=== PATIENT | female | born 1975 | race Caucasian/White ===

== ENCOUNTER → 2019-07-18 10:34 | Outpatient (CLI) | payer OTHER, SELFPAY ==
--- NOTE | ~2019-07-18 | MR_ITS ---
EXAMINATION: MR shoulder LT wo con DATE: 07/18/2019 11:20 INDICATION: Left shoulder pain. TECHNIQUE: Magnetic resonance imaging (MRI) of the left shoulder was performed without intravenous co ntrast. Sequences included axial PD-weighted FS FSE, coronal oblique PD-weighted FS FSE and T2-weight ed FS FSE, and sagittal oblique T2-weighted FS FSE and T1-weighted FSE. COMPARISON: None. FINDINGS: Coracoacromial arch: The acromion undersurface is curved in morphology (type II). Subacromial spurring is noted. There is mild acromioclavicular joint osteoarthritis. There is a physiologic volume of fluid in subacromial/mercado bdeltoid bursa. Rotator cuff: There is mild supraspinatus tendinopathy. Infraspinatus, teres minor, and subscapularis tendons are n ormal. There is no asymmetric fatty atrophy of the rotator cuff muscle bellies. Biceps tendon and glenoid labrum: Biceps tendon is in bicipital groove. Intra-articular biceps tendon is normal. The glenoid labrum is normal. Fluid: There is no glenohumeral joint effusion. Bones/cartilage: Glenoid cartilage is normal. Humeral head cartilage is normal. IMPRESSION: 1. Mild rotator cuff tendinopathy. No tear. 2. Mild acromioclavicular joint osteoarthritis. Reviewed, dictated and finalized at location A. RAFT PNEUDRAULICS REPAIRER
== END ==
PROVIDERS: PCP Family Medicine; Visit Provider Nurse Practitioner Family
DX: M25.512 Pain in left shoulder (principal); M75.82 Other shoulder lesions, left shoulder; M19.012 Primary osteoarthritis, left shoulder
CPT/HCPCS: 73221

== ENCOUNTER 2020-02-14 10:29 | Outpatient (CLI) | payer OTHER, SELFPAY ==
--- NOTE | ~2020-02-14 | US_ITS ---
EXAMINATION: US pelvic complete EXAM DATE: 02/14/2020 11:00 INDICATION: Irregular, frequent menses. TECHNIQUE: Pelvic transabdominal and transvaginal sonogram was performed. There are multiple graysca le and Doppler images available for interpretation. There is no prior study for comparison. FINDINGS: Uterus measures 7.6 x 3.4 x 3.8 cm, and is morphologically normal. Endometrial stripe dustin sures 4 mm, within normal limits. There is no free pelvic fluid. Right adnexa: The ovary measures 2.5 x 1.5 x 2.6 cm and is morphologically normal. Ovarian vascular f low confirmed. Left adnexa: The ovary measures 3.0 x 1.4 x 2.3 cm and is morphologically normal. Ovarian vascular fl ow confirmed. IMPRESSION: Unremarkable pelvic ultrasound exam. Reviewed, dictated and finalized at location A.
== END 2020-02-14 10:30 | disposition home or self-care (01) ==
PROVIDERS: PCP Family Medicine; Visit Provider Nurse Practitioner Family
DX: N92.0 Excessive and frequent menstruation with regular cycle (principal); N92.6 Irregular menstruation, unspecified
CPT/HCPCS: 76856

== ENCOUNTER 2020-06-05 09:16 | Outpatient (CLI) | payer OTHER, SELFPAY ==
--- NOTE | ~2020-06-05 | MM_ITS ---
EXAMINATION: MM screening [facility] BI w prince HISTORY: Screening mammogram TECHNIQUE: Craniocaudal and mediolateral oblique 3-D tomosynthesis images were obtained and synthetic 2-D images were generated. CAD analysis was submitted and interpreted. COMPARISON: 11/28/2017, 07/17/2015, 07/16/2013 BREAST PARENCHYMAL COMPOSITION: The breasts are almost entirely fatty. FINDINGS: A stable left breast masses considered benign given the lack of interval change. There is f ocal asymmetry in the central right breast. There is no evidence of suspicious mass, calcification, o r architectural distortion to suggest malignancy in either breast. There has been no suspicious inter mirella change. IMPRESSION: 1. No mammographic evidence of malignancy. 2. Recommend routine screening mammography in one year. BI-RADS Category 2: Benign finding(s). Reviewed, dictated and finalized at location A. NISTRATIVE SERVICES COORDINATOR
== END 2020-06-05 09:17 | disposition home or self-care (01) ==
LOC: ANHIMG 09:19
PROVIDERS: PCP Family Medicine; Visit Provider Obstetrics & Gynecology
DX: Z12.31 Encounter for screening mammogram for malignant neoplasm of breast (principal)
CPT/HCPCS: 77063; 77067

== ENCOUNTER 2020-11-12 10:10 | Outpatient (CLI) | payer OTHER, SELFPAY ==
--- NOTE | ~2020-11-12 | XR_ITS ---
XR lumbar spine 2-3V DATE: 11/12/2020 10:47 INDICATION: Low back pain. No known injury. TECHNIQUE: AP, lateral, coned lateral lumbosacral views COMPARISON: 08/01/2018 lumbar spine FINDINGS: No fracture or bone destruction or spondylolisthesis. The included lower thoracic and lumba r pedicles are intact. There is mild loss of interspace height at L1-L2 3. The remaining lumbar levels interspaces are well preserved. The sacroiliac joints are normal. IMPRESSION: Mild loss of interspace height at L1-2 and L2-3 Reviewed, dictated and finalized at location A.
== END 2020-11-12 10:11 | disposition home or self-care (01) ==
LOC: ANHIMG 10:12
PROVIDERS: PCP Family Medicine; Visit Provider Nurse Practitioner
DX: M47.816 Spondylosis without myelopathy or radiculopathy, lumbar region (principal)
CPT/HCPCS: 72100

== ENCOUNTER 2021-02-19 14:54 | Outpatient (CLI) | payer OTHER, SELFPAY ==
--- NOTE | ~2021-02-19 | MR_ITS ---
EXAMINATION: MR lumbar spine wo [facility] EXAM DATE: 02/19/2021 15:38 INDICATION: M54.5 - Low back pain . TECHNIQUE: Multi-sequential, multiplanar MR images of the lumbar spine were obtained without contrast . Sagittal T1, T2, T2 fat saturation images. Axial T2 weighted images. Comparison is made to prior examination from 02/16/2015. FINDINGS: Mild thoracolumbar disc disease. Hemangiomata within T12 and L2. There is 2 mm retrolisthes is L5 on S1. The conus medullaris terminates at the T12-L1 level and has normal signal intensity and morphology. Paraspinal soft tissue is unremarkable. Level by level evaluation: T12-L1: Disc does not extend beyond the endplate margin. Facet arthropathy: Mild. Neural foraminal stenosis: No stenosis. Central canal stenosis: No stenosis. L1-L2: Disc does not extend beyond the endplate margin. Facet arthropathy: Mild. Neural foraminal stenosis: No stenosis. Central canal stenosis: No stenosis. L2-L3: Disc does not extend beyond the endplate margin. Facet arthropathy: Mild. Neural foraminal stenosis: No stenosis. Central canal stenosis: No stenosis. L3-L4: There is a mild diffuse disc bulge. Facet arthropathy: Mild. Neural foraminal stenosis: No stenosis. Central canal stenosis: No stenosis. L4-L5: There is a mild diffuse disc bulge. Facet arthropathy: Mild to moderate. Neural foraminal stenosis: Mild right. Central canal stenosis: No stenosis. L5-S1: There is a mild diffuse disc bulge. Facet arthropathy: Mild to moderate. Neural foraminal stenosis: Minimal bilateral. Central canal stenosis: No stenosis. Slight progression in the mild disease and arthropathy compared to 2014. IMPRESSION: Mild to moderate lower lumbar facet arthropathy. Mild disc disease. Reviewed, dictated and finalized at location B.
== END 2021-02-19 14:55 | disposition home or self-care (01) ==
LOC: ANHIMG 15:00
PROVIDERS: PCP Family Medicine; Visit Provider Nurse Practitioner Family
DX: M54.5 Low back pain (principal); M47.896 Other spondylosis, lumbar region; M51.86 Other intervertebral disc disorders, lumbar region
CPT/HCPCS: 72148

== ENCOUNTER 2021-06-11 10:13 | Outpatient (CLI) | payer OTHER, SELFPAY ==
--- NOTE | ~2021-06-11 | MM_ITS ---
EXAMINATION: MM screening [facility] BI w prince HISTORY: Screening TECHNIQUE: Craniocaudal and mediolateral oblique 3-D tomosynthesis images were obtained and synthetic 2-D images were generated. CAD analysis was submitted and interpreted. COMPARISON: Comparison to multiple prior studies sequentially, with oldest reviewed study dated 12/12. BREAST PARENCHYMAL COMPOSITION: There are scattered areas of fibroglandular density. FINDINGS: There is no evidence of suspicious mass, calcification, or architectural distortion to sugg est malignancy in either breast. There has been no suspicious interval change. IMPRESSION: 1. No mammographic evidence of malignancy. 2. Recommend routine screening mammography in one year. BI-RADS Category 1: Negative Reviewed, dictated and finalized at location A. PROJECT MANAGER
== END 2021-06-11 10:14 | disposition home or self-care (01) ==
LOC: ANHIMG 10:15
PROVIDERS: PCP Family Medicine; Visit Provider Obstetrics & Gynecology
DX: Z12.31 Encounter for screening mammogram for malignant neoplasm of breast (principal)
CPT/HCPCS: 77063; 77067

== ENCOUNTER → 2021-08-27 15:05 | Outpatient (CLI) | payer OTHER, SELFPAY ==
--- NOTE | ~2021-08-27 | XR_ITS ---
XR tibia fibula LT 2V DATE: 08/27/2021 16:04 INDICATION: Left lower leg pain TECHNIQUE: AP and lateral views COMPARISON: 10/13/2014 left knee FINDINGS: No fracture or dislocation, periosteal reaction or bone destruction. Normal alignment at th e knee and ankle joints. IMPRESSION: Negative Reviewed, dictated and finalized at location A. IMPRESSION: Negative
== END ==
PROVIDERS: Visit Provider Nurse Practitioner
DX: M79.662 Pain in left lower leg (principal)
CPT/HCPCS: 73590

== ENCOUNTER → 2021-09-20 06:59 | Outpatient (CLI) | payer OTHER, SELFPAY ==
--- NOTE | ~2021-09-20 | MR_ITS ---
EXAMINATION: MR foot LT wo con DATE: 09/20/2021 07:43 INDICATION: Left foot pain TECHNIQUE: Magnetic resonance imaging (MRI) of the left fore/mid foot was performed without intraveno us contrast. Sequences included sagittal T1-weighted FSE, sagittal fluid sensitive FSE STIR, coronal PD-weighted FS FSE, coronal T1-weighted FSE, axial PD-weighted FS FSE, and axial PD-weighted FSE. COMPARISON: None FINDINGS: Bone alignment is normal with normal bone marrow signal throughout. No fracture or pathologic marrow replacing process. Joint spaces appear relatively preserved with physiologic amount of fluid and no e rosions. Visualized portions of the flexor and extensor tendons are normal. The Lisfranc ligament com plex as well as the collateral ligament complex at the metatarsophalangeal and interphalangeal joints are normal. Intrinsic musculature of the foot appears normal. No tenosynovitis, bursitis or other ab normal fluid collections. IMPRESSION: 1. Unremarkable MRI of the left fore and midfoot. Reviewed, dictated and finalized at location B.
== END ==
PROVIDERS: PCP Family Medicine; Visit Provider Podiatrist Foot & Ankle Surgery
DX: M79.672 Pain in left foot (principal)
CPT/HCPCS: 73718

== ENCOUNTER 2021-11-18 10:30 | Outpatient (CLI) | payer SELFPAY | END 2021-11-18 10:31 | disposition home or self-care (01) | LOC: CHSOUTPT 10:33 | PROVIDERS: PCP Family Medicine; Visit Provider Internal Medicine Cardiovascular Disease | DX: E66.9 Obesity, unspecified (principal) | CPT/HCPCS: 99199 ==

== ENCOUNTER → 2022-03-25 15:02 | Outpatient (CLI) | payer OTHER, SELFPAY ==
--- NOTE | ~2022-03-25 | US_ITS ---
EXAMINATION: US pelvic complete w TV DATE: 03/25/2022 15:37 INDICATION: Irregular menses Comparison:Ultrasound dated 02/14/2020 TECHNIQUE: Multiple transabdominal and endovaginal sonographic images of the pelvis performed. FINDINGS: The uterus measures 6.6 x 3 x 3.2 cm. The endometrial complex measures 7 mm. The right ovary measures 1.6 x 1.2 x 1.7 cm and the left ovary measures 2.3 x 1.2 x 2.6 cm. There is a left ovarian cyst measuring 1.7 cm. There are small follicles in each ovary. Normal doppler signal in both ovaries. There is no free fluid in the pelvis. There are no abnormal masses seen on either side. IMPRESSION: 1. Left ovarian cyst measuring 1.7 cm. Reviewed, dictated and finalized at location B.
== END ==
PROVIDERS: PCP Family Medicine; Visit Provider Obstetrics & Gynecology
DX: N92.6 Irregular menstruation, unspecified (principal); N83.202 Unspecified ovarian cyst, left side
CPT/HCPCS: 76830; 76856

== ENCOUNTER 2022-05-12 15:55 | Outpatient (CLI) | payer OTHER, SELFPAY ==
--- NOTE | ~2022-05-12 | US_ITS ---
Duplex Sonography of the bilateral lower extremities: Indication: Swelling, edema Sagittal and transverse B-mode images as well as color-flow imaging were performed on the right and l eft femoral and popliteal veins. B-mode examination was done without and with compression in the tra nsverse plane. There is good visualization of the bilateral common femoral, proximal profunda femora l, superficial femoral, greater saphenous, and popliteal veins. Normal flow was seen on color-flow im aging. Normal compressibility was demonstrated. There is somewhat limited visualization of calf vein s. Bilateral posterior tibial veins are also patent. Right peroneal vein is patent. Impression: No DVT identified. Reviewed, dictated and finalized at location [] CTION COORDINATION ENGINEER Impression: No DVT identified.
== END 2022-05-12 15:56 | disposition home or self-care (01) ==
PROVIDERS: PCP Family Medicine; Visit Provider Nurse Practitioner Family
DX: R60.0 Localized edema (principal)
CPT/HCPCS: 93970

== ENCOUNTER → 2022-05-13 09:08 | Outpatient (CLI) | payer OTHER, SELFPAY ==
--- NOTE | ~2022-05-13 | XR_ITS ---
Right Shoulder Technique: AP and scapular Y views were obtained. Clinical History: Pain Findings: No fracture or dislocation is seen. Osseous alignment is anatomic. The glenohumeral and acr omioclavicular joint spaces are preserved. Soft tissues are unremarkable. Impression: Unremarkable right shoulder radiographs. Reviewed, dictated and finalized at location [] TAL MARKETING ASSISTANT Impression: Unremarkable right shoulder radiographs.
== END ==
PROVIDERS: PCP Family Medicine; Visit Provider Nurse Practitioner Family
DX: M25.511 Pain in right shoulder (principal)
CPT/HCPCS: 73030

== ENCOUNTER 2022-05-27 12:28 | Outpatient (CLI) | payer OTHER, SELFPAY ==
--- NOTE | 2022-05-27 12:33 | ECHO_ITS ---
Patient Info Name: Kaitlin Huang Age: 46 years : 1975 Gender: Female Ht: 62 in Wt: 300 lbs BSA: 2.53 m2 HR: 84 bpm BP: 131 / 84 mmHg Technical Quality: Fair Exam Date: 05/27/2022 12:35 PM Exam Location: [facility] [facility] Patient Status: Outpatient Admit Date: 05/27/2022 Staff Ordering Physician: Campbell Abrams DO Production Broaching Machine Operator: Brionna Sims RDCS Attending Provider: Campbell Abrams DO Referring Physician: Jose Alberto MANSFIELD; Exam Type: CA echo doppler color flow Study Info Indications R60.0 - Localized edema Complete two-dimensional, color flow and Doppler transthoracic echocardiogram is performed. Summary 1. Complete two-dimensional, color flow and Doppler transthoracic echocardiogram is performed. 2. Left ventricular chamber dimension is normal. 3. Left ventricular systolic function is normal, estimated at 65-70%. 4. The left ventricular diastolic function is grade II diastolic dysfunction. 5. E/e' 9 is minimally elevated. 6. Global longitudinal strain is abnormal at -15.9%. 7. No pulmonary hypertension, estimated pulmonary arterial systolic pressure is 31 mmHg. Left Ventricle E/e' 9 is minimally elevated. Global longitudinal strain is abnormal at -15.9%. Left ventricular chamber dimension is normal. Left ventricular systolic function is normal, estimated at 65-70%. The left ventricular diastolic function is grade II diastolic dysfunction. Right Ventricle Right ventricular chamber dimension is normal. Right ventricular systolic function is normal. Left Atria Left atrial chamber dimension is normal. Right Atria Right atrial chamber dimension is normal. Aortic Valve The aortic valve is trileaflet. There is no aortic valve stenosis. There is no aortic valve regurgitation. Pulmonic Valve There is no pulmonic regurgitation. Mitral Valve There is no mitral valve stenosis. There is no mitral valve regurgitation. Tricuspid Valve There is no tricuspid valve regurgitation. No pulmonary hypertension, estimated pulmonary arterial systolic pressure is 31 mmHg. Pericardium/Pleural There is no pericardial effusion. Inferior Vena Cava Normal inferior vena cava with >50% collapse upon inspiration consistent with normal right atrial pressure, 5 mmHg. Aorta The aortic root size at the sinus of Valsalva is normal. Left Ventricular Outflow Tract Name Value Normal LVOT 2D LVOT Diameter 1.9 cm LVOT Doppler LVOT Peak Gradient 7 mmHg LVOT Mean Gradient 4 mmHg LVOT VTI 26 cm LVOT VTI/AV VTI Ratio 0.9 LVOT Stroke Volume 72 ml LVOT CO 5.6 l/min LVOT CI 2.2 l/min/m2 Pulmonic Valve Name Value Normal RVOT Doppler RVOT P
== END 2022-05-27 12:29 | disposition home or self-care (01) ==
LOC: ANHCARD 12:29
PROVIDERS: PCP Family Medicine; Visit Provider Internal Medicine Cardiovascular Disease
DX: R60.0 Localized edema (principal)
CPT/HCPCS: 93306

== ENCOUNTER → 2022-06-24 09:09 | Outpatient (CLI) | payer OTHER, SELFPAY ==
--- NOTE | ~2022-06-24 | MR_ITS ---
EXAMINATION: MR brain/brain stem wo/w con DATE: 06/24/2022 10:08 INDICATION: Hyperprolactinemia. TECHNIQUE: Magnetic resonance imaging (MRI) of the brain and brainstem was performed without and with 20 mL MultiHance intravenous contrast. COMPARISON: Brain MRI 12/30/2009 FINDINGS: The pituitary is normal in size with height of 4 mm and concave superior margin. The infund ibulum is at midline. There are approximately 10 foci of increased T2-weighted signal intensity in th e cerebral white matter. There is no intracranial hemorrhage, acute infarction, or abnormal intracran ial mass lesion. The ventricles are normal in size. There is mild mucosal thickening in the paranasal sinuses. The orbits are normal. The mastoid air cells are normal. IMPRESSION: 1. Normal pituitary. 2. Mild cerebral white matter disease with slight worsening from 12/30/2009. The differential diagnosis includes premature chronic small vessel ischemic disease (especially if the patient has cardiovascul ar risk factors), demyelinating disease such as multiple sclerosis, drug abuse, vasculitis, or reacti ve astrocytosis (gliosis) secondary to nonspecific etiology. Reviewed, dictated and finalized at location A. IMPRESSION: 1. Normal pituitary. 2. Mild cerebral white matter disease with slight worsening from 12/30/2009. The differential diagnosis includes premature chronic small vessel ischemic disease (especially if the patient has cardiovascular risk factors), demyelinating dis ease such as multiple sclerosis, drug abuse, vasculitis, or reactive astrocytos is (gliosis) secondary to nonspecific etiology.
== END ==
PROVIDERS: PCP Family Medicine; Visit Provider Obstetrics & Gynecology
DX: E22.1 Hyperprolactinemia (principal); R93.0 Abnormal findings on diagnostic imaging of skull and head, not elsewhere classified
CPT/HCPCS: 70553; A9577

== ENCOUNTER 2022-07-17 08:15 | Emergency (ER) | payer OTHER, SELFPAY ==
[2022-07-17 08:23] VITALS: BP 141/69; PULSE 96; RESP 16; TEMP 37.1; O2SAT 98
[2022-07-17 08:26] VITALS: BP 141/69; PULSE 96; RESP 16; TEMP 37.1; O2SAT 98
--- NOTE | 2022-07-17 08:36 | ED.DENTAL ---
HPI - Dental/Oral General Chief complaint: Dental/Oral Stated complaint: FACIAL PAIN/SWELLING/NUMBNESS Time Seen by Provider: 07/17/22 08:28 Source: patient Mode of arrival: ambulatory Limitations: no limitations History of Present Illness HPI Narrative: Patient presents today complaining of cough up swelling, pain, and redness to her right lower jaw and right neck with numbness to her right lower lip and chin. Symptoms began yesterday and have been worsening since onset. She has been taking Aleve without relief. Denies a painful to, but states her teeth are numb. She recently received a temporary crown last week and is waiting on a permanent 1. Denies shortness of breath or difficulty swallowing, but states it is painful to swallow. Related Data Home Medications Medication Instructions Recorded Confirmed aspirin 81 mg tablet,delayed 81 mg PO DAILY 05/02/19 07/17/22 release (Adult Low Dose Aspirin) cariprazine 3 mg capsule (Vraylar) 3 mg PO DAILY 05/03/19 07/17/22 clonazepam 0.5 mg tablet 0.5 mg PO DAILY 05/17/19 07/17/22 divalproex 125 mg tablet,delayed 125 mg PO DAILY 12/05/19 07/17/22 release (Depakote) topiramate 50 mg tablet 50 mg PO DAILY 05/18/20 07/17/22 desvenlafaxine succinate 50 mg 50 mg PO DAILY 04/01/21 07/17/22 tablet,extended release 24 hr (Pristiq) fluticasone fur. 200 mcg-umeclid 1 ea inhalation DAILY 08/27/21 07/17/22 62.5 mcg-vilant 25 mcg inhalat.powder divalproex 250 mg tablet,delayed 250 mg PO DAILY 03/31/22 07/17/22 release (Depakote) melatonin 10 mg capsule 10 mg PO QHS PRN Sleep 03/31/22 07/17/22 prazosin 2 mg capsule 2 mg PO DAILY 03/31/22 07/17/22 trazodone 100 mg tablet 100 mg PO DAILY 05/16/22 07/17/22 Allergies Allergy/AdvReac Type Severity Reaction Status Date / Time cat dander Allergy Mild itchy Verified 07/17/22 08:23 grass pollen Allergy Mild itchy Verified 07/17/22 08:23 Review of Systems Review of Systems: CONSTITUTIONAL: Denies body aches, fever, chills, or sweats. EYES: Denies visual changes, redness, or discharge. ENT: Denies rhinorrhea, congestion, sore throat, or otalgia.+ tooth numbness, jaw swelling, lip numbness, painful swallowing. CARDIOVASCULAR: Denies chest pain, palpitations, or edema. RESPIRATORY: Denies cough or dyspnea. GASTROINTESTINAL: Denies abdominal pain, nausea, vomiting, or diarrhea. GENITOURINARY: Denies dysuria or hematuria. SKIN: Denies rash, itching, or wounds. MUSCULOSKELETAL: Denies back pain, joint pain, or myalgia. NEUROLOGIC: Denies headache, numbness, tingling, or weakness. PSYCH: Denies depression or anxiety. [facility] Past Medical History Medical History Anemia Anxiety Asthma Bipolar 1 disorder Depression Dyslipidemia Essential hypertension GERD without esophagitis Heavy menstrual bleeding Hypothyroid Insomnia Intermittent low back pain Irregular periods/menstrual cycles Migraine, unspecified, not intractable, without status migrainosus Nightmares VICKI on CPAP Other anxiety states Pain of left shoulder joint on movement Peripheral edema Stenosis of carotid artery Vitamin D deficiency Surgical History Surgical History History of cholecystectomy (~2013) History of elbow surgery (~2010) Right 2010, Left 2016 [place] teeth extracted (~1993) Family History Family History Mother Family history of osteoporosis Hypertension Leukemia Grandparent Cerebrovascular accident Family history of coronary artery disease Father Family history of thyroid disease Family history of seizure disorder Other Multiple myeloma Other Diabetes mellitus Family history of allergic disorder Social History Social History Smoking status: Former smoker Tobacco type: cigarettes Alcohol
== END 2022-07-17 08:50 | disposition short-term general hospital (02) ==
PROVIDERS: Emergency Provider Nurse Practitioner; PCP Family Medicine
DX: R22.0 Localized swelling, mass and lump, head (principal); R20.0 Anesthesia of skin; J45.909 Unspecified asthma, uncomplicated; E78.5 Hyperlipidemia, unspecified; I10 Essential (primary) hypertension; K21.9 Gastro-esophageal reflux disease without esophagitis; E03.9 Hypothyroidism, unspecified; G47.33 Obstructive sleep apnea (adult) (pediatric); I65.29 Occlusion and stenosis of unspecified carotid artery; F41.9 Anxiety disorder, unspecified; F32.A Depression, unspecified; Z79.82 Long term (current) use of aspirin
CPT/HCPCS: 99212; G0463

== ENCOUNTER 2022-07-17 09:06 | Emergency (ER) | payer OTHER, SELFPAY ==
--- NOTE | ~2022-07-17 | CT_ITS ---
EXAMINATION: CT soft tissue neck w con DATE: 07/17/2022 10:53 INDICATION: Right-sided neck and submandibular swelling. Dental infection. TECHNIQUE: Computed tomography (CT) of the neck was performed with 75 mL Omnipaque-350 intravenous co ntrast. The dose-length product was 600.74 mGy-cm. Automated exposure control and iterative reconstru ction technique were employed. COMPARISON: None FINDINGS: There is mild stranding and subcutaneous inflammatory change of the right maxilla and anter ior neck soft tissues, consistent with cellulitis. No evidence for discrete abscess. No erosive deal es. Paranasal sinuses are unremarkable. Mastoids are pneumatized. Small subcentimeter submandibular a nd cervical lymph nodes, likely reactive. Lung apices are unremarkable. No abnormal contrast enhancem ent in the head or neck. IMPRESSION: 1. Mild soft tissue stranding of the right maxilla and anterior neck, consistent with cellulitis. No evidence for discrete abscess. Reviewed, dictated and finalized at location A. TER POCKET SEWER IMPRESSION: 1. Mild soft tissue stranding of the right maxilla and anterior neck, consisten t with cellulitis. No evidence for discrete abscess.
[2022-07-17 09:16] VITALS: PULSE 108; RESP 15; TEMP 37.1; O2SAT 96
[2022-07-17 09:54] LABS: Basophils Percent Auto 0.1 % (0.2-1.2); Hemoglobin 12.9 g/dL (12.0-15.0); Immature Granulocyte Absolute 0.06 K/mm3 (0.00-0.031); Immature Granulocyte Percent A 0.7 % (0-0.5); Lymphocytes Absolute Auto 0.61 K/mm3 (0.9-3.2); Lymphocytes Percent Auto 7.2 % (18.3-44.2); Mean Corpuscular HGB Conc 32.3 g/dl (32-36); Mean Corpuscular Hemoglobin 29.6 pg (26-34); Mean Corpuscular Volume 91.7 fl (80-100); Mean Platelet Volume 9.4 fl (7.4-10.4); Monocytes Absolute Auto 0.9 K/mm3 (0.1-0.6); Monocytes Percent Auto 10.6 % (2.6-8.5); Neutrophils Absolute Auto 6.9 K/mm3 (1.3-6.7); Neutrophils Percent Auto 81.4 % (45.5-73.1); Platelet Count Result 207 k/mm3 (150-375); Red Blood Count 4.36 M/mm3 (4.2-5.4); White Blood Count 8.5 K/mm3 (4.5-10.0)
[2022-07-17 10:06] LABS: Potassium 3.8 mmol/L (3.4-5.0)
[2022-07-17 10:07] LABS: Alanine Aminotransferase 26 U/L (6-35); Albumin Level 3.9 g/dL (3.5-5.1); Alkaline Phosphatase 101 U/L (38-126); Anion Gap 4 mmol/L (8-16); Aspartate Amino Transferase 22 U/L (14-36); Bilirubin,Total 0.5 mg/dL (0.2-1.3); Blood Urea Nitrogen 5 mg/dL (7-17); Calcium 8.8 mg/dL (8.4-10.2); Carbon Dioxide 26 mmol/L (22-30); Chloride 108 mmol/L (98-107); Estimated CRCL calculation 115 ml/min; Estimated Glomerular Filt Rate > 60; Glucose 132 mg/dL (65-110); Sodium 138 mmol/L (137-145)
--- NOTE | 2022-07-17 10:10 | ED.DENTAL ---
HPI - Dental/Oral General Chief complaint: Dental/Oral Stated complaint: jaw swelling - sent from urgent care Time Seen by Provider: 07/17/22 09:23 Source: patient Mode of arrival: ambulatory Limitations: no limitations History of Present Illness HPI Narrative: Patient is a 46-year-old female who presents to the ED with report of right-sided dental pain, swelling. Patient reports she had a temporary crown placed on her right lower tooth, tooth #30 last Monday by her dentist. She had some discomfort after the procedure but developed worsening pain yesterday. She developed swelling on the right side of her face and jaw. Patient reports having pain with swallowing and chewing, but denies drooling or difficulty keeping down food or drink. Swelling became worse today, patient went to urgent care was referred here for further evaluation. Patient denies any fevers, difficulty breathing, nausea, vomiting. She is not currently on any antibiotics. Related Data Home Medications Medication Instructions Recorded Confirmed aspirin 81 mg tablet,delayed 81 mg PO DAILY 05/02/19 07/17/22 release (Adult Low Dose Aspirin) cariprazine 3 mg capsule (Vraylar) 3 mg PO DAILY 05/03/19 07/17/22 clonazepam 0.5 mg tablet 0.5 mg PO DAILY 05/17/19 07/17/22 divalproex 125 mg tablet,delayed 125 mg PO DAILY 12/05/19 07/17/22 release (Depakote) topiramate 50 mg tablet 50 mg PO DAILY 05/18/20 07/17/22 desvenlafaxine succinate 50 mg 50 mg PO DAILY 04/01/21 07/17/22 tablet,extended release 24 hr (Pristiq) fluticasone fur. 200 mcg-umeclid 1 ea inhalation DAILY 08/27/21 07/17/22 62.5 mcg-vilant 25 mcg inhalat.powder divalproex 250 mg tablet,delayed 250 mg PO DAILY 03/31/22 07/17/22 release (Depakote) melatonin 10 mg capsule 10 mg PO QHS PRN Sleep 03/31/22 07/17/22 prazosin 2 mg capsule 2 mg PO DAILY 03/31/22 07/17/22 trazodone 100 mg tablet 100 mg PO DAILY 05/16/22 07/17/22 Allergies Allergy/AdvReac Type Severity Reaction Status Date / Time cat dander Allergy Mild itchy Verified 07/17/22 09:27 grass pollen Allergy Mild itchy Verified 07/17/22 09:27 Review of Systems Review of Systems: CONSTITUTIONAL: Denies fever, chills, or sweats. ENT: See HPI. CARDIOVASCULAR: Denies chest pain, palpitations, or edema. RESPIRATORY: Denies cough or dyspnea. GASTROINTESTINAL: Denies abdominal pain, nausea, vomiting. All systems reviewed & are unremarkable except as noted in HPI and below PMFSH Past Medical History Medical History Anemia Anxiety Asthma Bipolar 1 disorder Depression Dyslipidemia Essential hypertension GERD without esophagitis Heavy menstrual bleeding Hypothyroid Insomnia Intermittent low back pain Irregular periods/menstrual cycles Migraine, unspecified, not intractable, without status migrainosus Nightmares VICKI on CPAP Other anxiety states Pain of left shoulder joint on movement Peripheral edema Stenosis of carotid artery Vitamin D deficiency Surgical History Surgical History History of cholecystectomy (~2013) History of elbow surgery (~2010) Right 2010, Left 2016 [place] teeth extracted (~1993) Family History Family History Mother Family history of osteoporosis Hypertension Leukemia Grandparent Cerebrovascular accident Family history of coronary artery disease Father Family history of thyroid disease Family history of seizure disorder Other Multiple myeloma Other Diabetes mellitus Family history of allergic disorder Social History Social History Smoking status: Former smoker Tobacco type: cigarettes Alcohol intake: current Alcohol use details: occasional Substance use: never Substance use type: does not use Lack of Transportation: No Lack of
[2022-07-17] MEDS: AMPICILLIN SULB 3 GM/NS 100 ML 3 GM/100 ML VIAL IVPB (11:03)
[2022-07-17] MEDS: SODIUM CHLORIDE 0.9% IV 1,000 ML 999 ML IV CONT (11:03)
[2022-07-17] MEDS: MORPHINE SULFATE (*CRX) 4 MG/ML INJ IV PUSH (11:04)
[2022-07-17] MEDS: ONDANSETRON INJ 4 MG/2 ML VIAL IV PUSH (11:04)
[2022-07-17 11:07] VITALS: BP 127/53; PULSE 71; RESP 16; TEMP 37; O2SAT 96
== END 2022-07-17 12:52 | disposition home or self-care (01) ==
PROVIDERS: Emergency Provider Physician Assistant; PCP Family Medicine
DX: L03.211 Cellulitis of face (principal); K04.7 Periapical abscess without sinus; J45.909 Unspecified asthma, uncomplicated; E78.5 Hyperlipidemia, unspecified; I10 Essential (primary) hypertension; I65.29 Occlusion and stenosis of unspecified carotid artery; E55.9 Vitamin D deficiency, unspecified; G47.33 Obstructive sleep apnea (adult) (pediatric); F31.9 Bipolar disorder, unspecified; F41.9 Anxiety disorder, unspecified; Z87.891 Personal history of nicotine dependence; Z86.2 Personal history of diseases of the blood and blood-forming organs and certain disorders involving the immune mechanism; Z79.82 Long term (current) use of aspirin
CPT/HCPCS: 36415; 70491; 80053; 85025; 96365; 96366; 96375; 99284; J0295; J2270; J2405; J7030; Q9967

== ENCOUNTER 2022-07-29 09:11 | Outpatient (CLI) | payer OTHER, SELFPAY ==
--- NOTE | ~2022-07-29 | MM_ITS ---
EXAMINATION: MM screening [facility] BI w prince HISTORY: Screening TECHNIQUE: Craniocaudal and mediolateral oblique 3-D tomosynthesis images were obtained and synthetic 2-D images were generated. CAD analysis was submitted and interpreted. COMPARISON: Comparison to multiple prior studies sequentially, with oldest reviewed study dated 12/12. BREAST PARENCHYMAL COMPOSITION: There are scattered areas of fibroglandular density. FINDINGS: There is no evidence of suspicious mass, calcification, or architectural distortion to sugg est malignancy in either breast. There has been no suspicious interval change. IMPRESSION: 1. No mammographic evidence of malignancy. 2. Recommend routine screening mammography in one year. BI-RADS Category 1: Negative Reviewed, dictated and finalized at location B. ICAL ASSISTANT CERTIFIED
== END 2022-07-29 09:12 | disposition home or self-care (01) ==
LOC: ANHIMG 09:13
PROVIDERS: PCP Family Medicine; Visit Provider Obstetrics & Gynecology
DX: Z12.31 Encounter for screening mammogram for malignant neoplasm of breast (principal)
CPT/HCPCS: 77063; 77067

== ENCOUNTER → 2022-11-14 15:12 | Outpatient (CLI) | payer OTHER, SELFPAY ==
--- NOTE | ~2022-11-14 | US_ITS ---
EXAMINATION: US carotid duplex BI DATE: 11/14/2022 15:35 INDICATION: Carotid stenosis TECHNIQUE: Grayscale, color Doppler, and pulsed Doppler images of the cervical carotid arteries were obtained. The degree of vessel stenosis is placed in one of the following categories: normal, <50%, 5 0-69%, >=70% but less than near-occlusion, near-occlusion, or total occlusion. Note that percent sten osis relative to normal distal artery lumen diameter is indirectly measured from velocity measurement s as described by Jimenez, et al. Radiology 2003; [id number]:[id number]. Notes: Normal: Peak systolic velocity <125 centimeters/sec and no plaque <50%. Peak systolic velocity <125 ( EDV <40; ICA/CCA PSV ratio <2.0; used these factors only a tandem lesions or low cardiac output or co ntralateral disease) 50-69 %: PSV 125-230 (EDV 40-100; ratio 2-4) >= 70% but less than near occlusion: PSV greater than 230 (EDV > 100; ratio> 4.0) Near Occlusion: PSV that is variable; markedly narrowed lumen Occlusion: Absent flow on color/spectral Doppler and no lumen on patton scale. COMPARISON: None. FINDINGS: RIGHT: The right common carotid artery (CCA) peak systolic velocity (PSV) is 124 cm/s. The right internal ca rotid artery (ICA) PSV is 108 cm/s. The right ICA end-diastolic velocity (EDV) is 27 cm/s. The right ICA/CCA PSV ratio is 0.9. The external carotid artery (ECA) PSV is 96 cm/s. There is antegrade flow i n the right vertebral artery. LEFT: The left CCA PSV is 113 cm/s. The left ICA PSV is 145 cm/s. The left ICA EDV is 28 cm/s. The left ICA /CCA PSV ratio is 1.3. The ECA PSV is 88 cm/s. There is antegrade flow in the left vertebral artery. IMPRESSION: 1. Less than 50% stenosis in the right internal carotid artery by sonographic criteria. 2. 50-69% stenosis in the left internal carotid artery by sonographic criteria. Reviewed, dictated and finalized at location [] IMPRESSION: 1. Less than 50% stenosis in the right internal carotid artery by sonographic c riteria. 2. 50-69% stenosis in the left internal carotid artery by sonographic criteria.
== END ==
PROVIDERS: PCP Family Medicine; Visit Provider Family Medicine
DX: I65.23 Occlusion and stenosis of bilateral carotid arteries (principal)
CPT/HCPCS: 93880

== ENCOUNTER → 2023-05-15 10:40 | Outpatient (CLI) | payer OTHER, SELFPAY ==
--- NOTE | ~2023-05-15 | XR_ITS ---
EXAMINATION: XR_[id number]_CR DATE: 05/15/2023 11:01 INDICATION: Right knee pain TECHNIQUE: Two views of the right knee were obtained. COMPARISON: None. FINDINGS: Alignment is normal. No fracture or osteochondral lesion. There is mild tricompartmental os teoarthritis characterized by tiny marginal osteophytes. No joint effusion/synovitis. Soft tissues a re unremarkable. IMPRESSION: 1. No acute osseous abnormality. Reviewed, dictated and finalized at location B. IT REVIEW OFFICER
== END ==
PROVIDERS: PCP Family Medicine; Visit Provider Nurse Practitioner Family
DX: M25.561 Pain in right knee (principal)
CPT/HCPCS: 73560

== ENCOUNTER 2023-05-31 10:31 | Outpatient (CLI) | payer OTHER, SELFPAY ==
--- NOTE | ~2023-05-31 | CT_ITS ---
EXAMINATION: CTA neck DATE: 05/31/2023 11:01 INDICATION: Occlusion and stenosis of left carotid artery. TECHNIQUE: Computed tomographic angiography (CTA) of the neck was performed with 100 mL Omnipaque-350 intravenous contrast. Automated exposure control and iterative reconstruction technique were employe d. The dose-length product was 817.49 mGy-cm. Maximum intensity projection 3D-reconstructions were cr eated by the technologist on a separate workstation. COMPARISON: Ultrasound 11/14/2022, neck CT 07/17/2022 FINDINGS: There are no pathologically enlarged lymph nodes. The vertebral arteries are codominant. Th ere is no central stenosis of the vertebral arteries. There is minimal plaque in the proximal interna l carotid arteries. There is 0% stenosis of the proximal right internal carotid artery relative to no rmal distal artery lumen diameter (NASCET criteria). There is 0% stenosis of the proximal left internet sales associate al carotid artery relative to normal distal artery lumen diameter. There is mild cervical spondylosis . IMPRESSION: 1. 0% stenosis of the proximal internal carotid arteries relative to normal distal artery lumen diame ters (NASCET criteria). Reviewed, dictated and finalized at location E. O PERFORMER IMPRESSION: 1. 0% stenosis of the proximal internal carotid arteries relative to normal dis eloisa artery lumen diameters (NASCET criteria).
[2023-05-31 10:55] LABS: Estimated Glomerular Filt Rate > 60
== END 2023-05-31 10:32 | disposition home or self-care (01) ==
PROVIDERS: PCP Family Medicine; Visit Provider Internal Medicine Cardiovascular Disease
DX: I65.22 Occlusion and stenosis of left carotid artery (principal)
CPT/HCPCS: 70498; Q9967

== ENCOUNTER 2023-07-06 08:56 | Outpatient (CLI) | payer OTHER, SELFPAY ==
[2023-07-25 16:57] VITALS: BMI 54.8
--- NOTE | 2023-07-25 16:57 | WPDSLEEPSTUD ---
Sleep Study Date of Study: 07/06/23 Ordering Provider: NANCY Santos Interpreting Physician: Gwen Betts DO Sleep Study Type: CPAP Titration Height: 1.55 m Weight: 131.542 kg Body Mass Index: 54.8 Neck Circumference (inches): 16 [place]: 5 Reason for Sleep Study Unrefreshing sleep despite CPAP use. Sleep History The patient is a 47-year-old female with bipolar disorder, anxiety, asthma, depression, dyslipidemia, hypertension, GERD, hypothyroidism, insomnia, migraines, peripheral edema, carotid artery stenosis, tobacco use and previously diagnosed sleep apnea on CPAP that had a sleep study ordered by the pulmonary group due to on refreshing sleep despite CPAP use. The patient denies awakening from sleep short of breath. She denies awakening at night with heartburn, belching or cough. She rarely snores and is never loud enough that others complain. She occasionally has trouble sleeping when she has a cold. She denies waking up gasping for air throughout the night. She denies having breathing problems at night observed by herself or others. She occasionally sweats excessively at night. She rarely has heart palpitations or irregular heartbeats during the night. She denies falling asleep during the day and while driving. She denies sleep paralysis, cataplexy and hypnagogic / hypnopompic hallucinations. She denies having trouble at school or work due to sleepiness. She rarely feels afraid of going to sleep. She occasionally has nightmares. She occasionally remembers her dreams. She frequently has thoughts racing through her mind. She occasionally feels sad, depressed and anxious. She rarely has muscular tension. She denies noticing parts of her body jerk. She denies kicking during the night. She denies having crawling and aching feelings in her legs and denies having leg pain during the night. She frequently grinds her teeth during sleep but never awakens with morning jaw pain. She is occasionally bothered by pain during the day but never awakened by pain during the night. He rarely wakes up feeling stiff in the morning. She rarely wakes up with sore or achy muscles. She rarely wakes up with pain in the neck, spine and other joints. She goes to bed at 8:00 p.m. on weekdays and at 9:00 p.m. on the weekends. It takes her 1-2 hours to fall asleep. She wakes up 2-3 times throughout the night to urinate and is able to fall back asleep within 30 minutes. She wakes up at 4:30 a.m. on weekdays and 8:00 a.m. on the weekends. She typically gets 9 hours of sleep per night. She will stay in bed for 5 minutes after waking up in the morning. She currently lives alone. She denies consuming any caffeinated beverages within 2 hours of bedtime. She denies engaging in physical exercise before bedtime. She will read before falling asleep. She denies watching television before falling asleep. She will take naps in the afternoon or the evening but they are not refreshing. She consumes 1 caffeinated beverage per day. She currently smokes half a pack of cigarettes per day. She rarely consumes alcohol. She denies recreational drug use. [facility] Past Medical History Medical History Anemia Anxiety Asthma Bipolar 1 disorder Depression Dyslipidemia Essential hypertension GERD without esophagitis Heavy menstrual bleeding Hyperprolactinemia Hypothyroid Insomnia Intermittent low back pain Irregular periods/menstrual cycles Migraine, unspecified, not intractable, without status migrainosus Nightmares VICKI on CPAP Other anxiety states Pain of left shoulder joint on movement Peripheral edema Stenosis of carotid artery Vitamin D deficiency Surgical History Surgical History History of cholecystectomy (~2013) History of elbow surgery (~2010) Right 2010, Left 2016 [place] teeth extracted (~1993) Family History
== END 2023-07-07 06:00 | disposition home or self-care (01) ==
LOC: ANHCSM 09:17
PROVIDERS: PCP Family Medicine; Visit Provider Physician Assistant
DX: G47.33 Obstructive sleep apnea (adult) (pediatric) (principal); Z99.89 Dependence on other enabling machines and devices
CPT/HCPCS: 95811

== ENCOUNTER 2023-10-12 15:16 | Outpatient (CLI) | payer OTHER, SELFPAY ==
--- NOTE | ~2023-10-12 | XR_ITS ---
XR shoulder RT min 2V DATE: 10/12/2023 15:38 INDICATION: Right shoulder injury TECHNIQUE: 5 views COMPARISON: 05/13/2022 right shoulder FINDINGS: No fracture or dislocation, periosteal reaction or bone destruction or abnormal soft tissue calcification. IMPRESSION: Negative Reviewed, dictated and finalized at location B. IMPRESSION: Negative
== END 2023-10-12 15:17 ==
LOC: GOSHIMG 15:19
PROVIDERS: PCP Family Medicine; Visit Provider Nurse Practitioner Family
DX: S49.91XA Unspecified injury of right shoulder and upper arm, initial encounter (principal); X58.XXXA Exposure to other specified factors, initial encounter
CPT/HCPCS: 73030

== ENCOUNTER 2023-10-26 06:34 | Outpatient (CLI) | payer OTHER, SELFPAY ==
--- NOTE | ~2023-10-26 | CT_ITS ---
EXAMINATION: CT shoulder RT wo con DATE: 10/26/2023 07:03 INDICATION: Right shoulder pain. Unspecified right shoulder injury. TECHNIQUE: Computed tomography (CT) of the right shoulder was performed without intravenous contrast. Automated exposure control and iterative reconstruction technique were employed. The dose-length pro duct was 477.88 mGy-cm. COMPARISON: Right shoulder radiographs 10/12/2023 FINDINGS: Bone alignment is normal. No fracture. There is mild osteoarthritis of glenohumeral joint c haracterized by tiny osteophytes. There is severe osteoarthritis of acromioclavicular joint. The rota tor cuff muscle bellies are normal. IMPRESSION: 1. Polyarticular osteoarthritis. Reviewed, dictated and finalized at location A.
== END 2023-10-26 06:35 | disposition home or self-care (01) ==
PROVIDERS: PCP Family Medicine; Visit Provider Nurse Practitioner Family
DX: M25.511 Pain in right shoulder (principal); S49.91XA Unspecified injury of right shoulder and upper arm, initial encounter; M19.011 Primary osteoarthritis, right shoulder
CPT/HCPCS: 73200

== ENCOUNTER 2023-12-06 07:42 | Outpatient (CLI) | payer OTHER, SELFPAY ==
--- NOTE | ~2023-12-06 | MM_ITS ---
EXAMINATION: MM screening tasha BI w prince HISTORY: Screening TECHNIQUE: Craniocaudal and mediolateral oblique 3-D tomosynthesis images were obtained and synthetic 2-D images were generated. CAD analysis was submitted and interpreted. COMPARISON: Comparison to multiple prior studies sequentially, with oldest reviewed study dated 04/28. BREAST PARENCHYMAL COMPOSITION: Not Dense: Breast are almost entirely fatty. FINDINGS: There is no evidence of suspicious mass, calcification, or architectural distortion to sugg est malignancy in either breast. There has been no suspicious interval change. IMPRESSION: 1. No mammographic evidence of malignancy. 2. Recommend routine screening mammography in one year. BI-RADS Category 1: Negative Reviewed, dictated and finalized at location B.
== END 2023-12-06 07:43 | disposition home or self-care (01) ==
LOC: ANHIMG 07:44
PROVIDERS: PCP Family Medicine; Visit Provider Obstetrics & Gynecology
DX: Z12.31 Encounter for screening mammogram for malignant neoplasm of breast (principal)
CPT/HCPCS: 77063; 77067

== ENCOUNTER 2024-01-18 12:50 | Outpatient (CLI) | payer OTHER, SELFPAY ==
--- NOTE | ~2024-01-18 | MR_ITS ---
EXAMINATION: MR brain/brain stem wo/w con DATE: 01/18/2024 14:29 INDICATION: White matter disease TECHNIQUE: Magnetic resonance imaging (MRI) of the brain and brainstem was performed without and with 20 mL Multihance intravenous contrast. Sequences included sagittal and axial T1-weighted FLAIR, axia l T1-weighted FSE, axial diffusion-weighted FS EPI, sagittal T2-weighted FLAIR, axial T2*-weighted GR E, axial T2-weighted FLAIR Propeller, and axial T2-weighted Propeller. Postcontrast sequences include d axial, coronal, and sagittal T1-weighted FSE. Apparent diffusion coefficient (ADC) maps were create d. COMPARISON: 06/24/2022 FINDINGS: There are no areas of restricted diffusion to suggest acute infarction. No intracranial hemorrhage or abnormal intracranial mass lesion. No interval change in a few scattered foci of increased T2 weight ed signal intensity in the cerebral white matter including a couple bilateral peripherally radiating pericallosal lesions. No new white matter lesions identified. There are no areas of abnormal enhancem ent postcontrast imaging. There are no intraparenchymal signal abnormalities seen on the other pulse sequences. The ventricles are symmetric and normal in size. There are no abnormal extra-axial fluid c ollections. Flow voids are seen in the cerebral arteries on the T2-weighted sequences consistent with their expected patency. Small mucous retention cyst at the inferior right maxillary sinus. Visualize d orbits and soft tissues are unremarkable. IMPRESSION: 1. No interval change in disproportionate for age mild scattered cerebral white matter disease for wh ich the differential remains premature chronic small vessel ischemic disease (especially if the patie nt has cardiovascular risk factors), demyelinating disease such as multiple sclerosis, drug abuse, va sculitis, or reactive astrocytosis (gliosis) secondary to nonspecific etiology. Reviewed, dictated and finalized at location A. IMPRESSION: 1. No interval change in disproportionate for age mild scattered cerebral white matter disease for which the differential remains premature chronic small vess el ischemic disease (especially if the patient has cardiovascular risk factors) , demyelinating disease such as multiple sclerosis, drug abuse, vasculitis, or reactive astrocytosis (gliosis) secondary to nonspecific etiology.
--- NOTE | ~2024-01-18 | MR_ITS ---
EXAMINATION: MR cervical spine wo/w con DATE: 01/18/2024 14:30 INDICATION: Unspecified white matter disease. TECHNIQUE: Magnetic resonance imaging (MRI) of the cervical spine was performed without and with 20 m L Multihance intravenous contrast. Sequences included sagittal T2-weighted FSE, sagittal T2-weighted FS FSE, sagittal T1-weighted FSE, axial T2-weighted FSE, and axial T1-weighted SE. Postcontrast seque nces included sagittal T1-weighted FS FSE, and axial T1-weighted FS SE. COMPARISON: None FINDINGS: Bone alignment is normal. Vertebral body heights are normal. Bone marrow signal intensity is normal . Mild disc height loss and annular fissure at C5-C6. Cord signal intensity is normal. No abnormally enhancing lesions identified. The following disc levels are specifically discussed: C2-C3: The disc does not extend beyond the endplate margin. There is no uncovertebral joint osteoarth ritis. There is mild right and moderate left facet joint osteoarthritis. There is no neural foraminal stenosis. There is no central canal stenosis. C3-C4: The disc does not extend beyond the endplate margin. There is no uncovertebral joint osteoarth ritis. There is moderate bilateral facet joint osteoarthritis. There is no neural foraminal stenosis. There is no central canal stenosis. C4-C5: The disc does not extend beyond the endplate margin. There is mild right uncovertebral joint o steoarthritis. There is mild bilateral facet joint osteoarthritis. There is no neural foraminal steno sis. There is no central canal stenosis. C5-C6: Disc is bulging with annular fissure. There is mild bilateral uncovertebral joint osteoarthrit is. There is mild bilateral facet joint osteoarthritis. There is mild left neural foraminal stenosis. There is mild central canal stenosis. C6-C7: Disc is minimally bulging. There is no uncovertebral joint osteoarthritis. There is mild left facet joint osteoarthritis. There is no neural foraminal stenosis. There is no central canal stenosis . C7-T1: The disc does not extend beyond the endplate margin. There is no uncovertebral joint osteoarth ritis. There is mild left and moderate right facet joint osteoarthritis. There is no neural foraminal stenosis. There is no central canal stenosis. IMPRESSION: 1. Mild cervical spondylosis. 2. Normal cervical spinal cord signal with no abnormal enhancing lesions. Reviewed, dictated and finalized at location A.
--- NOTE | ~2024-01-18 | MR_ITS ---
EXAMINATION: MR thoracic spine wo/w con DATE: 01/18/2024 14:31 INDICATION: White matter disease TECHNIQUE: Magnetic resonance imaging (MRI) of the thoracic spine was performed without and with 20 m L Multihance intravenous contrast. Sagittal localizer T1-weighted FSE of the cervicothoracic spine wa s obtained. Sequences included sagittal T2-weighted FSE, sagittal T2-weighted FS FSE, sagittal T1-anup ghted FSE and axial T1-weighted SE. Postcontrast sequences included axial T2-weighted FSE, sagittal T 1-weighted FS FSE, and axial T1-weighted FS SE. COMPARISON: None FINDINGS: Mild cervicothoracic dextrocurvature with more caudal mild thoracic levocurvature. Sagittal alignment is normal. Vertebral body heights are normal.T1 hyperintense hemangiomas atT11 and L1.Marrow signal is otherwise normal. Disc heights are normal.The distally not extending beyond the endplate margins w ith no central canal stenosis. There is multilevel mild to moderate bilateral thoracic facet osteoart hritis. Mild neural foraminal stenosis on the right at T7-T8 through T9-T10. There is focal increased T2 signal without enhancement, cord expansion or myelomalacia at the anterior more right and left an terior aspect of the cord at the level of T10-T11. The conus terminates at T12. With no abnormal enha ncing lesions identified. IMPRESSION: 1. Minimal thoracic spondylosis with multilevel mild to moderate facet osteoarthritis but no central canal stenosis. 2. Single nonspecific T2 hyperintense cord lesion at the anterior left anterior cord at level of T10- T11 without associated cord expansion, enhancement or myelomalacia. This is suspicious for demyelinat ing disease such as multiple sclerosis. Less likely differential include sequela prior traumatic or v ascular insult, infection or other inflammatory etiologies. Reviewed, dictated and finalized at location A. IMPRESSION: 1. Minimal thoracic spondylosis with multilevel mild to moderate facet osteoart hritis but no central canal stenosis. 2. Single nonspecific T2 hyperintense cord lesion at the anterior left anterior cord at level of T10-T11 without associated cord expansion, enhancement or mye lomalacia. This is suspicious for demyelinating disease such as multiple sclero sis. Less likely differential include sequela prior traumatic or vascular insul t, infection or other inflammatory etiologies.
== END 2024-01-18 12:51 ==
LOC: MICIMG 12:52
PROVIDERS: PCP Family Medicine; Visit Provider Psychiatry & Neurology Neurology
DX: R90.82 White matter disease, unspecified (principal); M47.892 Other spondylosis, cervical region
CPT/HCPCS: 70553; 72156; 72157; A9577

== ENCOUNTER 2024-05-06 01:19 | Day surgery (SDC) | payer OTHER, SELFPAY ==
[2024-04-15 13:27] VITALS: BMI 56.8
[2024-05-06 07:46] VITALS: BP 145/79; PULSE 86; RESP 20; TEMP 36; O2SAT 97; BMI 57.2
[2024-05-06 07:55] LABS: BEDSIDEPREGUCG Negative (Negative)
[2024-05-06] MEDS: LACTATED RINGERS 1,000 ML 150 ML IV CONT (07:56)
--- NOTE | 2024-05-06 08:17 | P.PNAN_ITS ---
Anes - Initial Pre Proc Eval Procedure: Operation Date: 05/06/24 09:00 Proposed Procedures p Screening Colonoscopy - Emanuel Brooks MD Date/Time: 05/06/24 08:17 Surgeon: Emanuel Brooks MD Pre Op Diagnosis: Neoplasm screening Patient Data Age: 48 Gender: F Height: 1.57 m Weight: 142.1 kg Last Vital Signs Temp 96.8 F L 05/06/24 07:46 Pulse 86 05/06/24 07:46 Resp 20 05/06/24 07:46 BP 145/79 H 05/06/24 07:46 Pulse Ox 97 05/06/24 07:46 O2 Del Method Room Air 05/06/24 07:46 Allergies Allergy/AdvReac Type Severity Reaction Status Date / Time cat dander Allergy Mild itchy Verified 05/06/24 07:38 grass pollen Allergy Mild itchy Verified 05/06/24 07:38 Home Medications Medication Instructions Recorded Confirmed Type aspirin 81 mg tablet,delayed 81 mg PO DAILY 05/02/19 05/06/24 History release (Adult Low Dose Aspirin) cariprazine 3 mg capsule (Vraylar) 3 mg PO DAILY 05/03/19 05/06/24 History clonazepam 0.5 mg tablet 0.5 mg PO DAILY 05/17/19 05/06/24 History lansoprazole 15 mg capsule,delayed 15 mg PO DAILY #90 caps 11/11/19 05/06/24 Rx release (Prevacid) albuterol sulfate 90 mcg/actuation 2 puff inhalation .4xd PRN 09/16/21 05/06/24 Rx aerosol inhaler (Ventolin HFA) shortness of breath or wheezing #8.5 grams melatonin 10 mg capsule 10 mg PO QHS PRN Sleep 03/31/22 05/06/24 History prazosin 2 mg capsule 2 mg PO DAILY 03/31/22 05/06/24 History fluticasone fur. 200 mcg-umeclid 1 inh inhalation DAILY 11/10/22 05/06/24 History 62.5 mcg-vilant 25 mcg inhalat.powder (Trelegy Ellipta) desvenlafaxine succinate 50 mg 100 mg PO DAILY 03/01/23 05/06/24 History tablet,extended release 24 hr (Pristiq) trazodone 100 mg tablet 150 mg PO DAILY 03/01/23 05/06/24 History divalproex 125 mg tablet,delayed 250 mg PO BID 05/16/23 05/06/24 History release (Depakote) bupropion HCl 150 mg 24 hr tablet, 150 mg PO DAILY 08/07/23 05/06/24 History extended release cholecalciferol (vitamin D3) 100 100 mcg PO DAILY 08/07/23 05/06/24 History mcg (4,000 unit) tablet atomoxetine 40 mg capsule 60 mg PO DAILY 11/13/23 05/06/24 History (Strattera) levothyroxine 50 mcg tablet 50 mcg PO DAILY #90 tabs 01/12/24 05/06/24 Rx oxybutynin chloride 10 mg 10 mg PO DAILY #30 tabs 04/01/24 05/06/24 Rx tablet,extended release 24 hr losartan 50 mg-hydrochlorothiazide 1 tablet PO DAILY 04/15/24 05/06/24 History 12.5 mg tablet [id number]-[id number] 3.5 1 drp EACH EYE Q6H #5 mL 04/29/24 05/06/24 Rx mg/mL-10,000 unit/mL-0.1% eye drops Laboratory Tests 05/06/24 07:46 POC Urine HCG, Qual Negative (Negative) Patient hx anesthesia problems: none Family hx anesthesia problems: none Results Review: All pre-operative results and documents have been reviewed as part of the pre- operative evaluation. [facility] Past Medical History Medical History Anemia Anxiety Asthma Bipolar 1 disorder Depression Dyslipidemia Essential hypertension GERD without esophagitis Heavy menstrual bleeding Hyperprolactinemia Hypothyroid Injury of right shoulder and upper arm Insomnia Intermittent low back pain Irregular periods/menstrual cycles Migraine, unspecified, not intractable, without status migrainosus Nightmares VICKI on CPAP Other anxiety states Pain of left shoulder joint on movement Peripheral edema Pulled muscle Stenosis of carotid artery Vitamin D deficiency Surgical History Surgical History History of cholecystectomy (~2013) History of elbow surgery (~2010) Right 2010, Left 2017 [place] teeth extracted (~1993) Family History Family History Mother Family history of osteoporosis Hypertension Leukemia Grandparent Cerebrovascular accident Family history of coronary artery disease Father Family history of thyroid disease Family history of seizure disorder Other Multiple myeloma Other Diabetes mellitus Family history of allergic disorder Social History Social History Social History: Caffeine- coffee daily Smoking packs per day: 0.5 Smoking cigarettes per day: 10.0 Years smoked: 3.5 Smoking pack-years: 1.75 Smoking status: Current every day smoker Tobacco type: cigarettes Alcohol intake: never Alcohol use details: occasional Substance use: never Substance use type: does not use Do You Feel Safe in your Home?: Yes Lack of Transportation: No Lack of Food: Never True Current Housing: I Have Housing Concerned About Future Housing: No Difficulty Paying Gas/Electric Bills: No Difficulty Paying for Meds: No Currently Unemployed: No Education: High School Diploma/GED Difficulty w/ Childcare or Family Care: No Living arrangements: alone Occupation/Education: occupation Additional occupation/education comments: [employer] job Gender identity (if verbalized by the patient): Female Spiritual care concerns: No Agree to blood products: Yes Anes - Eval Final PreProcedure Day of Procedure 05/06/24 08:17 Patient weight: super morbidly obese Heart: regular rate and rhythm Lungs: clear to auscultation Airway: Mallampati scale class III Neurological: alert and oriented Last oral intake: >/= 8 hours ASA classification: IV Emergent: no Anesthetic plan: proceed Anesthesia type and monitoring: general GIVS and standard monitoring Results Review: All pre-operative results and documents have been reviewed as part of the pre- operative evaluation. Informed Consent: The patient's anesthetic plan and its attendant risks and benefits were discussed with the patient/family/POA. Questions were solicited and answers pr ovided to the satisfaction of the patient/family/POA.
--- NOTE | 2024-05-06 08:34 | P.HP_ITS ---
History of Present Illness History of Present Illness Consent: Risks, benefits, and alternatives have been discussed and questions answered. Patient agrees to proceed with procedure. Chief complaint: Neoplasm screening Narrative: Kaitlin Huang is a 48 year old female here for first screening colonoscopy Review of Systems Review of Systems: All systems reviewed & are unremarkable except as noted in HPI and below PMFSH Past Medical History Medical History Anemia Anxiety Asthma Bipolar 1 disorder Depression Dyslipidemia Essential hypertension GERD without esophagitis Heavy menstrual bleeding Hyperprolactinemia Hypothyroid Injury of right shoulder and upper arm Insomnia Intermittent low back pain Irregular periods/menstrual cycles Migraine, unspecified, not intractable, without status migrainosus Nightmares VICKI on CPAP Other anxiety states Pain of left shoulder joint on movement Peripheral edema Pulled muscle Stenosis of carotid artery Vitamin D deficiency Surgical History Surgical History History of cholecystectomy (~2013) History of elbow surgery (~2010) Right 2010, Left 2016 Bryan teeth extracted (~1993) Family History Family History Mother Family history of osteoporosis Hypertension Leukemia Grandparent Cerebrovascular accident Family history of coronary artery disease Father Family history of thyroid disease Family history of seizure disorder Other Multiple myeloma Other Diabetes mellitus Family history of allergic disorder Social History Social History Social History: Caffeine- coffee daily Smoking packs per day: 0.5 Smoking cigarettes per day: 10.0 Years smoked: 3.5 Smoking pack-years: 1.75 Smoking status: Current every day smoker Tobacco type: cigarettes Alcohol intake: never Alcohol use details: occasional Substance use: never Substance use type: does not use Do You Feel Safe in your Home?: Yes Lack of Transportation: No Lack of Food: Never True Current Housing: I Have Housing Concerned About Future Housing: No Difficulty Paying Gas/Electric Bills: No Difficulty Paying for Meds: No Currently Unemployed: No Education: High School Diploma/GED Difficulty w/ Childcare or Family Care: No Living arrangements: alone Occupation/Education: occupation 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 Gender identity (if verbalized by the patient): Female Spiritual care concerns: No Agree to blood products: Yes Meds Home Medications and Allergies Home Medications Medication Instructions Recorded Confirmed Type aspirin 81 mg tablet,delayed 81 mg PO DAILY 05/02/19 05/06/24 History release (Adult Low Dose Aspirin) cariprazine 3 mg capsule (Vraylar) 3 mg PO DAILY 05/03/19 05/06/24 History clonazepam 0.5 mg tablet 0.5 mg PO DAILY 05/17/19 05/06/24 History lansoprazole 15 mg capsule,delayed 15 mg PO DAILY #90 caps 11/11/19 05/06/24 Rx release (Prevacid) albuterol sulfate 90 mcg/actuation 2 puff inhalation .4xd PRN 09/16/21 05/06/24 Rx aerosol inhaler (Ventolin HFA) shortness of breath or wheezing #8.5 grams melatonin 10 mg capsule 10 mg PO QHS PRN Sleep 03/31/22 05/06/24 History prazosin 2 mg capsule 2 mg PO DAILY 03/31/22 05/06/24 History fluticasone fur. 200 mcg-umeclid 1 inh inhalation DAILY 11/10/22 05/06/24 History 62.5 mcg-vilant 25 mcg inhalat.powder (Trelegy Ellipta) desvenlafaxine succinate 50 mg 100 mg PO DAILY 03/01/23 05/06/24 History tablet,extended release 24 hr (Pristiq) trazodone 100 mg tablet 150 mg PO DAILY 03/01/23 05/06/24 History divalproex 125 mg tablet,delayed 250 mg PO BID 05/16/23 05/06/24 History release (Depakote) bupropion HCl 150 mg 24 hr tablet, 150 mg PO DAILY 08/07/23 05/06/24 History extended release cholecalciferol (vitamin D3) 100 100 mcg PO DAILY 08/07/23 05/06/24 History mcg (4,000 unit) tablet atomoxetine 40 mg capsule 60 mg PO DAILY 11/13/23 05/06/24 History (Strattera) levothyroxine 50 mcg tablet 50 mcg PO DAILY #90 tabs 01/12/24 05/06/24 Rx oxybutynin chloride 10 mg 10 mg PO DAILY #30 tabs 11/04/24 12/09/24 Rx tablet,extended release 24 hr losartan 50 mg-hydrochlorothiazide 1 tablet PO DAILY 04/15/24 05/06/24 History 12.5 mg tablet ixsrlpma-ezzfpuhyg-ucqehkoo 3.5 1 drp EACH EYE Q6H #5 mL 04/29/24 05/06/24 Rx mg/mL-10,000 unit/mL-0.1% eye drops Allergies Allergy/AdvReac Type Severity Reaction Status Date / Time cat dander Allergy Mild itchy Verified 05/06/24 07:38 grass pollen Allergy Mild itchy Verified 05/06/24 07:38 Vital Signs Vital Signs - 24 hr 05/06/24 07:46 Temperature 96.8 F L Pulse Rate 86 Respiratory Rate 20 Blood Pressure 145/79 H Pulse Oximetry 97 Oxygen Delivery Room Air Exam Const: General: comfortable and no acute distress HENMT: Face/Nose/Sinus: Normal nares present Eyes: General: appearance normal, both eyes and all related structures Neck: Neck: no JVD Resp: Auscultation: clear to auscultation bilaterally Cardio: Rate: regular rate Rhythm: regular rhythm GI: Inspection: non-distended GI Palp: Yes Soft to palpation Skin: General skin exam: normal color Neuro: General: gait normal Speech: normal speech Extrem: General: normal to inspection Psych: Mental Status: mental status grossly normal Assessment and Plan Assessment and plan (1) Screening for colon cancer: Code(s): Z12.11 - Encounter for screening for malignant neoplasm of colon Status: Acute Assessment and Plan: colonoscopy
[2024-05-06 08:49] VITALS: BP 128/80; PULSE 87; RESP 17; O2SAT 97
[2024-05-06 08:59] VITALS: BP 125/68; PULSE 83; RESP 20; O2SAT 96
[2024-05-06 09:09] VITALS: BP 122/68; PULSE 74; RESP 20; O2SAT 97
== END 2024-05-06 09:17 | disposition home or self-care (01) ==
PROVIDERS: Anesthesiology; PCP Family Medicine; Referring Provider Nurse Practitioner; Visit Provider Internal Medicine Gastroenterology
PROC: 0DJD8ZZ Inspection of Lower Intestinal Tract, Via Natural or Artificial Opening Endoscopic (ICD-10-PCS; CPT 45378; principal; 2024-05-06 09:00)
DX: Z12.11 Encounter for screening for malignant neoplasm of colon (principal); D12.4 Benign neoplasm of descending colon; K57.30 Diverticulosis of large intestine without perforation or abscess without bleeding; E78.5 Hyperlipidemia, unspecified; I10 Essential (primary) hypertension; E03.9 Hypothyroidism, unspecified; D64.9 Anemia, unspecified; G47.00 Insomnia, unspecified; K21.9 Gastro-esophageal reflux disease without esophagitis; E22.1 Hyperprolactinemia; F41.9 Anxiety disorder, unspecified; J45.909 Unspecified asthma, uncomplicated; F31.9 Bipolar disorder, unspecified; G43.909 Migraine, unspecified, not intractable, without status migrainosus; G47.33 Obstructive sleep apnea (adult) (pediatric); Z99.89 Dependence on other enabling machines and devices; E55.9 Vitamin D deficiency, unspecified; F17.210 Nicotine dependence, cigarettes, uncomplicated; E66.01 Morbid (severe) obesity due to excess calories; Z68.43 Body mass index [BMI] 50.0-59.9, adult; Z79.82 Long term (current) use of aspirin; Z79.51 Long term (current) use of inhaled steroids; Z98.890 Other specified postprocedural states; Z90.49 Acquired absence of other specified parts of digestive tract; Z86.79 Personal history of other diseases of the circulatory system; Z80.6 Family history of leukemia; Z82.49 Family history of ischemic heart disease and other diseases of the circulatory system
CPT/HCPCS: 45385; 88305; J2003; J2704; J7120

== ENCOUNTER 2024-09-26 13:45 | Outpatient (CLI) | payer OTHER, SELFPAY ==
--- NOTE | ~2024-09-26 | CT_ITS ---
CT Scan of the Chest without Contrast: Clinical Indication: Lung cancer screening, nicotine dependence Technique: Contiguous sections were acquired throughout the chest without intravenous contrast. Dose reduction technique was used on this scan by utilizing automated exposure control and iterative recon struction technique. The dose-length product (DLP) was 511.49 mGy-cm. Findings: There is no evidence of any significant mediastinal, hilar or axillary lymphadenopathy. The mediastin al soft tissues appear normal. There is no evidence of pleural or pericardial effusion. 2 mm peripheral right upper lobe nodule present, most likely benign. Images through the upper abdomen reveal no abnormalities. Impression: Lung RADS 2: Benign appearance. 12 month follow-up screening CT advised. Reviewed, dictated and finalized at location . Impression: Lung RADS 2: Benign appearance. 12 month follow-up screening CT advised.
--- OUTSIDE RECORDS SUMMARY | 2024-09-26 14:34 | XMS_ITS | Referral Summary ---
Author Organization [facility] Address [address] [place] [address] Care Team Providers Care Senior Web Services Developer Name Role Phone Miryam Lozoya MD Primary Care Provider Campbell Abrams DO Unavailable [phone] Encounters Date Type Department Care Team Description 09/17/2024 10:12 AM CDT - 09/17/2024 11:59 PM CDT Hospital Encounter [facility] Orthopedic Imaging [address] [place] [address] Right knee pain, unspecified chronicity Discharge Disposition: Discharge to home or self care 09/17/2024 10:00 AM CDT Office Visit [facility] Orthopaedic Surgery [address] [place] [address] Susanna Hammer PA Chronic pain of right knee (Primary Dx); Primary osteoarthritis of right knee 09/02/2024 9:45 AM CDT Office Visit [facility] at [address] [address] Mariah Grant NP Non-recurrent acute serous otitis media of right ear (Primary Dx) 08/26/2024 11:15 AM CDT Office Visit [facility] Orthopaedic Surgery [address] [place] [address] [place] [id number] Griselda Bernal MD Arthritis of right acromioclavicular joint (Primary Dx) 07/29/2024 12:00 PM GARMENT MANUFACTURING SUPERVISOR Office Visit [facility] Orthopaedic Surgery [facility] [place] [address] [place] [address] Griselda Bernal MD Arthritis of right acromioclavicular joint (Primary Dx) 07/12/2024 12:30 PM GARMENT MANUFACTURING SUPERVISOR - 07/12/2024 2:55 PM GARMENT MANUFACTURING SUPERVISOR Surgery [facility] Operating Room [id number] [place] [address] Griselda Bernal MD Right Shoulder Arthroscopic Subacromial Decompression 07/12/2024 1:17 PM GARMENT MANUFACTURING SUPERVISOR Anesthesia Event [facility] Operating Room [address] [place] [address] Aldo Bhatti MD Gardner, Kari Elizabeth, NP 07/12/2024 10:13 AM GARMENT MANUFACTURING SUPERVISOR - 07/12/2024 4:28 PM GARMENT MANUFACTURING SUPERVISOR Hospital Encounter [facility] Operating Room [address] [place] [address] Griselda Bernal MD Arthritis of right acromioclavicular joint (Primary Dx); Subacromial bursitis of right shoulder joint Discharge Disposition: Discharge to home or self care from Last 3 Months Allergies Active Allergy Reactions Criticality Noted Date Comments Cat's Claw Itching Low 07/20/2022 Grass Pollen Itching Low 07/20/2022 Medications lansoprazole (PREVACID) 15 mg capsule take 1 capsule by oral route every day before a meal 0 0 02/05/20 13 Active levothyroxine (SYNTHROID, LEVOTHROID) 50 mcg tablet take 1 tablet by oral route every day 0 0 06/30/19 16 Active albuterol HFA (PROVENTIL HFA,VENTOLIN HFA,PROAIR HFA) 90 mcg/actuation inhalerIndicat ions:Acute Asthma Attack Inhale 2 puffs as needed Active divalproex DR (DEPAKOTE) 250 mg EC tabletIndicati ons:Bipolar Disorder Take 1 tablet (250 mg total) by mouth 2 (two) times a day 03/18/20 18 Active traZODone (DESYREL) 100 mg tablet 03/18/20 18 Active cetirizine 10 mg capsuleIndicat ions:Allergic Rhinitis Take 10 mg by mouth nightly Active clonazePAM (KlonoPIN) 0.5 mg tabletIndicati ons:sleep Take 1 tablet (0.5 mg total) by mouth nightly Active Trelegy Ellipta 200-62.5-25 mcg inhalerIndicat ions:Maintenan ce Therapy for Asthma Inhale 1 puff every morning Active desvenlafaxine ER 50 mg 24 hr tabletIndicati ons:major depressive disorder Take 2 tablets (100 mg total) by mouth every morning Active cariprazine (Vraylar) 3 mg capsule capsuleIndicat ions:Depressio n Treatment Adjunct Take 1 capsule (3 mg total) by mouth every morning Active cholecalcifero l (VITAMIN D-3) 50,000 unit capsuleIndicat ions:Vitamin D Deficiency Take 1 capsule (50,000 Units total) by mouth once a week Takes on Active escitalopram (LEXAPRO) 5 mg tabletIndicati ons:Anxiety with Depression Take 1 tablet (5 mg total) by mouth every morning 05/26/20 24 Active ketorolac (TORADOL) 10 mg tablet Take 1 tablet (10 mg total) by mouth every 6 (six) hours as needed for pain 12 tablet 07/12/19 25 Active Additional Information Patient not taking.Reported on 09/17/2024 oxyCODONE (ROXICODONE) 5 mg immediate release tabletIndicati ons:Pain Take 1 tablet (5 mg total) by mouth every 6 (six) hours as needed for pain 20 tablet 07/12/19 25 Active Additional Information Patient not taking.Reported on 09/17/2024 senna-docusate (PERICOLACE) 8.6-50 mg Take 1 tablet by mouth 2 (two) times a day as needed for constipation 30 tablet 07/12/19 25 Active atomoxetine (STRATTERA) 60 mg capsule Take 1 capsule (60 mg total) by mouth daily 08/20/19 25 Active losartan-hydro CHLOROthiazide (HYZAAR) 50-12.5 mg per tablet 08/13/19 25 Active oxyBUTYnin XL (DITROPAN-XL) 10 mg 24 hr tablet Take 1 tablet (10 mg total) by mouth daily 08/20/19 25 Active nystatin powder APPLY POWDER TOPICALLY THREE TIMES DAILY 08/09/19 25 Active losartan (COZAAR) 50 mg tabletIndicati ons:hypertensi on Take 1 tablet (50 mg total) by mouth every morning 025 Discontinued Hospital, Clinic, or Other Facility Administered Medication Ordered Dose Route Frequency Start Date End Date Status lidocaine (XYLOCAINE) 10 mg/mL (1 %) injection 3 mLIndications:Admini stration of Local Anesthesia 3 mL One-Time Injection 09/17/2024 5 Ended methylPREDNISolone acetate (DEPO-medrol) injection 80 mgIndications:Chroni c pain of right knee,Primary osteoarthritis of right knee 80 mg intra-artic One-Time Injection 09/17/2024 5 Ended Active Problems Problem Noted Date Diagnosed Date Subacromial bursitis of right shoulder joint Arthritis of right acromioclavicular joint 05/27 Right shoulder pain 05/27/2024 Enthesopathy of hip region 12/14/2022 Hip pain 12/14/2022 Lateral epicondylitis 12/14/2022 Lesion of ulnar nerve 12/14/2022 Osteoarthritis 12/14/2022 Pain in limb 12/14/2022 Osteoarthrosis 07/23/2022 Asthma 07/20/2022 Bipolar affective 07/20/2022 Mandibular abscess 07/20/2022 HTN (hypertension), benign 07/20/2022 Assessment & Plan (12/15/2022 12:30 PM CDT): Stable continue amlodipine 5 mg. Episode of loss of consciousness 07/11/2017 Sleep apnea 07/11/2017 Bipolar I disorder 07/11/2017 Migraine headache 07/11/2017 Elbow pain 11/10/2016 Carotid artery disease 02/04/2013 Overview (12/15/2022): Assessment & Plan (12/15/2022 12:30 PM CDT): Left internal carotid artery with 50-69% stenosis. Continue risk factor modification with ASA statin therapy in good blood pressure control. Follow-up in 1 year with repeat carotid duplex. Hypertension 02/04/2013 Overview (09/02/2016): HYPERTENSION NOS Neck pain 02/04/2013 Overview (09/02/2016): Neck pain Social History Tobacco Use Types Packs/Day Years Used Date Smoking Tobacco: Former Cigarettes 0.5 2 0 05/29/2008 - 05/29/2010 Passive Smoke Exposure: Past Smokeless Tobacco: Never Tobacco Cessation:Counseling Given: No Alcohol Use Standard Drinks/Week Comments Yes 0 (1 standard drink = 0.6 oz pur e alcohol) AUDIT-C Answer Date Recorded Q1: How often do you have a drink containing alc ohol? Monthly or less 07/12/2024 Q2: How many drinks containi ng alcohol do you have on a typical day when you are drinking? 1 or 2 07/12/2024 Q3: How often do you have si x or more drinks on one occasion? Never 07/12/2024 Personal Safety Answer Date Recorded Have you ever been in or are you currently in a harmful physical or emotional relationship or is someone making you feel afraid or unsafe? Denies 07/12/2024 Comments No Sex and Gender Information Value Date Recorded Sex Assigned at Not on file Legal Sex Female 2:57 AM GARMENT MANUFACTURING SUPERVISOR Gender Identity Not on file Sexual Orientation Not on file Last Filed Vital Signs Vital Sign Reading Time Taken Comments Blood Pressure 130/78 09/02/2024 9:39 AM CDT Pulse 79 09/02/2024 9:39 AM CDT Temperature 36.6 C (97.9 F) 09/02/2024 9:39 AM CDT Respiratory Rate 24 09/02/2024 9:39 AM CDT Oxygen Saturation 97% 09/02/2024 9:39 AM CDT Inhaled Oxygen Concentration - - Weight 147.9 kg (326 lb) 09/17/2024 9:52 AM CDT Height 157.5 cm (5' 2 ) 09/17/2024 9:52 AM CDT Body Mass Index 59.63 09/17/2024 9:52 AM CDT Plan of Treatment Not on file Procedures Procedure Name Priority Date/Time Associated Diagnosis Comments XR KNEE RIGHT 3 VIEWS Schedule Routine, Read Routine (OP Routine) 09/17/2024 10:23 AM CDT Right knee pain, unspecified chronicity CT ARTHROCENTESIS ASPIR&/INJ MAJOR JT/BURSA W/O US Routine 09/17/2024 10:00 AM CDT Chronic pain of right knee Primary osteoarthritis of right knee POCT GLUCOSE DEVICE Routine 07/12/2024 3:28 PM GARMENT MANUFACTURING SUPERVISOR POCT GLUCOSE DEVICE Routine 07/12/2024 2:03 PM GARMENT MANUFACTURING SUPERVISOR CT AN PROCEDURE PLACEHOLDER Routine 07/12/2024 1:57 PM GARMENT MANUFACTURING SUPERVISOR CT AN ELECTIVE ENDOTRACHEAL AIRWAY Routine 07/12/2024 1:57 PM GARMENT MANUFACTURING SUPERVISOR EXCISION DISTAL CLAVICLE 07/12/2024 1:15 PM GARMENT MANUFACTURING SUPERVISOR Arthritis of right acromioclavicular joint Right shoulder pain, unspecified chronicity Case Notes Beach Chair with Trimano, Sling Shot Special Needs Beach Chair with Trimano, Sling Shot ARTHROSCOPY SHOULDER SUBACROMIAL DECOMPRESSION 07/12/2024 1:15 PM GARMENT MANUFACTURING SUPERVISOR Arthritis of right acromioclavicular joint Right shoulder pain, unspecified chronicity Case Notes Beach Chair with Trimano, Sling Shot Special Needs Beach Chair with Trimano, Sling Shot CT AN PROCEDURE PLACEHOLDER Routine 07/12/2024 12:22 PM GARMENT MANUFACTURING SUPERVISOR POCT GLUCOSE DEVICE Routine 07/12/2024 11:01 AM GARMENT MANUFACTURING SUPERVISOR POCT HCG, URINE Routine 07/12/2024 from Last 3 Months Results * XR Knee Right 3 Views (09/17/2024 10:23 AM CDT) Anatomical Region Laterality Modality Lower Extremities, Knee Right Digital Radiography 09/18/2024 9:24 AM CDT Impressions 09/18/2024 9:24 AM CDT No acute fracture or subluxation is seen. No significant degenerative changes. Mild lateral placement of the patella bilaterally seen in the sunrise view. No joint effusion. Electronically signed by: Vangie Betancourt M.D. Narrative 09/18/2024 9:24 AM CDT EXAMINATION: XR KNEE RIGHT 3 VIEWS DATE: 09/17/2024 10:15 AM HISTORY: R knee pain COMPARISON: None. Procedure Note Vangie Betancourt MD - 09/18/2024 EXAMINATION: XR KNEE RIGHT 3 VIEWS DATE: 09/17/2024 10:15 AM HISTORY: R knee pain COMPARISON: None. IMPRESSION: No acute fracture or subluxation is seen. No significant degenerative changes. Mild lateral placement of the patella bilaterally seen in the sunrise view. No joint effusion. Electronically signed by: Vangie Betancourt M.D. us Susanna SANTAMARIA IMG XR PROCEDURES Final R esult * CT ARTHROCENTESIS ASPIR&/INJ MAJOR JT/BURSA W/O US (09/17/2024 10:00 AM CDT) Narrative Susanna Hammer PA - 09/17/2024 10:00 AM CDT Susanna Hammer PA 09/17/2024 10:52 AM Large Joint Injection: R knee Performed by: Susanna Hammer PA Authorized by: Susanna Hammer PA Large Joint Injection/Aspiration: Consent Given by: Patient Site marked: the procedure site was marked Verbal consent obtained: Yes Written consent obtained: No Supporting Documentation: Indications: Pain Procedure Details: Location: Knee Site: R knee Prep: patient was prepped using a clean technique Needle Size: 22 G Approach: Superior lateral Ultrasound guided: No Fluroscopic guidance: No Medications: 3 mL lidocaine 10 mg/mL (1 %); 80 mg methylPREDNISolone acetate 80 mg/mL Patient tolerance: Patient tolerated the procedure well with no immediate complications us Susanna SANTAMARIA IN CLINIC/BEDSIDE ORDERAB LES Final Result * POCT glucose (07/12/2024 3:28 PM GARMENT MANUFACTURING SUPERVISOR) Glucose, POC 138 70 - 199 mg/dL Comment: Interpretive Data Glucose is assumed to be non-fasting. Fasting Glucose reference ranges are: 0 - 150 years: 70 mg/dL - 99 mg/dL Current interpretive data was last revised on 2014. POC Performer [id number] [employer] POC Device Number [id number] MARITO DUMAS Blood 07/12/2024 3:28 PM GARMENT MANUFACTURING SUPERVISOR 07/12/2024 3:28 PM GARMENT MANUFACTURING SUPERVISOR Griselda Bernal MD LAB POCT ORDERABLES - DEVICE Final Result Performing Organization Address [facility] de Phone Number [facility] JOSE ARMANDOCH [address] [facility] [place] [address] * POCT glucose (07/12/2024 2:03 PM GARMENT MANUFACTURING SUPERVISOR) [facility] Glucose, POC 111 70 - 199 mg/dL Comment: Interpretive Data Glucose is assumed to be non-fasting. Fasting Glucose reference ranges are: 0 - 150 years: 70 mg/dL - 99 mg/dL Current interpretive data was last revised on 2014. POC Performer [id number] [employer] POC Device Number [id number] [id number] Blood 07/12/2024 2:03 PM GARMENT MANUFACTURING SUPERVISOR 07/12/2024 2:03 PM GARMENT MANUFACTURING SUPERVISOR Griselda Bernal MD LAB POCT ORDERABLES - DEVICE Final Result Performing Organization Address [facility] Phone Number [facility] [address] [facility] [place] [address] * CT AN ELECTIVE ENDOTRACHEAL AIRWAY, CT AN PROCEDURE PLACEHOLDER (07/12/2024 1:57 PM GARMENT MANUFACTURING SUPERVISOR) Narrative Loida Davila CRNA - 07/12/2024 1:57 PM GARMENT MANUFACTURING SUPERVISOR Loida Davila CRNA 07/12/2024 1:57 PM Airway Patient location: OR Urgency: elective Indications for airway management: anesthesia Difficult airway: no Staff: Placed by: GRACE: Loida Davila CRNA Airway prep: Preoxygenated: yes Patient position: sniffing Mask difficulty assessment: 1 - vent by mask Spontaneous ventilation during airway: absent Sedation level during airway: GA Final airway details: Final airway type: endotracheal airway Tube type: ETT ETT size: 7.5 mm Cuffed: yes Technique used for successful ETT placement: video laryngoscopy Insertion site: oral Blade type: Miguel Video blade type: Castillo Blade size: 4 Cormack-Lehane (video): grade I - full view of glottis Cuff volume: 7 mL Cuff inflated with: air ETT to teeth: 22 cm Placement verified by: auscultation and CO2 detection Airway secured with: silk tape Number of attempts: 1 Additional comments: Atraumatic. Cuff to MOP. Taped and secured Aldo Bhatti MD ANESTHESIA ORDERABLES Final Result * CT AN PROCEDURE PLACEHOLDER (07/12/2024 12:22 PM GARMENT MANUFACTURING SUPERVISOR) Narrative Aldo Bhatti MD - 07/12/2024 12:22 PM GARMENT MANUFACTURING SUPERVISOR Yoel Khan MD 07/12/2024 12:23 PM Peripheral Block Patient location during procedure: pre-op holding Reason for block: post-op pain management per surgeon request Ultrasound image in chart or stored: yes Block type: single shot Laterality: right Block type: brachial plexus - interscalene Staff: Supervising provider: Aldo Bhatti MD Placed by: Fellow: Yoel Khan MD Procedure prep: Preprocedure checklist: patient identified, procedure contraindications assessed, site marked, procedure consent, surgical consent, IV checked, risks, benefits and alternatives discussed, monitors and equipment checked and timeout performed Patient position: head of bed elevated Procedure performed while patient: sedate with meaningful contact Monitoring: ECG, oximetry and blood pressure Supplemental O2: nasal cannula Prep solution: chlorhexidine/alcohol PPE: provider hat/mask, sterile gloves and sterile probe cover and gel Skin infiltrated with lidocaine 1%: yes Peripheral nerve block: Technique: ultrasound guided Needle type: insulated, short-bevel and echogenic Needle gauge: 20 G Needle length: 80 mm Injection assessment: injection made incrementally with constant monitoring, local visualized surrounding nerve on ultrasound, negative aspiration for heme, no paresthesias noted, normal resistance to injection and see flowsheet for medication details Assessment: Block success: full evaluation pending Events: patient tolerated procedure well with no complications us Yoel Khan MD ANESTHESIA ORDERABLES Final R esult * POCT glucose (07/12/2024 11:01 AM GARMENT MANUFACTURING SUPERVISOR) Glucose, POC 112 70 - 199 mg/dL Comment: Interpretive Data Glucose is assumed to be non-fasting. Fasting Glucose reference ranges are: 0 - 150 years: 70 mg/dL - 99 mg/dL Current interpretive data was last revised on 2014. POC Performer [id number] [employer] POC Device Number [id number] [employer] [facility] Blood 07/12/2024 11:0 1 AM GARMENT MANUFACTURING SUPERVISOR 07/12/2024 11:01 AM GARMENT MANUFACTURING SUPERVISOR Griselda Bernal MD LAB POCT ORDERABLES - DEVICE Final Result [facility] [id number] [facility] [address] * POCT hCG, urine (07/12/2024) Pathologist [facility] HCG, ur, POC Negative Negative Lot Number [id number] QC Backgroud Clear Acceptable QC Control Line Acceptable Urine 07/12/2024 Historical Provider POINT OF CARE TEST ORDERA BLES Final Result from Last 3 Months Insurance [facility] [employer] [facility] [employer] Care Teams Senior Web Services Developer Relationship Specialty Start Date End Date Miryam Lozoya MD [address] [facility] [address] [facility] [address] [place] [address] PCP - General Family Practice 04/30/24 Campbell Abrams DO [address] [facility] [address] [facility] [address] [place] [address] Petrophysical Engineer Cardiology 06/27/24
--- OUTSIDE RECORDS SUMMARY | 2024-09-26 14:34 | XMS_ITS | Clinical Summary ---
Author Organization [facility] Address [address] [place] [address] Care Team Providers Care Glassware Selector Name Role Phone Miryam Lozoya MD Primary Care Provider Campbell Abrams DO Unavailable [phone] Allergies Active Allergy Reactions Criticality Noted Date [...] Neck pain 02/04/2013 Overview (09/02/2016): Neck pain Encounters Date Type Department Care Team Description 09/17/2024 10:12 AM CDT - 09/17/2024 11:59 PM CDT Hospital Encounter [facility] Orthopedic Imaging [address] [place] [address] Right knee pain, unspecified chronicity Discharge Disposition: Discharge to home or self care 09/17/2024 10:00 AM CDT Office Visit [facility] Orthopaedic Surgery [address] [place] [address] Susanna Hammer PA Chronic pain of right knee (Primary Dx); Primary osteoarthritis of right knee 09/02/2024 9:45 AM CDT Office Visit [facility] Care at [address] [address] Mariah Grant NP Non-recurrent acute serous otitis media of right ear (Primary Dx) 08/26/2024 11:15 AM CDT Office Visit [facility] Orthopaedic Surgery [address] [place] [address] [address]th [place] [address] [place] [address] Griselda Bernal MD Arthritis of right acromioclavicular joint (Primary Dx) 07/29/2024 12:00 PM FLASK FITTER Office Visit [facility] Orthopaedic Surgery [address] [place] [address] 12th [place] [address] [place] [address] Griselda Bernal MD Arthritis of right acromioclavicular joint (Primary Dx) 07/12/2024 1:17 PM FLASK FITTER Anesthesia Event [facility] Operating Room [address] [place] [address] Aldo Bhatti MD Gardner, Kari Elizabeth, NP 07/12/2024 12:30 PM FLASK FITTER - 07/12/2024 2:55 PM FLASK FITTER Surgery [facility] Operating Room [address] [place] [address] Griselda Bernal MD Right Shoulder Arthroscopic Subacromial Decompression 07/12/2024 10:13 AM FLASK FITTER - 07/12/2024 4:28 PM FLASK FITTER Hospital Encounter [facility] Operating Room [address] [place] [address] Griselda Bernal MD Arthritis of right acromioclavicular joint (Primary Dx); Subacromial bursitis of right shoulder joint Discharge Disposition: Discharge to home or self care from Last 3 Months Surgical History Surgery Date Site/Laterality Comments OTHER SURGICAL HISTORY Tennis elbow surgery [place] CHOLECYSTECTOMY Cholecystectomy - (Added by TW Conv) ELBOW ARTHROPLASTY 05/29/2016 - 05/28/2017 Left Elbow Arthroplasty - (Added by TW Conv) COLONOSCOPY UPPER GASTROINTESTINAL ENDOSCOPY WISDOM TOOTH EXTRACTION Medical History Medical History Date Comments Gastroesophageal reflux disease GERD Asthma Asthma Hypertension Hypertension Hx Other Medical hypothyroidism; Comments: [facility] 06/30/2015 - Hx Other Medical obesity; Commen ts: [facility] 06/30/2015 - Hx Other Medical dyslipidemia; C omments: [facility] 06/30/2015 - Hx Other Medical peripheral carl a; Comments: [facility] 06/30/2015 - Hx Other Medical migraines; Comm ents: [facility] 06/30/2015 - Personal history of other di seases of the circulatory system History of hypertension - (A dded by TW Conv) Personal history of other en docrine, nutritional and metabolic disease History of hyperlipi demia - (Added by TW Conv) Personal history of other en docrine, nutritional and metabolic disease History of hypothyro idism - (Added by TW Conv) Depression 2015 Sleep apnea 2015 Thyroid disease 2009 Diabetes mellitus (HCC) 05/20 Anxiety 2016 Family History Medical History Relation Name Comments COPD Father Shahab COPD; Lung disease Father Shahab Family history of lung disease - (Added by TW Conv) Seizures Father Shahab Family history of seizures - (Added by TW Conv) Depression Mother Yennifer Hypertension Mother Yennifer Family history of hypertension - (Added by TW Conv) Mental illness Mother Yennifer Family histor y of mental disorder - (Added by TW Conv) Other Mother Yennifer Pre-DM, HTN; Other Other 2 No heart dz in family; Anesthesia problems Neg Hx Relation Name Status Comments Father Shahab Alive Mother Yennifer Alive Other 1 Alive Other 2 Social History Tobacco Use Types Packs/Day Years [...] on file Legal Sex Female 2:57 AM FLASK FITTER Gender Identity Not on file Sexual Orientation Not on file Obstetrics History Last Filed Vital Signs Vital Sign Reading [...] 09/17/2024 9:52 AM CDT Plan of Treatment Health Maintenance Due Date Last Done Comments Breast Cancer Screening-Mammogram 1974 Cervical Cancer Screening 1974 Colon Cancer Screening-Colonoscopy 1974 Depression Screening 1974 Hepatitis C Screening 1974 Hepatitis B Screening 1992 Regular Well Visit/Exam 18-64 1992 Pneumococcal vaccine <65 (2 of 2 - PPSV23) 04/20/2016 02/24/2016 DTaP/Tdap/Td Vaccine (2 - Td or Tdap) 05/29/2024 05/29/2014 Zoster Vaccine (1 of 2) 2024 Influenza Vaccine (Season Ended) 2025 03/05/2023, 03/29/2022, 03/04/2021, Additional history exists Procedures Procedure Name Priority Date/Time Associated Diagnosis Comments XR KNEE RIGHT 3 VIEWS Schedule Routine, Read Routine (OP Routine) 09/17/2024 10:23 AM CDT Right knee pain, unspecified chronicity [place] ARTHROCENTESIS ASPIR&/INJ MAJOR JT/BURSA W/O US Routine 09/17/2024 10:00 AM CDT Chronic pain of right knee Primary osteoarthritis of right knee POCT GLUCOSE DEVICE Routine 07/12/2024 3:28 PM FLASK FITTER POCT GLUCOSE DEVICE Routine 07/12/2024 2:03 PM FLASK FITTER [place] AN PROCEDURE PLACEHOLDER Routine 07/12/2024 1:57 PM FLASK FITTER [place] AN ELECTIVE ENDOTRACHEAL AIRWAY Routine 07/12/2024 1:57 PM FLASK FITTER EXCISION DISTAL CLAVICLE 07/12/2024 1:15 PM FLASK FITTER Arthritis of right acromioclavicular joint Right shoulder pain, unspecified chronicity Case Notes Beach Chair with Trimano, Sling Shot Special Needs Beach Chair with Trimano, Sling Shot ARTHROSCOPY SHOULDER SUBACROMIAL DECOMPRESSION 07/12/2024 1:15 PM FLASK FITTER Arthritis of right acromioclavicular joint Right shoulder pain, unspecified chronicity Case Notes Beach Chair with Trimano, Sling Shot Special Needs Beach Chair with Trimano, Sling Shot [place] AN PROCEDURE PLACEHOLDER Routine 07/12/2024 12:22 PM FLASK FITTER POCT GLUCOSE DEVICE Routine 07/12/2024 11:01 AM FLASK FITTER POCT HCG, URINE Routine 07/12/2024 from Last [...] IMG XR PROCEDURES Final R esult * [place] ARTHROCENTESIS ASPIR&/INJ MAJOR JT/BURSA W/O US (09/17/2024 [...] Result * POCT glucose (07/12/2024 3:28 PM FLASK FITTER) Glucose, POC 138 70 - 199 mg/dL Comment: Interpretive Data Glucose is assumed to be non-fasting. Fasting Glucose reference ranges are: 0 - 150 years: 70 mg/dL - 99 mg/dL Current interpretive data was last revised on 2014. POC Performer [id number] [employer] POC Device Number [id number] MARITO DUMAS Blood 07/12/2024 3:28 PM FLASK FITTER 07/12/2024 3:28 PM FLASK FITTER Griselda Bernal MD LAB POCT ORDERABLES - DEVICE Final Result Performing Organization Address [facility] de Phone Number [employer]ARUNA [facility] [address] [facility] Technologies[facility] [employer] [place], [place] [phone] * POCT glucose (07/12/2024 2:03 PM FLASK FITTER) Glucose, POC 111 70 - 199 mg/dL Comment: Interpretive Data Glucose is assumed to be non-fasting. Fasting Glucose reference ranges are: 0 - 150 years: 70 mg/dL - 99 mg/dL Current interpretive data was last revised on 2014. POC Performer [id number] [employer] POC Device Number [id number] MARITO SUÁREZeTobb Blood 07/12/2024 2:03 PM FLASK FITTER 07/12/2024 2:03 PM FLASK FITTER Griselda Bernal MD LAB POCT ORDERABLES - DEVICE Final Result Performing Organization Address [facility] de Phone Number MARITO SUÁREZCH [address] [facility] TechnologiesSal[facility] [employer] [place], [place] [phone] * [place] AN ELECTIVE ENDOTRACHEAL AIRWAY, [place] AN PROCEDURE PLACEHOLDER (07/12/2024 1:57 PM FLASK FITTER) Narrative Loida Davila CRNA - 07/12/2024 1:57 PM FLASK FITTER Loida Davila CRNA 07/12/2024 1:57 PM Airway Patient location: OR Urgency: elective Indications for airway management: anesthesia Difficult airway: no Staff: Placed by: FLOOR TECH: Loida Davila CRNA Airway prep: Preoxygenated: yes [...] Atraumatic. Cuff to MOP. Taped and secured us Aldo Bhatti MD ANESTHESIA ORDERABLES Final Result * [place] AN PROCEDURE PLACEHOLDER (07/12/2024 12:22 PM FLASK FITTER) Narrative Aldo Bhatti MD - 07/12/2024 12:22 PM FLASK FITTER Yoel Khan MD 07/12/2024 12:23 PM Peripheral [...] esult * POCT glucose (07/12/2024 11:01 AM FLASK FITTER) Glucose, POC 112 70 - 199 mg/dL Comment: Interpretive Data Glucose is assumed to be non-fasting. Fasting Glucose reference ranges are: 0 - 150 years: 70 mg/dL - 99 mg/dL Current interpretive data was last revised on 2014. POC Performer [id number] MARITO BJCH POC Device Number [id number] [facility] BJWCH Blood 07/12/2024 11:0 1 AM FLASK FITTER 07/12/2024 11:01 AM FLASK FITTER Griselda Bernal MD LAB POCT ORDERABLES - DEVICE Final Result Performing Organization Address City/State/[facility] Co de Phone Number MARITO [facility] [address] [facility]. [place] [address] * POCT hCG, urine (07/12/2024) HCG, ur, POC Negative Negative Lot Number [id number] QC Backgroud Clear Acceptable QC Control Line Acceptable Urine 07/12/2024 Historical Provider POINT OF CARE TEST ORDERA BLES Final Result from Last 3 Months Insurance [facility] Care Teams Glassware Selector Relationship Specialty Start Date End Date Miryam Lozoya MD [address] [place] [address] PCP - General Family Practice 04/30/24 Campbell Abrams DO [address] [place] [address] Optical Systems Engineer Cardiology 06/27/24
--- OUTSIDE RECORDS SUMMARY | 2024-09-26 14:34 | XMS_ITS | Clinical Summary ---
Author Organization [facility] Address [address] [place] [address] Phone Care Team Providers Care Vibrator Operator Name Role Phone Miryam Lozoya MD Primary Care Provider Allergies Active Allergy Reactions Criticality Noted Date Comments Cat's Claw Itching Low 07/20/2022 Grass Pollen Itching Low 07/20/2022 Medications albuterol sulfate HFA 90 mcg/actuation aerosol inhaler Take 2 Puffs by inhalation every 6 hours as needed. Active Levothyroxine 50 mcg Capsule Take 50 mcg by mouth daily. Active fluticasone-ume clidinium-vilan terol (TRELEGY ELLIPTA) 200-62.5-25 mcg Disk with Device Take 1 Puff by inhalation daily. Active lansoprazole (PREVACID) 15 mg Capsule, Delayed Release(E.C.) Take 15 mg by mouth daily. Active cariprazine 3 mg capsule Take 3 mg by mouth daily. Active desvenlafaxine (PRISTIQ) 50 mg Extended Release 24 hour tablet Take 50 mg by mouth daily. Active divalproex (DEPAKOTE) 250 mg Delayed Release tablet Take 250 mg by mouth daily after supper. Active divalproex (DEPAKOTE) 125 mg Tablet, Delayed Release (E.C.) Take 125 mg by mouth daily with lunch. Active prazosin (MINIPRESS) 2 mg capsule Take 2 mg by mouth late in the day. Active topiramate (TOPAMAX) 50 mg tablet Take 50 mg by mouth daily. Active traZODone (DESYREL) 100 mg tablet Take 100 mg by mouth daily at bedtime. Active losartan (COZAAR) 50 mg tablet Take 50 mg by mouth daily. Active aspirin (SETH CHEWABLE) 81 mg Tablet, Chewable Take 81 mg by mouth daily. Active clonazePAM (KlonoPIN) 0.5 mg Tablet Take 0.5 mg by mouth 2 times daily. Active Cholecalciferol , Vitamin D3, 50 mcg (2,000 unit) Capsule Take by mouth. A ctive MELATONIN ORAL Take 10 mg by mouth daily at bedtime. Active oxyCODONE (ROXICODONE) 5 mg tabletIndicatio ns:Mandibular abscess Take 1 Tablet (5 mg) by mouth every 6 hours as needed for Break-Through Pain. 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 Morbid obesity with BMI of 50.0-59.9, adult 06/30 Asthma 07/20/2022 Bipolar affective 07/20/2022 Carotid artery disease 02/04/2013 Overview (07/23/2022): Carotid disease, bilateral Social History Tobacco Use Types Packs/Day Years Used Date Smoking Tobacco: Every Day Cigarettes Tobacco Cessation:Ready to Q uit: Not Asked; Counseling Given: Not Answered Comments Unknown Sex and Gender Information Value Date Recorded Sex Assigned at Not on file Legal Sex Female 9:10 AM MANAGER MONEY Gender Identity Not on file Sexual Orientation Not on file Last Filed Vital Signs Vital Sign Reading Time Taken Comments Blood Pressure 131/72 07/23/2022 8:32 AM MANAGER MONEY Pulse 64 07/23/2022 8:32 AM MANAGER MONEY Temperature 36.7 C (98 F) 07/23/2022 8:32 AM MANAGER MONEY Respiratory Rate 16 07/23/2022 9:23 AM MANAGER MONEY Oxygen Saturation 96% 07/23/2022 8:32 AM MANAGER MONEY Inhaled Oxygen Concentration - - Weight 135.2 kg (298 lb) 07/21/2022 12:42 PM MANAGER MONEY Height 157.5 cm (5' 2 ) 07/21/2022 12:42 PM MANAGER MONEY Body Mass Index 54.5 07/21/2022 12:42 PM MANAGER MONEY Plan of Treatment Health Maintenance Due Date Last Done Comments Pre-Diabetes and Diabetes Screening 1974 DTAP/TDAP/TD VACCINES (1 - Tdap) 1993 HEPATITIS B VACCINES (1 of 3 - 19+ 3-dose series) 1993 HPV/Cotest (21-29) 08/10/1995 CERVICAL CANCER SCREENING 2004 HPV/Cotest (30-65) 2004 PAP SMEAR 2004 BREAST CANCER SCREENING 2014 COLORECTAL SCREENING 08/10/2019 Colorectal Cancer Screening 08/10/2019 FIT-DNA Q 3 years 08/10/2019 FIT/FOBT Q 1 year 08/10/2019 Flex Sig/CT Colonography Q 5 years 08/10/2019 INFLUENZA VACCINE (#1) 2023 , 04/01/2020, 03/08/2019, Additional history exists ZOSTER VACCINE (1 of 2) 2024 Insurance [employer] [facility] [place] [id number] RX [facility] [employer] RX [employer] PLANS (INTERNAL) [facility] Internal Plans Advance Directives For more information, please contact: [phone] * Full Code (Latest Code Status on File) Date Activated Date Inactivated Comments 07/20/2022 3:36 PM 07/23/2022 7:37 PM Care Teams Vibrator Operator Relationship Specialty Start Date End Date Miryam Lozoya MD [address] [place] [address] PCP - General Family Practice 07/20/22
--- OUTSIDE RECORDS SUMMARY | 2024-09-26 14:34 | XMS_ITS | Clinical Summary ---
Author Organization [facility] Address [address] [facility] [place] [address] Care Team Providers Care Quarter Seamer Name Role Phone Mari Mcdermott MD Primary Care Provider [phone] Source Comments [facility],non-owned Affiliates and Associated Physician Practices is amultiple site organization consisting of ambulatory clinics and hospital sitesin [place], [place], [place] and [place]. This disclosure is being madepursuant to the Care Everywhere program and may not contain all information available regarding this patient. Last updated 18.[facility] Allergies No known active allergies Medications * Be aware that medications may not be up to date on this document. Alwaysverify current medications with the patient. amLODIPine (NORVASC) 5 MG tablet Take 5 mg by mouth once daily Active levothyroxine (TIROSINT) 50 MCG capsule Take 50 mcg by mouth daily before breakfast Active vilazodone (VIIBRYD) 40 MG tablet Take 40 mg by mouth daily with breakfast Active divalproex DR (DEPAKOTE) 500 MG tablet Take 500 mg by mouth 3 times daily Active pravastatin (PRAVACHOL) 10 MG half tablet Take 10 mg by mouth at bedtime Active traZODone (DESYREL) 100 MG tablet Take 100 mg by mouth at bedtime Active fluticasone-cecilio anterol (BREO ELLIPTA) 200-25 MCG/INH inhaler Inhale 1 puff by mouth once daily Active Albuterol Sulfate (VENTOLIN HFA IN) Active Lansoprazole (PREVACID PO) Active lurasidone (LATUDA) 60 MG tablet Take 60 mg by mouth daily with breakfast Active Immunizations Immunization Administration Dates Next Due INFLUENZA VACCINE, QUADR. (F LUZONE; FLULAVAL; FLUARIX; AFLURIA QUADRIVALENT; 6MO+), 0.5 ML (IIV4) 03/04/2021,04/01/2020,03/08/2019,2017 Pneumococcal Pcv13 Conj 02/24/2016 Social History Tobacco Use Types Packs/Day Years Used Date Smoking Tobacco: Former Smokeless Tobacco: Never Comments Unknown Sex and Gender Information Value Date Recorded Sex Assigned at Female 03/02/2021 9:43 AM CDT Legal Sex Female 3:53 PM CDT Gender Identity Female 03/02/2021 9:43 AM CDT Sexual Orientation Straight 03/02/2021 9: 43 AM CDT Last Filed Vital Signs Vital Sign Reading Time Taken Comments Blood Pressure 128/86 10/12/2017 9:10 AM CDT Pulse 85 10/12/2017 9:10 AM CDT Temperature 36.7 C (98.1 F) 10/12/2017 9:10 AM CDT Respiratory Rate 16 10/12/2017 9:10 AM CDT Oxygen Saturation 97% 10/12/2017 9:10 AM CDT Inhaled Oxygen Concentration - - Weight 136.1 kg (300 lb) 10/12/2017 9:10 AM CDT Height 157.5 cm (5' 2 ) 10/12/2017 9:10 AM CDT Body Mass Index 54.87 10/12/2017 9:10 AM CDT Plan of Treatment Health Maintenance Due Date Last Done Comments COLOGUARD (AGES 45-75) - COLON CA SCREENING 1974 COLON MONITORING 1974 COLONOSCOPY - COLON CA SCREENING 1974 CT COLONOGRAPHY - COLON CA SCREENING 1974 Colorectal Cancer Screening 1974 FIT - COLON CA SCREENING 1974 FLEX SIG - COLON CA SCREENING 1974 MAMMOGRAM 1974 PAP SMEAR 1974 HIV SCREENING 1989 HEPATITIS C SCREENING 08/04/1992 DTAP/TDAP/TD VACCINES (1 - Tdap) 1993 HEPATITIS B VACCINE (1 of 3 - 19+ 3-dose series) 1993 COVID-19 VACCINE (3 - season) 2024 07/06/2020, 06/15/2020 DEPRESSION SCREENING 05/29/2024 PNEUMOCOCCAL VACCINE 50+ (2 of 2 - PPSV23) 2024 02/24/2016 ZOSTER VACCINE (1 of 2) 2024 INFLUENZA VACCINE (Season Ended) 2025 03/04/2021, 04/01/2020, 03/08/2019, Additional history exists HIB VACCINE Aged Out No longer eligi ble based on patient's age to complete this topic HPV VACCINE Aged Out No longer eligi ble based on patient's age to complete this topic MENINGOCOCCAL (Group B) VACCINE SHARED DECISION-MAKING Aged Out No longer eligible based on patient's age to complete this topic MENINGOCOCCAL GROUPS A/C/Y/W VACCINE Aged Out No longer eligible based on patient's age to complete this topic Insurance SELF PAY NO INSURANCE Member Subscriber Plan / Payer (Ef fective for All Dates) Name:Maria G Fitzgerald Member ID:Not on file Relation to Subscriber:Not on file Name:MARIA G FITZGERALD Subscriber ID:Not on file (Home) Address: [address] [address] Payer ID:Not on file Group ID:Not on file Type:Self Pay Address: [place], [place] Care Teams Quarter Seamer Relationship Specialty Start Date End Date Mari Mcdermott MD PCP - General Family Medicine 02/24/16
== END 2024-09-26 13:46 | disposition home or self-care (01) ==
LOC: ANHIMG 13:45
PROVIDERS: PCP Nurse Practitioner Family; Visit Provider Physician Assistant
DX: Z12.2 Encounter for screening for malignant neoplasm of respiratory organs (principal); Z87.891 Personal history of nicotine dependence
CPT/HCPCS: 71271

== ENCOUNTER 2024-11-22 13:28 | Outpatient (CLI) | payer OTHER, SELFPAY ==
--- NOTE | ~2024-11-22 | XR_ITS ---
EXAM/ PROCEDURE: XR tibia fibula RT 2V - 11/22/2024 13:38 CDT HISTORY: 49 years old Female with L97.911 - Non-pressure chronic ulcer of unspecified part ... COMPARISON: None available TECHNIQUE: Four view(s) FINDINGS/ IMPRESSION: There are no fractures or dislocations.Joint space narrowing, subchondral sclerosis, subchondral cyst formation and osteophyte formation, compatible with mild osteoarthritis. Reviewed, dictated and finalized at location A.
== END 2024-11-22 13:29 | disposition home or self-care (01) ==
PROVIDERS: PCP Family Medicine; Visit Provider Nurse Practitioner Family
DX: L97.911 Non-pressure chronic ulcer of unspecified part of right lower leg limited to breakdown of skin (principal)
CPT/HCPCS: 73590

== ENCOUNTER 2025-02-05 13:43 | Outpatient (CLI) | payer OTHER, SELFPAY ==
--- NOTE | ~2025-02-05 | US_ITS ---
US arterial ankle brachial ind INDICATION: Chronic ulcer TECHNIQUE: Segmental pressures and plethysmographic and Doppler waveforms of the brachial and lower extremity arteries were obtained. COMPARISON: None. FINDINGS: Right and left brachial artery pressures of 127 mm Hg and 126 mm Hg, respectively, are concordant (normal difference <= 30 mmHg). The right ankle-brachial index (JB) is 1.17 (normal >= 0.9-1.0). The right great toe-brachial index (TBI) is 0.85 (normal >= 0.60). The left JB is 1.09. The left TBI is 1.48. IMPRESSION: 1. Normal ankle-brachial indices. Reviewed, dictated and finalized at location O.
--- OUTSIDE RECORDS SUMMARY | 2025-02-05 14:26 | XMS_ITS | Clinical Summary ---
Author Organization [facility] Address [address] [place] [address] Care Team Providers Care Commercial Production Editor Name Role Phone Mari Mcdermott MD Primary Care Provider [phone] Source Comments [facility],non-owned Affiliates and Associated Physician Practices is amultiple site organization consisting of ambulatory clinics and hospital sitesin [place], [place], [place] and [place]. This disclosure is being madepursuant to the Care Everywhere program and may not contain all information available regarding this patient. Last updated 18.[facility] Allergies No known active allergies Medications * [...] 9:10 AM CDT Height 157.5 cm (5' 2) 10/12/2017 9:10 AM CDT Body Mass Index [...] - COLON CA SCREENING 1974 MAMMOGRAM 1974 HIV SCREENING 1989 HEPATITIS C SCREENING 08/04/1992 DTAP/TDAP/TD VACCINES (1 - Tdap) 1993 HEPATITIS B VACCINE (1 of 3 - 19+ 3-dose series) 1993 PAP SMEAR 08/10/1995 DEPRESSION SCREENING 05/29/2024 PNEUMOCOCCAL VACCINE 50+ (2 of 2 - PCV20 or PCV21) 2024 02/24/2016 ZOSTER VACCINE (1 of 2) 2024 COVID-19 VACCINE (3 - season) 2025 07/06/2020, 06/15/2020 INFLUENZA VACCINE (#1) 2025 , 04/01/2020, 03/08/2019, Additional history exists HIB VACCINE [...] FITZGERALD Subscriber ID:Not on file (Home) Address: [address] [address] Payer ID:Not on file Group ID:Not on file Type:Self Pay Address: [place], [place] Care Teams Commercial Production Editor Relationship Specialty Start Date End Date Mari Mcdermott MD PCP - General Family Medicine 02/24/16
--- OUTSIDE RECORDS SUMMARY | 2025-02-05 14:26 | XMS_ITS | Clinical Summary ---
Author Organization [facility] Address [address] [place] [address] Care Team Providers Care Surface Boss Name Role Phone Miryam Lozoya MD Primary Care Provider Campbell Abrams DO Unavailable [phone] Allergies Active Allergy Reactions Criticality Noted Date Comments Adhesive Rash Medium 11/04/2024 Cat's Claw Itching Low 07/20/2022 Grass Pollen Itching Low 07/20/2022 Medications lansoprazole (PREVACID) 15 mg capsule take 1 capsule by oral route every day before a meal 0 0 3 Active levothyroxine (SYNTHROID, LEVOTHROID) 50 mcg tablet take 1 tablet by oral route every day 0 0 6 Active albuterol HFA (PROVENTIL HFA,VENTOLIN HFA,PROAIR HFA) 90 mcg/actuation inhalerIndicati ons:Acute Asthma Attack Inhale 2 puffs as needed Active divalproex DR (DEPAKOTE) 250 mg EC tabletIndicatio ns:Bipolar Disorder Take 1 tablet (250 mg total) by mouth 2 (two) times a day 8 Active cetirizine 10 mg capsuleIndicati ons:Allergic Rhinitis Take 10 mg by mouth nightly Active clonazePAM (KlonoPIN) 0.5 mg tabletIndicatio ns:sleep Take 1 tablet (0.5 mg total) by mouth nightly Active Trelegy Ellipta 200-62.5-25 mcg inhalerIndicati ons:Maintenance Therapy for Asthma Inhale 1 puff every morning Active cariprazine (Vraylar) 3 mg capsule capsuleIndicati ons:Depression Treatment Adjunct Take 1 capsule (3 mg total) by mouth every morning Active cholecalciferol (VITAMIN D-3) 50,000 unit capsuleIndicati ons:Vitamin D Deficiency Take 1 capsule (50,000 Units total) by mouth once a week Takes on Active atomoxetine (STRATTERA) 60 mg capsule Take 1 capsule (60 mg total) by mouth daily 5 Active losartan-hydroC HLOROthiazide (HYZAAR) 50-12.5 mg per tablet 5 Active oxyBUTYnin XL (DITROPAN-XL) 10 mg 24 hr tablet Take 1 tablet (10 mg total) by mouth daily 5 Active nystatin powder APPLY POWDER TOPICALLY THREE TIMES DAILY 5 Active ammonium lactate (LAC-HYDRIN) 12 % lotion APPLY LOTION TOPICALLY TWICE DAILY 5 Active clotrimazole-be tamethasone (LOTRISONE) cream APPLY TOPICALLY TWICE DAILY FOR 2 WEEKS 5 Active desvenlafaxine ER (PRISTIQ) 100 mg 24 hr tablet Take 1 tablet (100 mg total) by mouth daily 5 Active traZODone (DESYREL) 50 mg tablet 5 Active atorvastatin (LIPITOR) 10 mg tablet Take 1 tablet (10 mg total) by mouth daily Active meloxicam (MOBIC) 15 mg tabletIndicatio ns:Chronic pain of right knee Take 1 tablet (15 mg total) by mouth daily Take 1 daily with food 30 tablet 5 11/13/19 26 Active Active Problems Problem Noted Date Diagnosed Date Referred otalgia of right ear 11/04/2024 Assessment & Plan (11/04/2024 4:15 PM CDT): Have bite guard refit TMJ dysfunction discussed and Handout provided Subacromial bursitis of right shoulder joint Arthritis of right acromioclavicular joint 05/27 Right shoulder pain 05/27/2024 Bipolar affective disorder, currently depressed, moderate 10/12/2023 Generalized anxiety disorder 10/12/2023 Hyperlipidemia 10/12/2023 Hypothyroidism 10/12/2023 Obesity 10/12/2023 Attention deficit hyperactivity disorder 024 Chronic post-traumatic stress disorder Primary insomnia 09/14/2023 Enthesopathy of hip region 12/14/2022 Hip pain 12/14/2022 Lateral epicondylitis 12/14/2022 Lesion of ulnar nerve 12/14/2022 Osteoarthritis 12/14/2022 Pain in limb 12/14/2022 Osteoarthrosis 07/23/2022 Asthma 07/20/2022 Bipolar affective 07/20/2022 Mandibular abscess 07/20/2022 Essential hypertension 07/20/2022 Assessment & Plan (12/15/2022 12:30 PM [...] Encounters Date Type Department Care Team Description 12/04/2024 1:40 PM CDT Office Visit [facility] Medicine Orthopaedic Surgery [address] [place] [address] Bogdan Mclaughlin MD Acute pain of right knee (Primary Dx) 11/21/2024 6:24 AM CDT - 11/21/2024 11:59 PM CDT Hospital Encounter [facility] [address] [place] [address] Chronic pain of right knee; Primary osteoarthritis of right knee Discharge Disposition: Discharge to home or self care 11/21/2024 Telephone [facility] Orthopaedic Surgery [address] [place] [address] Susanna Hammer PA Scheduling Appointments 11/21/2024 Results Follow-Up [facility] Orthopaedic Surgery [address] [place] [address] uSsanna Hammer PA MRI Knee Right WO Contrast 11/12/2024 9:15 AM CDT Office Visit [facility] Orthopaedic Surgery [address] [place] [address] Susanna Hammer PA Chronic pain of right knee (Primary Dx); Primary osteoarthritis of right knee from Last 3 Months Surgical History Surgery Date Site/Laterality Comments OTHER SURGICAL HISTORY Tennis elbow surgery [place] CHOLECYSTECTOMY Cholecystectomy - (Added by Conv) ELBOW ARTHROPLASTY 05/29/2016 - 05/28/2017 Left Elbow Arthroplasty - (Added by TW Conv) COLONOSCOPY UPPER GASTROINTESTINAL ENDOSCOPY WISDOM TOOTH EXTRACTION Medical History Medical History Date Comments Gastroesophageal reflux disease GERD Asthma Asthma Hypertension Hypertension Hx Other Medical hypothyroidism; Comments: [facility] 06/30/2015 - Hx Other Medical obesity; Commen ts: [facility] 06/30/2015 - Hx Other Medical dyslipidemia; C omments: [facility] 06/30/2015 - Hx Other Medical peripheral carl a; Comments: [facility] 06/30/2015 - Hx Other Medical migraines; Comm ents: [facility] 06/30/2015 - Personal history of other di seases of the circulatory system History of hypertension - (A dded by TW Conv) Personal history of other en docrine, nutritional and metabolic disease History of hyperlipi demia - (Added by TW Conv) Personal history of other en docrine, nutritional and metabolic disease History of hypothyro idism - (Added by TW Conv) Depression 2016 Sleep apnea 2016 Thyroid disease 2009 Diabetes mellitus (HCC) 05/20 [...] Past Smokeless Tobacco: Never Tobacco Cessation:Counseling Given: Not Answered Alcohol Use Standard Drinks/Week Comments Yes 0 [...] on file Legal 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 Gender Identity Not on file Sexual Orientation Not on file Obstetrics History Last Filed Vital Signs Vital Sign Reading Time Taken Comments Blood Pressure 134/83 11/04/2024 10:04 AM CDT Pulse 104 11/04/2024 10:04 AM CDT Temperature 36.1 C (97 F) 10/09/2024 9:51 AM CDT Respiratory Rate 18 11/04/2024 10:04 AM CDT Oxygen Saturation 96% 11/04/2024 10:04 AM CDT Inhaled Oxygen Concentration - - Weight 143.8 kg (317 lb) 11/12/2024 9:12 AM CDT Height 157.5 cm (5' 2) 11/12/2024 9:12 AM CDT Body Mass Index 57.98 11/12/2024 9:12 AM CDT Plan of Treatment Health Maintenance Due Date Last Done Comments Breast Cancer Screening-Mammogram 1974 Cervical Cancer Screening 1974 Colon Cancer Screening-Colonoscopy 1974 Depression Screening 1974 Hepatitis C Screening 1974 Hepatitis B Screening 1992 Regular Well Visit/Exam 18-64 1992 Pneumococcal vaccine <65 (2 of 2 - PPSV23, PCV20, or PCV21) 04/20/2016 02/24/2016 DTaP/Tdap/Td Vaccine (2 - Td or Tdap) 05/29/2024 05/29/2014 Zoster Vaccine (1 of 2) 2024 Influenza Vaccine (#1) 2025 3, 03/29/2022, 03/04/2021, Additional history exists Procedures Procedure Name Priority Date/Time Associated Diagnosis Comments AK ARTHROCENTESIS ASPIR&/INJ MAJOR JT/BURSA W/O US Routine 12/04/2024 1:40 PM CDT Acute pain of right knee MRI KNEE RIGHT WO CONTRAST Schedule Routine, Read Routine (OP Routine) 11/21/2024 7:19 AM CDT Chronic pain of right knee Primary osteoarthritis of right knee from Last 3 Months Results * AK ARTHROCENTESIS ASPIR&/INJ MAJOR JT/BURSA W/O US (12/04/2024 1:40 PM CDT) Narrative Bogdan Mclaughlin MD - 12/04/2024 1:40 PM CDT Bogdan Mclaughlin MD 12/04/2024 2:28 PM Large Joint Injection: R knee Performed by: Bogdan Mclaughlin MD Authorized by: Bogdan Mclaughlin MD Large Joint Injection/Aspiration: Consent Given by: Patient Site marked: the procedure site was marked Timeout: prior to procedure the correct patient, procedure, and site was verified Verbal consent obtained: Yes Written consent obtained: No Supporting Documentation: Indications: Pain Procedure Details: Location: Knee Site: R knee Prep: patient was prepped and draped in usual sterile fashion Prep: patient was prepped using a clean technique Needle Size: 21 G Approach: Anterolateral Ultrasound guided: No Medications: 80 mg methylPREDNISolone acetate 40 mg/mL; 4 mL lidocaine 10 mg/mL (1 %); 4 mL BUPivacaine HCl 0.5 % (5 mg/mL) Patient tolerance: Patient tolerated the procedure well with no immediate complications The risks and benefits of the injection were discussed with the patient, including but not limited to the risks of injection site reaction, pain, swelling, incomplete relief of symptoms and the potential risk for infection. The patient elected to proceed with the injection after all questions were answered. us Bogdan Mclaughlin MD IN CLINIC/BEDSIDE DANIAIndira ROSHAN Final Result * MRI Knee Right WO Contrast (11/21/2024 7:19 AM CDT) Anatomical Region Laterality Modality Lower Extremities Right Magnetic Reson ance 11/21/2024 8:39 AM CDT Narrative 11/21/2024 8:46 AM CDT EXAM DESCRIPTION: MRI KNEE RIGHT WO CONTRAST REASON FOR STUDY: Knee pain, chronic, degenerative disease on xray (Age >= 5y), Meniscal injury, knee Anteromedial knee pain x 2 months. Patient was mowing grass and stepped in a hole. Used flex coils due to body habitus TECHNIQUE: Multiplanar, multisequence MRI of the right knee was performed without contrast. COMPARISON: None FINDINGS: Joint and Bursae: There is a small joint effusion. Small Latif's cyst. Bones: No fracture. Cartilage: Patellofemoral: Mild chondromalacia Medial compartment: Mild chondromalacia Lateral Compartment: Mild chondromalacia Ligaments: The ACL, PCL, MCL and lateral collateral ligament complex are intact. Extensor Mechanism: The quadriceps and patellar tendons are intact. Tendons/Soft tissues: The popliteus tendon is intact. The musculature is intact without evidence of tear. The popliteal neurovascular bundle is normal. Medial Meniscus: The anterior horn is intact. There is mild extrusion of the body. There is a radial tear of the posterior horn root junction with horizontal signal extending in the posterior horn. Lateral Meniscus: The lateral meniscus is intact. IMPRESSION: 1. Medial meniscus posterior horn root junction radial tear with horizontal signal extending in the posterior horn. Mild extrusion of the body. 2. Intact appearing cruciate and collateral ligaments as well as lateral meniscus. 3. Mild tricompartmental chondromalacia. 4. Small joint effusion. Small Latif's cyst. THIS IS AN ELECTRONICALLY VERIFIED FINAL REPORT 11/21/2024 8:46 AM - Electronically signed by Scott TAPIA: REGINA Report ID: [id number] Reading Location: [id number] Procedure Note Scott Sandoval MD - 11/21/2024 EXAM DESCRIPTION: MRI KNEE RIGHT WO CONTRAST REASON FOR STUDY: Knee pain, chronic, degenerative disease on xray (Age >= 5y), Meniscal injury, knee Anteromedial knee pain x 2 months. Patient was mowing grass and stepped ariadne hole. Used flex coils due to body habitus TECHNIQUE: Multiplanar, multisequence MRI of the right knee wasperformed without contrast. COMPARISON: None FINDINGS: Joint and Bursae: There is a small joint effusion. Small Latif's cyst. Bones: No fracture. Cartilage: Patellofemoral: Mild chondromalacia Medial compartment: Mild chondromalacia Lateral Compartment: Mild chondromalacia Ligaments: The ACL, PCL, MCL and lateral collateral ligament complex are intact. Extensor Mechanism: The quadriceps and patellar tendons are intact. Tendons/Soft tissues: The popliteus tendon is intact. The musculature is intact without evidence of tear. The popliteal neurovascular bundle isnormal. Medial Meniscus: The anterior horn is intact. There is mild extrusion ofthe body. There is a radial tear of the posterior horn root junction with horizontal signal extending in the posterior horn. Lateral Meniscus: The lateral meniscus is intact. IMPRESSION: 1. Medial meniscus posterior horn root junction radial tear withhorizontal signal extending in the posterior horn. Mild extrusion of the body. 2. Intact appearing cruciate and collateral ligaments as well as lateral meniscus. 3. Mild tricompartmental chondromalacia. 4. Small joint effusion. Small Latif's cyst. THIS IS AN ELECTRONICALLY VERIFIED FINAL REPORT 11/21/2024 8:46 AM - Electronically signed by Scott TAPIA: REGINA Report ID: [id number] Reading Location: [place] [address] Susanna SANTAMARIA IMG MRI PROCEDURES Final Result from Last 3 Months Insurance [facility] [employer] [facility] [employer] Care Teams Surface Boss Relationship Specialty Start Date End Date Miryam Lozoya MD [address] [address] PCP - General Family Practice 04/30/24 Campbell Abrams DO [address] [facility] [address] [place] [address] House Parent Cardiology 06/27/24
--- OUTSIDE RECORDS SUMMARY | 2025-02-05 14:27 | XMS_ITS | Clinical Summary ---
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 Gender Identity Not on file Sexual Orientation Not on file Last Filed Vital Signs Vital Sign Reading Time Taken Comments Blood Pressure 131/72 07/23/2022 8:32 AM PIPE AND TANK FABRICATOR Pulse 64 07/23/2022 8:32 AM PIPE AND TANK FABRICATOR Temperature 36.7 C (98 F) 07/23/2022 8:32 AM PIPE AND TANK FABRICATOR Respiratory Rate 16 07/23/2022 9:23 AM PIPE AND TANK FABRICATOR Oxygen Saturation 96% 07/23/2022 8:32 AM PIPE AND TANK FABRICATOR Inhaled Oxygen Concentration - - Weight 135.2 kg (298 lb) 07/21/2022 12:42 PM PIPE AND TANK FABRICATOR Height 157.5 cm (5' 2) 07/21/2022 12:42 PM PIPE AND TANK FABRICATOR Body Mass Index 54.5 07/21/2022 12:42 PM PIPE AND TANK FABRICATOR Plan of Treatment Health Maintenance Due Date [...] Flex Sig/CT Colonography Q 5 years 08/10/2019 ZOSTER VACCINE (1 of 2) 2024 INFLUENZA VACCINE (#1) 2024 , 04/01/2020, 03/08/2019, Additional history exists Insurance [employer] [facility] [employer] [id number] RX [facility] [employer] (INTERNAL) [facility] Internal Plans Advance Directives For more information, please contact: [phone] * Full Code (Latest Code Status on File) Date Activated Date Inactivated Comments 07/20/2022 3:36 PM 07/23/2022 7:37 PM Care Teams Linen Room Houseperson Relationship Specialty Start Date End Date Miryam Lozoya MD [address] [place] [address] PCP - General Family Practice 07/20/22
--- OUTSIDE RECORDS SUMMARY | 2025-02-05 14:27 | XMS_ITS | Patient Health Record ---
Author Organization [facility] Address [address] [facility] [address] [place] [address] Care Team Providers Care Medical Management Specialist Name Role Phone Darell MCCONNELL, Miryam Primary Care Provider Unavailable Maria G Osuna Unavailable [phone] Jessi Chakraborty Unavailable [phone] Allergies Allergen (clinical drug ingredient) Drug/Non Drug Allergy documented on EMR Reaction Allergy Type Onset Date Status grass pollen (uncoded) Unknown Allergy Active Cat dander Cat Dander Unknown Allergy Active Results Component Value Reference Range Flag Notes UDT Reviewed date:05/02/2024 08:38:17 AM Interpretation: Performing Lab: Notes/Report: THC NEG 0 - 50 ng/ml Cocaine NEG 0 - 300 ng/ml Amphetamine NEG 0 - 1000 ng/ml Buprenorphine (BUP) NEG 0 - 10 ng/ml Secobarbital (Bar) NEG 0 - 300 ng/ml Oxazepam (BZO) NEG 0 - 300 ng/ml 5-rwlobjmlhy-9,2-cscvdlcr-4, 3-dipheny lpyrrolidine (EDDP) NEG 0 - 300 ng/ml Methamphetamine (MET) NEG 0 - 1000 ng/ml Methylenedioxymethamphetamine (MDMA) NEG 0 - 500 ng /ml Morphine (MOP 300/[id number]) NEG 0 - 300 ng/ml Methadone (MTD) NEG 0 - 300 ng/ml Phencyclidine (PCP) NEG 0 - 25 ng/ml Nortriptyline (TCA) NEG 0 - 1000 ng/ml Oxycodone NEG 0 - 300 ng/ml x NEG 0 - 300 ng/ml UDT Reviewed date:09/26/2024 08:23:00 AM Interpretation: Performing Lab: Notes/Report: THC NEG 0 - 50 ng/ml Cocaine NEG 0 - 300 ng/ml Amphetamine NEG 0 - 1000 ng/ml Buprenorphine (BUP) NEG 0 - 10 ng/ml Secobarbital (Bar) NEG 0 - 300 ng/ml Oxazepam (BZO) NEG 0 - 300 ng/ml 9-olvucigvxa-9,7-hpcthrar-2, 3-dipheny lpyrrolidine (EDDP) NEG 0 - 300 ng/ml Methamphetamine (MET) NEG 0 - 1000 ng/ml Methylenedioxymethamphetamine (MDMA) NEG 0 - 500 ng /ml Morphine (MOP 300/[id number]) NEG 0 - 300 ng/ml Methadone (MTD) NEG 0 - 300 ng/ml Phencyclidine (PCP) NEG 0 - 25 ng/ml Nortriptyline (TCA) NEG 0 - 1000 ng/ml Oxycodone NEG 0 - 300 ng/ml x NEG 0 - 300 ng/ml Validity Testing Reviewed date:10/04/2024 12:06:09 PM Interpretation: Performing Lab: Notes/Report: Not Medicated Consistent Not Medicated Consistent Not Medicated Consistent Not Medicated Consistent Specific [place] 1.006 1.003 - 1.030 pH 6.9 3.0 - 10.9 Oxidants -3 200 g/mL Creatinine 28.0 20.0 - 300.0 mg/dL Benzodiazepines Reviewed date:10/04/2024 12:05:59 PM Interpretation: Performing Lab:[address] [place] [address], [address] [place] [address], Director - [phone] Notes/Report: An exception occurred while processing this report and so it has incomplete data. Please contact [employer] for assistance. Not Medicated Consistent Not Medicated Consistent Medicated Consistent Not Medicated Consistent Not Medicated Consistent Not Medicated Consistent Not Medicated Consistent Not Medicated Consistent Not Medicated Consistent Medicated Consistent 7-Aminoclonazepam 22.0 20.0 ng/mL POSITIVE Temazepam NEGATIVE 40.0 ng/mL Oxazepam NEGATIVE 40.0 ng/mL Midazolam NEGATIVE 40.0 ng/mL Lorazepam NEGATIVE 40.0 ng/mL Nordiazepam NEGATIVE 40.0 ng/mL Diazepam NEGATIVE 40.0 ng/mL Clonazepam NEGATIVE 20.0 ng/mL Hydroxyalprazolam NEGATIVE 20.0 ng/mL Alprazolam NEGATIVE 20.0 ng/mL PDF Report CE_OUT_[email or web address] N_[email or web address] Reason For Referral No Information Medications Medication SIG (Take, Route, Frequency, Duration) Notes Start Date End Date Status Desvenlafaxine Succinate ER 100 MG Tablet Extended Release 24 Hour 1 tablet Orally Once a day; Duration: 30 days Active Escitalopram Oxalate 5 MG Tablet 1 tablet Oral Once a day; Duration: 30 days Active Vraylar 3 MG Capsule 1 capsule Oral Once a day; Duration: 30 days Active Trelegy Ellipta 200-62.5-25 MCG/ACT Aerosol Powder Breath Activated INHALE 1 PUFF ONCE DAILY Inhalation; Duration: 30 Days Active traZODone HCl 50 MG Tablet 1 tablet at b edtime Orally Once a day; Duration: 90 days Active Divalproex Sodium 250 MG Tablet Delayed Release 1 tablet Oral twice a day; Duration: 30 days Active buPROPion HCl ER (XL) 150 MG Tablet Extended Release 24 Hour 1 TABLET Orally Once a day; Duration: 90 days 11/14/2023 Not-Takin g Levothyroxine Sodium 50 MCG Tablet TAKE 1 TABLET BY MOUTH ONCE DAILY Oral; Duration: 90 Days Active Atomoxetine HCl 60 MG Capsule 1 capsule Orally Once a day; Duration: 30 days Active clonazePAM 0.5 MG Tablet 1 tablet Oral O nce a day; Duration: 30 days 09/26/2024 Active Immunizations Vaccine Route Administration Date Status Comme nts Influenza virus vaccine, quadrivalent (IIV4), split virus, 0.25 mL dosage Unknown 02/19/2016 Administered Influenza virus vaccine, quadrivalent (IIV4), split virus, 0.25 mL dosage Unknown 03/23/2018 Administered Influenza virus vaccine, quadrivalent (IIV4), split virus, 0.25 mL dosage Unknown 03/08/2019 Administered Influenza, seasonal, injecta ble, preservative free, 3 yrs and above Unknown 04/09/2014 Administered Influenza, unspecified formulation Unknown 03/29/2022 A dministered Influenza, unspecified formulation Unknown 03/05/2023 A dministered Novel [id number], preservative free Unknown 03/23/2018 Administered Novel [id number]-[id number], preservative free Unknown 03/08/2019 Administered Novel [id number]-E7O2-71, preservative free Unknown 04/01/2020 Administered [employer] Covid-19 Vac cine 2nd dose Unknown 06/15/2020 Administered Pfizer Biontech Covid-19 Vac cine 2nd dose Unknown 07/06/2020 Administered Pfizer Biontech Covid-19 Vac cine 2nd dose Unknown 04/25/2021 Administered Tdap Unknown 05/29/2014 Administered Social History Tobacco Use: Social History Observation Description Date Details (start date - stop date) Former Smoker 08/14/2023 - 05/29/2024 Sex Assigned At : Social History Observation Description Sex Assigned At Female Social History Miscellaneous: Social Info Question Answer Notes Advance Care Planning Are you your own decision-maker Yes Do you have Power of Attorne y for Health or Medical? No Advance Directive Refused to discuss a dvance care planning Client does not have an advance directive. Drug/Alcohol: Social Info Question Answer Notes AUDIT-C (Standard) Did you have a drink containing alcohol in the past year? Yes How often did you have six or more drinks on one occasion in the past year? Never (0 point) How many drinks did you have on a typical day when you were drinking in the past year? 1 or 2 drinks (0 point) How often did you have a drink containing alcohol in the past year? Monthly or less (1 point) Tobacco Use: Social Info Question Answer Notes Tobacco Control (Standard) Tobacco use: Former smoker When did you start smoking? 08/14/2023 How often do you smoke cigarettes? Every day When did you stop smoking? 05/29/2024 How many cigarettes a day do you smoke? 11-20 How soon after you wake up do you smoke your first cigarette? 6-30 minutes Are you interested in quitting? Ready to quit How long has it been since you last smoked? Less than 1 month When did you start smoking? 08/13/2020 Additional Details Category Social Info Options Details Migrated Social History Migrated Social History Alcohol Intake: Occasional 03/31/2020,Tobacco Years: Current every day smoker 06/15/2023,Smoking Status: 0 06/30/2023 Drug/Alcohol: Do you smoke marijuana? Den ies Do you drink alcohol? Yes, somet imes Section Notes: Substance UseDo you or have you ever smoked tobacco?: Current every day smokerHow many years have you smoked tobacco?: 0How much tobacco do you smoke?: NoneDo you or have you ever used any other forms of tobacco or nicotine?: NoDo you or have you ever used e-cigarettes or vape?: Never used electronic cigarettesDo you or have you ever used smokeless tobacco?: Never used smokeless tobaccoHow much tobacco do you chew?: noneWhat was the date of your most recent tobacco screening?: 10/12/2023Has tobacco cessation counseling been provided?: Yes (Notes: 2 ppd)On what date was tobacco cessation counseling provided?: 06/15/2023What is your level of alcohol consumption?: OccasionalHow many years have you consumed alcohol?: 27Have you ever been counseled for unhealthy alcohol use?: NoDo you use any illicit or recreational drugs?: NoHave you used IV drugs?: NoWhat is your level of caffeine consumption?: OccasionalEducation and OccupationWhat is the highest grade or level of school you have completed or the highest degree you have received?: Some college, no degreeAre you currently in school?: NoAre you currently employed?: YesWho is your employer?: [employer] officeMarriage and SexualityWhat is your relationship status?: SingleAre you sexually active?: NoDo you use protection during sex?: AlwaysHow many children do you have?: 0Home and EnvironmentAre you a caregiver?: NoDo you have any siblings?: 2Do you have smoke and carbon monoxide detectors in your home?: YesAre you passively exposed to smoke?: NoAre there any smokers in your house?: NoAre there any guns present in your home?: NoDiet and ExerciseWhat type of diet are you following?: RegularLifestyleDo you use your seat belt or car seat routinely?: YesAdvance DirectiveDo you have an advance directive?: NoWhat is your code status?: Full CodeDo you have a medical power of attorney general?: NoPublic Health and TravelHave you been to an area known to be high risk for COVID-19?: NoActivities of Daily LivingAre you able to care for yourself?: YesAre you blind or do you have difficulty seeing?: NoAre you deaf or do you have serious difficulty hearing? : NoDo you have difficulty concentrating, remembering or making decisions?: NoDo you have difficulty walking or climbing stairs?: NoDo you have difficulty dressing or bathing?: NoDo you have difficulty doing errands alone?: NoAre you able to walk?: Yes: walks without restrictionsDo you have transportation difficulties?: NoOtherEducation: 12 (Notes: some college)Family history of heart disease?: NoHigh blood pressure: YesHigh Cholesterol: YesHigh number of sexual partners: NoHistory of inconsistent/no condom use: NoMarital status: SingleGender Identity and LGBTQ IdentityGender identity: Identifies as FemaleAssigned sex at : FemaleFirst name used: JENNIFERSexual orientation: Straight or heterosexual Problems Problem Type SNOMED Code ICD Code Onset Dates Problem Status W/U Status Risk Notes Problem Hypothyroidism (34138238) Hypothyroidism, unspecified (E03.9) 10/12/19 Active confirmed Problem Obesity (791984543) Obesity, unspecified (E66.9) 10/12/19 Active confirmed Problem Hyperlipidemia (64917437) Hyperlipidemia, unspecified (E78.5) 10/12/19 Active confirmed Problem Bipolar affective disorder, currently depressed, mild (221958516) Bipolar disorder, current episode depressed, mild (F31.31) 10/12/19 Active confirmed Problem Generalized anxiety disorder (44813869) Generalized anxiety disorder (F41.1) 10/12/19 Active confirmed Problem Posttraumatic stress disorder (43099558) Post-traumatic stress disorder, chronic (F43.12) 09/28/19 Active confirmed Problem Primary insomnia (3553919) Primary insomnia (F51.01) 09/14/19 Active confirmed Problem Attention deficit hyperactivity disorder (620383109) Attention-defici t hyperactivity disorder, unspecified type (F90.9) 10/03/19 Active confirmed Problem Long-term current use of drug therapy (440289059) 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) drug therapy (Z79.899) 10/12/19 24 Active confirmed Problem Depression Screening (983958393) Encounter for screening for depression (Z13.31) Active confirmed Problem Essential hypertension (59754638) Essential hypertension (I10) Active confirmed Vital Signs Heart Rate 62 /min 09/26/2024 Respiratory Rate 16 /min 09/26/2024 Height-cm 160.02 cm 09/26/2024 Blood pressure diastolic 79 mm Hg 09/26/2024 Weight-kg 144.7 kg 09/26/2024 Height 63.00 in 09/26/2024 Blood pressure systolic 126 mm Hg 09/26/2024 Weight 319 lbs 09/26/2024 BMI 56.5 kg/m2 09/26/2024 Encounters Encounter Location Date Provider Diagnosis [facility] [place] [address] [address] 03/06/2024 Jessi Palmer Bipolar disorder, current episode depressed, mild F31.31 ; Generalized anxiety disorder F41.1 ; Post-traumatic stress disorder, chronic F43.12 and Attention-deficit hyperactivity disorder, unspecified type F90.9 [facility] [place] [address] 03/11/2024 Maria Gcarly Osuna Bipolar disorder, current episode depressed, mild F31.31 ; Generalized anxiety disorder F41.1 ; Primary insomnia F51.01 ; Post-traumatic stress disorder, chronic F43.12 ; Attention-deficit hyperactivity disorder, unspecified type F90.9 and Other half-way (current) drug therapy Z79.899 [facility] [address] [address] 03/20/2024 Jessi Palmer Bipolar affective disorder, depressed, moderate F31.32 ; Generalized anxiety disorder F41.1 ; Chronic post-traumatic stress disorder F43.12 and Attention-deficit hyperactivity disorder, unspecified type F90.[address] [address] 04/02/2024 Jessi Palmer Bipolar disorder, current episode depressed, mild F31.31 ; Generalized anxiety disorder F41.1 ; Chronic post-traumatic stress disorder F43.12 and Attention-deficit hyperactivity disorder, unspecified type F90.9 [facility] [place] [address] [facility] [address] [address] 04/16/2024 Jessi Palmer Bipolar affective disorder, depressed, moderate F31.32 ; Generalized anxiety disorder F41.1 ; Post-traumatic stress disorder, chronic F43.12 and Attention-deficit hyperactivity disorder, unspecified type F90.9 [facility] [place] [address] 05/02/2024 Maria G Thernenita Generalized anxiety disorder F41.1 ; Bipolar disorder, current episode depressed, mild F31.31 ; Primary insomnia F51.01 ; Post-traumatic stress disorder, chronic F43.12 ; Attention-deficit hyperactivity disorder, unspecified type F90.9 ; 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) drug therapy Z79.899 and Essential hypertension I10 [facility] [address] [place] [address] 05/07/2024 Jessi Palmer Bipolar affective disorder, depressed, moderate F31.32 ; Generalized anxiety disorder F41.1 ; Chronic post-traumatic stress disorder F43.12 and Attention-deficit hyperactivity disorder, unspecified type F90.9 [facility] [address] [place] [address] 05/30/2024 Jessi Palmer Bipolar affective disorder, depressed, moderate F31.32 ; Chronic post-traumatic stress disorder F43.12 ; Generalized anxiety disorder F41.1 and Attention-deficit hyperactivity disorder, unspecified type F90.9 [facility] [address] [place] [address] 06/10/2024 Maria G Osuna Generalized anxiety disorder F41.1 ; Primary insomnia F51.01 ; Bipolar disorder, current episode depressed, mild F31.31 ; Post-traumatic stress disorder, chronic F43.12 ; Attention-deficit hyperactivity disorder, unspecified type F90.9 ; 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) drug therapy Z79.899 and Essential hypertension I10 [facility] [address] [facility] [address] [place] [address] 06/24/2024 Jessichristiane Chakraborty Bipolar affective disorder, depressed, moderate F31.32 ; Generalized anxiety disorder F41.1 ; Chronic post-traumatic stress disorder F43.12 and Attention-deficit hyperactivity disorder, unspecified type F90.9 [facility] [address] [place] [address] 07/04/2024 Maria G Osuna Generalized anxiety disorder F41.1 ; Primary insomnia F51.01 ; Bipolar disorder, current episode depressed, mild F31.31 ; Post-traumatic stress disorder, chronic F43.12 ; Attention-deficit hyperactivity disorder, unspecified type F90.9 ; 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) drug therapy Z79.899 and Essential hypertension I10 [facility] [address] [place] [address] 07/18/2024 Jessi Palmer Bipolar disorder, current episode depressed, mild F31.31 ; Generalized anxiety disorder F41.1 ; Post-traumatic stress disorder, chronic F43.12 and Attention-deficit hyperactivity disorder, unspecified type F90.9 [facility] [place] [address] [facility] [address] [place] [address] 08/08/2024 Jessi Palmer Encounter for screen ing for depression Z13.31 ; Bipolar disorder, current episode depressed, mild F31.31 ; Generalized anxiety disorder F41.1 ; Post-traumatic stress disorder, chronic F43.12 and Attention-deficit hyperactivity disorder, unspecified type F90.9 [facility] [place] [address] [address] 08/28/2024 Jessi Palmer Encounter for screen ing for depression Z13.31 ; Bipolar disorder, current episode depressed, mild F31.31 ; Generalized anxiety disorder F41.1 ; Post-traumatic stress disorder, chronic F43.12 and Attention-deficit hyperactivity disorder, unspecified type F90.9 [facility] [place] [address] [address] 09/17/2024 Jessi Palmer Encounter for screen ing for depression Z13.31 ; Bipolar disorder, current episode depressed, mild F31.31 ; Generalized anxiety disorder F41.1 ; Post-traumatic stress disorder, chronic F43.12 and Attention-deficit hyperactivity disorder, unspecified type F90.9 [facility] [place] [address] [address] 09/26/2024 Maria G Osuna Encounter for screen ing for depression Z13.31 ; Generalized anxiety disorder F41.1 ; Primary insomnia F51.01 ; Bipolar disorder, current episode depressed, mild F31.31 ; Post-traumatic stress disorder, chronic F43.12 ; Attention-deficit hyperactivity disorder, unspecified type F90.9 ; 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) drug therapy Z79.899 ; Essential hypertension I10 ; Encounter for screening for cardiovascular disorders Z13.6 and Nicotine use Z72.0 [facility] [place] [address] [facility] [address] [place] [address] 10/16/2024 Jessi Palmer Generalized anxiety disorder F41.1 ; Bipolar disorder, current episode depressed, mild F31.31 ; Attention-deficit hyperactivity disorder, unspecified type F90.9 ; Nicotine use Z72.0 ; Encounter for screening for depression Z13.31 and Post-traumatic stress disorder, chronic F43.12 [place] [address] [facility] [address] [address] 11/06/2024 Jessichristiane Chakraborty Bipolar disorder, current episode depressed, mild F31.31 ; Generalized anxiety disorder F41.1 ; Attention-deficit hyperactivity disorder, unspecified type F90.9 ; Post-traumatic stress disorder, chronic F43.12 and Encounter for screening for depression Z13.[address] [address] 12/11/2024 Jessi Palmer Generalized anxiety disorder F41.1 ; Bipolar disorder, current episode depressed, mild F31.31 ; Attention-deficit hyperactivity disorder, unspecified type F90.9 ; Post-traumatic stress disorder, chronic F43.12 and Encounter for screening for depression Z13.[address] [address] 12/27/2024 Maria G Osuna Encounter for screen ing for depression Z13.31 ; Generalized anxiety disorder F41.1 ; Primary insomnia F51.01 ; Bipolar disorder, current episode depressed, mild F31.31 ; Post-traumatic stress disorder, chronic F43.12 ; Attention-deficit hyperactivity disorder, unspecified type F90.9 ; Other half-way (current) drug therapy Z79.899 ; Essential hypertension I10 ; Encounter for screening for cardiovascular disorders Z13.6 and Nicotine use Z72.[address] [address] 02/27/2024 Maria G Osuna Attention-deficit hyperactivity disorder, unspecified type F90.[address] [address] 03/31/2024 Maria G Osuna Bipolar disorder, current episode depressed, mild F31.[address] [address] 06/21/2024 Maria G Osuna Generalized anxiety disorder F41.[address] [address] 07/07/2024 Maria G Osuna Primary insomnia F51 .01 [place] [address] [facility] [address] [facility] [address] [place] [address] 09/12/2024 Maria G Osuna Generalized anxiety disorder F41.[address] [facility] [address] [place] [address] 10/05/2024 Maria G Osuna [address] [address] 10/07/2024 Maria G Osuna Primary insomnia F51 .01 Assessments Encounter Date Diagnosis (ICD Code) Assessment Notes Treatment Notes Treatment Clinical Notes Section Notes 02/27/2024 Attention-defici t hyperactivity disorder, unspecified type (ICD-10 - F90.9) 03/06/2024 Bipolar disorder, current episode depressed, mild (ICD-10 - F31.31) 03/11/2024 Bipolar disorder, current episode depressed, mild (ICD-10 - F31.31) 1. Bipolar affective disorder, currently depressed, mild - Depakote DR 250 mg twice a day for agitation and mood stabilization- educated on rx Vraylar 3 mg daily Pristiq 100 mg daily for depression and anxiety- monitor B/P Wellbutrin XL 150 mg daily SSRI side effects discussed including but not limited to, gastric upset, nausea, vomiting, diarrhea and/or constipation, weight changes, sexual side effects including loss of libido, increased suicidal thoughts/behaviors in children and young adults, and serotonin syndrome.Second generation antipsychotics (SGAs) have metabolic syndrome issues with weight gain, increase in prolactin, increased waist circumference, increased lipids, and increased glucose. Thus routine monitoring of weight, metabolic labs, etc. is indicated. A general rank ordering of antipsychotics that have the greatest to the least risk of metabolic effects is olanzapine, quetiapine, risperidone, ziprasidone, and aripiprazole. However, weight gain can occur with all of these drugs and considerable variability exists among patients receiving the same drug regarding the risk of metabolic effects. Anti-psychotic agents not only increase the risk of metabolic disorder, they also increase the risk of CVA, akathisia, and movement disorders including EPS or tardive dyskinesia (more common with first generation antipsychotics) and more. educated on all medications, benefits, side effects and risk, and educated on depression, anxiety, and ADHD, mood d/o and educated on compliance of medications, metabolic and movement d/o education appointment's, continue therapy discussion with patient about course of treatmentand patient instructions. education on serotonin syndrome obtain lab PCP reviewed pulmonology note 06/27/23 educated on labs for Depakote and vraylar 2. Generalized anxiety disorder -Discussed and educated pt regarding benzodiazepines are generally not intended for prolonged use and that use can cause tolerance, dependence, depression, and associated memory issues including dementias (this list is not exhaustive). Benzodiazepine use is generally not recommended concurrently with pain medications and/or other controlled substances due to increased risks of profound sedation, respiratory depression, coma, and even . They are not to be used with any alcohol, as this combination can also be lethal. Patient was provided caution Clonazepam 0.5 mg daily as needed Medication Management and Follow-Up- Plan:- Schedule follow-up appointments every 2-3 months to monitor the patient's response to the medication regimen.- Reinforce the importance of avoiding recreational drug use due to potential neurotoxicity and interactions with prescribed medications. Pristiq 100 mg daily for depression and anxiety- monitor B/P Wellbutrin XL 150 mg daily 3. Unable to concentrate -reviewed ANNIA-2 test and discuss with patient and copy givenself reporting scale completed [place] prescription reviewed Patient is on Wellbutrin XL 150 mg and does not want to increase dose r/t hx agitation educated on non-stimulate and stimulatesPatient reported not want stimulate rx working in therapy for focus Discuss and educated on increase strattera 60 mg daily in am ANNIA-AE2 DIAGNOSTIC CONSIDERATIONS These test findings suggest that the examiner consider the diagnosis of Attention-Deficit/ Hyperactivity Disorder, combined presentation, and this individual's pattern of responding was indicative of impairments likely to impact her functioning in the home and work settings. The Self Rating Scales did not identify a significant number of hyperactive/impuls stephani or inattentive symptoms. These rating scales do not support the diagnosis suggested by the test results. In making a diagnosis, the examiner will need to determine if there is a reason that this individual did not identify a significant number of hyperactive/impuls stephani or inattentive symptoms, because the ANNIA-AE2 test results did show impairments in response control and attention. Her global Response Control quotient scale score indicated a severe impairment. In addition, her global Attention quotient scale score fell in the mildly to moderately impaired range. These ANNIA-AE2 test findings will need to be included in the examiner's diagnostic decision making process. atomoxetine 60 mg capsule - 4. Long-term drug therapy 03/20/2024 Generalized anxiety disorder (ICD-10 - F41.1) 03/20/2024 Bipolar affective disorder, depressed, moderate (ICD-10 - F31.32) 03/31/2024 Bipolar disorder, current episode depressed, mild (ICD-10 - F31.31) 04/02/2024 Bipolar disorder, current episode depressed, mild (ICD-10 - F31.31) 04/16/2024 Bipolar affective disorder, depressed, moderate (ICD-10 - F31.32) 05/02/2024 Generalized anxiety disorder (ICD-10 - F41.1) 1. Bipolar affective disorder, currently depressed, Depakote DR 250 mg twice a day for agitation and mood stabilization- educated on rx Vraylar 3 mg daily Pristiq 100 mg daily for depression and anxiety- monitor B/P D/C Wellbutrin XL 150 mg daily- r/t agitation Discuss and educated on medication options will add Lexapro 5 mg daily for depression monitor for junito and hypomania obtain labs PCP recently done monitor B/P- reported she takes rx in afternoon SSRI side effects discussed including but not limited to, gastric upset, nausea, vomiting, diarrhea and/or constipation, weight changes, sexual side effects including loss of libido, increased suicidal thoughts/behaviors in children and young adults, and serotonin syndrome.Second generation antipsychotics (SGAs) have metabolic syndrome issues with weight gain, increase in prolactin, increased waist circumference, increased lipids, and increased glucose. Thus routine monitoring of weight, metabolic labs, etc. is indicated. A general rank ordering of antipsychotics that have the greatest to the least risk of metabolic effects is olanzapine, quetiapine, risperidone, ziprasidone, and aripiprazole. However, weight gain can occur with all of these drugs and considerable variability exists among patients receiving the same drug regarding the risk of metabolic effects. Anti-psychotic agents not only increase the risk of metabolic disorder, they also increase the risk of CVA, akathisia, and movement disorders including EPS or tardive dyskinesia (more common with first generation antipsychotics) and more. educated on all medications, benefits, side effects and risk, and educated on depression, anxiety, and ADHD, mood d/o and educated on compliance of medications, metabolic and movement d/o education appointment's, continue therapy discussion with patient about course of treatmentand patient instructions. education on serotonin syndrome obtain lab PCP educated on labs for Depakote and vraylar 2. Generalized anxiety disorder -Discussed and educated pt regarding benzodiazepines are generally not intended for prolonged use and that use can cause tolerance, dependence, depression, and associated memory issues including dementias (this list is not exhaustive). Benzodiazepine use is generally not recommended concurrently with pain medications and/or other controlled substances due to increased risks of profound sedation, respiratory depression, coma, and even . They are not to be used with any alcohol, as this combination can also be lethal. Patient was provided caution Clonazepam 0.5 mg daily as needed Medication Management and Follow-Up- Plan:- Schedule follow-up appointments every 2-3 months to monitor the patient's response to the medication regimen.- Reinforce the importance of avoiding recreational drug use due to potential neurotoxicity and interactions with prescribed medications. Pristiq 100 mg daily for depression and anxiety- monitor B/P Wellbutrin XL 150 mg daily 3. Unable to concentrate -reviewed ANNIA-2 test and discuss with patient and copy givenself reporting scale completed [place] prescription reviewed Patient is on Wellbutrin XL 150 mg and does not want to increase dose r/t hx agitation educated on non-stimulate and stimulatesPatient reported not want stimulate rx working in therapy for focus Discuss and educated on increase strattera 60 mg daily in am ANNIA-AE2 DIAGNOSTIC CONSIDERATIONS These test findings suggest that the examiner consider the diagnosis of Attention-Deficit/ Hyperactivity Disorder, combined presentation, and this individual's pattern of responding was indicative of impairments likely to impact her functioning in the home and work settings. The Self Rating Scales did not identify a significant number of hyperactive/impuls stephani or inattentive symptoms. These rating scales do not support the diagnosis suggested by the test results. In making a diagnosis, the examiner will need to determine if there is a reason that this individual did not identify a significant number of hyperactive/impuls stephani or inattentive symptoms, because the ANNIA-AE2 test results did show impairments in response control and attention. Her global Response Control quotient scale score indicated a severe impairment. In addition, her global Attention quotient scale score fell in the mildly to moderately impaired range. These ANNIA-AE2 test findings will need to be included in the examiner's diagnostic decision making process. atomoxetine 60 mg capsule - 4. Long-term drug therapy 05/07/2024 Bipolar affective disorder, depressed, moderate (ICD-10 - F31.32) 05/30/2024 Chronic post-traumatic stress disorder (ICD-10 - F43.12) 05/30/2024 Bipolar affective disorder, depressed, moderate (ICD-10 - F31.32) 06/10/2024 Generalized anxiety disorder (ICD-10 - F41.1) 1. Bipolar affective disorder, Depakote DR 250 mg twice a day for agitation and mood stabilization- educated on rx Vraylar 3 mg daily Pristiq 100 mg daily for depression and anxiety- monitor B/P Discuss and educated on medication options Lexapro 5 mg daily for depression monitor for junito and hypomania obtain labs PCP recently done monitor B/P- reported she takes rx in afternoon SSRI side effects discussed including but not limited to, gastric upset, nausea, vomiting, diarrhea and/or constipation, weight changes, sexual side effects including loss of libido, increased suicidal thoughts/behaviors in children and young adults, and serotonin syndrome.Second generation antipsychotics (SGAs) have metabolic syndrome issues with weight gain, increase in prolactin, increased waist circumference, increased lipids, and increased glucose. Thus routine monitoring of weight, metabolic labs, etc. is indicated. A general rank ordering of antipsychotics that have the greatest to the least risk of metabolic effects is olanzapine, quetiapine, risperidone, ziprasidone, and aripiprazole. However, weight gain can occur with all of these drugs and considerable variability exists among patients receiving the same drug regarding the risk of metabolic effects. Anti-psychotic agents not only increase the risk of metabolic disorder, they also increase the risk of CVA, akathisia, and movement disorders including EPS or tardive dyskinesia (more common with first generation antipsychotics) and more. educated on all medications, benefits, side effects and risk, and educated on depression, anxiety, and ADHD, mood d/o and educated on compliance of medications, metabolic and movement d/o education appointment's, continue therapy discussion with patient about course of treatmentand patient instructions. education on serotonin syndrome obtain lab PCP educated on labs for Depakote and vraylar 2. Generalized anxiety disorder -Discussed and educated pt regarding benzodiazepines are generally not intended for prolonged use and that use can cause tolerance, dependence, depression, and associated memory issues including dementias (this list is not exhaustive). Benzodiazepine use is generally not recommended concurrently with pain medications and/or other controlled substances due to increased risks of profound sedation, respiratory depression, coma, and even . They are not to be used with any alcohol, as this combination can also be lethal. Patient was provided caution Clonazepam 0.5 mg daily as needed Medication Management and Follow-Up- Plan:- Schedule follow-up appointments every 2-3 months to monitor the patient's response to the medication regimen.- Reinforce the importance of avoiding recreational drug use due to potential neurotoxicity and interactions with prescribed medications. Pristiq 100 mg daily for depression and anxiety- monitor B/P 3. Unable to concentrate -reviewed ANNIA-2 test and discuss with patient and copy givenself reporting scale completed [place] prescription reviewed educated on non-stimulate and stimulatesPatient reported not want stimulate rx working in therapy for focus Discuss and educated on increase strattera 60 mg daily in am ANNIA-AE2 DIAGNOSTIC CONSIDERATIONS These test findings suggest that the examiner consider the diagnosis of Attention-Deficit/ Hyperactivity Disorder, combined presentation, and this individual's pattern of responding was indicative of impairments likely to impact her functioning in the home and work settings. The Self Rating Scales did not identify a significant number of hyperactive/impuls stephani or inattentive symptoms. These rating scales do not support the diagnosis suggested by the test results. In making a diagnosis, the examiner will need to determine if there is a reason that this individual did not identify a significant number of hyperactive/impuls stephani or inattentive symptoms, because the ANNIA-AE2 test results did show impairments in response control and attention. Her global Response Control quotient scale score indicated a severe impairment. In addition, her global Attention quotient scale score fell in the mildly to moderately impaired range. These ANNIA-AE2 test findings will need to be included in the examiner's diagnostic decision making process. atomoxetine 60 mg capsule - 4. Long-term drug therapy 06/21/2024 Generalized anxiety disorder (ICD-10 - F41.1) 06/24/2024 Generalized anxiety disorder (ICD-10 - F41.1) 06/24/2024 Bipolar affective disorder, depressed, moderate (ICD-10 - F31.32) 07/07/2024 Primary insomnia (ICD-10 - F51.01) 07/18/2024 Bipolar disorder, current episode depressed, mild (ICD-10 - F31.31) 07/18/2024 Generalized anxiety disorder (ICD-10 - F41.1) 08/08/2024 Bipolar disorder, current episode depressed, mild (ICD-10 - F31.31) 08/08/2024 Encounter for screening for depression (ICD-10 - Z13.31) 08/28/2024 Bipolar disorder, current episode depressed, mild (ICD-10 - F31.31) 08/28/2024 Encounter for screening for depression (ICD-10 - Z13.31) 09/12/2024 Generalized anxiety disorder (ICD-10 - F41.1) 09/17/2024 Bipolar disorder, current episode depressed, mild (ICD-10 - F31.31) 07/04/2024 Generalized anxiety disorder (ICD-10 - F41.1) 1. Bipolar affective disorder, Depakote DR 250 mg twice a day for agitation and mood stabilization- educated on rx Vraylar 3 mg daily Pristiq 100 mg daily for depression and anxiety- monitor B/P Discuss and educated on medication options Lexapro 5 mg daily for depression monitor for junito and hypomania obtain labs PCP recently done monitor B/P- reported she takes rx in afternoon SSRI side effects discussed including but not limited to, gastric upset, nausea, vomiting, diarrhea and/or constipation, weight changes, sexual side effects including loss of libido, increased suicidal thoughts/behaviors in children and young adults, and serotonin syndrome.Second generation antipsychotics (SGAs) have metabolic syndrome issues with weight gain, increase in prolactin, increased waist circumference, increased lipids, and increased glucose. Thus routine monitoring of weight, metabolic labs, etc. is indicated. A general rank ordering of antipsychotics that have the greatest to the least risk of metabolic effects is olanzapine, quetiapine, risperidone, ziprasidone, and aripiprazole. However, weight gain can occur with all of these drugs and considerable variability exists among patients receiving the same drug regarding the risk of metabolic effects. Anti-psychotic agents not only increase the risk of metabolic disorder, they also increase the risk of CVA, akathisia, and movement disorders including EPS or tardive dyskinesia (more common with first generation antipsychotics) and more. educated on all medications, benefits, side effects and risk, and educated on depression, anxiety, and ADHD, mood d/o and educated on compliance of medications, metabolic and movement d/o education appointment's, continue therapy discussion with patient about course of treatmentand patient instructions. education on serotonin syndrome obtain lab PCP educated on labs for Depakote and vraylar 2. Generalized anxiety disorder -Discussed and educated pt regarding benzodiazepines are generally not intended for prolonged use and that use can cause tolerance, dependence, depression, and associated memory issues including dementias (this list is not exhaustive). Benzodiazepine use is generally not recommended concurrently with pain medications and/or other controlled substances due to increased risks of profound sedation, respiratory depression, coma, and even . They are not to be used with any alcohol, as this combination can also be lethal. Patient was provided caution Clonazepam 0.5 mg daily as needed Medication Management and Follow-Up- Plan:- Schedule follow-up appointments every 2-3 months to monitor the patient's response to the medication regimen.- Reinforce the importance of avoiding recreational drug use due to potential neurotoxicity and interactions with prescribed medications. Pristiq 100 mg daily for depression and anxiety- monitor B/P 3. Unable to concentrate -reviewed ANNIA-2 test and discuss with patient and copy givenself reporting scale completed [place] prescription reviewed educated on non-stimulate and stimulatesPatient reported not want stimulate rx working in therapy for focus Discuss and educated on strattera 60 mg daily in am ANNIA-AE2 DIAGNOSTIC CONSIDERATIONS These test findings suggest that the examiner consider the diagnosis of Attention-Deficit/ Hyperactivity Disorder, combined presentation, and this individual's pattern of responding was indicative of impairments likely to impact her functioning in the home and work settings. The Self Rating Scales did not identify a significant number of hyperactive/impuls stephani or inattentive symptoms. These rating scales do not support the diagnosis suggested by the test results. In making a diagnosis, the examiner will need to determine if there is a reason that this individual did not identify a significant number of hyperactive/impuls stephani or inattentive symptoms, because the ANNIA-AE2 test results did show impairments in response control and attention. Her global Response Control quotient scale score indicated a severe impairment. In addition, her global Attention quotient scale score fell in the mildly to moderately impaired range. These ANNIA-AE2 test findings will need to be included in the examiner's diagnostic decision making process. atomoxetine 60 mg capsule - 4. HTN ON RX educated on healthy b/p 120/80 monitor b/p at home refer to PCP, Urgent care/ER heart healthy diet and excise limit salt intake limit soda intake and caffiene increase water 5. Insomnia Patient having sleep distrubance and sleping 3 hours and not able to go backto sleep off Trazodone Re-start Trazodone 50-100 mg at bedtime tolerated rx in past sleep hygiene CPAP NIGHTLY . Long-term drug therapy 09/17/2024 Encounter for screening for depression (ICD-10 - Z13.31) 09/26/2024 Encounter for screening for depression (ICD-10 - Z13.31) 1. Bipolar affective disorder, Depakote DR 250 mg twice a day for agitation and mood stabilization- educated on rx Vraylar 3 mg daily Pristiq 100 mg daily for depression and anxiety- monitor B/P Discuss and educated on medication options Lexapro 5 mg daily for depression monitor for junito and hypomania obtain labs PCP recently done monitor B/P- reported she takes rx in afternoon SSRI side effects discussed including but not limited to, gastric upset, nausea, vomiting, diarrhea and/or constipation, weight changes, sexual side effects including loss of libido, increased suicidal thoughts/behaviors in children and young adults, and serotonin syndrome.Second generation antipsychotics (SGAs) have metabolic syndrome issues with weight gain, increase in prolactin, increased waist circumference, increased lipids, and increased glucose. Thus routine monitoring of weight, metabolic labs, etc. is indicated. A general rank ordering of antipsychotics that have the greatest to the least risk of metabolic effects is olanzapine, quetiapine, risperidone, ziprasidone, and aripiprazole. However, weight gain can occur with all of these drugs and considerable variability exists among patients receiving the same drug regarding the risk of metabolic effects. Anti-psychotic agents not only increase the risk of metabolic disorder, they also increase the risk of CVA, akathisia, and movement disorders including EPS or tardive dyskinesia (more common with first generation antipsychotics) and more. educated on all medications, benefits, side effects and risk, and educated on depression, anxiety, and ADHD, mood d/o and educated on compliance of medications, metabolic and movement d/o education appointment's, continue therapy discussion with patient about course of treatmentand patient instructions. education on serotonin syndrome obtain lab PCP scheduled 11/20 and having Depakote levels- educated on labs for Depakote and vraylar 2. Generalized anxiety disorder -Discussed and educated pt regarding benzodiazepines are generally not intended for prolonged use and that use can cause tolerance, dependence, depression, and associated memory issues including dementias (this list is not exhaustive). Benzodiazepine use is generally not recommended concurrently with pain medications and/or other controlled substances due to increased risks of profound sedation, respiratory depression, coma, and even . They are not to be used with any alcohol, as this combination can also be lethal. Patient was provided caution Clonazepam 0.5 mg daily as needed Medication Management and Follow-Up- Plan:- Schedule follow-up appointments every 2-3 months to monitor the patient's response to the medication regimen.- Reinforce the importance of avoiding recreational drug use due to potential neurotoxicity and interactions with prescribed medications. Pristiq 100 mg daily for depression and anxiety- monitor B/P 3. Unable to concentrate -reviewed ANNIA-2 test and discuss with patient and copy givenself reporting scale completed [place] prescription reviewed educated on non-stimulate and stimulatesPatient reported not want stimulate rx working in therapy for focus Discuss and educated on strattera 60 mg daily in am ANNIA-AE2 DIAGNOSTIC CONSIDERATIONS These test findings suggest that the examiner consider the diagnosis of Attention-Deficit/ Hyperactivity Disorder, combined presentation, and this individual's pattern of responding was indicative of impairments likely to impact her functioning in the home and work settings. The Self Rating Scales did not identify a significant number of hyperactive/impuls stephani or inattentive symptoms. These rating scales do not support the diagnosis suggested by the test results. In making a diagnosis, the examiner will need to determine if there is a reason that this individual did not identify a significant number of hyperactive/impuls stephani or inattentive symptoms, because the ANNIA-AE2 test results did show impairments in response control and attention. Her global Response Control quotient scale score indicated a severe impairment. In addition, her global Attention quotient scale score fell in the mildly to moderately impaired range. These ANNIA-AE2 test findings will need to be included in the examiner's diagnostic decision making process. atomoxetine 60 mg capsule - 4. HTN ON RX educated on healthy b/p 120/80 monitor b/p at home refer to PCP, Urgent care/ER heart healthy diet and excise limit salt intake limit soda intake and caffiene increase water 5. Insomnia Patient having sleep distrubance and sleping 3 hours and not able to go backto sleep off Trazodone Trazodone 50 mg at bedtime tolerated rx in past sleep hygiene CPAP NIGHTLY 6. tobacco Smoking Education Do not smoke. Nicotine and other chemicals in cigarettes and cigars can cause lung damage. Ask your healthcare provider for information if you currently smoke and need help to quit. E-cigarettes or smokeless tobacco still contain nicotine. Talk to your healthcare provider before you use these products. education on decrease to stopping nicotine products and stop smoking hotline given 9-Quit - Yes [place] Tobacco Quitline Call a Smoking Quitline The [employer] [place] Smoking Quitline, (8-271-25T-QUIT) Smokefree.gov, which connects you with your State's Quitline, (2-526-UVQVHJE) [facility] Smoking Quitline, (0-703-CQGHLID) . Long-term drug therapy 10/07/2024 Primary insomnia (ICD-10 - F51.01) 10/16/2024 Bipolar disorder, current episode depressed, mild (ICD-10 - F31.31) 10/16/2024 Generalized anxiety disorder (ICD-10 - F41.1) 11/06/2024 Bipolar disorder, current episode depressed, mild (ICD-10 - F31.31) 11/06/2024 Generalized anxiety disorder (ICD-10 - F41.1) 12/11/2024 Bipolar disorder, current episode depressed, mild (ICD-10 - F31.31) 12/11/2024 Generalized anxiety disorder (ICD-10 - F41.1) 12/27/2024 Encounter for screening for depression (ICD-10 - Z13.31) reported no refills needed today 1. Bipolar affective disorder, Depakote DR 250 mg twice a day for agitation and mood stabilization- educated on rx Vraylar 3 mg daily Pristiq 100 mg daily for depression and anxiety- monitor B/P Discuss and educated on medication options Lexapro 5 mg daily for depression monitor for junito and hypomania obtain labs PCP recently done monitor B/P- reported she takes rx in afternoon SSRI side effects discussed including but not limited to, gastric upset, nausea, vomiting, diarrhea and/or constipation, weight changes, sexual side effects including loss of libido, increased suicidal thoughts/behaviors in children and young adults, and serotonin syndrome.Second generation antipsychotics (SGAs) have metabolic syndrome issues with weight gain, increase in prolactin, increased waist circumference, increased lipids, and increased glucose. Thus routine monitoring of weight, metabolic labs, etc. is indicated. A general rank ordering of antipsychotics that have the greatest to the least risk of metabolic effects is olanzapine, quetiapine, risperidone, ziprasidone, and aripiprazole. However, weight gain can occur with all of these drugs and considerable variability exists among patients receiving the same drug regarding the risk of metabolic effects. Anti-psychotic agents not only increase the risk of metabolic disorder, they also increase the risk of CVA, akathisia, and movement disorders including EPS or tardive dyskinesia (more common with first generation antipsychotics) and more. educated on all medications, benefits, side effects and risk, and educated on depression, anxiety, and ADHD, mood d/o and educated on compliance of medications, metabolic and movement d/o education appointment's, continue therapy discussion with patient about course of treatmentand patient instructions. education on serotonin syndrome obtain lab PCP scheduled 11/20 and having Depakote levels- educated on labs for Depakote and vraylar 2. Generalized anxiety disorder -Discussed and educated pt regarding benzodiazepines are generally not intended for prolonged use and that use can cause tolerance, dependence, depression, and associated memory issues including dementias (this list is not exhaustive). Benzodiazepine use is generally not recommended concurrently with pain medications and/or other controlled substances due to increased risks of profound sedation, respiratory depression, coma, and even . They are not to be used with any alcohol, as this combination can also be lethal. Patient was provided caution Clonazepam 0.5 mg daily as needed Medication Management and Follow-Up- Plan:- Schedule follow-up appointments every 2-3 months to monitor the patient's response to the medication regimen.- Reinforce the importance of avoiding recreational drug use due to potential neurotoxicity and interactions with prescribed medications. Pristiq 100 mg daily for depression and anxiety- monitor B/P 3. Unable to concentrate -reviewed ANNIA-2 test and discuss with patient and copy givenself reporting scale completed [place] prescription reviewed educated on non-stimulate and stimulatesPatient reported not want stimulate rx working in therapy for focus Discuss and educated on strattera 60 mg daily in am ANNIA-AE2 DIAGNOSTIC CONSIDERATIONS These test findings suggest that the examiner consider the diagnosis of Attention-Deficit/ Hyperactivity Disorder, combined presentation, and this individual's pattern of responding was indicative of impairments likely to impact her functioning in the home and work settings. The Self Rating Scales did not identify a significant number of hyperactive/impuls stephani or inattentive symptoms. These rating scales do not support the diagnosis suggested by the test results. In making a diagnosis, the examiner will need to determine if there is a reason that this individual did not identify a significant number of hyperactive/impuls stephani or inattentive symptoms, because the ANNIA-AE2 test results did show impairments in response control and attention. Her global Response Control quotient scale score indicated a severe impairment. In addition, her global Attention quotient scale score fell in the mildly to moderately impaired range. These ANNIA-AE2 test findings will need to be included in the examiner's diagnostic decision making process. atomoxetine 60 mg capsule - 4. HTN ON RX educated on healthy b/p 120/80 monitor b/p at home refer to PCP, Urgent care/ER heart healthy diet and excise limit salt intake limit soda intake and caffiene increase water 5. Insomnia Trazodone 50 mg at bedtime sleep hygiene CPAP NIGHTLY 6. tobacco Smoking Education Do not smoke. Nicotine and other chemicals in cigarettes and cigars can cause lung damage. Ask your healthcare provider for information if you currently smoke and need help to quit. E-cigarettes or smokeless tobacco still contain nicotine. Talk to your healthcare provider before you use these products. education on decrease to stopping nicotine products and stop smoking hotline given 740-Quit - Yes [place] Tobacco Quitline Call a Smoking Quitline [facility] [place] Smoking Quitline, (7-613-82B-QUIT) Smokefree.gov, which connects you with your State's Quitline, (6-202-QBAXDIB) [facility] Smoking Quitline, (3-032-WHPOGOF) . Long-term drug therapy 11/06/2024 Attention-defici t hyperactivity disorder, unspecified type (ICD-10 - F90.9) 12/11/2024 Attention-defici t hyperactivity disorder, unspecified type (ICD-10 - F90.9) 12/27/2024 Generalized anxiety disorder (ICD-10 - F41.1) reported no refills needed today 1. Bipolar affective disorder, Depakote DR 250 mg twice a day for agitation and mood stabilization- educated on rx Vraylar 3 mg daily Pristiq 100 mg daily for depression and anxiety- monitor B/P Discuss and educated on medication options Lexapro 5 mg daily for depression monitor for junito and hypomania obtain labs PCP recently done monitor B/P- reported she takes rx in afternoon SSRI side effects discussed including but not limited to, gastric upset, nausea, vomiting, diarrhea and/or constipation, weight changes, sexual side effects including loss of libido, increased suicidal thoughts/behaviors in children and young adults, and serotonin syndrome.Second generation antipsychotics (SGAs) have metabolic syndrome issues with weight gain, increase in prolactin, increased waist circumference, increased lipids, and increased glucose. Thus routine monitoring of weight, metabolic labs, etc. is indicated. A general rank ordering of antipsychotics that have the greatest to the least risk of metabolic effects is olanzapine, quetiapine, risperidone, ziprasidone, and aripiprazole. However, weight gain can occur with all of these drugs and considerable variability exists among patients receiving the same drug regarding the risk of metabolic effects. Anti-psychotic agents not only increase the risk of metabolic disorder, they also increase the risk of CVA, akathisia, and movement disorders including EPS or tardive dyskinesia (more common with first generation antipsychotics) and more. educated on all medications, benefits, side effects and risk, and educated on depression, anxiety, and ADHD, mood d/o and educated on compliance of medications, metabolic and movement d/o education appointment's, continue therapy discussion with patient about course of treatmentand patient instructions. education on serotonin syndrome obtain lab PCP scheduled 11/20 and having Depakote levels- educated on labs for Depakote and vraylar 2. Generalized anxiety disorder -Discussed and educated pt regarding benzodiazepines are generally not intended for prolonged use and that use can cause tolerance, dependence, depression, and associated memory issues including dementias (this list is not exhaustive). Benzodiazepine use is generally not recommended concurrently with pain medications and/or other controlled substances due to increased risks of profound sedation, respiratory depression, coma, and even . They are not to be used with any alcohol, as this combination can also be lethal. Patient was provided caution Clonazepam 0.5 mg daily as needed Medication Management and Follow-Up- Plan:- Schedule follow-up appointments every 2-3 months to monitor the patient's response to the medication regimen.- Reinforce the importance of avoiding recreational drug use due to potential neurotoxicity and interactions with prescribed medications. Pristiq 100 mg daily for depression and anxiety- monitor B/P 3. Unable to concentrate -reviewed ANNIA-2 test and discuss with patient and copy givenself reporting scale completed [place] prescription reviewed educated on non-stimulate and stimulatesPatient reported not want stimulate rx working in therapy for focus Discuss and educated on strattera 60 mg daily in am ANNIA-AE2 DIAGNOSTIC CONSIDERATIONS These test findings suggest that the examiner consider the diagnosis of Attention-Deficit/ Hyperactivity Disorder, combined presentation, and this individual's pattern of responding was indicative of impairments likely to impact her functioning in the home and work settings. The Self Rating Scales did not identify a significant number of hyperactive/impuls stephani or inattentive symptoms. These rating scales do not support the diagnosis suggested by the test results. In making a diagnosis, the examiner will need to determine if there is a reason that this individual did not identify a significant number of hyperactive/impuls stephani or inattentive symptoms, because the ANNIA-AE2 test results did show impairments in response control and attention. Her global Response Control quotient scale score indicated a severe impairment. In addition, her global Attention quotient scale score fell in the mildly to moderately impaired range. These ANNIA-AE2 test findings will need to be included in the examiner's diagnostic decision making process. atomoxetine 60 mg capsule - 4. HTN ON RX educated on healthy b/p 120/80 monitor b/p at home refer to PCP, Urgent care/ER heart healthy diet and excise limit salt intake limit soda intake and caffiene increase water 5. Insomnia Trazodone 50 mg at bedtime sleep hygiene CPAP NIGHTLY 6. tobacco Smoking Education Do not smoke. Nicotine and other chemicals in cigarettes and cigars can cause lung damage. Ask your healthcare provider for information if you currently smoke and need help to quit. E-cigarettes or smokeless tobacco still contain nicotine. Talk to your healthcare provider before you use these products. education on decrease to stopping nicotine products and stop smoking hotline given -Quit - Yes [place] Tobacco Quitline Call a Smoking Quitline [facility] [place] Smoking Quitline, (5-564-03B-QUIT) Smokefree.gov, which connects you with your State's Quitline, (8-686-AIAIJHN) [facility] Smoking [facility]uit[facility], (3-513-WCRDDPQ) . Long-term drug therapy 10/16/2024 Attention-defici t hyperactivity disorder, unspecified type (ICD-10 - F90.9) 06/24/2024 Chronic post-traumatic stress disorder (ICD-10 - F43.12) 09/26/2024 Generalized anxiety disorder (ICD-10 - F41.1) 1. Bipolar affective disorder, Depakote DR 250 mg twice a day for agitation and mood stabilization- educated on rx Vraylar 3 mg daily Pristiq 100 mg daily for depression and anxiety- monitor B/P Discuss and educated on medication options Lexapro 5 mg daily for depression monitor for junito and hypomania obtain labs PCP recently done monitor B/P- reported she takes rx in afternoon SSRI side effects discussed including but not limited to, gastric upset, nausea, vomiting, diarrhea and/or constipation, weight changes, sexual side effects including loss of libido, increased suicidal thoughts/behaviors in children and young adults, and serotonin syndrome.Second generation antipsychotics (SGAs) have metabolic syndrome issues with weight gain, increase in prolactin, increased waist circumference, increased lipids, and increased glucose. Thus routine monitoring of weight, metabolic labs, etc. is indicated. A general rank ordering of antipsychotics that have the greatest to the least risk of metabolic effects is olanzapine, quetiapine, risperidone, ziprasidone, and aripiprazole. However, weight gain can occur with all of these drugs and considerable variability exists among patients receiving the same drug regarding the risk of metabolic effects. Anti-psychotic agents not only increase the risk of metabolic disorder, they also increase the risk of CVA, akathisia, and movement disorders including EPS or tardive dyskinesia (more common with first generation antipsychotics) and more. educated on all medications, benefits, side effects and risk, and educated on depression, anxiety, and ADHD, mood d/o and educated on compliance of medications, metabolic and movement d/o education appointment's, continue therapy discussion with patient about course of treatmentand patient instructions. education on serotonin syndrome obtain lab PCP scheduled 11/20 and having Depakote levels- educated on labs for Depakote and vraylar 2. Generalized anxiety disorder -Discussed and educated pt regarding benzodiazepines are generally not intended for prolonged use and that use can cause tolerance, dependence, depression, and associated memory issues including dementias (this list is not exhaustive). Benzodiazepine use is generally not recommended concurrently with pain medications and/or other controlled substances due to increased risks of profound sedation, respiratory depression, coma, and even . They are not to be used with any alcohol, as this combination can also be lethal. Patient was provided caution Clonazepam 0.5 mg daily as needed Medication Management and Follow-Up- Plan:- Schedule follow-up appointments every 2-3 months to monitor the patient's response to the medication regimen.- Reinforce the importance of avoiding recreational drug use due to potential neurotoxicity and interactions with prescribed medications. Pristiq 100 mg daily for depression and anxiety- monitor B/P 3. Unable to concentrate -reviewed ANNIA-2 test and discuss with patient and copy givenself reporting scale completed [place] prescription reviewed educated on non-stimulate and stimulatesPatient reported not want stimulate rx working in therapy for focus Discuss and educated on strattera 60 mg daily in am ANNIA-AE2 DIAGNOSTIC CONSIDERATIONS These test findings suggest that the examiner consider the diagnosis of Attention-Deficit/ Hyperactivity Disorder, combined presentation, and this individual's pattern of responding was indicative of impairments likely to impact her functioning in the home and work settings. The Self Rating Scales did not identify a significant number of hyperactive/impuls stephani or inattentive symptoms. These rating scales do not support the diagnosis suggested by the test results. In making a diagnosis, the examiner will need to determine if there is a reason that this individual did not identify a significant number of hyperactive/impuls stephani or inattentive symptoms, because the ANNIA-AE2 test results did show impairments in response control and attention. Her global Response Control quotient scale score indicated a severe impairment. In addition, her global Attention quotient scale score fell in the mildly to moderately impaired range. These ANNIA-AE2 test findings will need to be included in the examiner's diagnostic decision making process. atomoxetine 60 mg capsule - 4. HTN ON RX educated on healthy b/p 120/80 monitor b/p at home refer to PCP, Urgent care/ER heart healthy diet and excise limit salt intake limit soda intake and caffiene increase water 5. Insomnia Patient having sleep distrubance and sleping 3 hours and not able to go backto sleep off Trazodone Trazodone 50 mg at bedtime tolerated rx in past sleep hygiene CPAP NIGHTLY 6. tobacco Smoking Education Do not smoke. Nicotine and other chemicals in cigarettes and cigars can cause lung damage. Ask your healthcare provider for information if you currently smoke and need help to quit. E-cigarettes or smokeless tobacco still contain nicotine. Talk to your healthcare provider before you use these products. education on decrease to stopping nicotine products and stop smoking hotline given 640-Quit - Yes [place] Tobacco Quitline Call a Smoking Quitline [facility] [place] Smoking Quit[facility], (9-253-76L-QUIT) Smokefree.gov, which connects you with your State's Quitline, (1-467-APRTNLA) [facility] Smoking Quitline, (0-314-CQGPMKL) . Long-term drug therapy 09/17/2024 Generalized anxiety disorder (ICD-10 - F41.1) 08/28/2024 Generalized anxiety disorder (ICD-10 - F41.1) 08/08/2024 Generalized anxiety disorder (ICD-10 - F41.1) 07/18/2024 Post-traumatic stress disorder, chronic (ICD-10 - F43.12) 07/04/2024 Primary insomnia (ICD-10 - F51.01) Insomnia: Care Instructions material was published, [facility] material was published 1. Bipolar affective disorder, Depakote DR 250 mg twice a day for agitation and mood stabilization- educated on rx Vraylar 3 mg daily Pristiq 100 mg daily for depression and anxiety- monitor B/P Discuss and educated on medication options Lexapro 5 mg daily for depression monitor for junito and hypomania obtain labs PCP recently done monitor B/P- reported she takes rx in afternoon SSRI side effects discussed including but not limited to, gastric upset, nausea, vomiting, diarrhea and/or constipation, weight changes, sexual side effects including loss of libido, increased suicidal thoughts/behaviors in children and young adults, and serotonin syndrome.Second generation antipsychotics (SGAs) have metabolic syndrome issues with weight gain, increase in prolactin, increased waist circumference, increased lipids, and increased glucose. Thus routine monitoring of weight, metabolic labs, etc. is indicated. A general rank ordering of antipsychotics that have the greatest to the least risk of metabolic effects is olanzapine, quetiapine, risperidone, ziprasidone, and aripiprazole. However, weight gain can occur with all of these drugs and considerable variability exists among patients receiving the same drug regarding the risk of metabolic effects. Anti-psychotic agents not only increase the risk of metabolic disorder, they also increase the risk of CVA, akathisia, and movement disorders including EPS or tardive dyskinesia (more common with first generation antipsychotics) and more. educated on all medications, benefits, side effects and risk, and educated on depression, anxiety, and ADHD, mood d/o and educated on compliance of medications, metabolic and movement d/o education appointment's, continue therapy discussion with patient about course of treatmentand patient instructions. education on serotonin syndrome obtain lab PCP educated on labs for Depakote and vraylar 2. Generalized anxiety disorder -Discussed and educated pt regarding benzodiazepines are generally not intended for prolonged use and that use can cause tolerance, dependence, depression, and associated memory issues including dementias (this list is not exhaustive). Benzodiazepine use is generally not recommended concurrently with pain medications and/or other controlled substances due to increased risks of profound sedation, respiratory depression, coma, and even . They are not to be used with any alcohol, as this combination can also be lethal. Patient was provided caution Clonazepam 0.5 mg daily as needed Medication Management and Follow-Up- Plan:- Schedule follow-up appointments every 2-3 months to monitor the patient's response to the medication regimen.- Reinforce the importance of avoiding recreational drug use due to potential neurotoxicity and interactions with prescribed medications. Pristiq 100 mg daily for depression and anxiety- monitor B/P 3. Unable to concentrate -reviewed ANNIA-2 test and discuss with patient and copy givenself reporting scale completed [place] prescription reviewed educated on non-stimulate and stimulatesPatient reported not want stimulate rx working in therapy for focus Discuss and educated on strattera 60 mg daily in am ANNIA-AE2 DIAGNOSTIC CONSIDERATIONS These test findings suggest that the examiner consider the diagnosis of Attention-Deficit/ Hyperactivity Disorder, combined presentation, and this individual's pattern of responding was indicative of impairments likely to impact her functioning in the home and work settings. The Self Rating Scales did not identify a significant number of hyperactive/impuls stephani or inattentive symptoms. These rating scales do not support the diagnosis suggested by the test results. In making a diagnosis, the examiner will need to determine if there is a reason that this individual did not identify a significant number of hyperactive/impuls stephani or inattentive symptoms, because the ANNIA-AE2 test results did show impairments in response control and attention. Her global Response Control quotient scale score indicated a severe impairment. In addition, her global Attention quotient scale score fell in the mildly to moderately impaired range. These ANNIA-AE2 test findings will need to be included in the examiner's diagnostic decision making process. atomoxetine 60 mg capsule - 4. HTN ON RX educated on healthy b/p 120/80 monitor b/p at home refer to PCP, Urgent care/ER heart healthy diet and excise limit salt intake limit soda intake and caffiene increase water 5. Insomnia Patient having sleep distrubance and sleping 3 hours and not able to go backto sleep off Trazodone Re-start Trazodone 50-100 mg at bedtime tolerated rx in past sleep hygiene CPAP NIGHTLY . Long-term drug therapy 06/10/2024 Primary insomnia (ICD-10 - F51.01) 1. Bipolar affective disorder, Depakote DR 250 mg twice a day for agitation and mood stabilization- educated on rx Vraylar 3 mg daily Pristiq 100 mg daily for depression and anxiety- monitor B/P Discuss and educated on medication options Lexapro 5 mg daily for depression monitor for junito and hypomania obtain labs PCP recently done monitor B/P- reported she takes rx in afternoon SSRI side effects discussed including but not limited to, gastric upset, nausea, vomiting, diarrhea and/or constipation, weight changes, sexual side effects including loss of libido, increased suicidal thoughts/behaviors in children and young adults, and serotonin syndrome.Second generation antipsychotics (SGAs) have metabolic syndrome issues with weight gain, increase in prolactin, increased waist circumference, increased lipids, and increased glucose. Thus routine monitoring of weight, metabolic labs, etc. is indicated. A general rank ordering of antipsychotics that have the greatest to the least risk of metabolic effects is olanzapine, quetiapine, risperidone, ziprasidone, and aripiprazole. However, weight gain can occur with all of these drugs and considerable variability exists among patients receiving the same drug regarding the risk of metabolic effects. Anti-psychotic agents not only increase the risk of metabolic disorder, they also increase the risk of CVA, akathisia, and movement disorders including EPS or tardive dyskinesia (more common with first generation antipsychotics) and more. educated on all medications, benefits, side effects and risk, and educated on depression, anxiety, and ADHD, mood d/o and educated on compliance of medications, metabolic and movement d/o education appointment's, continue therapy discussion with patient about course of treatmentand patient instructions. education on serotonin syndrome obtain lab PCP educated on labs for Depakote and vraylar 2. Generalized anxiety disorder -Discussed and educated pt regarding benzodiazepines are generally not intended for prolonged use and that use can cause tolerance, dependence, depression, and associated memory issues including dementias (this list is not exhaustive). Benzodiazepine use is generally not recommended concurrently with pain medications and/or other controlled substances due to increased risks of profound sedation, respiratory depression, coma, and even . They are not to be used with any alcohol, as this combination can also be lethal. Patient was provided caution Clonazepam 0.5 mg daily as needed Medication Management and Follow-Up- Plan:- Schedule follow-up appointments every 2-3 months to monitor the patient's response to the medication regimen.- Reinforce the importance of avoiding recreational drug use due to potential neurotoxicity and interactions with prescribed medications. Pristiq 100 mg daily for depression and anxiety- monitor B/P 3. Unable to concentrate -reviewed ANNIA-2 test and discuss with patient and copy givenself reporting scale completed [place] prescription reviewed educated on non-stimulate and stimulatesPatient reported not want stimulate rx working in therapy for focus Discuss and educated on increase strattera 60 mg daily in am ANNIA-AE2 DIAGNOSTIC CONSIDERATIONS These test findings suggest that the examiner consider the diagnosis of Attention-Deficit/ Hyperactivity Disorder, combined presentation, and this individual's pattern of responding was indicative of impairments likely to impact her functioning in the home and work settings. The Self Rating Scales did not identify a significant number of hyperactive/impuls stephani or inattentive symptoms. These rating scales do not support the diagnosis suggested by the test results. In making a diagnosis, the examiner will need to determine if there is a reason that this individual did not identify a significant number of hyperactive/impuls stephani or inattentive symptoms, because the ANNIA-AE2 test results did show impairments in response control and attention. Her global Response Control quotient scale score indicated a severe impairment. In addition, her global Attention quotient scale score fell in the mildly to moderately impaired range. These ANNIA-AE2 test findings will need to be included in the examiner's diagnostic decision making process. atomoxetine 60 mg capsule - 4. Long-term drug therapy 05/30/2024 Generalized anxiety disorder (ICD-10 - F41.1) 05/07/2024 Generalized anxiety disorder (ICD-10 - F41.1) 05/02/2024 Primary insomnia (ICD-10 - F51.01) 1. Bipolar affective disorder, currently depressed, Depakote DR 250 mg twice a day for agitation and mood stabilization- educated on rx Vraylar 3 mg daily Pristiq 100 mg daily for depression and anxiety- monitor B/P D/C Wellbutrin XL 150 mg daily- r/t agitation Discuss and educated on medication options will add Lexapro 5 mg daily for depression monitor for junito and hypomania obtain labs PCP recently done monitor B/P- reported she takes rx in afternoon SSRI side effects discussed including but not limited to, gastric upset, nausea, vomiting, diarrhea and/or constipation, weight changes, sexual side effects including loss of libido, increased suicidal thoughts/behaviors in children and young adults, and serotonin syndrome.Second generation antipsychotics (SGAs) have metabolic syndrome issues with weight gain, increase in prolactin, increased waist circumference, increased lipids, and increased glucose. Thus routine monitoring of weight, metabolic labs, etc. is indicated. A general rank ordering of antipsychotics that have the greatest to the least risk of metabolic effects is olanzapine, quetiapine, risperidone, ziprasidone, and aripiprazole. However, weight gain can occur with all of these drugs and considerable variability exists among patients receiving the same drug regarding the risk of metabolic effects. Anti-psychotic agents not only increase the risk of metabolic disorder, they also increase the risk of CVA, akathisia, and movement disorders including EPS or tardive dyskinesia (more common with first generation antipsychotics) and more. educated on all medications, benefits, side effects and risk, and educated on depression, anxiety, and ADHD, mood d/o and educated on compliance of medications, metabolic and movement d/o education appointment's, continue therapy discussion with patient about course of treatmentand patient instructions. education on serotonin syndrome obtain lab PCP educated on labs for Depakote and vraylar 2. Generalized anxiety disorder -Discussed and educated pt regarding benzodiazepines are generally not intended for prolonged use and that use can cause tolerance, dependence, depression, and associated memory issues including dementias (this list is not exhaustive). Benzodiazepine use is generally not recommended concurrently with pain medications and/or other controlled substances due to increased risks of profound sedation, respiratory depression, coma, and even . They are not to be used with any alcohol, as this combination can also be lethal. Patient was provided caution Clonazepam 0.5 mg daily as needed Medication Management and Follow-Up- Plan:- Schedule follow-up appointments every 2-3 months to monitor the patient's response to the medication regimen.- Reinforce the importance of avoiding recreational drug use due to potential neurotoxicity and interactions with prescribed medications. Pristiq 100 mg daily for depression and anxiety- monitor B/P Wellbutrin XL 150 mg daily 3. Unable to concentrate -reviewed ANNIA-2 test and discuss with patient and copy givenself reporting scale completed [place] prescription reviewed Patient is on Wellbutrin XL 150 mg and does not want to increase dose r/t hx agitation educated on non-stimulate and stimulatesPatient reported not want stimulate rx working in therapy for focus Discuss and educated on increase strattera 60 mg daily in am ANNIA-AE2 DIAGNOSTIC CONSIDERATIONS These test findings suggest that the examiner consider the diagnosis of Attention-Deficit/ Hyperactivity Disorder, combined presentation, and this individual's pattern of responding was indicative of impairments likely to impact her functioning in the home and work settings. The Self Rating Scales did not identify a significant number of hyperactive/impuls stephani or inattentive symptoms. These rating scales do not support the diagnosis suggested by the test results. In making a diagnosis, the examiner will need to determine if there is a reason that this individual did not identify a significant number of hyperactive/impuls stephani or inattentive symptoms, because the ANNIA-AE2 test results did show impairments in response control and attention. Her global Response Control quotient scale score indicated a severe impairment. In addition, her global Attention quotient scale score fell in the mildly to moderately impaired range. These ANNIA-AE2 test findings will need to be included in the examiner's diagnostic decision making process. atomoxetine 60 mg capsule - 4. Long-term drug therapy 05/02/2024 Bipolar disorder, current episode depressed, mild (ICD-10 - F31.31) 1. Bipolar affective disorder, currently depressed, Depakote DR 250 mg twice a day for agitation and mood stabilization- educated on rx Vraylar 3 mg daily Pristiq 100 mg daily for depression and anxiety- monitor B/P D/C Wellbutrin XL 150 mg daily- r/t agitation Discuss and educated on medication options will add Lexapro 5 mg daily for depression monitor for junito and hypomania obtain labs PCP recently done monitor B/P- reported she takes rx in afternoon SSRI side effects discussed including but not limited to, gastric upset, nausea, vomiting, diarrhea and/or constipation, weight changes, sexual side effects including loss of libido, increased suicidal thoughts/behaviors in children and young adults, and serotonin syndrome.Second generation antipsychotics (SGAs) have metabolic syndrome issues with weight gain, increase in prolactin, increased waist circumference, increased lipids, and increased glucose. Thus routine monitoring of weight, metabolic labs, etc. is indicated. A general rank ordering of antipsychotics that have the greatest to the least risk of metabolic effects is olanzapine, quetiapine, risperidone, ziprasidone, and aripiprazole. However, weight gain can occur with all of these drugs and considerable variability exists among patients receiving the same drug regarding the risk of metabolic effects. Anti-psychotic agents not only increase the risk of metabolic disorder, they also increase the risk of CVA, akathisia, and movement disorders including EPS or tardive dyskinesia (more common with first generation antipsychotics) and more. educated on all medications, benefits, side effects and risk, and educated on depression, anxiety, and ADHD, mood d/o and educated on compliance of medications, metabolic and movement d/o education appointment's, continue therapy discussion with patient about course of treatmentand patient instructions. education on serotonin syndrome obtain lab PCP educated on labs for Depakote and vraylar 2. Generalized anxiety disorder -Discussed and educated pt regarding benzodiazepines are generally not intended for prolonged use and that use can cause tolerance, dependence, depression, and associated memory issues including dementias (this list is not exhaustive). Benzodiazepine use is generally not recommended concurrently with pain medications and/or other controlled substances due to increased risks of profound sedation, respiratory depression, coma, and even . They are not to be used with any alcohol, as this combination can also be lethal. Patient was provided caution Clonazepam 0.5 mg daily as needed Medication Management and Follow-Up- Plan:- Schedule follow-up appointments every 2-3 months to monitor the patient's response to the medication regimen.- Reinforce the importance of avoiding recreational drug use due to potential neurotoxicity and interactions with prescribed medications. Pristiq 100 mg daily for depression and anxiety- monitor B/P Wellbutrin XL 150 mg daily 3. Unable to concentrate -reviewed ANNIA-2 test and discuss with patient and copy givenself reporting scale completed [place] prescription reviewed Patient is on Wellbutrin XL 150 mg and does not want to increase dose r/t hx agitation educated on non-stimulate and stimulatesPatient reported not want stimulate rx working in therapy for focus Discuss and educated on increase strattera 60 mg daily in am ANNIA-AE2 DIAGNOSTIC CONSIDERATIONS These test findings suggest that the examiner consider the diagnosis of Attention-Deficit/ Hyperactivity Disorder, combined presentation, and this individual's pattern of responding was indicative of impairments likely to impact her functioning in the home and work settings. The Self Rating Scales did not identify a significant number of hyperactive/impuls stephani or inattentive symptoms. These rating scales do not support the diagnosis suggested by the test results. In making a diagnosis, the examiner will need to determine if there is a reason that this individual did not identify a significant number of hyperactive/impuls stephani or inattentive symptoms, because the ANNIA-AE2 test results did show impairments in response control and attention. Her global Response Control quotient scale score indicated a severe impairment. In addition, her global Attention quotient scale score fell in the mildly to moderately impaired range. These ANNIA-AE2 test findings will need to be included in the examiner's diagnostic decision making process. atomoxetine 60 mg capsule - 4. Long-term drug therapy 04/16/2024 Generalized anxiety disorder (ICD-10 - F41.1) 04/02/2024 Generalized anxiety disorder (ICD-10 - F41.1) 03/20/2024 Chronic post-traumatic stress disorder (ICD-10 - F43.12) 03/11/2024 Generalized anxiety disorder (ICD-10 - F41.1) 1. Bipolar affective disorder, currently depressed, mild - Depakote DR 250 mg twice a day for agitation and mood stabilization- educated on rx Vraylar 3 mg daily Pristiq 100 mg daily for depression and anxiety- monitor B/P Wellbutrin XL 150 mg daily SSRI side effects discussed including but not limited to, gastric upset, nausea, vomiting, diarrhea and/or constipation, weight changes, sexual side effects including loss of libido, increased suicidal thoughts/behaviors in children and young adults, and serotonin syndrome.Second generation antipsychotics (SGAs) have metabolic syndrome issues with weight gain, increase in prolactin, increased waist circumference, increased lipids, and increased glucose. Thus routine monitoring of weight, metabolic labs, etc. is indicated. A general rank ordering of antipsychotics that have the greatest to the least risk of metabolic effects is olanzapine, quetiapine, risperidone, ziprasidone, and aripiprazole. However, weight gain can occur with all of these drugs and considerable variability exists among patients receiving the same drug regarding the risk of metabolic effects. Anti-psychotic agents not only increase the risk of metabolic disorder, they also increase the risk of CVA, akathisia, and movement disorders including EPS or tardive dyskinesia (more common with first generation antipsychotics) and more. educated on all medications, benefits, side effects and risk, and educated on depression, anxiety, and ADHD, mood d/o and educated on compliance of medications, metabolic and movement d/o education appointment's, continue therapy discussion with patient about course of treatmentand patient instructions. education on serotonin syndrome obtain lab PCP reviewed pulmonology note 06/27/23 educated on labs for Depakote and vraylar 2. Generalized anxiety disorder -Discussed and educated pt regarding benzodiazepines are generally not intended for prolonged use and that use can cause tolerance, dependence, depression, and associated memory issues including dementias (this list is not exhaustive). Benzodiazepine use is generally not recommended concurrently with pain medications and/or other controlled substances due to increased risks of profound sedation, respiratory depression, coma, and even . They are not to be used with any alcohol, as this combination can also be lethal. Patient was provided caution Clonazepam 0.5 mg daily as needed Medication Management and Follow-Up- Plan:- Schedule follow-up appointments every 2-3 months to monitor the patient's response to the medication regimen.- Reinforce the importance of avoiding recreational drug use due to potential neurotoxicity and interactions with prescribed medications. Pristiq 100 mg daily for depression and anxiety- monitor B/P Wellbutrin XL 150 mg daily 3. Unable to concentrate -reviewed ANNIA-2 test and discuss with patient and copy givenself reporting scale completed [place] prescription reviewed Patient is on Wellbutrin XL 150 mg and does not want to increase dose r/t hx agitation educated on non-stimulate and stimulatesPatient reported not want stimulate rx working in therapy for focus Discuss and educated on increase strattera 60 mg daily in am ANNIA-AE2 DIAGNOSTIC CONSIDERATIONS These test findings suggest that the examiner consider the diagnosis of Attention-Deficit/ Hyperactivity Disorder, combined presentation, and this individual's pattern of responding was indicative of impairments likely to impact her functioning in the home and work settings. The Self Rating Scales did not identify a significant number of hyperactive/impuls stephani or inattentive symptoms. These rating scales do not support the diagnosis suggested by the test results. In making a diagnosis, the examiner will need to determine if there is a reason that this individual did not identify a significant number of hyperactive/impuls stephani or inattentive symptoms, because the ANNIA-AE2 test results did show impairments in response control and attention. Her global Response Control quotient scale score indicated a severe impairment. In addition, her global Attention quotient scale score fell in the mildly to moderately impaired range. These ANNIA-AE2 test findings will need to be included in the examiner's diagnostic decision making process. atomoxetine 60 mg capsule - 4. Long-term drug therapy 03/06/2024 Generalized anxiety disorder (ICD-10 - F41.1) 03/06/2024 Post-traumatic stress disorder, chronic (ICD-10 - F43.12) 03/11/2024 Primary insomnia (ICD-10 - F51.01) 1. Bipolar affective disorder, currently depressed, mild - Depakote DR 250 mg twice a day for agitation and mood stabilization- educated on rx Vraylar 3 mg daily Pristiq 100 mg daily for depression and anxiety- monitor B/P Wellbutrin XL 150 mg daily SSRI side effects discussed including but not limited to, gastric upset, nausea, vomiting, diarrhea and/or constipation, weight changes, sexual side effects including loss of libido, increased suicidal thoughts/behaviors in children and young adults, and serotonin syndrome.Second generation antipsychotics (SGAs) have metabolic syndrome issues with weight gain, increase in prolactin, increased waist circumference, increased lipids, and increased glucose. Thus routine monitoring of weight, metabolic labs, etc. is indicated. A general rank ordering of antipsychotics that have the greatest to the least risk of metabolic effects is olanzapine, quetiapine, risperidone, ziprasidone, and aripiprazole. However, weight gain can occur with all of these drugs and considerable variability exists among patients receiving the same drug regarding the risk of metabolic effects. Anti-psychotic agents not only increase the risk of metabolic disorder, they also increase the risk of CVA, akathisia, and movement disorders including EPS or tardive dyskinesia (more common with first generation antipsychotics) and more. educated on all medications, benefits, side effects and risk, and educated on depression, anxiety, and ADHD, mood d/o and educated on compliance of medications, metabolic and movement d/o education appointment's, continue therapy discussion with patient about course of treatmentand patient instructions. education on serotonin syndrome obtain lab PCP reviewed pulmonology note 06/27/23 educated on labs for Depakote and vraylar 2. Generalized anxiety disorder -Discussed and educated pt regarding benzodiazepines are generally not intended for prolonged use and that use can cause tolerance, dependence, depression, and associated memory issues including dementias (this list is not exhaustive). Benzodiazepine use is generally not recommended concurrently with pain medications and/or other controlled substances due to increased risks of profound sedation, respiratory depression, coma, and even . They are not to be used with any alcohol, as this combination can also be lethal. Patient was provided caution Clonazepam 0.5 mg daily as needed Medication Management and Follow-Up- Plan:- Schedule follow-up appointments every 2-3 months to monitor the patient's response to the medication regimen.- Reinforce the importance of avoiding recreational drug use due to potential neurotoxicity and interactions with prescribed medications. Pristiq 100 mg daily for depression and anxiety- monitor B/P Wellbutrin XL 150 mg daily 3. Unable to concentrate -reviewed ANNIA-2 test and discuss with patient and copy givenself reporting scale completed [place] prescription reviewed Patient is on Wellbutrin XL 150 mg and does not want to increase dose r/t hx agitation educated on non-stimulate and stimulatesPatient reported not want stimulate rx working in therapy for focus Discuss and educated on increase strattera 60 mg daily in am ANNIA-AE2 DIAGNOSTIC CONSIDERATIONS These test findings suggest that the examiner consider the diagnosis of Attention-Deficit/ Hyperactivity Disorder, combined presentation, and this individual's pattern of responding was indicative of impairments likely to impact her functioning in the home and work settings. The Self Rating Scales did not identify a significant number of hyperactive/impuls stephani or inattentive symptoms. These rating scales do not support the diagnosis suggested by the test results. In making a diagnosis, the examiner will need to determine if there is a reason that this individual did not identify a significant number of hyperactive/impuls stephani or inattentive symptoms, because the ANNIA-AE2 test results did show impairments in response control and attention. Her global Response Control quotient scale score indicated a severe impairment. In addition, her global Attention quotient scale score fell in the mildly to moderately impaired range. These ANNIA-AE2 test findings will need to be included in the examiner's diagnostic decision making process. atomoxetine 60 mg capsule - 4. Long-term drug therapy 03/20/2024 Attention-defici t hyperactivity disorder, unspecified type (ICD-10 - F90.9) 04/16/2024 Post-traumatic stress disorder, chronic (ICD-10 - F43.12) 05/02/2024 Post-traumatic stress disorder, chronic (ICD-10 - F43.12) 1. Bipolar affective disorder, currently depressed, Depakote DR 250 mg twice a day for agitation and mood stabilization- educated on rx Vraylar 3 mg daily Pristiq 100 mg daily for depression and anxiety- monitor B/P D/C Wellbutrin XL 150 mg daily- r/t agitation Discuss and educated on medication options will add Lexapro 5 mg daily for depression monitor for junito and hypomania obtain labs PCP recently done monitor B/P- reported she takes rx in afternoon SSRI side effects discussed including but not limited to, gastric upset, nausea, vomiting, diarrhea and/or constipation, weight changes, sexual side effects including loss of libido, increased suicidal thoughts/behaviors in children and young adults, and serotonin syndrome.Second generation antipsychotics (SGAs) have metabolic syndrome issues with weight gain, increase in prolactin, increased waist circumference, increased lipids, and increased glucose. Thus routine monitoring of weight, metabolic labs, etc. is indicated. A general rank ordering of antipsychotics that have the greatest to the least risk of metabolic effects is olanzapine, quetiapine, risperidone, ziprasidone, and aripiprazole. However, weight gain can occur with all of these drugs and considerable variability exists among patients receiving the same drug regarding the risk of metabolic effects. Anti-psychotic agents not only increase the risk of metabolic disorder, they also increase the risk of CVA, akathisia, and movement disorders including EPS or tardive dyskinesia (more common with first generation antipsychotics) and more. educated on all medications, benefits, side effects and risk, and educated on depression, anxiety, and ADHD, mood d/o and educated on compliance of medications, metabolic and movement d/o education appointment's, continue therapy discussion with patient about course of treatmentand patient instructions. education on serotonin syndrome obtain lab PCP educated on labs for Depakote and vraylar 2. Generalized anxiety disorder -Discussed and educated pt regarding benzodiazepines are generally not intended for prolonged use and that use can cause tolerance, dependence, depression, and associated memory issues including dementias (this list is not exhaustive). Benzodiazepine use is generally not recommended concurrently with pain medications and/or other controlled substances due to increased risks of profound sedation, respiratory depression, coma, and even . They are not to be used with any alcohol, as this combination can also be lethal. Patient was provided caution Clonazepam 0.5 mg daily as needed Medication Management and Follow-Up- Plan:- Schedule follow-up appointments every 2-3 months to monitor the patient's response to the medication regimen.- Reinforce the importance of avoiding recreational drug use due to potential neurotoxicity and interactions with prescribed medications. Pristiq 100 mg daily for depression and anxiety- monitor B/P Wellbutrin XL 150 mg daily 3. Unable to concentrate -reviewed ANNIA-2 test and discuss with patient and copy givenself reporting scale completed [place] prescription reviewed Patient is on Wellbutrin XL 150 mg and does not want to increase dose r/t hx agitation educated on non-stimulate and stimulatesPatient reported not want stimulate rx working in therapy for focus Discuss and educated on increase strattera 60 mg daily in am ANNIA-AE2 DIAGNOSTIC CONSIDERATIONS These test findings suggest that the examiner consider the diagnosis of Attention-Deficit/ Hyperactivity Disorder, combined presentation, and this individual's pattern of responding was indicative of impairments likely to impact her functioning in the home and work settings. The Self Rating Scales did not identify a significant number of hyperactive/impuls stephani or inattentive symptoms. These rating scales do not support the diagnosis suggested by the test results. In making a diagnosis, the examiner will need to determine if there is a reason that this individual did not identify a significant number of hyperactive/impuls stephani or inattentive symptoms, because the ANNIA-AE2 test results did show impairments in response control and attention. Her global Response Control quotient scale score indicated a severe impairment. In addition, her global Attention quotient scale score fell in the mildly to moderately impaired range. These ANNIA-AE2 test findings will need to be included in the examiner's diagnostic decision making process. atomoxetine 60 mg capsule - 4. Long-term drug therapy 05/30/2024 Attention-defici t hyperactivity disorder, unspecified type (ICD-10 - F90.9) 04/02/2024 Chronic post-traumatic stress disorder (ICD-10 - F43.12) 05/07/2024 Chronic post-traumatic stress disorder (ICD-10 - F43.12) 06/10/2024 Post-traumatic stress disorder, chronic (ICD-10 - F43.12) 1. Bipolar affective disorder, Depakote DR 250 mg twice a day for agitation and mood stabilization- educated on rx Vraylar 3 mg daily Pristiq 100 mg daily for depression and anxiety- monitor B/P Discuss and educated on medication options Lexapro 5 mg daily for depression monitor for junito and hypomania obtain labs PCP recently done monitor B/P- reported she takes rx in afternoon SSRI side effects discussed including but not limited to, gastric upset, nausea, vomiting, diarrhea and/or constipation, weight changes, sexual side effects including loss of libido, increased suicidal thoughts/behaviors in children and young adults, and serotonin syndrome.Second generation antipsychotics (SGAs) have metabolic syndrome issues with weight gain, increase in prolactin, increased waist circumference, increased lipids, and increased glucose. Thus routine monitoring of weight, metabolic labs, etc. is indicated. A general rank ordering of antipsychotics that have the greatest to the least risk of metabolic effects is olanzapine, quetiapine, risperidone, ziprasidone, and aripiprazole. However, weight gain can occur with all of these drugs and considerable variability exists among patients receiving the same drug regarding the risk of metabolic effects. Anti-psychotic agents not only increase the risk of metabolic disorder, they also increase the risk of CVA, akathisia, and movement disorders including EPS or tardive dyskinesia (more common with first generation antipsychotics) and more. educated on all medications, benefits, side effects and risk, and educated on depression, anxiety, and ADHD, mood d/o and educated on compliance of medications, metabolic and movement d/o education appointment's, continue therapy discussion with patient about course of treatmentand patient instructions. education on serotonin syndrome obtain lab PCP educated on labs for Depakote and vraylar 2. Generalized anxiety disorder -Discussed and educated pt regarding benzodiazepines are generally not intended for prolonged use and that use can cause tolerance, dependence, depression, and associated memory issues including dementias (this list is not exhaustive). Benzodiazepine use is generally not recommended concurrently with pain medications and/or other controlled substances due to increased risks of profound sedation, respiratory depression, coma, and even . They are not to be used with any alcohol, as this combination can also be lethal. Patient was provided caution Clonazepam 0.5 mg daily as needed Medication Management and Follow-Up- Plan:- Schedule follow-up appointments every 2-3 months to monitor the patient's response to the medication regimen.- Reinforce the importance of avoiding recreational drug use due to potential neurotoxicity and interactions with prescribed medications. Pristiq 100 mg daily for depression and anxiety- monitor B/P 3. Unable to concentrate -reviewed ANNIA-2 test and discuss with patient and copy givenself reporting scale completed [place] prescription reviewed educated on non-stimulate and stimulatesPatient reported not want stimulate rx working in therapy for focus Discuss and educated on increase strattera 60 mg daily in am ANNIA-AE2 DIAGNOSTIC CONSIDERATIONS These test findings suggest that the examiner consider the diagnosis of Attention-Deficit/ Hyperactivity Disorder, combined presentation, and this individual's pattern of responding was indicative of impairments likely to impact her functioning in the home and work settings. The Self Rating Scales did not identify a significant number of hyperactive/impuls stephani or inattentive symptoms. These rating scales do not support the diagnosis suggested by the test results. In making a diagnosis, the examiner will need to determine if there is a reason that this individual did not identify a significant number of hyperactive/impuls stephani or inattentive symptoms, because the ANNIA-AE2 test results did show impairments in response control and attention. Her global Response Control quotient scale score indicated a severe impairment. In addition, her global Attention quotient scale score fell in the mildly to moderately impaired range. These ANNIA-AE2 test findings will need to be included in the examiner's diagnostic decision making process. atomoxetine 60 mg capsule - 4. Long-term drug therapy 06/10/2024 Bipolar disorder, current episode depressed, mild (ICD-10 - F31.31) 1. Bipolar affective disorder, Depakote DR 250 mg twice a day for agitation and mood stabilization- educated on rx Vraylar 3 mg daily Pristiq 100 mg daily for depression and anxiety- monitor B/P Discuss and educated on medication options Lexapro 5 mg daily for depression monitor for junito and hypomania obtain labs PCP recently done monitor B/P- reported she takes rx in afternoon SSRI side effects discussed including but not limited to, gastric upset, nausea, vomiting, diarrhea and/or constipation, weight changes, sexual side effects including loss of libido, increased suicidal thoughts/behaviors in children and young adults, and serotonin syndrome.Second generation antipsychotics (SGAs) have metabolic syndrome issues with weight gain, increase in prolactin, increased waist circumference, increased lipids, and increased glucose. Thus routine monitoring of weight, metabolic labs, etc. is indicated. A general rank ordering of antipsychotics that have the greatest to the least risk of metabolic effects is olanzapine, quetiapine, risperidone, ziprasidone, and aripiprazole. However, weight gain can occur with all of these drugs and considerable variability exists among patients receiving the same drug regarding the risk of metabolic effects. Anti-psychotic agents not only increase the risk of metabolic disorder, they also increase the risk of CVA, akathisia, and movement disorders including EPS or tardive dyskinesia (more common with first generation antipsychotics) and more. educated on all medications, benefits, side effects and risk, and educated on depression, anxiety, and ADHD, mood d/o and educated on compliance of medications, metabolic and movement d/o education appointment's, continue therapy discussion with patient about course of treatmentand patient instructions. education on serotonin syndrome obtain lab PCP educated on labs for Depakote and vraylar 2. Generalized anxiety disorder -Discussed and educated pt regarding benzodiazepines are generally not intended for prolonged use and that use can cause tolerance, dependence, depression, and associated memory issues including dementias (this list is not exhaustive). Benzodiazepine use is generally not recommended concurrently with pain medications and/or other controlled substances due to increased risks of profound sedation, respiratory depression, coma, and even . They are not to be used with any alcohol, as this combination can also be lethal. Patient was provided caution Clonazepam 0.5 mg daily as needed Medication Management and Follow-Up- Plan:- Schedule follow-up appointments every 2-3 months to monitor the patient's response to the medication regimen.- Reinforce the importance of avoiding recreational drug use due to potential neurotoxicity and interactions with prescribed medications. Pristiq 100 mg daily for depression and anxiety- monitor B/P 3. Unable to concentrate -reviewed ANNIA-2 test and discuss with patient and copy givenself reporting scale completed [place] prescription reviewed educated on non-stimulate and stimulatesPatient reported not want stimulate rx working in therapy for focus Discuss and educated on increase strattera 60 mg daily in am ANNIA-AE2 DIAGNOSTIC CONSIDERATIONS These test findings suggest that the examiner consider the diagnosis of Attention-Deficit/ Hyperactivity Disorder, combined presentation, and this individual's pattern of responding was indicative of impairments likely to impact her functioning in the home and work settings. The Self Rating Scales did not identify a significant number of hyperactive/impuls stephani or inattentive symptoms. These rating scales do not support the diagnosis suggested by the test results. In making a diagnosis, the examiner will need to determine if there is a reason that this individual did not identify a significant number of hyperactive/impuls stephani or inattentive symptoms, because the ANNIA-AE2 test results did show impairments in response control and attention. Her global Response Control quotient scale score indicated a severe impairment. In addition, her global Attention quotient scale score fell in the mildly to moderately impaired range. These ANNIA-AE2 test findings will need to be included in the examiner's diagnostic decision making process. atomoxetine 60 mg capsule - 4. Long-term drug therapy 07/04/2024 Bipolar disorder, current episode depressed, mild (ICD-10 - F31.31) 1. Bipolar affective disorder, Depakote DR 250 mg twice a day for agitation and mood stabilization- educated on rx Vraylar 3 mg daily Pristiq 100 mg daily for depression and anxiety- monitor B/P Discuss and educated on medication options Lexapro 5 mg daily for depression monitor for junito and hypomania obtain labs PCP recently done monitor B/P- reported she takes rx in afternoon SSRI side effects discussed including but not limited to, gastric upset, nausea, vomiting, diarrhea and/or constipation, weight changes, sexual side effects including loss of libido, increased suicidal thoughts/behaviors in children and young adults, and serotonin syndrome.Second generation antipsychotics (SGAs) have metabolic syndrome issues with weight gain, increase in prolactin, increased waist circumference, increased lipids, and increased glucose. Thus routine monitoring of weight, metabolic labs, etc. is indicated. A general rank ordering of antipsychotics that have the greatest to the least risk of metabolic effects is olanzapine, quetiapine, risperidone, ziprasidone, and aripiprazole. However, weight gain can occur with all of these drugs and considerable variability exists among patients receiving the same drug regarding the risk of metabolic effects. Anti-psychotic agents not only increase the risk of metabolic disorder, they also increase the risk of CVA, akathisia, and movement disorders including EPS or tardive dyskinesia (more common with first generation antipsychotics) and more. educated on all medications, benefits, side effects and risk, and educated on depression, anxiety, and ADHD, mood d/o and educated on compliance of medications, metabolic and movement d/o education appointment's, continue therapy discussion with patient about course of treatmentand patient instructions. education on serotonin syndrome obtain lab PCP educated on labs for Depakote and vraylar 2. Generalized anxiety disorder -Discussed and educated pt regarding benzodiazepines are generally not intended for prolonged use and that use can cause tolerance, dependence, depression, and associated memory issues including dementias (this list is not exhaustive). Benzodiazepine use is generally not recommended concurrently with pain medications and/or other controlled substances due to increased risks of profound sedation, respiratory depression, coma, and even . They are not to be used with any alcohol, as this combination can also be lethal. Patient was provided caution Clonazepam 0.5 mg daily as needed Medication Management and Follow-Up- Plan:- Schedule follow-up appointments every 2-3 months to monitor the patient's response to the medication regimen.- Reinforce the importance of avoiding recreational drug use due to potential neurotoxicity and interactions with prescribed medications. Pristiq 100 mg daily for depression and anxiety- monitor B/P 3. Unable to concentrate -reviewed ANNIA-2 test and discuss with patient and copy givenself reporting scale completed [place] prescription reviewed educated on non-stimulate and stimulatesPatient reported not want stimulate rx working in therapy for focus Discuss and educated on strattera 60 mg daily in am ANNIA-AE2 DIAGNOSTIC CONSIDERATIONS These test findings suggest that the examiner consider the diagnosis of Attention-Deficit/ Hyperactivity Disorder, combined presentation, and this individual's pattern of responding was indicative of impairments likely to impact her functioning in the home and work settings. The Self Rating Scales did not identify a significant number of hyperactive/impuls stephani or inattentive symptoms. These rating scales do not support the diagnosis suggested by the test results. In making a diagnosis, the examiner will need to determine if there is a reason that this individual did not identify a significant number of hyperactive/impuls stephani or inattentive symptoms, because the ANNIA-AE2 test results did show impairments in response control and attention. Her global Response Control quotient scale score indicated a severe impairment. In addition, her global Attention quotient scale score fell in the mildly to moderately impaired range. These ANNIA-AE2 test findings will need to be included in the examiner's diagnostic decision making process. atomoxetine 60 mg capsule - 4. HTN ON RX educated on healthy b/p 120/80 monitor b/p at home refer to PCP, Urgent care/ER heart healthy diet and excise limit salt intake limit soda intake and caffiene increase water 5. Insomnia Patient having sleep distrubance and sleping 3 hours and not able to go backto sleep off Trazodone Re-start Trazodone 50-100 mg at bedtime tolerated rx in past sleep hygiene CPAP NIGHTLY . Long-term drug therapy 06/24/2024 Attention-defici t hyperactivity disorder, unspecified type (ICD-10 - F90.9) 07/18/2024 Attention-defici t hyperactivity disorder, unspecified type (ICD-10 - F90.9) 08/08/2024 Post-traumatic stress disorder, chronic (ICD-10 - F43.12) 08/28/2024 Post-traumatic stress disorder, chronic (ICD-10 - F43.12) 09/17/2024 Post-traumatic stress disorder, chronic (ICD-10 - F43.12) 09/26/2024 Primary insomnia (ICD-10 - F51.01) Insomnia: Care Instructions material was published, [facility] material was published 1. Bipolar affective disorder, Depakote DR 250 mg twice a day for agitation and mood stabilization- educated on rx Vraylar 3 mg daily Pristiq 100 mg daily for depression and anxiety- monitor B/P Discuss and educated on medication options Lexapro 5 mg daily for depression monitor for junito and hypomania obtain labs PCP recently done monitor B/P- reported she takes rx in afternoon SSRI side effects discussed including but not limited to, gastric upset, nausea, vomiting, diarrhea and/or constipation, weight changes, sexual side effects including loss of libido, increased suicidal thoughts/behaviors in children and young adults, and serotonin syndrome.Second generation antipsychotics (SGAs) have metabolic syndrome issues with weight gain, increase in prolactin, increased waist circumference, increased lipids, and increased glucose. Thus routine monitoring of weight, metabolic labs, etc. is indicated. A general rank ordering of antipsychotics that have the greatest to the least risk of metabolic effects is olanzapine, quetiapine, risperidone, ziprasidone, and aripiprazole. However, weight gain can occur with all of these drugs and considerable variability exists among patients receiving the same drug regarding the risk of metabolic effects. Anti-psychotic agents not only increase the risk of metabolic disorder, they also increase the risk of CVA, akathisia, and movement disorders including EPS or tardive dyskinesia (more common with first generation antipsychotics) and more. educated on all medications, benefits, side effects and risk, and educated on depression, anxiety, and ADHD, mood d/o and educated on compliance of medications, metabolic and movement d/o education appointment's, continue therapy discussion with patient about course of treatmentand patient instructions. education on serotonin syndrome obtain lab PCP scheduled 11/20 and having Depakote levels- educated on labs for Depakote and vraylar 2. Generalized anxiety disorder -Discussed and educated pt regarding benzodiazepines are generally not intended for prolonged use and that use can cause tolerance, dependence, depression, and associated memory issues including dementias (this list is not exhaustive). Benzodiazepine use is generally not recommended concurrently with pain medications and/or other controlled substances due to increased risks of profound sedation, respiratory depression, coma, and even . They are not to be used with any alcohol, as this combination can also be lethal. Patient was provided caution Clonazepam 0.5 mg daily as needed Medication Management and Follow-Up- Plan:- Schedule follow-up appointments every 2-3 months to monitor the patient's response to the medication regimen.- Reinforce the importance of avoiding recreational drug use due to potential neurotoxicity and interactions with prescribed medications. Pristiq 100 mg daily for depression and anxiety- monitor B/P 3. Unable to concentrate -reviewed ANNIA-2 test and discuss with patient and copy givenself reporting scale completed [place] prescription reviewed educated on non-stimulate and stimulatesPatient reported not want stimulate rx working in therapy for focus Discuss and educated on strattera 60 mg daily in am ANNIA-AE2 DIAGNOSTIC CONSIDERATIONS These test findings suggest that the examiner consider the diagnosis of Attention-Deficit/ Hyperactivity Disorder, combined presentation, and this individual's pattern of responding was indicative of impairments likely to impact her functioning in the home and work settings. The Self Rating Scales did not identify a significant number of hyperactive/impuls stephani or inattentive symptoms. These rating scales do not support the diagnosis suggested by the test results. In making a diagnosis, the examiner will need to determine if there is a reason that this individual did not identify a significant number of hyperactive/impuls stephani or inattentive symptoms, because the ANNIA-AE2 test results did show impairments in response control and attention. Her global Response Control quotient scale score indicated a severe impairment. In addition, her global Attention quotient scale score fell in the mildly to moderately impaired range. These ANNIA-AE2 test findings will need to be included in the examiner's diagnostic decision making process. atomoxetine 60 mg capsule - 4. HTN ON RX educated on healthy b/p 120/80 monitor b/p at home refer to PCP, Urgent care/ER heart healthy diet and excise limit salt intake limit soda intake and caffiene increase water 5. Insomnia Patient having sleep distrubance and sleping 3 hours and not able to go backto sleep off Trazodone Trazodone 50 mg at bedtime tolerated rx in past sleep hygiene CPAP NIGHTLY 6. tobacco Smoking Education Do not smoke. Nicotine and other chemicals in cigarettes and cigars can cause lung damage. Ask your healthcare provider for information if you currently smoke and need help to quit. E-cigarettes or smokeless tobacco still contain nicotine. Talk to your healthcare provider before you use these products. education on decrease to stopping nicotine products and stop smoking hotline given 48-Quit - Yes [place] Tobacco Quitline Call a Smoking Quitline The [employer] [place] Smoking Quitline, (4-088-73N-QUIT) Smokefree.gov, which connects you with your State's Quitline, (0-367-ZVDWEKG) Veterans Smoking Quitline, (9-419-XOMPMCM) . Long-term drug therapy 11/06/2024 Post-traumatic stress disorder, chronic (ICD-10 - F43.12) 12/11/2024 Post-traumatic stress disorder, chronic (ICD-10 - F43.12) 12/27/2024 Primary insomnia (ICD-10 - F51.01) Insomnia: Care Instructions material was published, [facility] material was published reported no refills needed today 1. Bipolar affective disorder, Depakote DR 250 mg twice a day for agitation and mood stabilization- educated on rx Vraylar 3 mg daily Pristiq 100 mg daily for depression and anxiety- monitor B/P Discuss and educated on medication options Lexapro 5 mg daily for depression monitor for junito and hypomania obtain labs PCP recently done monitor B/P- reported she takes rx in afternoon SSRI side effects discussed including but not limited to, gastric upset, nausea, vomiting, diarrhea and/or constipation, weight changes, sexual side effects including loss of libido, increased suicidal thoughts/behaviors in children and young adults, and serotonin syndrome.Second generation antipsychotics (SGAs) have metabolic syndrome issues with weight gain, increase in prolactin, increased waist circumference, increased lipids, and increased glucose. Thus routine monitoring of weight, metabolic labs, etc. is indicated. A general rank ordering of antipsychotics that have the greatest to the least risk of metabolic effects is olanzapine, quetiapine, risperidone, ziprasidone, and aripiprazole. However, weight gain can occur with all of these drugs and considerable variability exists among patients receiving the same drug regarding the risk of metabolic effects. Anti-psychotic agents not only increase the risk of metabolic disorder, they also increase the risk of CVA, akathisia, and movement disorders including EPS or tardive dyskinesia (more common with first generation antipsychotics) and more. educated on all medications, benefits, side effects and risk, and educated on depression, anxiety, and ADHD, mood d/o and educated on compliance of medications, metabolic and movement d/o education appointment's, continue therapy discussion with patient about course of treatmentand patient instructions. education on serotonin syndrome obtain lab PCP scheduled 11/20 and having Depakote levels- educated on labs for Depakote and vraylar 2. Generalized anxiety disorder -Discussed and educated pt regarding benzodiazepines are generally not intended for prolonged use and that use can cause tolerance, dependence, depression, and associated memory issues including dementias (this list is not exhaustive). Benzodiazepine use is generally not recommended concurrently with pain medications and/or other controlled substances due to increased risks of profound sedation, respiratory depression, coma, and even . They are not to be used with any alcohol, as this combination can also be lethal. Patient was provided caution Clonazepam 0.5 mg daily as needed Medication Management and Follow-Up- Plan:- Schedule follow-up appointments every 2-3 months to monitor the patient's response to the medication regimen.- Reinforce the importance of avoiding recreational drug use due to potential neurotoxicity and interactions with prescribed medications. Pristiq 100 mg daily for depression and anxiety- monitor B/P 3. Unable to concentrate -reviewed ANNIA-2 test and discuss with patient and copy givenself reporting scale completed [place] prescription reviewed educated on non-stimulate and stimulatesPatient reported not want stimulate rx working in therapy for focus Discuss and educated on strattera 60 mg daily in am ANNIA-AE2 DIAGNOSTIC CONSIDERATIONS These test findings suggest that the examiner consider the diagnosis of Attention-Deficit/ Hyperactivity Disorder, combined presentation, and this individual's pattern of responding was indicative of impairments likely to impact her functioning in the home and work settings. The Self Rating Scales did not identify a significant number of hyperactive/impuls stepahni or inattentive symptoms. These rating scales do not support the diagnosis suggested by the test results. In making a diagnosis, the examiner will need to determine if there is a reason that this individual did not identify a significant number of hyperactive/impuls stephani or inattentive symptoms, because the ANNIA-AE2 test results did show impairments in response control and attention. Her global Response Control quotient scale score indicated a severe impairment. In addition, her global Attention quotient scale score fell in the mildly to moderately impaired range. These ANNIA-AE2 test findings will need to be included in the examiner's diagnostic decision making process. atomoxetine 60 mg capsule - 4. HTN ON RX educated on healthy b/p 120/80 monitor b/p at home refer to PCP, Urgent care/ER heart healthy diet and excise limit salt intake limit soda intake and caffiene increase water 5. Insomnia Trazodone 50 mg at bedtime sleep hygiene CPAP NIGHTLY 6. tobacco Smoking Education Do not smoke. Nicotine and other chemicals in cigarettes and cigars can cause lung damage. Ask your healthcare provider for information if you currently smoke and need help to quit. E-cigarettes or smokeless tobacco still contain nicotine. Talk to your healthcare provider before you use these products. education on decrease to stopping nicotine products and stop smoking hotline given -Quit - Yes [place] Tobacco Quitline Call a Smoking Quitline [facility] [employer] [facility] [place] Smoking Quitline, (5-550-39W-QUIT) Smokefree.gov, which connects you with your State's Quitline, (2-383-PUDFBLG) [facility] Smoking Quitline, (0-550-HCXTBVN) . Long-term drug therapy 10/16/2024 Nicotine use (ICD-10 - Z72.0) 11/06/2024 Encounter for screening for depression (ICD-10 - Z13.31) 12/11/2024 Encounter for screening for depression (ICD-10 - Z13.31) 12/27/2024 Bipolar disorder, current episode depressed, mild (ICD-10 - F31.31) reported no refills needed today 1. Bipolar affective disorder, Depakote DR 250 mg twice a day for agitation and mood stabilization- educated on rx Vraylar 3 mg daily Pristiq 100 mg daily for depression and anxiety- monitor B/P Discuss and educated on medication options Lexapro 5 mg daily for depression monitor for junito and hypomania obtain labs PCP recently done monitor B/P- reported she takes rx in afternoon SSRI side effects discussed including but not limited to, gastric upset, nausea, vomiting, diarrhea and/or constipation, weight changes, sexual side effects including loss of libido, increased suicidal thoughts/behaviors in children and young adults, and serotonin syndrome.Second generation antipsychotics (SGAs) have metabolic syndrome issues with weight gain, increase in prolactin, increased waist circumference, increased lipids, and increased glucose. Thus routine monitoring of weight, metabolic labs, etc. is indicated. A general rank ordering of antipsychotics that have the greatest to the least risk of metabolic effects is olanzapine, quetiapine, risperidone, ziprasidone, and aripiprazole. However, weight gain can occur with all of these drugs and considerable variability exists among patients receiving the same drug regarding the risk of metabolic effects. Anti-psychotic agents not only increase the risk of metabolic disorder, they also increase the risk of CVA, akathisia, and movement disorders including EPS or tardive dyskinesia (more common with first generation antipsychotics) and more. educated on all medications, benefits, side effects and risk, and educated on depression, anxiety, and ADHD, mood d/o and educated on compliance of medications, metabolic and movement d/o education appointment's, continue therapy discussion with patient about course of treatmentand patient instructions. education on serotonin syndrome obtain lab PCP scheduled 11/20 and having Depakote levels- educated on labs for Depakote and vraylar 2. Generalized anxiety disorder -Discussed and educated pt regarding benzodiazepines are generally not intended for prolonged use and that use can cause tolerance, dependence, depression, and associated memory issues including dementias (this list is not exhaustive). Benzodiazepine use is generally not recommended concurrently with pain medications and/or other controlled substances due to increased risks of profound sedation, respiratory depression, coma, and even . They are not to be used with any alcohol, as this combination can also be lethal. Patient was provided caution Clonazepam 0.5 mg daily as needed Medication Management and Follow-Up- Plan:- Schedule follow-up appointments every 2-3 months to monitor the patient's response to the medication regimen.- Reinforce the importance of avoiding recreational drug use due to potential neurotoxicity and interactions with prescribed medications. Pristiq 100 mg daily for depression and anxiety- monitor B/P 3. Unable to concentrate -reviewed ANNIA-2 test and discuss with patient and copy givenself reporting scale completed [place] prescription reviewed educated on non-stimulate and stimulatesPatient reported not want stimulate rx working in therapy for focus Discuss and educated on strattera 60 mg daily in am ANNIA-AE2 DIAGNOSTIC CONSIDERATIONS These test findings suggest that the examiner consider the diagnosis of Attention-Deficit/ Hyperactivity Disorder, combined presentation, and this individual's pattern of responding was indicative of impairments likely to impact her functioning in the home and work settings. The Self Rating Scales did not identify a significant number of hyperactive/impuls stephani or inattentive symptoms. These rating scales do not support the diagnosis suggested by the test results. In making a diagnosis, the examiner will need to determine if there is a reason that this individual did not identify a significant number of hyperactive/impuls stephani or inattentive symptoms, because the ANNIA-AE2 test results did show impairments in response control and attention. Her global Response Control quotient scale score indicated a severe impairment. In addition, her global Attention quotient scale score fell in the mildly to moderately impaired range. These ANNIA-AE2 test findings will need to be included in the examiner's diagnostic decision making process. atomoxetine 60 mg capsule - 4. HTN ON RX educated on healthy b/p 120/80 monitor b/p at home refer to PCP, Urgent care/ER heart healthy diet and excise limit salt intake limit soda intake and caffiene increase water 5. Insomnia Trazodone 50 mg at bedtime sleep hygiene CPAP NIGHTLY 6. tobacco Smoking Education Do not smoke. Nicotine and other chemicals in cigarettes and cigars can cause lung damage. Ask your healthcare provider for information if you currently smoke and need help to quit. E-cigarettes or smokeless tobacco still contain nicotine. Talk to your healthcare provider before you use these products. education on decrease to stopping nicotine products and stop smoking hotline given 374-Quit - Yes [place] Tobacco Quitline Call a Smoking Quitline [facility] [place] Smoking Quitline, (0-849-40D-QUIT) Smokefree.gov, which connects you with your State's Quitline, (5-171-NCKAGTQ) [employer] Smoking Quitline, (6-965-YHELNRD) . Long-term drug therapy 10/16/2024 Encounter for screening for depression (ICD-10 - Z13.31) 09/26/2024 Post-traumatic stress disorder, chronic (ICD-10 - F43.12) 1. Bipolar affective disorder, Depakote DR 250 mg twice a day for agitation and mood stabilization- educated on rx Vraylar 3 mg daily Pristiq 100 mg daily for depression and anxiety- monitor B/P Discuss and educated on medication options Lexapro 5 mg daily for depression monitor for junito and hypomania obtain labs PCP recently done monitor B/P- reported she takes rx in afternoon SSRI side effects discussed including but not limited to, gastric upset, nausea, vomiting, diarrhea and/or constipation, weight changes, sexual side effects including loss of libido, increased suicidal thoughts/behaviors in children and young adults, and serotonin syndrome.Second generation antipsychotics (SGAs) have metabolic syndrome issues with weight gain, increase in prolactin, increased waist circumference, increased lipids, and increased glucose. Thus routine monitoring of weight, metabolic labs, etc. is indicated. A general rank ordering of antipsychotics that have the greatest to the least risk of metabolic effects is olanzapine, quetiapine, risperidone, ziprasidone, and aripiprazole. However, weight gain can occur with all of these drugs and considerable variability exists among patients receiving the same drug regarding the risk of metabolic effects. Anti-psychotic agents not only increase the risk of metabolic disorder, they also increase the risk of CVA, akathisia, and movement disorders including EPS or tardive dyskinesia (more common with first generation antipsychotics) and more. educated on all medications, benefits, side effects and risk, and educated on depression, anxiety, and ADHD, mood d/o and educated on compliance of medications, metabolic and movement d/o education appointment's, continue therapy discussion with patient about course of treatmentand patient instructions. education on serotonin syndrome obtain lab PCP scheduled 11/20 and having Depakote levels- educated on labs for Depakote and vraylar 2. Generalized anxiety disorder -Discussed and educated pt regarding benzodiazepines are generally not intended for prolonged use and that use can cause tolerance, dependence, depression, and associated memory issues including dementias (this list is not exhaustive). Benzodiazepine use is generally not recommended concurrently with pain medications and/or other controlled substances due to increased risks of profound sedation, respiratory depression, coma, and even . They are not to be used with any alcohol, as this combination can also be lethal. Patient was provided caution Clonazepam 0.5 mg daily as needed Medication Management and Follow-Up- Plan:- Schedule follow-up appointments every 2-3 months to monitor the patient's response to the medication regimen.- Reinforce the importance of avoiding recreational drug use due to potential neurotoxicity and interactions with prescribed medications. Pristiq 100 mg daily for depression and anxiety- monitor B/P 3. Unable to concentrate -reviewed ANNIA-2 test and discuss with patient and copy givenself reporting scale completed [place] prescription reviewed educated on non-stimulate and stimulatesPatient reported not want stimulate rx working in therapy for focus Discuss and educated on strattera 60 mg daily in am ANNIA-AE2 DIAGNOSTIC CONSIDERATIONS These test findings suggest that the examiner consider the diagnosis of Attention-Deficit/ Hyperactivity Disorder, combined presentation, and this individual's pattern of responding was indicative of impairments likely to impact her functioning in the home and work settings. The Self Rating Scales did not identify a significant number of hyperactive/impuls stephani or inattentive symptoms. These rating scales do not support the diagnosis suggested by the test results. In making a diagnosis, the examiner will need to determine if there is a reason that this individual did not identify a significant number of hyperactive/impuls stephani or inattentive symptoms, because the ANNIA-AE2 test results did show impairments in response control and attention. Her global Response Control quotient scale score indicated a severe impairment. In addition, her global Attention quotient scale score fell in the mildly to moderately impaired range. These ANNIA-AE2 test findings will need to be included in the examiner's diagnostic decision making process. atomoxetine 60 mg capsule - 4. HTN ON RX educated on healthy b/p 120/80 monitor b/p at home refer to PCP, Urgent care/ER heart healthy diet and excise limit salt intake limit soda intake and caffiene increase water 5. Insomnia Patient having sleep distrubance and sleping 3 hours and not able to go backto sleep off Trazodone Trazodone 50 mg at bedtime tolerated rx in past sleep hygiene CPAP NIGHTLY 6. tobacco Smoking Education Do not smoke. Nicotine and other chemicals in cigarettes and cigars can cause lung damage. Ask your healthcare provider for information if you currently smoke and need help to quit. E-cigarettes or smokeless tobacco still contain nicotine. Talk to your healthcare provider before you use these products. education on decrease to stopping nicotine products and stop smoking hotline given 1-319-Quit - Yes [place] Tobacco Quitline Call a Smoking Quitline [facility] [place] Smoking Quitline, (6-047-40H-QUIT) Smokefree.gov, which connects you with your State's Quitline, (7-632-UUDPOKS) [facility] Smoking Quitline, (3-193-VUFYFKE) . Long-term drug therapy 09/17/2024 Attention-defici t hyperactivity disorder, unspecified type (ICD-10 - F90.9) 09/26/2024 Bipolar disorder, current episode depressed, mild (ICD-10 - F31.31) 1. Bipolar affective disorder, Depakote DR 250 mg twice a day for agitation and mood stabilization- educated on rx Vraylar 3 mg daily Pristiq 100 mg daily for depression and anxiety- monitor B/P Discuss and educated on medication options Lexapro 5 mg daily for depression monitor for junito and hypomania obtain labs PCP recently done monitor B/P- reported she takes rx in afternoon SSRI side effects discussed including but not limited to, gastric upset, nausea, vomiting, diarrhea and/or constipation, weight changes, sexual side effects including loss of libido, increased suicidal thoughts/behaviors in children and young adults, and serotonin syndrome.Second generation antipsychotics (SGAs) have metabolic syndrome issues with weight gain, increase in prolactin, increased waist circumference, increased lipids, and increased glucose. Thus routine monitoring of weight, metabolic labs, etc. is indicated. A general rank ordering of antipsychotics that have the greatest to the least risk of metabolic effects is olanzapine, quetiapine, risperidone, ziprasidone, and aripiprazole. However, weight gain can occur with all of these drugs and considerable variability exists among patients receiving the same drug regarding the risk of metabolic effects. Anti-psychotic agents not only increase the risk of metabolic disorder, they also increase the risk of CVA, akathisia, and movement disorders including EPS or tardive dyskinesia (more common with first generation antipsychotics) and more. educated on all medications, benefits, side effects and risk, and educated on depression, anxiety, and ADHD, mood d/o and educated on compliance of medications, metabolic and movement d/o education appointment's, continue therapy discussion with patient about course of treatmentand patient instructions. education on serotonin syndrome obtain lab PCP scheduled 11/20 and having Depakote levels- educated on labs for Depakote and vraylar 2. Generalized anxiety disorder -Discussed and educated pt regarding benzodiazepines are generally not intended for prolonged use and that use can cause tolerance, dependence, depression, and associated memory issues including dementias (this list is not exhaustive). Benzodiazepine use is generally not recommended concurrently with pain medications and/or other controlled substances due to increased risks of profound sedation, respiratory depression, coma, and even . They are not to be used with any alcohol, as this combination can also be lethal. Patient was provided caution Clonazepam 0.5 mg daily as needed Medication Management and Follow-Up- Plan:- Schedule follow-up appointments every 2-3 months to monitor the patient's response to the medication regimen.- Reinforce the importance of avoiding recreational drug use due to potential neurotoxicity and interactions with prescribed medications. Pristiq 100 mg daily for depression and anxiety- monitor B/P 3. Unable to concentrate -reviewed ANNIA-2 test and discuss with patient and copy givenself reporting scale completed [place] prescription reviewed educated on non-stimulate and stimulatesPatient reported not want stimulate rx working in therapy for focus Discuss and educated on strattera 60 mg daily in am ANNIA-AE2 DIAGNOSTIC CONSIDERATIONS These test findings suggest that the examiner consider the diagnosis of Attention-Deficit/ Hyperactivity Disorder, combined presentation, and this individual's pattern of responding was indicative of impairments likely to impact her functioning in the home and work settings. The Self Rating Scales did not identify a significant number of hyperactive/impuls stephani or inattentive symptoms. These rating scales do not support the diagnosis suggested by the test results. In making a diagnosis, the examiner will need to determine if there is a reason that this individual did not identify a significant number of hyperactive/impuls stephani or inattentive symptoms, because the ANNIA-AE2 test results did show impairments in response control and attention. Her global Response Control quotient scale score indicated a severe impairment. In addition, her global Attention quotient scale score fell in the mildly to moderately impaired range. These ANNIA-AE2 test findings will need to be included in the examiner's diagnostic decision making process. atomoxetine 60 mg capsule - 4. HTN ON RX educated on healthy b/p 120/80 monitor b/p at home refer to PCP, Urgent care/ER heart healthy diet and excise limit salt intake limit soda intake and caffiene increase water 5. Insomnia Patient having sleep distrubance and sleping 3 hours and not able to go backto sleep off Trazodone Trazodone 50 mg at bedtime tolerated rx in past sleep hygiene CPAP NIGHTLY 6. tobacco Smoking Education Do not smoke. Nicotine and other chemicals in cigarettes and cigars can cause lung damage. Ask your healthcare provider for information if you currently smoke and need help to quit. E-cigarettes or smokeless tobacco still contain nicotine. Talk to your healthcare provider before you use these products. education on decrease to stopping nicotine products and stop smoking hotline given -Quit - Yes [place] Tobacco Quitline Call a Smoking Quitline [facility] [place] Smoking Quitline, (5-195-26O-QUIT) Smokefree.gov, which connects you with your State's Quitline, (3-762-MHZBTBQ) [facility] Smoking Quit[facility], (6-578-DTDPVGL) . Long-term drug therapy 07/04/2024 Post-traumatic stress disorder, chronic (ICD-10 - F43.12) 1. Bipolar affective disorder, Depakote DR 250 mg twice a day for agitation and mood stabilization- educated on rx Vraylar 3 mg daily Pristiq 100 mg daily for depression and anxiety- monitor B/P Discuss and educated on medication options Lexapro 5 mg daily for depression monitor for junito and hypomania obtain labs PCP recently done monitor B/P- reported she takes rx in afternoon SSRI side effects discussed including but not limited to, gastric upset, nausea, vomiting, diarrhea and/or constipation, weight changes, sexual side effects including loss of libido, increased suicidal thoughts/behaviors in children and young adults, and serotonin syndrome.Second generation antipsychotics (SGAs) have metabolic syndrome issues with weight gain, increase in prolactin, increased waist circumference, increased lipids, and increased glucose. Thus routine monitoring of weight, metabolic labs, etc. is indicated. A general rank ordering of antipsychotics that have the greatest to the least risk of metabolic effects is olanzapine, quetiapine, risperidone, ziprasidone, and aripiprazole. However, weight gain can occur with all of these drugs and considerable variability exists among patients receiving the same drug regarding the risk of metabolic effects. Anti-psychotic agents not only increase the risk of metabolic disorder, they also increase the risk of CVA, akathisia, and movement disorders including EPS or tardive dyskinesia (more common with first generation antipsychotics) and more. educated on all medications, benefits, side effects and risk, and educated on depression, anxiety, and ADHD, mood d/o and educated on compliance of medications, metabolic and movement d/o education appointment's, continue therapy discussion with patient about course of treatmentand patient instructions. education on serotonin syndrome obtain lab PCP educated on labs for Depakote and vraylar 2. Generalized anxiety disorder -Discussed and educated pt regarding benzodiazepines are generally not intended for prolonged use and that use can cause tolerance, dependence, depression, and associated memory issues including dementias (this list is not exhaustive). Benzodiazepine use is generally not recommended concurrently with pain medications and/or other controlled substances due to increased risks of profound sedation, respiratory depression, coma, and even . They are not to be used with any alcohol, as this combination can also be lethal. Patient was provided caution Clonazepam 0.5 mg daily as needed Medication Management and Follow-Up- Plan:- Schedule follow-up appointments every 2-3 months to monitor the patient's response to the medication regimen.- Reinforce the importance of avoiding recreational drug use due to potential neurotoxicity and interactions with prescribed medications. Pristiq 100 mg daily for depression and anxiety- monitor B/P 3. Unable to concentrate -reviewed ANNIA-2 test and discuss with patient and copy givenself reporting scale completed [place] prescription reviewed educated on non-stimulate and stimulatesPatient reported not want stimulate rx working in therapy for focus Discuss and educated on strattera 60 mg daily in am ANNIA-AE2 DIAGNOSTIC CONSIDERATIONS These test findings suggest that the examiner consider the diagnosis of Attention-Deficit/ Hyperactivity Disorder, combined presentation, and this individual's pattern of responding was indicative of impairments likely to impact her functioning in the home and work settings. The Self Rating Scales did not identify a significant number of hyperactive/impuls stephani or inattentive symptoms. These rating scales do not support the diagnosis suggested by the test results. In making a diagnosis, the examiner will need to determine if there is a reason that this individual did not identify a significant number of hyperactive/impuls stephani or inattentive symptoms, because the ANNIA-AE2 test results did show impairments in response control and attention. Her global Response Control quotient scale score indicated a severe impairment. In addition, her global Attention quotient scale score fell in the mildly to moderately impaired range. These ANNIA-AE2 test findings will need to be included in the examiner's diagnostic decision making process. atomoxetine 60 mg capsule - 4. HTN ON RX educated on healthy b/p 120/80 monitor b/p at home refer to PCP, Urgent care/ER heart healthy diet and excise limit salt intake limit soda intake and caffiene increase water 5. Insomnia Patient having sleep distrubance and sleping 3 hours and not able to go backto sleep off Trazodone Re-start Trazodone 50-100 mg at bedtime tolerated rx in past sleep hygiene CPAP NIGHTLY . Long-term drug therapy 08/28/2024 Attention-defici t hyperactivity disorder, unspecified type (ICD-10 - F90.9) 08/08/2024 Attention-defici t hyperactivity disorder, unspecified type (ICD-10 - F90.9) 06/10/2024 Attention-defici t hyperactivity disorder, unspecified type (ICD-10 - F90.9) 1. Bipolar affective disorder, Depakote DR 250 mg twice a day for agitation and mood stabilization- educated on rx Vraylar 3 mg daily Pristiq 100 mg daily for depression and anxiety- monitor B/P Discuss and educated on medication options Lexapro 5 mg daily for depression monitor for junito and hypomania obtain labs PCP recently done monitor B/P- reported she takes rx in afternoon SSRI side effects discussed including but not limited to, gastric upset, nausea, vomiting, diarrhea and/or constipation, weight changes, sexual side effects including loss of libido, increased suicidal thoughts/behaviors in children and young adults, and serotonin syndrome.Second generation antipsychotics (SGAs) have metabolic syndrome issues with weight gain, increase in prolactin, increased waist circumference, increased lipids, and increased glucose. Thus routine monitoring of weight, metabolic labs, etc. is indicated. A general rank ordering of antipsychotics that have the greatest to the least risk of metabolic effects is olanzapine, quetiapine, risperidone, ziprasidone, and aripiprazole. However, weight gain can occur with all of these drugs and considerable variability exists among patients receiving the same drug regarding the risk of metabolic effects. Anti-psychotic agents not only increase the risk of metabolic disorder, they also increase the risk of CVA, akathisia, and movement disorders including EPS or tardive dyskinesia (more common with first generation antipsychotics) and more. educated on all medications, benefits, side effects and risk, and educated on depression, anxiety, and ADHD, mood d/o and educated on compliance of medications, metabolic and movement d/o education appointment's, continue therapy discussion with patient about course of treatmentand patient instructions. education on serotonin syndrome obtain lab PCP educated on labs for Depakote and vraylar 2. Generalized anxiety disorder -Discussed and educated pt regarding benzodiazepines are generally not intended for prolonged use and that use can cause tolerance, dependence, depression, and associated memory issues including dementias (this list is not exhaustive). Benzodiazepine use is generally not recommended concurrently with pain medications and/or other controlled substances due to increased risks of profound sedation, respiratory depression, coma, and even . They are not to be used with any alcohol, as this combination can also be lethal. Patient was provided caution Clonazepam 0.5 mg daily as needed Medication Management and Follow-Up- Plan:- Schedule follow-up appointments every 2-3 months to monitor the patient's response to the medication regimen.- Reinforce the importance of avoiding recreational drug use due to potential neurotoxicity and interactions with prescribed medications. Pristiq 100 mg daily for depression and anxiety- monitor B/P 3. Unable to concentrate -reviewed ANNIA-2 test and discuss with patient and copy givenself reporting scale completed [place] prescription reviewed educated on non-stimulate and stimulatesPatient reported not want stimulate rx working in therapy for focus Discuss and educated on increase strattera 60 mg daily in am ANNIA-AE2 DIAGNOSTIC CONSIDERATIONS These test findings suggest that the examiner consider the diagnosis of Attention-Deficit/ Hyperactivity Disorder, combined presentation, and this individual's pattern of responding was indicative of impairments likely to impact her functioning in the home and work settings. The Self Rating Scales did not identify a significant number of hyperactive/impuls stephani or inattentive symptoms. These rating scales do not support the diagnosis suggested by the test results. In making a diagnosis, the examiner will need to determine if there is a reason that this individual did not identify a significant number of hyperactive/impuls stephani or inattentive symptoms, because the ANNIA-AE2 test results did show impairments in response control and attention. Her global Response Control quotient scale score indicated a severe impairment. In addition, her global Attention quotient scale score fell in the mildly to moderately impaired range. These ANNIA-AE2 test findings will need to be included in the examiner's diagnostic decision making process. atomoxetine 60 mg capsule - 4. Long-term drug therapy 05/07/2024 Attention-defici t hyperactivity disorder, unspecified type (ICD-10 - F90.9) 05/02/2024 Attention-defici t hyperactivity disorder, unspecified type (ICD-10 - F90.9) 1. Bipolar affective disorder, currently depressed, Depakote DR 250 mg twice a day for agitation and mood stabilization- educated on rx Vraylar 3 mg daily Pristiq 100 mg daily for depression and anxiety- monitor B/P D/C Wellbutrin XL 150 mg daily- r/t agitation Discuss and educated on medication options will add Lexapro 5 mg daily for depression monitor for junito and hypomania obtain labs PCP recently done monitor B/P- reported she takes rx in afternoon SSRI side effects discussed including but not limited to, gastric upset, nausea, vomiting, diarrhea and/or constipation, weight changes, sexual side effects including loss of libido, increased suicidal thoughts/behaviors in children and young adults, and serotonin syndrome.Second generation antipsychotics (SGAs) have metabolic syndrome issues with weight gain, increase in prolactin, increased waist circumference, increased lipids, and increased glucose. Thus routine monitoring of weight, metabolic labs, etc. is indicated. A general rank ordering of antipsychotics that have the greatest to the least risk of metabolic effects is olanzapine, quetiapine, risperidone, ziprasidone, and aripiprazole. However, weight gain can occur with all of these drugs and considerable variability exists among patients receiving the same drug regarding the risk of metabolic effects. Anti-psychotic agents not only increase the risk of metabolic disorder, they also increase the risk of CVA, akathisia, and movement disorders including EPS or tardive dyskinesia (more common with first generation antipsychotics) and more. educated on all medications, benefits, side effects and risk, and educated on depression, anxiety, and ADHD, mood d/o and educated on compliance of medications, metabolic and movement d/o education appointment's, continue therapy discussion with patient about course of treatmentand patient instructions. education on serotonin syndrome obtain lab PCP educated on labs for Depakote and vraylar 2. Generalized anxiety disorder -Discussed and educated pt regarding benzodiazepines are generally not intended for prolonged use and that use can cause tolerance, dependence, depression, and associated memory issues including dementias (this list is not exhaustive). Benzodiazepine use is generally not recommended concurrently with pain medications and/or other controlled substances due to increased risks of profound sedation, respiratory depression, coma, and even . They are not to be used with any alcohol, as this combination can also be lethal. Patient was provided caution Clonazepam 0.5 mg daily as needed Medication Management and Follow-Up- Plan:- Schedule follow-up appointments every 2-3 months to monitor the patient's response to the medication regimen.- Reinforce the importance of avoiding recreational drug use due to potential neurotoxicity and interactions with prescribed medications. Pristiq 100 mg daily for depression and anxiety- monitor B/P Wellbutrin XL 150 mg daily 3. Unable to concentrate -reviewed ANNIA-2 test and discuss with patient and copy givenself reporting scale completed [place] prescription reviewed Patient is on Wellbutrin XL 150 mg and does not want to increase dose r/t hx agitation educated on non-stimulate and stimulatesPatient reported not want stimulate rx working in therapy for focus Discuss and educated on increase strattera 60 mg daily in am ANNIA-AE2 DIAGNOSTIC CONSIDERATIONS These test findings suggest that the examiner consider the diagnosis of Attention-Deficit/ Hyperactivity Disorder, combined presentation, and this individual's pattern of responding was indicative of impairments likely to impact her functioning in the home and work settings. The Self Rating Scales did not identify a significant number of hyperactive/impuls stephani or inattentive symptoms. These rating scales do not support the diagnosis suggested by the test results. In making a diagnosis, the examiner will need to determine if there is a reason that this individual did not identify a significant number of hyperactive/impuls stephani or inattentive symptoms, because the ANNIA-AE2 test results did show impairments in response control and attention. Her global Response Control quotient scale score indicated a severe impairment. In addition, her global Attention quotient scale score fell in the mildly to moderately impaired range. These ANNIA-AE2 test findings will need to be included in the examiner's diagnostic decision making process. atomoxetine 60 mg capsule - 4. Long-term drug therapy 04/16/2024 Attention-defici t hyperactivity disorder, unspecified type (ICD-10 - F90.9) 04/02/2024 Attention-defici t hyperactivity disorder, unspecified type (ICD-10 - F90.9) 03/11/2024 Post-traumatic stress disorder, chronic (ICD-10 - F43.12) 1. Bipolar affective disorder, currently depressed, mild - Depakote DR 250 mg twice a day for agitation and mood stabilization- educated on rx Vraylar 3 mg daily Pristiq 100 mg daily for depression and anxiety- monitor B/P Wellbutrin XL 150 mg daily SSRI side effects discussed including but not limited to, gastric upset, nausea, vomiting, diarrhea and/or constipation, weight changes, sexual side effects including loss of libido, increased suicidal thoughts/behaviors in children and young adults, and serotonin syndrome.Second generation antipsychotics (SGAs) have metabolic syndrome issues with weight gain, increase in prolactin, increased waist circumference, increased lipids, and increased glucose. Thus routine monitoring of weight, metabolic labs, etc. is indicated. A general rank ordering of antipsychotics that have the greatest to the least risk of metabolic effects is olanzapine, quetiapine, risperidone, ziprasidone, and aripiprazole. However, weight gain can occur with all of these drugs and considerable variability exists among patients receiving the same drug regarding the risk of metabolic effects. Anti-psychotic agents not only increase the risk of metabolic disorder, they also increase the risk of CVA, akathisia, and movement disorders including EPS or tardive dyskinesia (more common with first generation antipsychotics) and more. educated on all medications, benefits, side effects and risk, and educated on depression, anxiety, and ADHD, mood d/o and educated on compliance of medications, metabolic and movement d/o education appointment's, continue therapy discussion with patient about course of treatmentand patient instructions. education on serotonin syndrome obtain lab PCP reviewed pulmonology note 06/27/23 educated on labs for Depakote and vraylar 2. Generalized anxiety disorder -Discussed and educated pt regarding benzodiazepines are generally not intended for prolonged use and that use can cause tolerance, dependence, depression, and associated memory issues including dementias (this list is not exhaustive). Benzodiazepine use is generally not recommended concurrently with pain medications and/or other controlled substances due to increased risks of profound sedation, respiratory depression, coma, and even . They are not to be used with any alcohol, as this combination can also be lethal. Patient was provided caution Clonazepam 0.5 mg daily as needed Medication Management and Follow-Up- Plan:- Schedule follow-up appointments every 2-3 months to monitor the patient's response to the medication regimen.- Reinforce the importance of avoiding recreational drug use due to potential neurotoxicity and interactions with prescribed medications. Pristiq 100 mg daily for depression and anxiety- monitor B/P Wellbutrin XL 150 mg daily 3. Unable to concentrate -reviewed ANNIA-2 test and discuss with patient and copy givenself reporting scale completed [place] prescription reviewed Patient is on Wellbutrin XL 150 mg and does not want to increase dose r/t hx agitation educated on non-stimulate and stimulatesPatient reported not want stimulate rx working in therapy for focus Discuss and educated on increase strattera 60 mg daily in am ANNIA-AE2 DIAGNOSTIC CONSIDERATIONS These test findings suggest that the examiner consider the diagnosis of Attention-Deficit/ Hyperactivity Disorder, combined presentation, and this individual's pattern of responding was indicative of impairments likely to impact her functioning in the home and work settings. The Self Rating Scales did not identify a significant number of hyperactive/impuls stephani or inattentive symptoms. These rating scales do not support the diagnosis suggested by the test results. In making a diagnosis, the examiner will need to determine if there is a reason that this individual did not identify a significant number of hyperactive/impuls stephani or inattentive symptoms, because the ANNIA-AE2 test results did show impairments in response control and attention. Her global Response Control quotient scale score indicated a severe impairment. In addition, her global Attention quotient scale score fell in the mildly to moderately impaired range. These ANNIA-AE2 test findings will need to be included in the examiner's diagnostic decision making process. atomoxetine 60 mg capsule - 4. Long-term drug therapy 03/06/2024 Attention-defici t hyperactivity disorder, unspecified type (ICD-10 - F90.9) 03/11/2024 Attention-defici t hyperactivity disorder, unspecified type (ICD-10 - F90.9) 1. Bipolar affective disorder, currently depressed, mild - Depakote DR 250 mg twice a day for agitation and mood stabilization- educated on rx Vraylar 3 mg daily Pristiq 100 mg daily for depression and anxiety- monitor B/P Wellbutrin XL 150 mg daily SSRI side effects discussed including but not limited to, gastric upset, nausea, vomiting, diarrhea and/or constipation, weight changes, sexual side effects including loss of libido, increased suicidal thoughts/behaviors in children and young adults, and serotonin syndrome.Second generation antipsychotics (SGAs) have metabolic syndrome issues with weight gain, increase in prolactin, increased waist circumference, increased lipids, and increased glucose. Thus routine monitoring of weight, metabolic labs, etc. is indicated. A general rank ordering of antipsychotics that have the greatest to the least risk of metabolic effects is olanzapine, quetiapine, risperidone, ziprasidone, and aripiprazole. However, weight gain can occur with all of these drugs and considerable variability exists among patients receiving the same drug regarding the risk of metabolic effects. Anti-psychotic agents not only increase the risk of metabolic disorder, they also increase the risk of CVA, akathisia, and movement disorders including EPS or tardive dyskinesia (more common with first generation antipsychotics) and more. educated on all medications, benefits, side effects and risk, and educated on depression, anxiety, and ADHD, mood d/o and educated on compliance of medications, metabolic and movement d/o education appointment's, continue therapy discussion with patient about course of treatmentand patient instructions. education on serotonin syndrome obtain lab PCP reviewed pulmonology note 06/27/23 educated on labs for Depakote and vraylar 2. Generalized anxiety disorder -Discussed and educated pt regarding benzodiazepines are generally not intended for prolonged use and that use can cause tolerance, dependence, depression, and associated memory issues including dementias (this list is not exhaustive). Benzodiazepine use is generally not recommended concurrently with pain medications and/or other controlled substances due to increased risks of profound sedation, respiratory depression, coma, and even . They are not to be used with any alcohol, as this combination can also be lethal. Patient was provided caution Clonazepam 0.5 mg daily as needed Medication Management and Follow-Up- Plan:- Schedule follow-up appointments every 2-3 months to monitor the patient's response to the medication regimen.- Reinforce the importance of avoiding recreational drug use due to potential neurotoxicity and interactions with prescribed medications. Pristiq 100 mg daily for depression and anxiety- monitor B/P Wellbutrin XL 150 mg daily 3. Unable to concentrate -reviewed ANNIA-2 test and discuss with patient and copy givenself reporting scale completed [place] prescription reviewed Patient is on Wellbutrin XL 150 mg and does not want to increase dose r/t hx agitation educated on non-stimulate and stimulatesPatient reported not want stimulate rx working in therapy for focus Discuss and educated on increase strattera 60 mg daily in am ANNIA-AE2 DIAGNOSTIC CONSIDERATIONS These test findings suggest that the examiner consider the diagnosis of Attention-Deficit/ Hyperactivity Disorder, combined presentation, and this individual's pattern of responding was indicative of impairments likely to impact her functioning in the home and work settings. The Self Rating Scales did not identify a significant number of hyperactive/impuls stephani or inattentive symptoms. These rating scales do not support the diagnosis suggested by the test results. In making a diagnosis, the examiner will need to determine if there is a reason that this individual did not identify a significant number of hyperactive/impuls stephani or inattentive symptoms, because the ANNIA-AE2 test results did show impairments in response control and attention. Her global Response Control quotient scale score indicated a severe impairment. In addition, her global Attention quotient scale score fell in the mildly to moderately impaired range. These ANNIA-AE2 test findings will need to be included in the examiner's diagnostic decision making process. atomoxetine 60 mg capsule - 4. Long-term drug therapy 05/02/2024 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) drug therapy (ICD-10 - Z79.899) 1. Bipolar affective disorder, currently depressed, Depakote DR 250 mg twice a day for agitation and mood stabilization- educated on rx Vraylar 3 mg daily Pristiq 100 mg daily for depression and anxiety- monitor B/P D/C Wellbutrin XL 150 mg daily- r/t agitation Discuss and educated on medication options will add Lexapro 5 mg daily for depression monitor for junito and hypomania obtain labs PCP recently done monitor B/P- reported she takes rx in afternoon SSRI side effects discussed including but not limited to, gastric upset, nausea, vomiting, diarrhea and/or constipation, weight changes, sexual side effects including loss of libido, increased suicidal thoughts/behaviors in children and young adults, and serotonin syndrome.Second generation antipsychotics (SGAs) have metabolic syndrome issues with weight gain, increase in prolactin, increased waist circumference, increased lipids, and increased glucose. Thus routine monitoring of weight, metabolic labs, etc. is indicated. A general rank ordering of antipsychotics that have the greatest to the least risk of metabolic effects is olanzapine, quetiapine, risperidone, ziprasidone, and aripiprazole. However, weight gain can occur with all of these drugs and considerable variability exists among patients receiving the same drug regarding the risk of metabolic effects. Anti-psychotic agents not only increase the risk of metabolic disorder, they also increase the risk of CVA, akathisia, and movement disorders including EPS or tardive dyskinesia (more common with first generation antipsychotics) and more. educated on all medications, benefits, side effects and risk, and educated on depression, anxiety, and ADHD, mood d/o and educated on compliance of medications, metabolic and movement d/o education appointment's, continue therapy discussion with patient about course of treatmentand patient instructions. education on serotonin syndrome obtain lab PCP educated on labs for Depakote and vraylar 2. Generalized anxiety disorder -Discussed and educated pt regarding benzodiazepines are generally not intended for prolonged use and that use can cause tolerance, dependence, depression, and associated memory issues including dementias (this list is not exhaustive). Benzodiazepine use is generally not recommended concurrently with pain medications and/or other controlled substances due to increased risks of profound sedation, respiratory depression, coma, and even . They are not to be used with any alcohol, as this combination can also be lethal. Patient was provided caution Clonazepam 0.5 mg daily as needed Medication Management and Follow-Up- Plan:- Schedule follow-up appointments every 2-3 months to monitor the patient's response to the medication regimen.- Reinforce the importance of avoiding recreational drug use due to potential neurotoxicity and interactions with prescribed medications. Pristiq 100 mg daily for depression and anxiety- monitor B/P Wellbutrin XL 150 mg daily 3. Unable to concentrate -reviewed ANNIA-2 test and discuss with patient and copy givenself reporting scale completed [place] prescription reviewed Patient is on Wellbutrin XL 150 mg and does not want to increase dose r/t hx agitation educated on non-stimulate and stimulatesPatient reported not want stimulate rx working in therapy for focus Discuss and educated on increase strattera 60 mg daily in am ANNIA-AE2 DIAGNOSTIC CONSIDERATIONS These test findings suggest that the examiner consider the diagnosis of Attention-Deficit/ Hyperactivity Disorder, combined presentation, and this individual's pattern of responding was indicative of impairments likely to impact her functioning in the home and work settings. The Self Rating Scales did not identify a significant number of hyperactive/impuls stephani or inattentive symptoms. These rating scales do not support the diagnosis suggested by the test results. In making a diagnosis, the examiner will need to determine if there is a reason that this individual did not identify a significant number of hyperactive/impuls stephani or inattentive symptoms, because the ANNIA-AE2 test results did show impairments in response control and attention. Her global Response Control quotient scale score indicated a severe impairment. In addition, her global Attention quotient scale score fell in the mildly to moderately impaired range. These ANNIA-AE2 test findings will need to be included in the examiner's diagnostic decision making process. atomoxetine 60 mg capsule - 4. Long-term drug therapy 06/10/2024 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) drug therapy (ICD-10 - Z79.899) 1. Bipolar affective disorder, Depakote DR 250 mg twice a day for agitation and mood stabilization- educated on rx Vraylar 3 mg daily Pristiq 100 mg daily for depression and anxiety- monitor B/P Discuss and educated on medication options Lexapro 5 mg daily for depression monitor for junito and hypomania obtain labs PCP recently done monitor B/P- reported she takes rx in afternoon SSRI side effects discussed including but not limited to, gastric upset, nausea, vomiting, diarrhea and/or constipation, weight changes, sexual side effects including loss of libido, increased suicidal thoughts/behaviors in children and young adults, and serotonin syndrome.Second generation antipsychotics (SGAs) have metabolic syndrome issues with weight gain, increase in prolactin, increased waist circumference, increased lipids, and increased glucose. Thus routine monitoring of weight, metabolic labs, etc. is indicated. A general rank ordering of antipsychotics that have the greatest to the least risk of metabolic effects is olanzapine, quetiapine, risperidone, ziprasidone, and aripiprazole. However, weight gain can occur with all of these drugs and considerable variability exists among patients receiving the same drug regarding the risk of metabolic effects. Anti-psychotic agents not only increase the risk of metabolic disorder, they also increase the risk of CVA, akathisia, and movement disorders including EPS or tardive dyskinesia (more common with first generation antipsychotics) and more. educated on all medications, benefits, side effects and risk, and educated on depression, anxiety, and ADHD, mood d/o and educated on compliance of medications, metabolic and movement d/o education appointment's, continue therapy discussion with patient about course of treatmentand patient instructions. education on serotonin syndrome obtain lab PCP educated on labs for Depakote and vraylar 2. Generalized anxiety disorder -Discussed and educated pt regarding benzodiazepines are generally not intended for prolonged use and that use can cause tolerance, dependence, depression, and associated memory issues including dementias (this list is not exhaustive). Benzodiazepine use is generally not recommended concurrently with pain medications and/or other controlled substances due to increased risks of profound sedation, respiratory depression, coma, and even . They are not to be used with any alcohol, as this combination can also be lethal. Patient was provided caution Clonazepam 0.5 mg daily as needed Medication Management and Follow-Up- Plan:- Schedule follow-up appointments every 2-3 months to monitor the patient's response to the medication regimen.- Reinforce the importance of avoiding recreational drug use due to potential neurotoxicity and interactions with prescribed medications. Pristiq 100 mg daily for depression and anxiety- monitor B/P 3. Unable to concentrate -reviewed ANNIA-2 test and discuss with patient and copy givenself reporting scale completed [place] prescription reviewed educated on non-stimulate and stimulatesPatient reported not want stimulate rx working in therapy for focus Discuss and educated on increase strattera 60 mg daily in am ANNIA-AE2 DIAGNOSTIC CONSIDERATIONS These test findings suggest that the examiner consider the diagnosis of Attention-Deficit/ Hyperactivity Disorder, combined presentation, and this individual's pattern of responding was indicative of impairments likely to impact her functioning in the home and work settings. The Self Rating Scales did not identify a significant number of hyperactive/impuls stephani or inattentive symptoms. These rating scales do not support the diagnosis suggested by the test results. In making a diagnosis, the examiner will need to determine if there is a reason that this individual did not identify a significant number of hyperactive/impuls stephani or inattentive symptoms, because the ANNIA-AE2 test results did show impairments in response control and attention. Her global Response Control quotient scale score indicated a severe impairment. In addition, her global Attention quotient scale score fell in the mildly to moderately impaired range. These ANNIA-AE2 test findings will need to be included in the examiner's diagnostic decision making process. atomoxetine 60 mg capsule - 4. Long-term drug therapy 07/04/2024 Attention-defici t hyperactivity disorder, unspecified type (ICD-10 - F90.9) 1. Bipolar affective disorder, Depakote DR 250 mg twice a day for agitation and mood stabilization- educated on rx Vraylar 3 mg daily Pristiq 100 mg daily for depression and anxiety- monitor B/P Discuss and educated on medication options Lexapro 5 mg daily for depression monitor for junito and hypomania obtain labs PCP recently done monitor B/P- reported she takes rx in afternoon SSRI side effects discussed including but not limited to, gastric upset, nausea, vomiting, diarrhea and/or constipation, weight changes, sexual side effects including loss of libido, increased suicidal thoughts/behaviors in children and young adults, and serotonin syndrome.Second generation antipsychotics (SGAs) have metabolic syndrome issues with weight gain, increase in prolactin, increased waist circumference, increased lipids, and increased glucose. Thus routine monitoring of weight, metabolic labs, etc. is indicated. A general rank ordering of antipsychotics that have the greatest to the least risk of metabolic effects is olanzapine, quetiapine, risperidone, ziprasidone, and aripiprazole. However, weight gain can occur with all of these drugs and considerable variability exists among patients receiving the same drug regarding the risk of metabolic effects. Anti-psychotic agents not only increase the risk of metabolic disorder, they also increase the risk of CVA, akathisia, and movement disorders including EPS or tardive dyskinesia (more common with first generation antipsychotics) and more. educated on all medications, benefits, side effects and risk, and educated on depression, anxiety, and ADHD, mood d/o and educated on compliance of medications, metabolic and movement d/o education appointment's, continue therapy discussion with patient about course of treatmentand patient instructions. education on serotonin syndrome obtain lab PCP educated on labs for Depakote and vraylar 2. Generalized anxiety disorder -Discussed and educated pt regarding benzodiazepines are generally not intended for prolonged use and that use can cause tolerance, dependence, depression, and associated memory issues including dementias (this list is not exhaustive). Benzodiazepine use is generally not recommended concurrently with pain medications and/or other controlled substances due to increased risks of profound sedation, respiratory depression, coma, and even . They are not to be used with any alcohol, as this combination can also be lethal. Patient was provided caution Clonazepam 0.5 mg daily as needed Medication Management and Follow-Up- Plan:- Schedule follow-up appointments every 2-3 months to monitor the patient's response to the medication regimen.- Reinforce the importance of avoiding recreational drug use due to potential neurotoxicity and interactions with prescribed medications. Pristiq 100 mg daily for depression and anxiety- monitor B/P 3. Unable to concentrate -reviewed ANNIA-2 test and discuss with patient and copy givenself reporting scale completed [place] prescription reviewed educated on non-stimulate and stimulatesPatient reported not want stimulate rx working in therapy for focus Discuss and educated on strattera 60 mg daily in am ANNIA-AE2 DIAGNOSTIC CONSIDERATIONS These test findings suggest that the examiner consider the diagnosis of Attention-Deficit/ Hyperactivity Disorder, combined presentation, and this individual's pattern of responding was indicative of impairments likely to impact her functioning in the home and work settings. The Self Rating Scales did not identify a significant number of hyperactive/impuls stephani or inattentive symptoms. These rating scales do not support the diagnosis suggested by the test results. In making a diagnosis, the examiner will need to determine if there is a reason that this individual did not identify a significant number of hyperactive/impuls stephani or inattentive symptoms, because the ANNIA-AE2 test results did show impairments in response control and attention. Her global Response Control quotient scale score indicated a severe impairment. In addition, her global Attention quotient scale score fell in the mildly to moderately impaired range. These ANNIA-AE2 test findings will need to be included in the examiner's diagnostic decision making process. atomoxetine 60 mg capsule - 4. HTN ON RX educated on healthy b/p 120/80 monitor b/p at home refer to PCP, Urgent care/ER heart healthy diet and excise limit salt intake limit soda intake and caffiene increase water 5. Insomnia Patient having sleep distrubance and sleping 3 hours and not able to go backto sleep off Trazodone Re-start Trazodone 50-100 mg at bedtime tolerated rx in past sleep hygiene CPAP NIGHTLY . Long-term drug therapy 09/26/2024 Attention-defici t hyperactivity disorder, unspecified type (ICD-10 - F90.9) 1. Bipolar affective disorder, Depakote DR 250 mg twice a day for agitation and mood stabilization- educated on rx Vraylar 3 mg daily Pristiq 100 mg daily for depression and anxiety- monitor B/P Discuss and educated on medication options Lexapro 5 mg daily for depression monitor for junito and hypomania obtain labs PCP recently done monitor B/P- reported she takes rx in afternoon SSRI side effects discussed including but not limited to, gastric upset, nausea, vomiting, diarrhea and/or constipation, weight changes, sexual side effects including loss of libido, increased suicidal thoughts/behaviors in children and young adults, and serotonin syndrome.Second generation antipsychotics (SGAs) have metabolic syndrome issues with weight gain, increase in prolactin, increased waist circumference, increased lipids, and increased glucose. Thus routine monitoring of weight, metabolic labs, etc. is indicated. A general rank ordering of antipsychotics that have the greatest to the least risk of metabolic effects is olanzapine, quetiapine, risperidone, ziprasidone, and aripiprazole. However, weight gain can occur with all of these drugs and considerable variability exists among patients receiving the same drug regarding the risk of metabolic effects. Anti-psychotic agents not only increase the risk of metabolic disorder, they also increase the risk of CVA, akathisia, and movement disorders including EPS or tardive dyskinesia (more common with first generation antipsychotics) and more. educated on all medications, benefits, side effects and risk, and educated on depression, anxiety, and ADHD, mood d/o and educated on compliance of medications, metabolic and movement d/o education appointment's, continue therapy discussion with patient about course of treatmentand patient instructions. education on serotonin syndrome obtain lab PCP scheduled 11/20 and having Depakote levels- educated on labs for Depakote and vraylar 2. Generalized anxiety disorder -Discussed and educated pt regarding benzodiazepines are generally not intended for prolonged use and that use can cause tolerance, dependence, depression, and associated memory issues including dementias (this list is not exhaustive). Benzodiazepine use is generally not recommended concurrently with pain medications and/or other controlled substances due to increased risks of profound sedation, respiratory depression, coma, and even . They are not to be used with any alcohol, as this combination can also be lethal. Patient was provided caution Clonazepam 0.5 mg daily as needed Medication Management and Follow-Up- Plan:- Schedule follow-up appointments every 2-3 months to monitor the patient's response to the medication regimen.- Reinforce the importance of avoiding recreational drug use due to potential neurotoxicity and interactions with prescribed medications. Pristiq 100 mg daily for depression and anxiety- monitor B/P 3. Unable to concentrate -reviewed ANNIA-2 test and discuss with patient and copy givenself reporting scale completed [place] prescription reviewed educated on non-stimulate and stimulatesPatient reported not want stimulate rx working in therapy for focus Discuss and educated on strattera 60 mg daily in am ANNIA-AE2 DIAGNOSTIC CONSIDERATIONS These test findings suggest that the examiner consider the diagnosis of Attention-Deficit/ Hyperactivity Disorder, combined presentation, and this individual's pattern of responding was indicative of impairments likely to impact her functioning in the home and work settings. The Self Rating Scales did not identify a significant number of hyperactive/impuls stephani or inattentive symptoms. These rating scales do not support the diagnosis suggested by the test results. In making a diagnosis, the examiner will need to determine if there is a reason that this individual did not identify a significant number of hyperactive/impuls stephani or inattentive symptoms, because the ANNIA-AE2 test results did show impairments in response control and attention. Her global Response Control quotient scale score indicated a severe impairment. In addition, her global Attention quotient scale score fell in the mildly to moderately impaired range. These ANNIA-AE2 test findings will need to be included in the examiner's diagnostic decision making process. atomoxetine 60 mg capsule - 4. HTN ON RX educated on healthy b/p 120/80 monitor b/p at home refer to PCP, Urgent care/ER heart healthy diet and excise limit salt intake limit soda intake and caffiene increase water 5. Insomnia Patient having sleep distrubance and sleping 3 hours and not able to go backto sleep off Trazodone Trazodone 50 mg at bedtime tolerated rx in past sleep hygiene CPAP NIGHTLY 6. tobacco Smoking Education Do not smoke. Nicotine and other chemicals in cigarettes and cigars can cause lung damage. Ask your healthcare provider for information if you currently smoke and need help to quit. E-cigarettes or smokeless tobacco still contain nicotine. Talk to your healthcare provider before you use these products. education on decrease to stopping nicotine products and stop smoking hotline given 5825-Quit - Yes [place] Tobacco Quitline Call a Smoking Quitline [facility] [employer] [facility] [place] Smoking Quitline, (8-104-23R-QUIT) Smokefree.gov, which connects you with your State's Quitline, (9-978-ASAFJNJ) [facility] Smoking Quitline, (2-557-NRPVNJL) . Long-term drug therapy 10/16/2024 Post-traumatic stress disorder, chronic (ICD-10 - F43.12) 12/27/2024 Post-traumatic stress disorder, chronic (ICD-10 - F43.12) reported no refills needed today 1. Bipolar affective disorder, Depakote DR 250 mg twice a day for agitation and mood stabilization- educated on rx Vraylar 3 mg daily Pristiq 100 mg daily for depression and anxiety- monitor B/P Discuss and educated on medication options Lexapro 5 mg daily for depression monitor for junito and hypomania obtain labs PCP recently done monitor B/P- reported she takes rx in afternoon SSRI side effects discussed including but not limited to, gastric upset, nausea, vomiting, diarrhea and/or constipation, weight changes, sexual side effects including loss of libido, increased suicidal thoughts/behaviors in children and young adults, and serotonin syndrome.Second generation antipsychotics (SGAs) have metabolic syndrome issues with weight gain, increase in prolactin, increased waist circumference, increased lipids, and increased glucose. Thus routine monitoring of weight, metabolic labs, etc. is indicated. A general rank ordering of antipsychotics that have the greatest to the least risk of metabolic effects is olanzapine, quetiapine, risperidone, ziprasidone, and aripiprazole. However, weight gain can occur with all of these drugs and considerable variability exists among patients receiving the same drug regarding the risk of metabolic effects. Anti-psychotic agents not only increase the risk of metabolic disorder, they also increase the risk of CVA, akathisia, and movement disorders including EPS or tardive dyskinesia (more common with first generation antipsychotics) and more. educated on all medications, benefits, side effects and risk, and educated on depression, anxiety, and ADHD, mood d/o and educated on compliance of medications, metabolic and movement d/o education appointment's, continue therapy discussion with patient about course of treatmentand patient instructions. education on serotonin syndrome obtain lab PCP scheduled 11/20 and having Depakote levels- educated on labs for Depakote and vraylar 2. Generalized anxiety disorder -Discussed and educated pt regarding benzodiazepines are generally not intended for prolonged use and that use can cause tolerance, dependence, depression, and associated memory issues including dementias (this list is not exhaustive). Benzodiazepine use is generally not recommended concurrently with pain medications and/or other controlled substances due to increased risks of profound sedation, respiratory depression, coma, and even . They are not to be used with any alcohol, as this combination can also be lethal. Patient was provided caution Clonazepam 0.5 mg daily as needed Medication Management and Follow-Up- Plan:- Schedule follow-up appointments every 2-3 months to monitor the patient's response to the medication regimen.- Reinforce the importance of avoiding recreational drug use due to potential neurotoxicity and interactions with prescribed medications. Pristiq 100 mg daily for depression and anxiety- monitor B/P 3. Unable to concentrate -reviewed ANNIA-2 test and discuss with patient and copy givenself reporting scale completed [place] prescription reviewed educated on non-stimulate and stimulatesPatient reported not want stimulate rx working in therapy for focus Discuss and educated on strattera 60 mg daily in am ANNIA-AE2 DIAGNOSTIC CONSIDERATIONS These test findings suggest that the examiner consider the diagnosis of Attention-Deficit/ Hyperactivity Disorder, combined presentation, and this individual's pattern of responding was indicative of impairments likely to impact her functioning in the home and work settings. The Self Rating Scales did not identify a significant number of hyperactive/impuls stephani or inattentive symptoms. These rating scales do not support the diagnosis suggested by the test results. In making a diagnosis, the examiner will need to determine if there is a reason that this individual did not identify a significant number of hyperactive/impuls stephani or inattentive symptoms, because the ANNIA-AE2 test results did show impairments in response control and attention. Her global Response Control quotient scale score indicated a severe impairment. In addition, her global Attention quotient scale score fell in the mildly to moderately impaired range. These ANNIA-AE2 test findings will need to be included in the examiner's diagnostic decision making process. atomoxetine 60 mg capsule - 4. HTN ON RX educated on healthy b/p 120/80 monitor b/p at home refer to PCP, Urgent care/ER heart healthy diet and excise limit salt intake limit soda intake and caffiene increase water 5. Insomnia Trazodone 50 mg at bedtime sleep hygiene CPAP NIGHTLY 6. tobacco Smoking Education Do not smoke. Nicotine and other chemicals in cigarettes and cigars can cause lung damage. Ask your healthcare provider for information if you currently smoke and need help to quit. E-cigarettes or smokeless tobacco still contain nicotine. Talk to your healthcare provider before you use these products. education on decrease to stopping nicotine products and stop smoking hotline given 131-Quit - Yes [place] Tobacco Quitline Call a Smoking Quitline [facility] [employer] [facility] [place] Smoking Quitline, (6-852-63O-QUIT) Smokefree.gov, which connects you with your State's Quitline, (1-624-JXJOVPV) Veterans Smoking Quitline, (5-037-AOAIEVT) . Long-term drug therapy 12/27/2024 Attention-defici t hyperactivity disorder, unspecified type (ICD-10 - F90.9) reported no refills needed today 1. Bipolar affective disorder, Depakote DR 250 mg twice a day for agitation and mood stabilization- educated on rx Vraylar 3 mg daily Pristiq 100 mg daily for depression and anxiety- monitor B/P Discuss and educated on medication options Lexapro 5 mg daily for depression monitor for junito and hypomania obtain labs PCP recently done monitor B/P- reported she takes rx in afternoon SSRI side effects discussed including but not limited to, gastric upset, nausea, vomiting, diarrhea and/or constipation, weight changes, sexual side effects including loss of libido, increased suicidal thoughts/behaviors in children and young adults, and serotonin syndrome.Second generation antipsychotics (SGAs) have metabolic syndrome issues with weight gain, increase in prolactin, increased waist circumference, increased lipids, and increased glucose. Thus routine monitoring of weight, metabolic labs, etc. is indicated. A general rank ordering of antipsychotics that have the greatest to the least risk of metabolic effects is olanzapine, quetiapine, risperidone, ziprasidone, and aripiprazole. However, weight gain can occur with all of these drugs and considerable variability exists among patients receiving the same drug regarding the risk of metabolic effects. Anti-psychotic agents not only increase the risk of metabolic disorder, they also increase the risk of CVA, akathisia, and movement disorders including EPS or tardive dyskinesia (more common with first generation antipsychotics) and more. educated on all medications, benefits, side effects and risk, and educated on depression, anxiety, and ADHD, mood d/o and educated on compliance of medications, metabolic and movement d/o education appointment's, continue therapy discussion with patient about course of treatmentand patient instructions. education on serotonin syndrome obtain lab PCP scheduled 11/20 and having Depakote levels- educated on labs for Depakote and vraylar 2. Generalized anxiety disorder -Discussed and educated pt regarding benzodiazepines are generally not intended for prolonged use and that use can cause tolerance, dependence, depression, and associated memory issues including dementias (this list is not exhaustive). Benzodiazepine use is generally not recommended concurrently with pain medications and/or other controlled substances due to increased risks of profound sedation, respiratory depression, coma, and even . They are not to be used with any alcohol, as this combination can also be lethal. Patient was provided caution Clonazepam 0.5 mg daily as needed Medication Management and Follow-Up- Plan:- Schedule follow-up appointments every 2-3 months to monitor the patient's response to the medication regimen.- Reinforce the importance of avoiding recreational drug use due to potential neurotoxicity and interactions with prescribed medications. Pristiq 100 mg daily for depression and anxiety- monitor B/P 3. Unable to concentrate -reviewed ANNIA-2 test and discuss with patient and copy givenself reporting scale completed [place] prescription reviewed educated on non-stimulate and stimulatesPatient reported not want stimulate rx working in therapy for focus Discuss and educated on strattera 60 mg daily in am ANNIA-AE2 DIAGNOSTIC CONSIDERATIONS These test findings suggest that the examiner consider the diagnosis of Attention-Deficit/ Hyperactivity Disorder, combined presentation, and this individual's pattern of responding was indicative of impairments likely to impact her functioning in the home and work settings. The Self Rating Scales did not identify a significant number of hyperactive/impuls stephani or inattentive symptoms. These rating scales do not support the diagnosis suggested by the test results. In making a diagnosis, the examiner will need to determine if there is a reason that this individual did not identify a significant number of hyperactive/impuls stephani or inattentive symptoms, because the ANNIA-AE2 test results did show impairments in response control and attention. Her global Response Control quotient scale score indicated a severe impairment. In addition, her global Attention quotient scale score fell in the mildly to moderately impaired range. These ANNIA-AE2 test findings will need to be included in the examiner's diagnostic decision making process. atomoxetine 60 mg capsule - 4. HTN ON RX educated on healthy b/p 120/80 monitor b/p at home refer to PCP, Urgent care/ER heart healthy diet and excise limit salt intake limit soda intake and caffiene increase water 5. Insomnia Trazodone 50 mg at bedtime sleep hygiene CPAP NIGHTLY 6. tobacco Smoking Education Do not smoke. Nicotine and other chemicals in cigarettes and cigars can cause lung damage. Ask your healthcare provider for information if you currently smoke and need help to quit. E-cigarettes or smokeless tobacco still contain nicotine. Talk to your healthcare provider before you use these products. education on decrease to stopping nicotine products and stop smoking hotline given -Quit - Yes [place] Tobacco Quitline Call a Smoking Quitline [facility] [place] Smoking Quitline, (8-115-49V-QUIT) Smokefree.gov, which connects you with your State's Quitline, (5-948-XHDWAOF) [facility] Smoking Quitline, (7-356-JAGLLSV) . Long-term drug therapy 09/26/2024 Other half-way (current) drug therapy (ICD-10 - Z79.899) 1. Bipolar affective disorder, Depakote DR 250 mg twice a day for agitation and mood stabilization- educated on rx Vraylar 3 mg daily Pristiq 100 mg daily for depression and anxiety- monitor B/P Discuss and educated on medication options Lexapro 5 mg daily for depression monitor for junito and hypomania obtain labs PCP recently done monitor B/P- reported she takes rx in afternoon SSRI side effects discussed including but not limited to, gastric upset, nausea, vomiting, diarrhea and/or constipation, weight changes, sexual side effects including loss of libido, increased suicidal thoughts/behaviors in children and young adults, and serotonin syndrome.Second generation antipsychotics (SGAs) have metabolic syndrome issues with weight gain, increase in prolactin, increased waist circumference, increased lipids, and increased glucose. Thus routine monitoring of weight, metabolic labs, etc. is indicated. A general rank ordering of antipsychotics that have the greatest to the least risk of metabolic effects is olanzapine, quetiapine, risperidone, ziprasidone, and aripiprazole. However, weight gain can occur with all of these drugs and considerable variability exists among patients receiving the same drug regarding the risk of metabolic effects. Anti-psychotic agents not only increase the risk of metabolic disorder, they also increase the risk of CVA, akathisia, and movement disorders including EPS or tardive dyskinesia (more common with first generation antipsychotics) and more. educated on all medications, benefits, side effects and risk, and educated on depression, anxiety, and ADHD, mood d/o and educated on compliance of medications, metabolic and movement d/o education appointment's, continue therapy discussion with patient about course of treatmentand patient instructions. education on serotonin syndrome obtain lab PCP scheduled 11/20 and having Depakote levels- educated on labs for Depakote and vraylar 2. Generalized anxiety disorder -Discussed and educated pt regarding benzodiazepines are generally not intended for prolonged use and that use can cause tolerance, dependence, depression, and associated memory issues including dementias (this list is not exhaustive). Benzodiazepine use is generally not recommended concurrently with pain medications and/or other controlled substances due to increased risks of profound sedation, respiratory depression, coma, and even . They are not to be used with any alcohol, as this combination can also be lethal. Patient was provided caution Clonazepam 0.5 mg daily as needed Medication Management and Follow-Up- Plan:- Schedule follow-up appointments every 2-3 months to monitor the patient's response to the medication regimen.- Reinforce the importance of avoiding recreational drug use due to potential neurotoxicity and interactions with prescribed medications. Pristiq 100 mg daily for depression and anxiety- monitor B/P 3. Unable to concentrate -reviewed ANNIA-2 test and discuss with patient and copy givenself reporting scale completed [place] prescription reviewed educated on non-stimulate and stimulatesPatient reported not want stimulate rx working in therapy for focus Discuss and educated on strattera 60 mg daily in am ANNIA-AE2 DIAGNOSTIC CONSIDERATIONS These test findings suggest that the examiner consider the diagnosis of Attention-Deficit/ Hyperactivity Disorder, combined presentation, and this individual's pattern of responding was indicative of impairments likely to impact her functioning in the home and work settings. The Self Rating Scales did not identify a significant number of hyperactive/impuls stephani or inattentive symptoms. These rating scales do not support the diagnosis suggested by the test results. In making a diagnosis, the examiner will need to determine if there is a reason that this individual did not identify a significant number of hyperactive/impuls stephani or inattentive symptoms, because the ANNIA-AE2 test results did show impairments in response control and attention. Her global Response Control quotient scale score indicated a severe impairment. In addition, her global Attention quotient scale score fell in the mildly to moderately impaired range. These ANNIA-AE2 test findings will need to be included in the examiner's diagnostic decision making process. atomoxetine 60 mg capsule - 4. HTN ON RX educated on healthy b/p 120/80 monitor b/p at home refer to PCP, Urgent care/ER heart healthy diet and excise limit salt intake limit soda intake and caffiene increase water 5. Insomnia Patient having sleep distrubance and sleping 3 hours and not able to go backto sleep off Trazodone Trazodone 50 mg at bedtime tolerated rx in past sleep hygiene CPAP NIGHTLY 6. tobacco Smoking Education Do not smoke. Nicotine and other chemicals in cigarettes and cigars can cause lung damage. Ask your healthcare provider for information if you currently smoke and need help to quit. E-cigarettes or smokeless tobacco still contain nicotine. Talk to your healthcare provider before you use these products. education on decrease to stopping nicotine products and stop smoking hotline given -Quit - Yes [place] Tobacco Quitline Call a Smoking Quitline The [employer] [place] Smoking Quitline, (6-718-08Y-QUIT) Smokefree.gov, which connects you with your State's Quitline, (5-088-CUUHBHQ) Veterans Smoking Quitline, (5-672-WFISTGC) . Long-term drug therapy 07/04/2024 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) drug therapy (ICD-10 - Z79.899) 1. Bipolar affective disorder, Depakote DR 250 mg twice a day for agitation and mood stabilization- educated on rx Vraylar 3 mg daily Pristiq 100 mg daily for depression and anxiety- monitor B/P Discuss and educated on medication options Lexapro 5 mg daily for depression monitor for junito and hypomania obtain labs PCP recently done monitor B/P- reported she takes rx in afternoon SSRI side effects discussed including but not limited to, gastric upset, nausea, vomiting, diarrhea and/or constipation, weight changes, sexual side effects including loss of libido, increased suicidal thoughts/behaviors in children and young adults, and serotonin syndrome.Second generation antipsychotics (SGAs) have metabolic syndrome issues with weight gain, increase in prolactin, increased waist circumference, increased lipids, and increased glucose. Thus routine monitoring of weight, metabolic labs, etc. is indicated. A general rank ordering of antipsychotics that have the greatest to the least risk of metabolic effects is olanzapine, quetiapine, risperidone, ziprasidone, and aripiprazole. However, weight gain can occur with all of these drugs and considerable variability exists among patients receiving the same drug regarding the risk of metabolic effects. Anti-psychotic agents not only increase the risk of metabolic disorder, they also increase the risk of CVA, akathisia, and movement disorders including EPS or tardive dyskinesia (more common with first generation antipsychotics) and more. educated on all medications, benefits, side effects and risk, and educated on depression, anxiety, and ADHD, mood d/o and educated on compliance of medications, metabolic and movement d/o education appointment's, continue therapy discussion with patient about course of treatmentand patient instructions. education on serotonin syndrome obtain lab PCP educated on labs for Depakote and vraylar 2. Generalized anxiety disorder -Discussed and educated pt regarding benzodiazepines are generally not intended for prolonged use and that use can cause tolerance, dependence, depression, and associated memory issues including dementias (this list is not exhaustive). Benzodiazepine use is generally not recommended concurrently with pain medications and/or other controlled substances due to increased risks of profound sedation, respiratory depression, coma, and even . They are not to be used with any alcohol, as this combination can also be lethal. Patient was provided caution Clonazepam 0.5 mg daily as needed Medication Management and Follow-Up- Plan:- Schedule follow-up appointments every 2-3 months to monitor the patient's response to the medication regimen.- Reinforce the importance of avoiding recreational drug use due to potential neurotoxicity and interactions with prescribed medications. Pristiq 100 mg daily for depression and anxiety- monitor B/P 3. Unable to concentrate -reviewed ANNIA-2 test and discuss with patient and copy givenself reporting scale completed [place] prescription reviewed educated on non-stimulate and stimulatesPatient reported not want stimulate rx working in therapy for focus Discuss and educated on strattera 60 mg daily in am ANNIA-AE2 DIAGNOSTIC CONSIDERATIONS These test findings suggest that the examiner consider the diagnosis of Attention-Deficit/ Hyperactivity Disorder, combined presentation, and this individual's pattern of responding was indicative of impairments likely to impact her functioning in the home and work settings. The Self Rating Scales did not identify a significant number of hyperactive/impuls stephani or inattentive symptoms. These rating scales do not support the diagnosis suggested by the test results. In making a diagnosis, the examiner will need to determine if there is a reason that this individual did not identify a significant number of hyperactive/impuls stephani or inattentive symptoms, because the ANNIA-AE2 test results did show impairments in response control and attention. Her global Response Control quotient scale score indicated a severe impairment. In addition, her global Attention quotient scale score fell in the mildly to moderately impaired range. These ANNIA-AE2 test findings will need to be included in the examiner's diagnostic decision making process. atomoxetine 60 mg capsule - 4. HTN ON RX educated on healthy b/p 120/80 monitor b/p at home refer to PCP, Urgent care/ER heart healthy diet and excise limit salt intake limit soda intake and caffiene increase water 5. Insomnia Patient having sleep distrubance and sleping 3 hours and not able to go backto sleep off Trazodone Re-start Trazodone 50-100 mg at bedtime tolerated rx in past sleep hygiene CPAP NIGHTLY . Long-term drug therapy 06/10/2024 Essential hypertension (ICD-10 - I10) 1. Bipolar affective disorder, Depakote DR 250 mg twice a day for agitation and mood stabilization- educated on rx Vraylar 3 mg daily Pristiq 100 mg daily for depression and anxiety- monitor B/P Discuss and educated on medication options Lexapro 5 mg daily for depression monitor for junito and hypomania obtain labs PCP recently done monitor B/P- reported she takes rx in afternoon SSRI side effects discussed including but not limited to, gastric upset, nausea, vomiting, diarrhea and/or constipation, weight changes, sexual side effects including loss of libido, increased suicidal thoughts/behaviors in children and young adults, and serotonin syndrome.Second generation antipsychotics (SGAs) have metabolic syndrome issues with weight gain, increase in prolactin, increased waist circumference, increased lipids, and increased glucose. Thus routine monitoring of weight, metabolic labs, etc. is indicated. A general rank ordering of antipsychotics that have the greatest to the least risk of metabolic effects is olanzapine, quetiapine, risperidone, ziprasidone, and aripiprazole. However, weight gain can occur with all of these drugs and considerable variability exists among patients receiving the same drug regarding the risk of metabolic effects. Anti-psychotic agents not only increase the risk of metabolic disorder, they also increase the risk of CVA, akathisia, and movement disorders including EPS or tardive dyskinesia (more common with first generation antipsychotics) and more. educated on all medications, benefits, side effects and risk, and educated on depression, anxiety, and ADHD, mood d/o and educated on compliance of medications, metabolic and movement d/o education appointment's, continue therapy discussion with patient about course of treatmentand patient instructions. education on serotonin syndrome obtain lab PCP educated on labs for Depakote and vraylar 2. Generalized anxiety disorder -Discussed and educated pt regarding benzodiazepines are generally not intended for prolonged use and that use can cause tolerance, dependence, depression, and associated memory issues including dementias (this list is not exhaustive). Benzodiazepine use is generally not recommended concurrently with pain medications and/or other controlled substances due to increased risks of profound sedation, respiratory depression, coma, and even . They are not to be used with any alcohol, as this combination can also be lethal. Patient was provided caution Clonazepam 0.5 mg daily as needed Medication Management and Follow-Up- Plan:- Schedule follow-up appointments every 2-3 months to monitor the patient's response to the medication regimen.- Reinforce the importance of avoiding recreational drug use due to potential neurotoxicity and interactions with prescribed medications. Pristiq 100 mg daily for depression and anxiety- monitor B/P 3. Unable to concentrate -reviewed ANNIA-2 test and discuss with patient and copy givenself reporting scale completed [place] prescription reviewed educated on non-stimulate and stimulatesPatient reported not want stimulate rx working in therapy for focus Discuss and educated on increase strattera 60 mg daily in am ANNIA-AE2 DIAGNOSTIC CONSIDERATIONS These test findings suggest that the examiner consider the diagnosis of Attention-Deficit/ Hyperactivity Disorder, combined presentation, and this individual's pattern of responding was indicative of impairments likely to impact her functioning in the home and work settings. The Self Rating Scales did not identify a significant number of hyperactive/impuls stephani or inattentive symptoms. These rating scales do not support the diagnosis suggested by the test results. In making a diagnosis, the examiner will need to determine if there is a reason that this individual did not identify a significant number of hyperactive/impuls stephani or inattentive symptoms, because the ANNIA-AE2 test results did show impairments in response control and attention. Her global Response Control quotient scale score indicated a severe impairment. In addition, her global Attention quotient scale score fell in the mildly to moderately impaired range. These ANNIA-AE2 test findings will need to be included in the examiner's diagnostic decision making process. atomoxetine 60 mg capsule - 4. Long-term drug therapy 05/02/2024 Essential hypertension (ICD-10 - I10) 1. Bipolar affective disorder, currently depressed, Depakote DR 250 mg twice a day for agitation and mood stabilization- educated on rx Vraylar 3 mg daily Pristiq 100 mg daily for depression and anxiety- monitor B/P D/C Wellbutrin XL 150 mg daily- r/t agitation Discuss and educated on medication options will add Lexapro 5 mg daily for depression monitor for junito and hypomania obtain labs PCP recently done monitor B/P- reported she takes rx in afternoon SSRI side effects discussed including but not limited to, gastric upset, nausea, vomiting, diarrhea and/or constipation, weight changes, sexual side effects including loss of libido, increased suicidal thoughts/behaviors in children and young adults, and serotonin syndrome.Second generation antipsychotics (SGAs) have metabolic syndrome issues with weight gain, increase in prolactin, increased waist circumference, increased lipids, and increased glucose. Thus routine monitoring of weight, metabolic labs, etc. is indicated. A general rank ordering of antipsychotics that have the greatest to the least risk of metabolic effects is olanzapine, quetiapine, risperidone, ziprasidone, and aripiprazole. However, weight gain can occur with all of these drugs and considerable variability exists among patients receiving the same drug regarding the risk of metabolic effects. Anti-psychotic agents not only increase the risk of metabolic disorder, they also increase the risk of CVA, akathisia, and movement disorders including EPS or tardive dyskinesia (more common with first generation antipsychotics) and more. educated on all medications, benefits, side effects and risk, and educated on depression, anxiety, and ADHD, mood d/o and educated on compliance of medications, metabolic and movement d/o education appointment's, continue therapy discussion with patient about course of treatmentand patient instructions. education on serotonin syndrome obtain lab PCP educated on labs for Depakote and vraylar 2. Generalized anxiety disorder -Discussed and educated pt regarding benzodiazepines are generally not intended for prolonged use and that use can cause tolerance, dependence, depression, and associated memory issues including dementias (this list is not exhaustive). Benzodiazepine use is generally not recommended concurrently with pain medications and/or other controlled substances due to increased risks of profound sedation, respiratory depression, coma, and even . They are not to be used with any alcohol, as this combination can also be lethal. Patient was provided caution Clonazepam 0.5 mg daily as needed Medication Management and Follow-Up- Plan:- Schedule follow-up appointments every 2-3 months to monitor the patient's response to the medication regimen.- Reinforce the importance of avoiding recreational drug use due to potential neurotoxicity and interactions with prescribed medications. Pristiq 100 mg daily for depression and anxiety- monitor B/P Wellbutrin XL 150 mg daily 3. Unable to concentrate -reviewed ANNIA-2 test and discuss with patient and copy givenself reporting scale completed [place] prescription reviewed Patient is on Wellbutrin XL 150 mg and does not want to increase dose r/t hx agitation educated on non-stimulate and stimulatesPatient reported not want stimulate rx working in therapy for focus Discuss and educated on increase strattera 60 mg daily in am ANNIA-AE2 DIAGNOSTIC CONSIDERATIONS These test findings suggest that the examiner consider the diagnosis of Attention-Deficit/ Hyperactivity Disorder, combined presentation, and this individual's pattern of responding was indicative of impairments likely to impact her functioning in the home and work settings. The Self Rating Scales did not identify a significant number of hyperactive/impuls stephani or inattentive symptoms. These rating scales do not support the diagnosis suggested by the test results. In making a diagnosis, the examiner will need to determine if there is a reason that this individual did not identify a significant number of hyperactive/impuls stephani or inattentive symptoms, because the ANNIA-AE2 test results did show impairments in response control and attention. Her global Response Control quotient scale score indicated a severe impairment. In addition, her global Attention quotient scale score fell in the mildly to moderately impaired range. These ANNIA-AE2 test findings will need to be included in the examiner's diagnostic decision making process. atomoxetine 60 mg capsule - 4. Long-term drug therapy 03/11/2024 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) drug therapy (ICD-10 - Z79.899) 1. Bipolar affective disorder, currently depressed, mild - Depakote DR 250 mg twice a day for agitation and mood stabilization- educated on rx Vraylar 3 mg daily Pristiq 100 mg daily for depression and anxiety- monitor B/P Wellbutrin XL 150 mg daily SSRI side effects discussed including but not limited to, gastric upset, nausea, vomiting, diarrhea and/or constipation, weight changes, sexual side effects including loss of libido, increased suicidal thoughts/behaviors in children and young adults, and serotonin syndrome.Second generation antipsychotics (SGAs) have metabolic syndrome issues with weight gain, increase in prolactin, increased waist circumference, increased lipids, and increased glucose. Thus routine monitoring of weight, metabolic labs, etc. is indicated. A general rank ordering of antipsychotics that have the greatest to the least risk of metabolic effects is olanzapine, quetiapine, risperidone, ziprasidone, and aripiprazole. However, weight gain can occur with all of these drugs and considerable variability exists among patients receiving the same drug regarding the risk of metabolic effects. Anti-psychotic agents not only increase the risk of metabolic disorder, they also increase the risk of CVA, akathisia, and movement disorders including EPS or tardive dyskinesia (more common with first generation antipsychotics) and more. educated on all medications, benefits, side effects and risk, and educated on depression, anxiety, and ADHD, mood d/o and educated on compliance of medications, metabolic and movement d/o education appointment's, continue therapy discussion with patient about course of treatmentand patient instructions. education on serotonin syndrome obtain lab PCP reviewed pulmonology note 06/27/23 educated on labs for Depakote and vraylar 2. Generalized anxiety disorder -Discussed and educated pt regarding benzodiazepines are generally not intended for prolonged use and that use can cause tolerance, dependence, depression, and associated memory issues including dementias (this list is not exhaustive). Benzodiazepine use is generally not recommended concurrently with pain medications and/or other controlled substances due to increased risks of profound sedation, respiratory depression, coma, and even . They are not to be used with any alcohol, as this combination can also be lethal. Patient was provided caution Clonazepam 0.5 mg daily as needed Medication Management and Follow-Up- Plan:- Schedule follow-up appointments every 2-3 months to monitor the patient's response to the medication regimen.- Reinforce the importance of avoiding recreational drug use due to potential neurotoxicity and interactions with prescribed medications. Pristiq 100 mg daily for depression and anxiety- monitor B/P Wellbutrin XL 150 mg daily 3. Unable to concentrate -reviewed ANNIA-2 test and discuss with patient and copy givenself reporting scale completed [place] prescription reviewed Patient is on Wellbutrin XL 150 mg and does not want to increase dose r/t hx agitation educated on non-stimulate and stimulatesPatient reported not want stimulate rx working in therapy for focus Discuss and educated on increase strattera 60 mg daily in am ANNIA-AE2 DIAGNOSTIC CONSIDERATIONS These test findings suggest that the examiner consider the diagnosis of Attention-Deficit/ Hyperactivity Disorder, combined presentation, and this individual's pattern of responding was indicative of impairments likely to impact her functioning in the home and work settings. The Self Rating Scales did not identify a significant number of hyperactive/impuls stephani or inattentive symptoms. These rating scales do not support the diagnosis suggested by the test results. In making a diagnosis, the examiner will need to determine if there is a reason that this individual did not identify a significant number of hyperactive/impuls stephani or inattentive symptoms, because the ANNIA-AE2 test results did show impairments in response control and attention. Her global Response Control quotient scale score indicated a severe impairment. In addition, her global Attention quotient scale score fell in the mildly to moderately impaired range. These ANNIA-AE2 test findings will need to be included in the examiner's diagnostic decision making process. atomoxetine 60 mg capsule - 4. Long-term drug therapy 07/04/2024 Essential hypertension (ICD-10 - I10) Learning About High Blood Pressure material was published, High Blood Pressure: Care Instructions material was published, Acute High Blood Pressure: Care Instructions material was published, DASH Diet: Care Instructions material was published 1. Bipolar affective disorder, Depakote DR 250 mg twice a day for agitation and mood stabilization- educated on rx Vraylar 3 mg daily Pristiq 100 mg daily for depression and anxiety- monitor B/P Discuss and educated on medication options Lexapro 5 mg daily for depression monitor for junito and hypomania obtain labs PCP recently done monitor B/P- reported she takes rx in afternoon SSRI side effects discussed including but not limited to, gastric upset, nausea, vomiting, diarrhea and/or constipation, weight changes, sexual side effects including loss of libido, increased suicidal thoughts/behaviors in children and young adults, and serotonin syndrome.Second generation antipsychotics (SGAs) have metabolic syndrome issues with weight gain, increase in prolactin, increased waist circumference, increased lipids, and increased glucose. Thus routine monitoring of weight, metabolic labs, etc. is indicated. A general rank ordering of antipsychotics that have the greatest to the least risk of metabolic effects is olanzapine, quetiapine, risperidone, ziprasidone, and aripiprazole. However, weight gain can occur with all of these drugs and considerable variability exists among patients receiving the same drug regarding the risk of metabolic effects. Anti-psychotic agents not only increase the risk of metabolic disorder, they also increase the risk of CVA, akathisia, and movement disorders including EPS or tardive dyskinesia (more common with first generation antipsychotics) and more. educated on all medications, benefits, side effects and risk, and educated on depression, anxiety, and ADHD, mood d/o and educated on compliance of medications, metabolic and movement d/o education appointment's, continue therapy discussion with patient about course of treatmentand patient instructions. education on serotonin syndrome obtain lab PCP educated on labs for Depakote and vraylar 2. Generalized anxiety disorder -Discussed and educated pt regarding benzodiazepines are generally not intended for prolonged use and that use can cause tolerance, dependence, depression, and associated memory issues including dementias (this list is not exhaustive). Benzodiazepine use is generally not recommended concurrently with pain medications and/or other controlled substances due to increased risks of profound sedation, respiratory depression, coma, and even . They are not to be used with any alcohol, as this combination can also be lethal. Patient was provided caution Clonazepam 0.5 mg daily as needed Medication Management and Follow-Up- Plan:- Schedule follow-up appointments every 2-3 months to monitor the patient's response to the medication regimen.- Reinforce the importance of avoiding recreational drug use due to potential neurotoxicity and interactions with prescribed medications. Pristiq 100 mg daily for depression and anxiety- monitor B/P 3. Unable to concentrate -reviewed ANNIA-2 test and discuss with patient and copy givenself reporting scale completed [place] prescription reviewed educated on non-stimulate and stimulatesPatient reported not want stimulate rx working in therapy for focus Discuss and educated on strattera 60 mg daily in am ANNIA-AE2 DIAGNOSTIC CONSIDERATIONS These test findings suggest that the examiner consider the diagnosis of Attention-Deficit/ Hyperactivity Disorder, combined presentation, and this individual's pattern of responding was indicative of impairments likely to impact her functioning in the home and work settings. The Self Rating Scales did not identify a significant number of hyperactive/impuls stephani or inattentive symptoms. These rating scales do not support the diagnosis suggested by the test results. In making a diagnosis, the examiner will need to determine if there is a reason that this individual did not identify a significant number of hyperactive/impuls stephani or inattentive symptoms, because the ANNIA-AE2 test results did show impairments in response control and attention. Her global Response Control quotient scale score indicated a severe impairment. In addition, her global Attention quotient scale score fell in the mildly to moderately impaired range. These ANNIA-AE2 test findings will need to be included in the examiner's diagnostic decision making process. atomoxetine 60 mg capsule - 4. HTN ON RX educated on healthy b/p 120/80 monitor b/p at home refer to PCP, Urgent care/ER heart healthy diet and excise limit salt intake limit soda intake and caffiene increase water 5. Insomnia Patient having sleep distrubance and sleping 3 hours and not able to go backto sleep off Trazodone Re-start Trazodone 50-100 mg at bedtime tolerated rx in past sleep hygiene CPAP NIGHTLY . Long-term drug therapy 09/26/2024 Essential hypertension (ICD-10 - I10) Learning About High Blood Pressure material was published, High Blood Pressure: Care Instructions material was published, Acute High Blood Pressure: Care Instructions material was published, DASH Diet: Care Instructions material was published 1. Bipolar affective disorder, Depakote DR 250 mg twice a day for agitation and mood stabilization- educated on rx Vraylar 3 mg daily Pristiq 100 mg daily for depression and anxiety- monitor B/P Discuss and educated on medication options Lexapro 5 mg daily for depression monitor for junito and hypomania obtain labs PCP recently done monitor B/P- reported she takes rx in afternoon SSRI side effects discussed including but not limited to, gastric upset, nausea, vomiting, diarrhea and/or constipation, weight changes, sexual side effects including loss of libido, increased suicidal thoughts/behaviors in children and young adults, and serotonin syndrome.Second generation antipsychotics (SGAs) have metabolic syndrome issues with weight gain, increase in prolactin, increased waist circumference, increased lipids, and increased glucose. Thus routine monitoring of weight, metabolic labs, etc. is indicated. A general rank ordering of antipsychotics that have the greatest to the least risk of metabolic effects is olanzapine, quetiapine, risperidone, ziprasidone, and aripiprazole. However, weight gain can occur with all of these drugs and considerable variability exists among patients receiving the same drug regarding the risk of metabolic effects. Anti-psychotic agents not only increase the risk of metabolic disorder, they also increase the risk of CVA, akathisia, and movement disorders including EPS or tardive dyskinesia (more common with first generation antipsychotics) and more. educated on all medications, benefits, side effects and risk, and educated on depression, anxiety, and ADHD, mood d/o and educated on compliance of medications, metabolic and movement d/o education appointment's, continue therapy discussion with patient about course of treatmentand patient instructions. education on serotonin syndrome obtain lab PCP scheduled 11/20 and having Depakote levels- educated on labs for Depakote and vraylar 2. Generalized anxiety disorder -Discussed and educated pt regarding benzodiazepines are generally not intended for prolonged use and that use can cause tolerance, dependence, depression, and associated memory issues including dementias (this list is not exhaustive). Benzodiazepine use is generally not recommended concurrently with pain medications and/or other controlled substances due to increased risks of profound sedation, respiratory depression, coma, and even . They are not to be used with any alcohol, as this combination can also be lethal. Patient was provided caution Clonazepam 0.5 mg daily as needed Medication Management and Follow-Up- Plan:- Schedule follow-up appointments every 2-3 months to monitor the patient's response to the medication regimen.- Reinforce the importance of avoiding recreational drug use due to potential neurotoxicity and interactions with prescribed medications. Pristiq 100 mg daily for depression and anxiety- monitor B/P 3. Unable to concentrate -reviewed ANNIA-2 test and discuss with patient and copy givenself reporting scale completed [place] prescription reviewed educated on non-stimulate and stimulatesPatient reported not want stimulate rx working in therapy for focus Discuss and educated on strattera 60 mg daily in am ANNIA-AE2 DIAGNOSTIC CONSIDERATIONS These test findings suggest that the examiner consider the diagnosis of Attention-Deficit/ Hyperactivity Disorder, combined presentation, and this individual's pattern of responding was indicative of impairments likely to impact her functioning in the home and work settings. The Self Rating Scales did not identify a significant number of hyperactive/impuls stephani or inattentive symptoms. These rating scales do not support the diagnosis suggested by the test results. In making a diagnosis, the examiner will need to determine if there is a reason that this individual did not identify a significant number of hyperactive/impuls stephani or inattentive symptoms, because the ANNIA-AE2 test results did show impairments in response control and attention. Her global Response Control quotient scale score indicated a severe impairment. In addition, her global Attention quotient scale score fell in the mildly to moderately impaired range. These ANNIA-AE2 test findings will need to be included in the examiner's diagnostic decision making process. atomoxetine 60 mg capsule - 4. HTN ON RX educated on healthy b/p 120/80 monitor b/p at home refer to PCP, Urgent care/ER heart healthy diet and excise limit salt intake limit soda intake and caffiene increase water 5. Insomnia Patient having sleep distrubance and sleping 3 hours and not able to go backto sleep off Trazodone Trazodone 50 mg at bedtime tolerated rx in past sleep hygiene CPAP NIGHTLY 6. tobacco Smoking Education Do not smoke. Nicotine and other chemicals in cigarettes and cigars can cause lung damage. Ask your healthcare provider for information if you currently smoke and need help to quit. E-cigarettes or smokeless tobacco still contain nicotine. Talk to your healthcare provider before you use these products. education on decrease to stopping nicotine products and stop smoking hotline given -Quit - Yes [place] Tobacco Quitline Call a Smoking Quitline [facility] [place] Smoking Quitline, (1-058-49F-QUIT) Smokefree.gov, which connects you with your [facility]'s Quitline, (4-757-XFZICQJ) [facility] Smoking Quitline, (3-245-JBQQBOS) . Long-term drug therapy 12/27/2024 Other half-way (current) drug therapy (ICD-10 - Z79.899) reported no refills needed today 1. Bipolar affective disorder, Depakote DR 250 mg twice a day for agitation and mood stabilization- educated on rx Vraylar 3 mg daily Pristiq 100 mg daily for depression and anxiety- monitor B/P Discuss and educated on medication options Lexapro 5 mg daily for depression monitor for junito and hypomania obtain labs PCP recently done monitor B/P- reported she takes rx in afternoon SSRI side effects discussed including but not limited to, gastric upset, nausea, vomiting, diarrhea and/or constipation, weight changes, sexual side effects including loss of libido, increased suicidal thoughts/behaviors in children and young adults, and serotonin syndrome.Second generation antipsychotics (SGAs) have metabolic syndrome issues with weight gain, increase in prolactin, increased waist circumference, increased lipids, and increased glucose. Thus routine monitoring of weight, metabolic labs, etc. is indicated. A general rank ordering of antipsychotics that have the greatest to the least risk of metabolic effects is olanzapine, quetiapine, risperidone, ziprasidone, and aripiprazole. However, weight gain can occur with all of these drugs and considerable variability exists among patients receiving the same drug regarding the risk of metabolic effects. Anti-psychotic agents not only increase the risk of metabolic disorder, they also increase the risk of CVA, akathisia, and movement disorders including EPS or tardive dyskinesia (more common with first generation antipsychotics) and more. educated on all medications, benefits, side effects and risk, and educated on depression, anxiety, and ADHD, mood d/o and educated on compliance of medications, metabolic and movement d/o education appointment's, continue therapy discussion with patient about course of treatmentand patient instructions. education on serotonin syndrome obtain lab PCP scheduled 11/20 and having Depakote levels- educated on labs for Depakote and vraylar 2. Generalized anxiety disorder -Discussed and educated pt regarding benzodiazepines are generally not intended for prolonged use and that use can cause tolerance, dependence, depression, and associated memory issues including dementias (this list is not exhaustive). Benzodiazepine use is generally not recommended concurrently with pain medications and/or other controlled substances due to increased risks of profound sedation, respiratory depression, coma, and even . They are not to be used with any alcohol, as this combination can also be lethal. Patient was provided caution Clonazepam 0.5 mg daily as needed Medication Management and Follow-Up- Plan:- Schedule follow-up appointments every 2-3 months to monitor the patient's response to the medication regimen.- Reinforce the importance of avoiding recreational drug use due to potential neurotoxicity and interactions with prescribed medications. Pristiq 100 mg daily for depression and anxiety- monitor B/P 3. Unable to concentrate -reviewed ANNIA-2 test and discuss with patient and copy givenself reporting scale completed [place] prescription reviewed educated on non-stimulate and stimulatesPatient reported not want stimulate rx working in therapy for focus Discuss and educated on strattera 60 mg daily in am ANNIA-AE2 DIAGNOSTIC CONSIDERATIONS These test findings suggest that the examiner consider the diagnosis of Attention-Deficit/ Hyperactivity Disorder, combined presentation, and this individual's pattern of responding was indicative of impairments likely to impact her functioning in the home and work settings. The Self Rating Scales did not identify a significant number of hyperactive/impuls stephani or inattentive symptoms. These rating scales do not support the diagnosis suggested by the test results. In making a diagnosis, the examiner will need to determine if there is a reason that this individual did not identify a significant number of hyperactive/impuls stephani or inattentive symptoms, because the ANNIA-AE2 test results did show impairments in response control and attention. Her global Response Control quotient scale score indicated a severe impairment. In addition, her global Attention quotient scale score fell in the mildly to moderately impaired range. These ANNIA-AE2 test findings will need to be included in the examiner's diagnostic decision making process. atomoxetine 60 mg capsule - 4. HTN ON RX educated on healthy b/p 120/80 monitor b/p at home refer to PCP, Urgent care/ER heart healthy diet and excise limit salt intake limit soda intake and caffiene increase water 5. Insomnia Trazodone 50 mg at bedtime sleep hygiene CPAP NIGHTLY 6. tobacco Smoking Education Do not smoke. Nicotine and other chemicals in cigarettes and cigars can cause lung damage. Ask your healthcare provider for information if you currently smoke and need help to quit. E-cigarettes or smokeless tobacco still contain nicotine. Talk to your healthcare provider before you use these products. education on decrease to stopping nicotine products and stop smoking hotline given 798-Quit - Yes [place] Tobacco Quitline Call a Smoking Quitline [facility] [place] Smoking Quitline, (2-097-71Q-QUIT) Smokefree.gov, which connects you with your State's Quitline, (0-020-XJCRULB) [employer] Smoking Quitline, (1-392-NYGMBUF) . Long-term drug therapy 12/27/2024 Essential hypertension (ICD-10 - I10) Learning About High Blood Pressure material was published, High Blood Pressure: Care Instructions material was published, Acute High Blood Pressure: Care Instructions material was published, DASH Diet: Care Instructions material was published reported no refills needed today 1. Bipolar affective disorder, Depakote DR 250 mg twice a day for agitation and mood stabilization- educated on rx Vraylar 3 mg daily Pristiq 100 mg daily for depression and anxiety- monitor B/P Discuss and educated on medication options Lexapro 5 mg daily for depression monitor for junito and hypomania obtain labs PCP recently done monitor B/P- reported she takes rx in afternoon SSRI side effects discussed including but not limited to, gastric upset, nausea, vomiting, diarrhea and/or constipation, weight changes, sexual side effects including loss of libido, increased suicidal thoughts/behaviors in children and young adults, and serotonin syndrome.Second generation antipsychotics (SGAs) have metabolic syndrome issues with weight gain, increase in prolactin, increased waist circumference, increased lipids, and increased glucose. Thus routine monitoring of weight, metabolic labs, etc. is indicated. A general rank ordering of antipsychotics that have the greatest to the least risk of metabolic effects is olanzapine, quetiapine, risperidone, ziprasidone, and aripiprazole. However, weight gain can occur with all of these drugs and considerable variability exists among patients receiving the same drug regarding the risk of metabolic effects. Anti-psychotic agents not only increase the risk of metabolic disorder, they also increase the risk of CVA, akathisia, and movement disorders including EPS or tardive dyskinesia (more common with first generation antipsychotics) and more. educated on all medications, benefits, side effects and risk, and educated on depression, anxiety, and ADHD, mood d/o and educated on compliance of medications, metabolic and movement d/o education appointment's, continue therapy discussion with patient about course of treatmentand patient instructions. education on serotonin syndrome obtain lab PCP scheduled 11/20 and having Depakote levels- educated on labs for Depakote and vraylar 2. Generalized anxiety disorder -Discussed and educated pt regarding benzodiazepines are generally not intended for prolonged use and that use can cause tolerance, dependence, depression, and associated memory issues including dementias (this list is not exhaustive). Benzodiazepine use is generally not recommended concurrently with pain medications and/or other controlled substances due to increased risks of profound sedation, respiratory depression, coma, and even . They are not to be used with any alcohol, as this combination can also be lethal. Patient was provided caution Clonazepam 0.5 mg daily as needed Medication Management and Follow-Up- Plan:- Schedule follow-up appointments every 2-3 months to monitor the patient's response to the medication regimen.- Reinforce the importance of avoiding recreational drug use due to potential neurotoxicity and interactions with prescribed medications. Pristiq 100 mg daily for depression and anxiety- monitor B/P 3. Unable to concentrate -reviewed ANNIA-2 test and discuss with patient and copy givenself reporting scale completed [place] prescription reviewed educated on non-stimulate and stimulatesPatient reported not want stimulate rx working in therapy for focus Discuss and educated on strattera 60 mg daily in am ANNIA-AE2 DIAGNOSTIC CONSIDERATIONS These test findings suggest that the examiner consider the diagnosis of Attention-Deficit/ Hyperactivity Disorder, combined presentation, and this individual's pattern of responding was indicative of impairments likely to impact her functioning in the home and work settings. The Self Rating Scales did not identify a significant number of hyperactive/impuls stephani or inattentive symptoms. These rating scales do not support the diagnosis suggested by the test results. In making a diagnosis, the examiner will need to determine if there is a reason that this individual did not identify a significant number of hyperactive/impuls stephani or inattentive symptoms, because the ANNIA-AE2 test results did show impairments in response control and attention. Her global Response Control quotient scale score indicated a severe impairment. In addition, her global Attention quotient scale score fell in the mildly to moderately impaired range. These ANNIA-AE2 test findings will need to be included in the examiner's diagnostic decision making process. atomoxetine 60 mg capsule - 4. HTN ON RX educated on healthy b/p 120/80 monitor b/p at home refer to PCP, Urgent care/ER heart healthy diet and excise limit salt intake limit soda intake and caffiene increase water 5. Insomnia Trazodone 50 mg at bedtime sleep hygiene CPAP NIGHTLY 6. tobacco Smoking Education Do not smoke. Nicotine and other chemicals in cigarettes and cigars can cause lung damage. Ask your healthcare provider for information if you currently smoke and need help to quit. E-cigarettes or smokeless tobacco still contain nicotine. Talk to your healthcare provider before you use these products. education on decrease to stopping nicotine products and stop smoking hotline given 940-Quit - Yes [place] Tobacco Quitline Call a Smoking Quitline [facility] [place] Smoking Quitline, (7-212-90C-QUIT) Smokefree.gov, which connects you with your State's Quitline, (2-311-IAAVFVP) [facility] Smoking Quitline, (5-777-VBWRMBR) . Long-term drug therapy 09/26/2024 Encounter for screening for cardiovascular disorders (ICD-10 - Z13.6) 1. Bipolar affective disorder, Depakote DR 250 mg twice a day for agitation and mood stabilization- educated on rx Vraylar 3 mg daily Pristiq 100 mg daily for depression and anxiety- monitor B/P Discuss and educated on medication options Lexapro 5 mg daily for depression monitor for junito and hypomania obtain labs PCP recently done monitor B/P- reported she takes rx in afternoon SSRI side effects discussed including but not limited to, gastric upset, nausea, vomiting, diarrhea and/or constipation, weight changes, sexual side effects including loss of libido, increased suicidal thoughts/behaviors in children and young adults, and serotonin syndrome.Second generation antipsychotics (SGAs) have metabolic syndrome issues with weight gain, increase in prolactin, increased waist circumference, increased lipids, and increased glucose. Thus routine monitoring of weight, metabolic labs, etc. is indicated. A general rank ordering of antipsychotics that have the greatest to the least risk of metabolic effects is olanzapine, quetiapine, risperidone, ziprasidone, and aripiprazole. However, weight gain can occur with all of these drugs and considerable variability exists among patients receiving the same drug regarding the risk of metabolic effects. Anti-psychotic agents not only increase the risk of metabolic disorder, they also increase the risk of CVA, akathisia, and movement disorders including EPS or tardive dyskinesia (more common with first generation antipsychotics) and more. educated on all medications, benefits, side effects and risk, and educated on depression, anxiety, and ADHD, mood d/o and educated on compliance of medications, metabolic and movement d/o education appointment's, continue therapy discussion with patient about course of treatmentand patient instructions. education on serotonin syndrome obtain lab PCP scheduled 11/20 and having Depakote levels- educated on labs for Depakote and vraylar 2. Generalized anxiety disorder -Discussed and educated pt regarding benzodiazepines are generally not intended for prolonged use and that use can cause tolerance, dependence, depression, and associated memory issues including dementias (this list is not exhaustive). Benzodiazepine use is generally not recommended concurrently with pain medications and/or other controlled substances due to increased risks of profound sedation, respiratory depression, coma, and even . They are not to be used with any alcohol, as this combination can also be lethal. Patient was provided caution Clonazepam 0.5 mg daily as needed Medication Management and Follow-Up- Plan:- Schedule follow-up appointments every 2-3 months to monitor the patient's response to the medication regimen.- Reinforce the importance of avoiding recreational drug use due to potential neurotoxicity and interactions with prescribed medications. Pristiq 100 mg daily for depression and anxiety- monitor B/P 3. Unable to concentrate -reviewed ANNIA-2 test and discuss with patient and copy givenself reporting scale completed [place] prescription reviewed educated on non-stimulate and stimulatesPatient reported not want stimulate rx working in therapy for focus Discuss and educated on strattera 60 mg daily in am ANNIA-AE2 DIAGNOSTIC CONSIDERATIONS These test findings suggest that the examiner consider the diagnosis of Attention-Deficit/ Hyperactivity Disorder, combined presentation, and this individual's pattern of responding was indicative of impairments likely to impact her functioning in the home and work settings. The Self Rating Scales did not identify a significant number of hyperactive/impuls stephani or inattentive symptoms. These rating scales do not support the diagnosis suggested by the test results. In making a diagnosis, the examiner will need to determine if there is a reason that this individual did not identify a significant number of hyperactive/impuls stephani or inattentive symptoms, because the ANNIA-AE2 test results did show impairments in response control and attention. Her global Response Control quotient scale score indicated a severe impairment. In addition, her global Attention quotient scale score fell in the mildly to moderately impaired range. These ANNIA-AE2 test findings will need to be included in the examiner's diagnostic decision making process. atomoxetine 60 mg capsule - 4. HTN ON RX educated on healthy b/p 120/80 monitor b/p at home refer to PCP, Urgent care/ER heart healthy diet and excise limit salt intake limit soda intake and caffiene increase water 5. Insomnia Patient having sleep distrubance and sleping 3 hours and not able to go backto sleep off Trazodone Trazodone 50 mg at bedtime tolerated rx in past sleep hygiene CPAP NIGHTLY 6. tobacco Smoking Education Do not smoke. Nicotine and other chemicals in cigarettes and cigars can cause lung damage. Ask your healthcare provider for information if you currently smoke and need help to quit. E-cigarettes or smokeless tobacco still contain nicotine. Talk to your healthcare provider before you use these products. education on decrease to stopping nicotine products and stop smoking hotline given -Quit - Yes [place] Tobacco Quitline Call a Smoking Quitline The [facility] [place] Smoking Quitline, (5-715-56M-QUIT) Smokefree.gov, which connects you with your State's Quitline, (4-871-WGEOYDE) [facility] Smoking Quitline, (4-312-RMVFIVL) . Long-term drug therapy 12/27/2024 Encounter for screening for cardiovascular disorders (ICD-10 - Z13.6) reported no refills needed today 1. Bipolar affective disorder, Depakote DR 250 mg twice a day for agitation and mood stabilization- educated on rx Vraylar 3 mg daily Pristiq 100 mg daily for depression and anxiety- monitor B/P Discuss and educated on medication options Lexapro 5 mg daily for depression monitor for junito and hypomania obtain labs PCP recently done monitor B/P- reported she takes rx in afternoon SSRI side effects discussed including but not limited to, gastric upset, nausea, vomiting, diarrhea and/or constipation, weight changes, sexual side effects including loss of libido, increased suicidal thoughts/behaviors in children and young adults, and serotonin syndrome.Second generation antipsychotics (SGAs) have metabolic syndrome issues with weight gain, increase in prolactin, increased waist circumference, increased lipids, and increased glucose. Thus routine monitoring of weight, metabolic labs, etc. is indicated. A general rank ordering of antipsychotics that have the greatest to the least risk of metabolic effects is olanzapine, quetiapine, risperidone, ziprasidone, and aripiprazole. However, weight gain can occur with all of these drugs and considerable variability exists among patients receiving the same drug regarding the risk of metabolic effects. Anti-psychotic agents not only increase the risk of metabolic disorder, they also increase the risk of CVA, akathisia, and movement disorders including EPS or tardive dyskinesia (more common with first generation antipsychotics) and more. educated on all medications, benefits, side effects and risk, and educated on depression, anxiety, and ADHD, mood d/o and educated on compliance of medications, metabolic and movement d/o education appointment's, continue therapy discussion with patient about course of treatmentand patient instructions. education on serotonin syndrome obtain lab PCP scheduled 11/20 and having Depakote levels- educated on labs for Depakote and vraylar 2. Generalized anxiety disorder -Discussed and educated pt regarding benzodiazepines are generally not intended for prolonged use and that use can cause tolerance, dependence, depression, and associated memory issues including dementias (this list is not exhaustive). Benzodiazepine use is generally not recommended concurrently with pain medications and/or other controlled substances due to increased risks of profound sedation, respiratory depression, coma, and even . They are not to be used with any alcohol, as this combination can also be lethal. Patient was provided caution Clonazepam 0.5 mg daily as needed Medication Management and Follow-Up- Plan:- Schedule follow-up appointments every 2-3 months to monitor the patient's response to the medication regimen.- Reinforce the importance of avoiding recreational drug use due to potential neurotoxicity and interactions with prescribed medications. Pristiq 100 mg daily for depression and anxiety- monitor B/P 3. Unable to concentrate -reviewed ANNIA-2 test and discuss with patient and copy givenself reporting scale completed [place] prescription reviewed educated on non-stimulate and stimulatesPatient reported not want stimulate rx working in therapy for focus Discuss and educated on strattera 60 mg daily in am ANNIA-AE2 DIAGNOSTIC CONSIDERATIONS These test findings suggest that the examiner consider the diagnosis of Attention-Deficit/ Hyperactivity Disorder, combined presentation, and this individual's pattern of responding was indicative of impairments likely to impact her functioning in the home and work settings. The Self Rating Scales did not identify a significant number of hyperactive/impuls stephani or inattentive symptoms. These rating scales do not support the diagnosis suggested by the test results. In making a diagnosis, the examiner will need to determine if there is a reason that this individual did not identify a significant number of hyperactive/impuls stephani or inattentive symptoms, because the ANNIA-AE2 test results did show impairments in response control and attention. Her global Response Control quotient scale score indicated a severe impairment. In addition, her global Attention quotient scale score fell in the mildly to moderately impaired range. These ANNIA-AE2 test findings will need to be included in the examiner's diagnostic decision making process. atomoxetine 60 mg capsule - 4. HTN ON RX educated on healthy b/p 120/80 monitor b/p at home refer to PCP, Urgent care/ER heart healthy diet and excise limit salt intake limit soda intake and caffiene increase water 5. Insomnia Trazodone 50 mg at bedtime sleep hygiene CPAP NIGHTLY 6. tobacco Smoking Education Do not smoke. Nicotine and other chemicals in cigarettes and cigars can cause lung damage. Ask your healthcare provider for information if you currently smoke and need help to quit. E-cigarettes or smokeless tobacco still contain nicotine. Talk to your healthcare provider before you use these products. education on decrease to stopping nicotine products and stop smoking hotline given -Quit - Yes [place] Tobacco Quitline Call a Smoking Quitline [facility] [place] Smoking Quitline, (1-989-19K-QUIT) Smokefree.gov, which connects you with your State's Quitline, (2-169-NATUUUA) [facility] Smoking Quitline, (3-789-PERGZKD) . Long-term drug therapy 12/27/2024 Nicotine use (ICD-10 - Z72.0) reported no refills needed today 1. Bipolar affective disorder, Depakote DR 250 mg twice a day for agitation and mood stabilization- educated on rx Vraylar 3 mg daily Pristiq 100 mg daily for depression and anxiety- monitor B/P Discuss and educated on medication options Lexapro 5 mg daily for depression monitor for junito and hypomania obtain labs PCP recently done monitor B/P- reported she takes rx in afternoon SSRI side effects discussed including but not limited to, gastric upset, nausea, vomiting, diarrhea and/or constipation, weight changes, sexual side effects including loss of libido, increased suicidal thoughts/behaviors in children and young adults, and serotonin syndrome.Second generation antipsychotics (SGAs) have metabolic syndrome issues with weight gain, increase in prolactin, increased waist circumference, increased lipids, and increased glucose. Thus routine monitoring of weight, metabolic labs, etc. is indicated. A general rank ordering of antipsychotics that have the greatest to the least risk of metabolic effects is olanzapine, quetiapine, risperidone, ziprasidone, and aripiprazole. However, weight gain can occur with all of these drugs and considerable variability exists among patients receiving the same drug regarding the risk of metabolic effects. Anti-psychotic agents not only increase the risk of metabolic disorder, they also increase the risk of CVA, akathisia, and movement disorders including EPS or tardive dyskinesia (more common with first generation antipsychotics) and more. educated on all medications, benefits, side effects and risk, and educated on depression, anxiety, and ADHD, mood d/o and educated on compliance of medications, metabolic and movement d/o education appointment's, continue therapy discussion with patient about course of treatmentand patient instructions. education on serotonin syndrome obtain lab PCP scheduled 11/20 and having Depakote levels- educated on labs for Depakote and vraylar 2. Generalized anxiety disorder -Discussed and educated pt regarding benzodiazepines are generally not intended for prolonged use and that use can cause tolerance, dependence, depression, and associated memory issues including dementias (this list is not exhaustive). Benzodiazepine use is generally not recommended concurrently with pain medications and/or other controlled substances due to increased risks of profound sedation, respiratory depression, coma, and even . They are not to be used with any alcohol, as this combination can also be lethal. Patient was provided caution Clonazepam 0.5 mg daily as needed Medication Management and Follow-Up- Plan:- Schedule follow-up appointments every 2-3 months to monitor the patient's response to the medication regimen.- Reinforce the importance of avoiding recreational drug use due to potential neurotoxicity and interactions with prescribed medications. Pristiq 100 mg daily for depression and anxiety- monitor B/P 3. Unable to concentrate -reviewed ANNIA-2 test and discuss with patient and copy givenself reporting scale completed [place] prescription reviewed educated on non-stimulate and stimulatesPatient reported not want stimulate rx working in therapy for focus Discuss and educated on strattera 60 mg daily in am ANNIA-AE2 DIAGNOSTIC CONSIDERATIONS These test findings suggest that the examiner consider the diagnosis of Attention-Deficit/ Hyperactivity Disorder, combined presentation, and this individual's pattern of responding was indicative of impairments likely to impact her functioning in the home and work settings. The Self Rating Scales did not identify a significant number of hyperactive/impuls stephani or inattentive symptoms. These rating scales do not support the diagnosis suggested by the test results. In making a diagnosis, the examiner will need to determine if there is a reason that this individual did not identify a significant number of hyperactive/impuls stephani or inattentive symptoms, because the ANNIA-AE2 test results did show impairments in response control and attention. Her global Response Control quotient scale score indicated a severe impairment. In addition, her global Attention quotient scale score fell in the mildly to moderately impaired range. These ANNIA-AE2 test findings will need to be included in the examiner's diagnostic decision making process. atomoxetine 60 mg capsule - 4. HTN ON RX educated on healthy b/p 120/80 monitor b/p at home refer to PCP, Urgent care/ER heart healthy diet and excise limit salt intake limit soda intake and caffiene increase water 5. Insomnia Trazodone 50 mg at bedtime sleep hygiene CPAP NIGHTLY 6. tobacco Smoking Education Do not smoke. Nicotine and other chemicals in cigarettes and cigars can cause lung damage. Ask your healthcare provider for information if you currently smoke and need help to quit. E-cigarettes or smokeless tobacco still contain nicotine. Talk to your healthcare provider before you use these products. education on decrease to stopping nicotine products and stop smoking hotline given -Quit - Yes [place] Tobacco Quitline Call a Smoking Quitline [facility] [place] Smoking Quitline, (7-218-14C-QUIT) Smokefree.gov, which connects you with your State's Quitline, (6-978-GFKJVSA) [facility] Smoking Quitline, (1-269-TOENKVI) . Long-term drug therapy 09/26/2024 Nicotine use (ICD-10 - Z72.0) 1. Bipolar affective disorder, Depakote DR 250 mg twice a day for agitation and mood stabilization- educated on rx Vraylar 3 mg daily Pristiq 100 mg daily for depression and anxiety- monitor B/P Discuss and educated on medication options Lexapro 5 mg daily for depression monitor for junito and hypomania obtain labs PCP recently done monitor B/P- reported she takes rx in afternoon SSRI side effects discussed including but not limited to, gastric upset, nausea, vomiting, diarrhea and/or constipation, weight changes, sexual side effects including loss of libido, increased suicidal thoughts/behaviors in children and young adults, and serotonin syndrome.Second generation antipsychotics (SGAs) have metabolic syndrome issues with weight gain, increase in prolactin, increased waist circumference, increased lipids, and increased glucose. Thus routine monitoring of weight, metabolic labs, etc. is indicated. A general rank ordering of antipsychotics that have the greatest to the least risk of metabolic effects is olanzapine, quetiapine, risperidone, ziprasidone, and aripiprazole. However, weight gain can occur with all of these drugs and considerable variability exists among patients receiving the same drug regarding the risk of metabolic effects. Anti-psychotic agents not only increase the risk of metabolic disorder, they also increase the risk of CVA, akathisia, and movement disorders including EPS or tardive dyskinesia (more common with first generation antipsychotics) and more. educated on all medications, benefits, side effects and risk, and educated on depression, anxiety, and ADHD, mood d/o and educated on compliance of medications, metabolic and movement d/o education appointment's, continue therapy discussion with patient about course of treatmentand patient instructions. education on serotonin syndrome obtain lab PCP scheduled 11/20 and having Depakote levels- educated on labs for Depakote and vraylar 2. Generalized anxiety disorder -Discussed and educated pt regarding benzodiazepines are generally not intended for prolonged use and that use can cause tolerance, dependence, depression, and associated memory issues including dementias (this list is not exhaustive). Benzodiazepine use is generally not recommended concurrently with pain medications and/or other controlled substances due to increased risks of profound sedation, respiratory depression, coma, and even . They are not to be used with any alcohol, as this combination can also be lethal. Patient was provided caution Clonazepam 0.5 mg daily as needed Medication Management and Follow-Up- Plan:- Schedule follow-up appointments every 2-3 months to monitor the patient's response to the medication regimen.- Reinforce the importance of avoiding recreational drug use due to potential neurotoxicity and interactions with prescribed medications. Pristiq 100 mg daily for depression and anxiety- monitor B/P 3. Unable to concentrate -reviewed ANNIA-2 test and discuss with patient and copy givenself reporting scale completed [place] prescription reviewed educated on non-stimulate and stimulatesPatient reported not want stimulate rx working in therapy for focus Discuss and educated on strattera 60 mg daily in am ANNIA-AE2 DIAGNOSTIC CONSIDERATIONS These test findings suggest that the examiner consider the diagnosis of Attention-Deficit/ Hyperactivity Disorder, combined presentation, and this individual's pattern of responding was indicative of impairments likely to impact her functioning in the home and work settings. The Self Rating Scales did not identify a significant number of hyperactive/impuls stephani or inattentive symptoms. These rating scales do not support the diagnosis suggested by the test results. In making a diagnosis, the examiner will need to determine if there is a reason that this individual did not identify a significant number of hyperactive/impuls stephani or inattentive symptoms, because the ANNIA-AE2 test results did show impairments in response control and attention. Her global Response Control quotient scale score indicated a severe impairment. In addition, her global Attention quotient scale score fell in the mildly to moderately impaired range. These ANNIA-AE2 test findings will need to be included in the examiner's diagnostic decision making process. atomoxetine 60 mg capsule - 4. HTN ON RX educated on healthy b/p 120/80 monitor b/p at home refer to PCP, Urgent care/ER heart healthy diet and excise limit salt intake limit soda intake and caffiene increase water 5. Insomnia Patient having sleep distrubance and sleping 3 hours and not able to go backto sleep off Trazodone Trazodone 50 mg at bedtime tolerated rx in past sleep hygiene CPAP NIGHTLY 6. tobacco Smoking Education Do not smoke. Nicotine and other chemicals in cigarettes and cigars can cause lung damage. Ask your healthcare provider for information if you currently smoke and need help to quit. E-cigarettes or smokeless tobacco still contain nicotine. Talk to your healthcare provider before you use these products. education on decrease to stopping nicotine products and stop smoking hotline given 181-Quit - Yes [place] Tobacco Quitline Call a Smoking Quitline [facility] [place] Smoking Quitline, (9-456-19W-QUIT) Smokefree.gov, which connects you with your [facility]'s Quitline, (4-207-MVVLUCA) [facility] Smoking Quitline, (9-929-ZPWLLZV) . Long-term drug therapy 03/06/2024 Other Client reports her trip to [place] and touring the [employer] was a very good trip. She reports the most stressful thing at the [facility] is speaking up for herself. 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 Therapist actively listened to client and utilized a cognitive behavioral intervention to help client explore and role play ways to speak up for herself with this situation. 03/20/2024 Other Client reports she has difficulty advocating for herself. She gave several situations where this has been an issue. She also reports that work has bee more stressful. Therapist actively listened to client and utilized a sulution focused intervention to help her explore strategies to advocate for herself (practice at home, in front of a mirror, write it down so it can be edited). 04/02/2024 Other Clienet reports she is stressed about the outcome of the election today. Therapist actively listened to client and helped her to explore strategies to minimize news coverage for today (listen to music, stay away from the television). 04/16/2024 Other Client reports she has feeling down, close to tears, but not actually crying. Upon questioning, client reports the election, her father's health, annd the time change. Therapist actively listened to client and asked questions for clarification. Therapist utilized a cognitive behvioral intervention to assist client with exploring strategies to improve her mood (mindfulness, working with her father to see if he will allow her to accompany him to doctor's appointments). 05/07/2024 Other Client reports she is still struggling with depression. Therapist actively listened to client and asked questions for clarification. Therapist utilized a cognitive behavioral intervention by helping client explore strategies to reduce her depression which appears to stem from her self talk (went over a handout on self talk with exercises to complete at home, suggested client to work on [employer] Mindfulness Journal, and gratitude paractice). 05/30/2024 Other Client reports she spent [place] with her father. She states she really missed her mother a lot this holiday, mores so than in the past. Therapist actively listened to client and utilized a cognitive behavioral intervention to help her explore strategies to better cope with missing her mother (ex. write letters to her mom expressing how much and the reasons why she misses her). PHQ=8 mild ANA=5 mild 06/24/2024 Other Client has her shoulder surgery on July 12 and is concerned about how she weill keep herself occupied while recovering and unable to drive. Therapist actively listened to client and asked questions for clarification. Therapist utilized a cognitive behavioral intervention to help client explore possible activities for while she's recovering from surgery and unable to drive. PHQ=11 moderate ANA=6 mild 07/04/2024 Other Trazodone material was published 1. Bipolar affective disorder, Depakote DR 250 mg twice a day for agitation and mood stabilization- educated on rx Vraylar 3 mg daily Pristiq 100 mg daily for depression and anxiety- monitor B/P Discuss and educated on medication options Lexapro 5 mg daily for depression monitor for junito and hypomania obtain labs PCP recently done monitor B/P- reported she takes rx in afternoon SSRI side effects discussed including but not limited to, gastric upset, nausea, vomiting, diarrhea and/or constipation, weight changes, sexual side effects including loss of libido, increased suicidal thoughts/behaviors in children and young adults, and serotonin syndrome.Second generation antipsychotics (SGAs) have metabolic syndrome issues with weight gain, increase in prolactin, increased waist circumference, increased lipids, and increased glucose. Thus routine monitoring of weight, metabolic labs, etc. is indicated. A general rank ordering of antipsychotics that have the greatest to the least risk of metabolic effects is olanzapine, quetiapine, risperidone, ziprasidone, and aripiprazole. However, weight gain can occur with all of these drugs and considerable variability exists among patients receiving the same drug regarding the risk of metabolic effects. Anti-psychotic agents not only increase the risk of metabolic disorder, they also increase the risk of CVA, akathisia, and movement disorders including EPS or tardive dyskinesia (more common with first generation antipsychotics) and more. educated on all medications, benefits, side effects and risk, and educated on depression, anxiety, and ADHD, mood d/o and educated on compliance of medications, metabolic and movement d/o education appointment's, continue therapy discussion with patient about course of treatmentand patient instructions. education on serotonin syndrome obtain lab PCP educated on labs for Depakote and vraylar 2. Generalized anxiety disorder -Discussed and educated pt regarding benzodiazepines are generally not intended for prolonged use and that use can cause tolerance, dependence, depression, and associated memory issues including dementias (this list is not exhaustive). Benzodiazepine use is generally not recommended concurrently with pain medications and/or other controlled substances due to increased risks of profound sedation, respiratory depression, coma, and even . They are not to be used with any alcohol, as this combination can also be lethal. Patient was provided caution Clonazepam 0.5 mg daily as needed Medication Management and Follow-Up- Plan:- Schedule follow-up appointments every 2-3 months to monitor the patient's response to the medication regimen.- Reinforce the importance of avoiding recreational drug use due to potential neurotoxicity and interactions with prescribed medications. Pristiq 100 mg daily for depression and anxiety- monitor B/P 3. Unable to concentrate -reviewed ANNIA-2 test and discuss with patient and copy givenself reporting scale completed [place] prescription reviewed educated on non-stimulate and stimulatesPatient reported not want stimulate rx working in therapy for focus Discuss and educated on strattera 60 mg daily in am ANNIA-AE2 DIAGNOSTIC CONSIDERATIONS These test findings suggest that the examiner consider the diagnosis of Attention-Deficit/ Hyperactivity Disorder, combined presentation, and this individual's pattern of responding was indicative of impairments likely to impact her functioning in the home and work settings. The Self Rating Scales did not identify a significant number of hyperactive/impuls stephani or inattentive symptoms. These rating scales do not support the diagnosis suggested by the test results. In making a diagnosis, the examiner will need to determine if there is a reason that this individual did not identify a significant number of hyperactive/impuls stephani or inattentive symptoms, because the ANNIA-AE2 test results did show impairments in response control and attention. Her global Response Control quotient scale score indicated a severe impairment. In addition, her global Attention quotient scale score fell in the mildly to moderately impaired range. These ANNIA-AE2 test findings will need to be included in the examiner's diagnostic decision making process. atomoxetine 60 mg capsule - 4. HTN ON RX educated on healthy b/p 120/80 monitor b/p at home refer to PCP, Urgent care/ER heart healthy diet and excise limit salt intake limit soda intake and caffiene increase water 5. Insomnia Patient having sleep distrubance and sleping 3 hours and not able to go backto sleep off Trazodone Re-start Trazodone 50-100 mg at bedtime tolerated rx in past sleep hygiene CPAP NIGHTLY . Long-term drug therapy 07/18/2024 Other Client reports her shoulder surgery went well. Her father ensured she was able to get home afterward. She will be off work for at least another few weeks. She reports for now she is doing fine but knows she will eventually get bored of all the free time. Therapist actively listened to client and helped her to explore strategies to fill her time without hurting her shoulder. 08/08/2024 Other Client is continuing to recover from her shoulder surgery. She has been taking care of various doctor appoinments while she is off work. Client has been asking friends for help when she needs it. This is a huge step foreward for client. Tomorrow is client's 49th birthday. Her brother is going to take her to lunch and she has a dinner planned to cook for herself. Therapist actively listened to client and asked questions for clarification. The therapist then provided a supportive intervention by helping client maintain her current level of functioning through the showing of acceptance. PHQ=7 mild ANA=6 mild 08/28/2024 Other Client states, I feel like a failure. She states she has one bill that she is not going to be able to pay any time soon. Therapist actively listened to client and utilized a cognitive behavioral intervention to help client gain insight to: she is not defined by this, she has many attributes to be focused on, and strategies to help find areas to cut back on finances. PHQ=14 moderate ANA=10 moderate 09/17/2024 Other Client reports her father gave her some money to help with her finances. Client reports it will still take some time to completely pay off her debts. She is not feeling very good about herself because her dad stepped in to help her (not the first time). Therapist actively listened to client and utilized a cognitive behavioral intervention to help client explore strategies to motivate her to reduce unnecesary purchases. PHQ16 moderately severe ANA=13 moderate 10/16/2024 Other Client has been having problems with her knee. She is currently doing physical therapy for this issue. She states her father takes her and her brother (and his family) out to eat every Monday. Client states these events are usually enjoyable. She reports it's been a year since she has talked to her other brother. Therapist actively listened to client and asked questions for clarification. The therapist then provided a supportive intervention by helping client maintain her current level of functioning through the showing of acceptance. PHQ=9 mild ANA=6 mild 11/06/2024 Other Client reports her knee has been bothering her. She has done her physical therapy and will see her doctor about it next week. She reports she just finished working midnights and has difficulty with sleep. As she has gotten older, it takes her longer to get back to sleeping at night and awake during the day. Therapist actively listened to client and utilized a cognitive behavioral intervention to help client explore strategies to help her with adjusting to this type of sleep change. PHQ=10 moderate Ana=3 minimal 12/11/2024 Other Client has developed an ulcer on her lower leg. When wound care gets it cleared up, she will see the surgeron about getting her knee repaired. She has also hurt her shoulder and will go back to see the surgeon for that in a month if it doesn't heal on its own. She reports she would like to be able to find the middle of the road in her thinking as she has the tendency to think in the extremes. Therapist actively listened to client and utilized a cognitive behavioral intervention to assist client with exploring strategies to help her with improving healthy thinking habits. ANA=1 PHQ=7 mild Plan Of Treatment Next Appt Details Provider Name:Jessi Chakraborty , 02/13/2025 03:00:00 PM, [address], [facility] [address], [place], [address], Provider Name:Maria G Osuna , 03/28/2025 09:30:00 AM, [address], [facility] [address], [place], [address], Insurance Providers Payer Name Payer Address Payer Phone Subscriber Number Group Number Insured Name Patient Relationship to Insured Coverage Start Date Coverage End Date [facility] [address] [place] [phone] [id number] MARIA G FITZGERALD Self - patient is the insured Medical (General) History Medical History History ICD Code Problems: Bipolar affective disorder, cu rrently depressed, mild Chronic post-traumatic stress disorder Generalized anxiety disorder Long-term drug therapy Obesity Primary insomnia Tobacco user Unable to concentrate , Past Psychiatric History: Anxiety Disord er,PTSD,Bipolar Disorder undefined Surgical History Surgery Date(Month/Year) Other 05/29/2016 Removal of gallbladder (95324) 4
== END 2025-02-05 13:44 | disposition home or self-care (01) ==
PROVIDERS: PCP Family Medicine; Visit Provider Nurse Practitioner Family
DX: L97.911 Non-pressure chronic ulcer of unspecified part of right lower leg limited to breakdown of skin (principal)
CPT/HCPCS: 93922

== ENCOUNTER 2025-02-24 07:00 | Outpatient (RCR) | payer OTHER, SELFPAY ==
[2024-12-02 10:47] VITALS: BMI 58.6
== END 2025-03-02 23:59 | disposition home or self-care (01) ==
LOC: ANHWOC 07:00
PROVIDERS: PCP Family Medicine; Visit Provider Nurse Practitioner Family
DX: Z48.00 Encounter for change or removal of nonsurgical wound dressing (principal); L97.911 Non-pressure chronic ulcer of unspecified part of right lower leg limited to breakdown of skin
CPT/HCPCS: 99213; 99214; A9270; G0463

== ENCOUNTER 2025-03-03 06:50 | Outpatient (RCR) | payer OTHER, SELFPAY ==
[2025-03-03 00:03] VITALS: BMI 58.6
== END 2025-05-13 10:28 | disposition home or self-care (01) ==
LOC: ANHWOC 06:50
PROVIDERS: PCP Family Medicine; Visit Provider Nurse Practitioner Family
DX: L97.911 Non-pressure chronic ulcer of unspecified part of right lower leg limited to breakdown of skin (principal); Z48.00 Encounter for change or removal of nonsurgical wound dressing
CPT/HCPCS: 99213; G0463

== ENCOUNTER 2025-03-20 15:27 | Outpatient (CLI) | payer OTHER, SELFPAY ==
--- OUTSIDE RECORDS SUMMARY | 2025-03-19 11:10 | XMS_ITS | Encounter Summary ---
Author Organization [facility] Address [address] [place] [address] Phone Care Team Providers Care Business Objects Developer Name Role Phone Miryam Lozoya MD Primary Care Provider Campbell Abrams DO Unavailable [phone] Reason for Visit * Reason Comments Follow-up Encounter Details Date Type Department Care Team (Late st Contact Info) Description 03/19/2025 11:10 AM CDT Office Visit [facility] Medicine Orthopaedic Surgery [address] [place] [address] Bogdan Mclaughlin MD [address] [facility] [address] [place] [address] Acute pain of right knee (Primary Dx) Social History Tobacco Use Types Packs/Day Years Used Date Smoking Tobacco: Former Cigarettes 0.5 2 0 05/29/2008 - 05/29/2010 Passive Smoke Exposure: Past Smokeless Tobacco: Never Alcohol Use Standard Drinks/Week Comments Yes 0 [...] on file 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 female who was previously evaluated due to right knee pain, consistentwith complex tearing involving the posterior horn/root of the medial meniscus in the setting of mild tricompartmental chondrosis Prior recommendations: Corticosteroid injection, wound healing of distal leg wound Follow Up Plan: Pending response to corticosteroid injection as well as healing of lower extremity ulcer, that it fully healed, potential consideration for right knee arthroscopic partial medial meniscectomy. Since her last clinic appointment, the patient reports that overall her distal leg wound has fully healed. She reports that she is no longer consulting with wound care. She however states that she isstill continuing to experience discomfort, isolated to the medial aspect of the knee. She denies any new trauma or injuries although she does report a recent fall in which he landed on the anterior aspect of the bilateral knees. She however states that she continues to experience discomfort with any twisting or pivoting or any laterally based motions with the occasional mechanical popping and catching sensation. She states that the corticosteroid injection provided a proximally 3 months of relie f before slowly wearing off over the last few weeks. She states that at this time she is interestedin proceeding with operative intervention. PAST MEDICAL HISTORY She has a past medical history of Anxiety (2015), Asthma, Depression (2015), Diabetes mellitus (HCC) (05/20), Gastroesophageal reflux disease, OTHER MEDICAL, OTHER MEDICAL, OTHER MEDICAL, OTHER MEDICAL, OTHER MEDICAL, Hypertension, Personal history of other diseases of the circulatory system, Personal history of other endocrine, nutritional and metabolic disease, Personal history of other endocrine, nutritional and metabolic disease, Sleep apnea (2016), and Thyroid disease (2009). She has no past medical history of Awareness under anesthesia, Cardiac complication, Delayed emergence from general anesthesia, Hard to intubate, Malignant hyperthermia, PONV (postoperative nausea and vomiting), Postoperative delirium, or Pseudocholinesterase deficiency. PAST SURGICAL HISTORY She has a past surgical history that includes Other surgical history; pr cholecystectomy; Elbow Arthroplasty (Left, 2017); Colonoscopy; Upper gastrointestinal endoscopy; and [place] tooth extraction. INITIAL REVIEW OF MEDICATIONS She has a current medication list which includes the following prescription(s): albuterol hfa, ammonium lactate, atomoxetine, atorvastatin, cariprazine, cetirizine, cholecalciferol, clonazepam, clotrimazole-betamethasone, desvenlafaxine er, divalproex dr, prevacid, levothyroxine, losartan-hydrochlor othiazide, meloxicam, nystatin, oxybutynin xl, trazodone, and trelegy ellipta. DRUG ALLERGIES She is allergic to adhesive, cat's claw, and grass pollen. SOCIAL HISTORY She Social History Tobacco Use Smoking status: Former Current packs/day: 0.00 Average packs/day: 0.5 packs/day for 2.0 years (1.0 ttl pk-yrs) Types: Cigarettes Start date: 05/29/2008 Quit date: 05/29/2010 Years since quittin.8 Passive exposure: Past Smokeless tobacco: Never Substance and Sexual Activity Drug use: Never Sexual activity: Defer Alcohol Use: Not At Risk (07/12/2024) AUDIT-C Frequency of Alcohol Consumption: Monthly or less Average Number of Drinks: 1 or 2 Frequency of Binge Drinking: Never REVIEW OF SYSTEMS A full 12-point review of systems was performed, noting the following: General: no acute distress, denies fevers or chills CV: denies chest pain or palpation Resp: denies any cough or shortness of breath Neuro: denies any dizziness, headache or weakness PHYSICAL EXAMINATION: Repeat Evaluation of the right knee with the skin exposed demonstrates: -No evidence of discoloration, ecchymosis, erythema, gross deformity or previous surgical incisions. -There is trace effusion within the knee. -Gait evaluation demonstrates a slightly antalgic gait with appropriate patellar tracking. -There is no evidence of a varus thrust. -There is evidence of a flexed knee gait with quad avoidance. -Overall assessment of bilateral lower extremity alignment is neutral. -There is negative evidence of atrophy involving the quadriceps musculature. - Distal leg incision is well healed without evidence of dehiscence, drainage or erythema Palpation of the knee demonstrates: - negative tenderness with palpation over the medial patellar facet. - negative tenderness over the lateral patellar facet. - negative tenderness over the tibial tubercle. - negative tenderness along the patellar tendon. - negative tenderness over the pes anserine bursa. - negative tenderness over Gerdy's tubercle. - negative tenderness with palpation within the popliteal fossa. - positive tenderness over the medial epicondyle. - negative tenderness over the lateral epicondyle. - negative tenderness with palpation over the posterior calf without palpable cords. Range of motion testing demonstrates: - full knee extension. - 115 degrees of knee flexion, approximately 5 degrees less of flexion when compared to the contralateral knee. - There is mild pain at the the end range of knee flexion. - positive patellar crepitus, graded 1+. - The patient is able to perform and hold a straight leg raise. - Range of motion testing of the hip and ankle are within normal limits. Strength testing demonstrates: - 5-/5 strength with hip flexion. - 5-/5 knee extension. - 5-/5 knee flexion. - 5/5 dorsiflexion and plantarflexion. Provocation testing demonstrates Mensicus: - positive medial joint line tenderness. - negative lateral joint line tenderness. - positive with Fercho's along the medial joint line. Collateral ligaments: - negative varus laxity at full extension. - negative varus laxity in 30?? of knee flexion. - negative valgus laxity at full extension. - negative valgus laxity in 30?? of knee flexion. Cruciate ligament: - negative 1A Anabela examination (compared to 1A on the contralateral knee). - negative Grade 0 pivot shift test. - negative anterior drawer. - negative posterior drawer. - negative posterior sag. Patella: - negative apprehension with lateral patellar translation (displacement Grade 1A). - negative apprehension with medial patellar translation (displacement Grade 2B). - negative J-sign. - negative patellar grind test. - normal (0-5 degrees) lateral patellar tilt. The patient is otherwise neurovascularly intact distally with an easily palpable dorsalis pedis pulse and brisk cap refill. REVIEW OF IMAGING: No new imaging was obtained during today's clinic appointment. IMPRESSION: Kaitlin Huang is a 49 y.o. female with symptoms, physical examination and imaging findings involving the right knee, consistent with complex tearing involving the posterior horn/root of the medial meniscus in the setting of mild tricompartmental chondrosis TREATMENT PLAN: I had a long discussion with Kaitlin Huang that at this time, my recommendations would be: 1. Right knee arthroscopic partial medial meniscectomy. I did have long conversation with the patient we did discuss that due to her continued discomfort as well as mechanical catching and discomfortworse with any twisting or pivoting, with physical exam findings pertinent for exquisite medial joint line tenderness with a positive Fercho's, that at this time as he has largely exhausted conservative modalities, she would benefit from operative intervention. Of note, we did discuss that basedon her body habitus, her surgery would need to be performed at a facility with inpatient capabilities. 2. Activity modifications. We did discuss being cautious with any high impact activities, especially those placed on the hyperflexed knee, such as squatting, kneeling and lunges, as well as any twisting or pivoting activities to minimize risk for further aggravation or injury to the knee. 3. Otherwise, we did discuss the importance of continued use of conservative modalities, including utilizing rest, ice and elevation, as well as anti- inflammatory medication, if tolerated, or Tylenol, as needed. I discussed with the patient what would be involved in the surgery and their recovery. I explained that it would be an outpatient procedure, with the patient coming in and going home the same day. I informed the patient that they will likely require crutches for a period of 24-48 hours following their surgery, but that they would be weight-bearing as tolerated unless otherwise instructed. I also discussed the medication which would be prescribed following the surgery, and that our goal would forrest have the patient discontinue any narcotic pain medication as quickly as possible following the procedure. I will plan to see the patient back in clinic approximately 1.5 weeks following their procedure, during which time we would perform a wound check, review the arthroscopic photos and assess their progress. We discussed that if formal physical therapy was indicated, that a prescription and protocol would be provided to the patient at their 1st postoperative visit. The patient's 2nd postoperative appointment would be approximately 6 weeks following surgery, at which point most patients will have be approaching full recovery. We did discuss, however, that it can take up to 2-3 months to reach full recovery in some patients. The risks and benefits of surgery were discussed at length with the patient, including, but not limited to, the risk of infection, risk of anesthesia, risk of blood clot, risk of nerve and blood vessel injury, risk of limited, delayed or short lasting improvement in symptoms, and the risk for progression of osteoarthritis. We did discuss that arthroscopic procedures are not indicated for the treatment of osteoarthritis and thus the patient's underlying arthritic symptoms will likely not be entirely relieved following the procedure. The patient demonstratedan understanding of the injury, treatment alternatives, indications for surgery, risks and benefits, and what will be involved in their recovery. The patient reported that they wish to proceed with surgery. We can schedule surgery at their convenience. I strongly encouraged the patient to contact my office with any further questions or concerns. All questions were answered and the patient was in agreement with the plan. Bogdan Mclaughlin M.D. Administrative Coordinator Department of Orthopedic Surgery Division of Sports Medicine [facility] [place] Bogdan Mclaughlin MD dictating using [employer] software. documented in this encounter Plan of Treatment Not on file documented as of this encounter Visit Diagnoses Diagnosis Acute pain of right knee- Primary documented in this encounter Care Teams Business Objects Developer Relationship Specialty Start Date End Date Miryam Lozoya MD [address] [facility] [address] [place] [address] PCP - General Family Practice 04/30/24 Campbell Abrams DO [address] [address] [facility] [place] [address] Expanded Function Dental Assistant Cardiology 06/27/24 documented as of this encounter
--- NOTE | ~2025-03-20 | MM_ITS ---
EXAMINATION: MM screening tasha BI w prince HISTORY: Screening TECHNIQUE: Craniocaudal and mediolateral oblique 3-D tomosynthesis images were obtained and synthetic 2-D images were generated. CAD analysis was submitted and interpreted. COMPARISON: Comparison to multiple prior studies sequentially, with oldest reviewed study dated , 11/28/2017 BREAST PARENCHYMAL COMPOSITION: The breasts are almost entirely fatty. FINDINGS: There is no evidence of suspicious mass, calcification, or architectural distortion to suggest malignancy in either breast. IMPRESSION: 1. No mammographic evidence of malignancy. 2. Recommend routine screening mammography in one year. BI-RADS Category 1: Negative Reviewed, dictated and finalized at location B.
--- OUTSIDE RECORDS SUMMARY | 2025-03-20 16:28 | XMS_ITS | Clinical Summary ---
Author Organization [facility] Address [address] [place] [address] Care Team Providers Care Radio Television Announcer Name Role Phone Mari Mcdermott MD Primary Care Provider [phone] Source Comments [facility],non-owned Affiliates and Associated Physician Practices is amultiple site organization consisting of ambulatory clinics and hospital sitesin [place], [place], [place] and [place]. This disclosure is being madepursuant to the Care Everywhere program and may not contain all information available regarding this patient. Last updated 18.PV [facility] Allergies No known active allergies Medications * [...] FITZGERALD Subscriber ID:Not on file (Home) Address: [address] [address] Payer ID:Not on file Group ID:Not on file Type:Self Pay Address: [place], [place] Care Teams Radio Television Announcer Relationship Specialty Start Date End Date Mari Mcdermott MD PCP - General Family Medicine 02/24/16
--- OUTSIDE RECORDS SUMMARY | 2025-03-20 16:28 | XMS_ITS | Clinical Summary ---
Author Organization [facility] Address [address] [place] [address] Care Team Providers Care Administrative Support Associate Name Role Phone Miryam Lozoya MD Primary Care Provider Campbell Abrams DO Unavailable [phone] Allergies Active Allergy Reactions Criticality Noted Date [...] Encounters Date Type Department Care Team Description 03/19/2025 11:10 AM CDT Office Visit [facility] Orthopaedic Surgery [address] [facility] 2[address] [place] [address] Bogdan Mclaughlin MD Acute pain of right knee (Primary Dx) 02/10/2025 10:45 AM CDT Office Visit [facility] Orthopaedic [facility] [address] [facility] 12th [place] [address] [place] [address] Grsielda Bernal MD Arthritis of right acromioclavicular joint (Primary Dx); Right shoulder pain, unspecified chronicity; Rotator cuff tendinitis, right 02/10/2025 10:19 AM CDT - 02/10/2025 11:59 PM CDT Hospital Encounter [facility] [address] [place] [address] Arthritis of right acromioclavicular joint; Right shoulder pain, unspecified chronicity Discharge Disposition: Discharge to home or self care from Last 3 Months Surgical History Surgery Date Site/Laterality Comments OTHER SURGICAL HISTORY Tennis elbow surgery [place] CHOLECYSTECTOMY Cholecystectomy - (Added by TW Conv) ELBOW ARTHROPLASTY 05/29/2016 - 05/28/2017 Left Elbow Arthroplasty - (Added by TW Conv) COLONOSCOPY UPPER GASTROINTESTINAL ENDOSCOPY WISDOM TOOTH EXTRACTION Medical History Medical History Date Comments Gastroesophageal reflux disease GERD Asthma Asthma Hypertension Hypertension Hx Other Medical hypothyroidism; Comments: [facility] 06/30/2015 - Hx Other Medical obesity; Commen ts: [facility] 06/30/2015 - Hx Other Medical dyslipidemia; C omments: [facility] 06/30/2015 - Hx Other Medical peripheral carl a; Comments: [facility] 06/30/2015 - Hx Other Medical migraines; Comm ents: [facility] 06/30/2015 - Personal history of other di [...] apnea 2016 Thyroid disease 2009 Diabetes mellitus 05/20 Anxiety 2016 Family History Medical History [...] on file 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 Gender Identity Not on file Sexual Orientation [...] - PPSV23, PCV20, or PCV21) 04/20/2016 02/24/2016 Zoster Vaccine (1 of 2) 2024 Influenza Vaccine (#1) 2025 4, 03/05/2023, 04/09/2022, Additional history exists DTaP/Tdap/Td Vaccine (3 - Td or Tdap) 05/09/2028 05/09/2018, 05/29/2014 Procedures Procedure Name Priority Date/Time Associated Diagnosis Comments [place] ARTHROCENTESIS ASPIR&/INJ MAJOR JT/BURSA W/O US Routine 02/10/2025 10:45 AM CDT Rotator cuff tendinitis, right XR SHOULDER RIGHT 2 OR MORE VIEWS Schedule Routine, Read Routine (OP Routine) 02/10/2025 10:27 AM CDT Arthritis of right acromioclavicular joint Right shoulder pain, unspecified chronicity from Last 3 Months Results * [place] ARTHROCENTESIS ASPIR&/INJ MAJOR JT/BURSA W/O US (02/10/2025 10:45 AM CDT) Narrative Griselda Bernal MD - 02/10/2025 10:45 AM CDT Griselda Bernal MD 02/10/2025 11:25 AM Large Joint Injection: R subacromial bursa Performed by: Griselda Bernal MD Authorized by: Griselda Bernal MD Large Joint Injection/Aspiration: Consent Given by: Patient Timeout: prior to procedure the correct patient, procedure, and site was verified Verbal consent obtained: Yes Supporting Documentation: Indications: Pain Procedure Details: Location: Shoulder Site: R subacromial bursa Prep: patient was prepped using a clean technique Needle Size: 22 G Approach: Lateral Ultrasound guided: No Fluroscopic guidance: No Medications: 4 mL BUPivacaine HCl 0.5 % (5 mg/mL); 4 mL lidocaine 10 mg/mL (1 %); 80 mg triamcinolone 40 mg/mL Patient tolerance: Patient tolerated the procedure well with no immediate complications us Griselda Bernal MD IN CLINIC/BEDSIDE ORD ERABLES Final Result * XR Shoulder Right 2 or More Views (02/10/2025 10:27 AM CDT) Anatomical Region Laterality Modality Upper Extremities, Shoulder Right Comp uted Radiography 02/10/2025 10:3 5 AM CDT Impressions 02/10/2025 10:35 AM CDT Interval right distal clavicle excision and subacromial decompression Electronically signed by: Dean Helton M.D. Narrative 02/10/2025 10:35 AM CDT EXAMINATION: XR SHOULDER RIGHT 2 OR MORE VIEWS HISTORY: Right shoulder pain COMPARISON: 05/27/2024 axillary radiograph and 04/01/2024 MR FINDINGS: Interval right distal clavicle excision and subacromial decompression. No acute fracture or dislocation. Glenohumeral joint space is normal. Procedure Note Dean Helton MD - 02/10/2025 EXAMINATION: XR SHOULDER RIGHT 2 OR MORE VIEWS HISTORY: Right shoulder pain COMPARISON: 05/27/2024 axillary radiograph and 04/01/2024 MR FINDINGS: Interval right distal clavicle excision and subacromial decompression. No acute fracture or dislocation. Glenohumeral joint space is normal. IMPRESSION: Interval right distal clavicle excision and subacromial decompression Electronically signed by: Dean Helton M.D. Griselda Bernal MD IMG XR PROCEDURES Fin al Result from Last 3 Months Insurance [facility] [employer] [facility] Care Teams Administrative Support Associate Relationship Specialty Start Date End Date Miryam Lozoya MD [address] [place], [place] [id number] PCP - General Family Practice 04/30/24 Campbell Abrams DO [address] [place], [place] [id number] Digital Analytics Manager Cardiology 06/27/24
--- OUTSIDE RECORDS SUMMARY | 2025-03-20 16:29 | XMS_ITS | Clinical Summary ---
Author Organization [facility] Address [address] [place] [address] Phone Care Team Providers Care Electrical Assembler Name Role Phone Miryam Lozoya MD Primary [...] 4 tablets 11 Tablet 07/23/2022 3:47 PM GRAPHIC ENGINEER Active Active Problems Problem Noted Date Diagnosed [...] on file Legal Sex Female 9:10 AM GRAPHIC ENGINEER Gender Identity Not on file Sexual Orientation Not on file Last Filed Vital Signs Vital Sign Reading Time Taken Comments Blood Pressure 131/72 07/23/2022 8:32 AM GRAPHIC ENGINEER Pulse 64 07/23/2022 8:32 AM GRAPHIC ENGINEER Temperature 36.7 C (98 F) 07/23/2022 8:32 AM GRAPHIC ENGINEER Respiratory Rate 16 07/23/2022 9:23 AM GRAPHIC ENGINEER Oxygen Saturation 96% 07/23/2022 8:32 AM GRAPHIC ENGINEER Inhaled Oxygen Concentration - - Weight 135.2 kg (298 lb) 07/21/2022 12:42 PM GRAPHIC ENGINEER Height 157.5 cm (5' 2) 07/21/2022 12:42 PM GRAPHIC ENGINEER Body Mass Index 54.5 07/21/2022 12:42 PM GRAPHIC ENGINEER Plan of Treatment Health Maintenance Due Date [...] , 04/01/2020, 03/08/2019, Additional history exists Insurance [employer] [facility] [place] [id number] RX [facility] [employer] (INTERNAL) [facility] Internal Plans Advance Directives For more information, please contact: [phone] * Full Code (Latest Code Status on File) Date Activated Date Inactivated Comments 07/20/2022 3:36 PM 07/23/2022 7:37 PM Care Teams Electrical Assembler Relationship Specialty Start Date End Date Miryam Lozoya MD [address] [place] [address] PCP - General Family Practice 07/20/22
--- OUTSIDE RECORDS SUMMARY | 2025-03-20 16:29 | XMS_ITS | Patient Health Record ---
Author Organization [facility] [employer] [facility] Address [address] [facility] [address] [place] [address] Care Team Providers Care [facility] [employer] Name Role Phone Darell MCCONNELL, Miryam Primary Care Provider Unavailable Maria G Osuna Unavailable [phone] Jessi Chakraborty Unavailable [phone] Allergies Allergen (clinical drug ingredient) Drug/Non Drug Allergy documented on EMR Reaction Allergy Type Onset Date Status grass pollen (uncoded) Unknown Allergy Active Cat dander Cat Dander Unknown Allergy Active Results Component Value Reference Range Flag Notes Validity Testing Reviewed date:10/04/2024 12:06:09 PM Interpretation: Performing Lab: Notes/Report: Not Medicated Consistent Not Medicated Consistent Not Medicated Consistent Not Medicated Consistent Specific [place] 1.006 1.003 - 1.030 pH 6.9 3.0 - 10.9 Oxidants -3 200 g/mL Creatinine 28.0 20.0 - 300.0 mg/dL Benzodiazepines Reviewed date:10/04/2024 12:05:59 PM Interpretation: Performing Lab:[address] [place] [address], [address] [place] [address], Director - [id number] Notes/Report: An exception occurred while processing this report and so it has incomplete data. Please contact [employer] for assistance. Not Medicated Consistent Not [...] NEGATIVE 20.0 ng/mL PDF Report CE_OUT_RAW_COMMO N_SRC_ORU UDT Reviewed date:09/26/2024 08:23:00 AM Interpretation: Performing Lab: Notes/Report: Amphetamine (AMP) NEG 0 - 1000 ng/ml Buprenorphine (BUP) NEG 0 - 10 ng/ml Oxazepam (BZO) NEG 0 - 300 ng/ml Cocaine (JOS) NEG 0 - 300 ng/ml Methamphetamine (mAMP) NEG 0 - 300 ng/ml Methylenedioxymethamphetamine (MDMA) NEG 0 - 500 ng /ml Morphine (MOP) NEG 0 - 25 ng/ml Methadone (MTD) NEG 0 - 300 ng/ml Oxycodone (OXY) NEG 0 - 300 ng/ml THC NEG 0 - 50 ng/ml x NEG 0 - 1000 ng/ml x NEG 0 - 1000 ng/ml x NEG 0 - 300 ng/ml x NEG 0 - 300 ng/ml x NEG 0 - 300 ng/ml UDT Reviewed date:05/02/2024 08:38:17 AM Interpretation: Performing Lab: Notes/Report: Amphetamine (AMP) NEG 0 - 1000 ng/ml Buprenorphine (BUP) NEG 0 - 10 ng/ml Oxazepam (BZO) NEG 0 - 300 ng/ml Cocaine (JOS) NEG 0 - 300 ng/ml Methamphetamine (mAMP) NEG 0 - 300 ng/ml Methylenedioxymethamphetamine (MDMA) NEG 0 - 500 ng /ml Morphine (MOP) NEG 0 - 25 ng/ml Methadone (MTD) NEG 0 - 300 ng/ml Oxycodone (OXY) NEG 0 - 300 ng/ml THC NEG 0 - 50 ng/ml x NEG 0 - 1000 ng/ml x NEG 0 - 1000 ng/ml x NEG 0 - 300 ng/ml x NEG 0 - 300 ng/ml x NEG 0 - 300 ng/ml Reason For Referral No Information Medications Medication SIG (Take, Route, Frequency, Duration) Notes Start Date End Date Status Desvenlafaxine Succinate ER 100 MG Tablet Extended Release 24 Hour 1 tablet Orally Once a day; Duration: 90 days Active Escitalopram Oxalate 5 MG Tablet 1 tablet Oral Once a day; Duration: 30 days Active traZODone HCl 50 MG Tablet 1 tablet at b edtime Orally Once a day; Duration: 90 days Active Divalproex Sodium 250 MG Tablet Delayed Release 1 tablet Oral twice a day; Duration: 30 days Active buPROPion HCl ER (XL) 150 MG Tablet Extended Release 24 Hour 1 TABLET Orally Once a day; Duration: 90 days 11/14/2023 Not-Takin g clonazePAM 0.5 MG Tablet 1 tablet Oral O nce a day; Duration: 30 days 09/26/2024 Active Vraylar 3 MG Capsule 1 capsule Oral Once a day; Duration: 30 days Active Trelegy Ellipta 200-62.5-25 MCG/ACT Aerosol Powder Breath Activated INHALE 1 PUFF ONCE DAILY Inhalation; Duration: 30 Days Active Levothyroxine Sodium 50 MCG Tablet TAKE 1 TABLET BY MOUTH ONCE DAILY Oral; Duration: 90 Days Active Atomoxetine HCl 60 MG Capsule 1 capsule Orally Once a day; Duration: 30 days Active Immunizations Vaccine Route Administration Date Status [...] unspecified formulation Unknown 03/05/2023 A dministered Novel [id number], preservative free Unknown 03/23/2018 Administered Novel [id number], preservative free Unknown 03/08/2019 Administered Novel [id number], preservative free Unknown 04/01/2020 Administered Pfizer Biontech Covid-19 Vac cine 2nd dose Unknown 06/15/2020 Administered Pfizer Biontech Covid-19 Vac cine 2nd dose Unknown 07/06/2020 Administered Pfizer Biontech Covid-19 Vac cine 2nd dose Unknown 04/25/2021 Administered Tdap Unknown 05/29/2014 Administered Social History Tobacco Use: Social History Observation Description Date Details (start date - stop date) Current Smoker 08/14/2023 - 05/29/2024 Sex Assigned At [...] Answer Notes Tobacco Control (Standard) Tobacco use: Current every day smoker When did you start smoking? 08/14/2023 [...] tobacco cessation counseling been provided?: Yes (Notes: 1/2 ppd)On what date was tobacco cessation counseling [...] you currently employed?: YesWho is your employer?: [employer] officeMarriage and SexualityWhat is your [...] CodeDo you have a medical power of knowledge architect?: NoPublic Health and TravelHave you been to [...] Status W/U Status Risk Notes Problem Hypothyroidism (72365392) Hypothyroidism, unspecified (E03.9) 10/12/19 Active confirmed Problem Obesity (588206804) Obesity, unspecified (E66.9) 10/12/19 Active confirmed Problem Hyperlipidemia (87778680) Hyperlipidemia, unspecified (E78.5) 10/12/19 Active confirmed Problem Bipolar affective disorder, currently depressed, mild (666721443) Bipolar disorder, current episode depressed, mild (F31.31) 10/12/19 Active confirmed Problem Generalized anxiety disorder (67162692) Generalized anxiety disorder (F41.1) 10/12/19 Active confirmed Problem Posttraumatic stress disorder (06241725) Post-traumatic stress disorder, chronic (F43.12) 09/28/19 Active confirmed Problem Primary insomnia (5618381) Primary insomnia (F51.01) 09/14/19 Active confirmed Problem Attention deficit hyperactivity disorder (420634822) Attention-defici t hyperactivity disorder, unspecified type (F90.9) 10/03/19 Active confirmed Problem Long-term current use of drug therapy (730947527) Other detention (current) drug therapy (Z79.899) 10/12/19 Active confirmed Problem Depression Screening (319878090) Encounter for screening for depression (Z13.31) Active confirmed Problem Essential hypertension (25463794) Essential hypertension (I10) Active confirmed Vital Signs Heart Rate 62 /min 09/26/2024 Respiratory Rate 16 /min 09/26/2024 Height-cm 160.02 cm 09/26/2024 Blood pressure diastolic 79 mm Hg 09/26/2024 Weight-kg 144.7 kg 09/26/2024 Height 63.00 in 09/26/2024 Blood pressure systolic 126 mm Hg 09/26/2024 Weight 319 lbs 09/26/2024 BMI 56.5 kg/m2 09/26/2024 Encounters Encounter Location Date Provider Diagnosis [facility] [address] [address] 03/20/2024 Jessi Palmer Bipolar affective disorder, depressed, moderate F31.32 ; Generalized anxiety disorder F41.1 ; Chronic post-traumatic stress disorder F43.12 and Attention-deficit hyperactivity disorder, unspecified type F90.9 [facility] [address] [facility] [address] [place] [address] 04/02/2024 Jessi Palmer Bipolar disorder, current episode depressed, mild F31.31 ; Generalized anxiety disorder F41.1 ; Chronic post-traumatic stress disorder F43.12 and Attention-deficit hyperactivity disorder, unspecified type F90.9 [facility] [address] [facility] [address] [place] [address] 04/16/2024 Jessi Palmer Bipolar affective disorder, depressed, moderate F31.32 ; Generalized anxiety disorder F41.1 ; Post-traumatic stress disorder, chronic F43.12 and Attention-deficit hyperactivity disorder, unspecified type F90.9 [facility] [address] [address] 05/02/2024 Maria G Osuna Generalized anxiety disorder F41.1 ; Bipolar disorder, current episode depressed, mild F31.31 ; Primary insomnia F51.01 ; Post-traumatic stress disorder, chronic F43.12 ; Attention-deficit hyperactivity disorder, unspecified type F90.9 ; Other long term care social worker (current) drug therapy Z79.899 and Essential hypertension I10 [facility] [address] [address] 05/07/2024 Jessi Palmer Bipolar affective disorder, depressed, moderate F31.32 ; Generalized anxiety disorder F41.1 ; Chronic post-traumatic stress disorder F43.12 and Attention-deficit hyperactivity disorder, unspecified type F90.9 [facility] [address] [place] [address] 05/30/2024 Jessi Palmer Bipolar affective disorder, depressed, moderate F31.32 ; Chronic post-traumatic stress disorder F43.12 ; Generalized anxiety disorder F41.1 and Attention-deficit hyperactivity disorder, unspecified type F90.9 [facility] [address] [address] 06/10/2024 Maria G Osuna Generalized anxiety disorder F41.1 ; Primary insomnia F51.01 ; Bipolar disorder, current episode depressed, mild F31.31 ; Post-traumatic stress disorder, chronic F43.12 ; Attention-deficit hyperactivity disorder, unspecified type F90.9 ; Other detention (current) drug therapy Z79.899 and Essential hypertension I10 [facility] [address] [place] [address] 06/24/2024 Jessi Chakraborty Bipolar affective disorder, depressed, moderate F31.32 ; Generalized anxiety disorder F41.1 ; Chronic post-traumatic stress disorder F43.12 and Attention-deficit hyperactivity disorder, unspecified type F90.9 [facility] [address] [place] [address] 07/04/2024 Maria G Osuna Generalized anxiety disorder F41.1 ; Primary insomnia F51.01 ; Bipolar disorder, current episode depressed, mild F31.31 ; Post-traumatic stress disorder, chronic F43.12 ; Attention-deficit hyperactivity disorder, unspecified type F90.9 ; Other detention (current) drug therapy Z79.899 and Essential hypertension I10 [facility] [address] [place] [address] 07/18/2024 Jessi Palmer Bipolar disorder, current episode depressed, mild F31.31 ; Generalized anxiety disorder F41.1 ; Post-traumatic stress disorder, chronic F43.12 and Attention-deficit hyperactivity disorder, unspecified type F90.9 [facility] [address] [facility] [address] [place] [address] 08/08/2024 Jessi Palmer Encounter for screen ing for depression Z13.31 ; Bipolar disorder, current episode depressed, mild F31.31 ; Generalized anxiety disorder F41.1 ; Post-traumatic stress disorder, chronic F43.12 and Attention-deficit hyperactivity disorder, unspecified type F90.9 [facility] [address] [place] [address] 08/28/2024 Jessi Palmer Encounter for screen ing for depression Z13.31 ; Bipolar disorder, current episode depressed, mild F31.31 ; Generalized anxiety disorder F41.1 ; Post-traumatic stress disorder, chronic F43.12 and Attention-deficit hyperactivity disorder, unspecified type F90.9 [facility] [address] [place] [address] 09/17/2024 Jessi Chakraborty Encounter for screen ing for depression Z13.31 ; Bipolar disorder, current episode depressed, mild F31.31 ; Generalized anxiety disorder F41.1 ; Post-traumatic stress disorder, chronic F43.12 and Attention-deficit hyperactivity disorder, unspecified type F90.[address] [facility] [address] [place] [address] 09/26/2024 Maria G Osuna Encounter for screen ing for depression Z13.31 ; Generalized anxiety disorder F41.1 ; Primary insomnia F51.01 ; Bipolar disorder, current episode depressed, mild F31.31 ; Post-traumatic stress disorder, chronic F43.12 ; Attention-deficit hyperactivity disorder, unspecified type F90.9 ; Other detention (current) drug therapy Z79.899 ; Essential hypertension I10 ; Encounter for screening for cardiovascular disorders Z13.6 and Nicotine use Z72.[address] [address] 10/16/2024 Jessi Chakraborty Generalized anxiety disorder F41.1 ; Bipolar disorder, current episode depressed, mild F31.31 ; Attention-deficit hyperactivity disorder, unspecified type F90.9 ; Nicotine use Z72.0 ; Encounter for screening for depression Z13.31 and Post-traumatic stress disorder, chronic F43.[address] [address] 11/06/2024 Jessi Chakraborty Bipolar disorder, current episode depressed, mild F31.31 ; Generalized anxiety disorder F41.1 ; Attention-deficit hyperactivity disorder, unspecified type F90.9 ; Post-traumatic stress disorder, chronic F43.12 and Encounter for screening for depression Z13.[address] [address] 12/11/2024 Jessichristiane Chakraborty Generalized anxiety disorder F41.1 ; Bipolar disorder, current episode depressed, mild F31.31 ; Attention-deficit hyperactivity disorder, unspecified type F90.9 ; Post-traumatic stress disorder, chronic F43.12 and Encounter for screening for depression Z13.[address] [address] 12/27/2024 Maria G Thery Encounter for screen ing for depression Z13.31 ; Generalized anxiety disorder F41.1 ; Primary insomnia F51.01 ; Bipolar disorder, current episode depressed, mild F31.31 ; Post-traumatic stress disorder, chronic F43.12 ; Attention-deficit hyperactivity disorder, unspecified type F90.9 ; Other detention (current) drug therapy Z79.899 ; Essential hypertension I10 ; Encounter for screening for cardiovascular disorders Z13.6 and Nicotine use Z72.0 [facility] [address] [facility] [address] [place] [address] 02/13/2025 Jessi Chakraborty Bipolar disorder, current episode depressed, mild F31.31 ; Generalized anxiety disorder F41.1 ; Post-traumatic stress disorder, chronic F43.12 and Attention-deficit hyperactivity disorder, unspecified type F90.9 [facility] [address] [address] 03/31/2024 Maria G Thernenita Bipolar disorder, current episode depressed, mild F31.31 [facility] [address] [address] 06/21/2024 Maria G Thery Generalized anxiety disorder F41.1 [facility] [address] [address] 07/07/2024 Maria G Thery Primary insomnia F51 .01 [place] [address] [address] 09/12/2024 Maria G Thery Generalized anxiety disorder F41.1 [place] [address] [address] 10/05/2024 Maria G Thery [facility] [address] [address] 10/07/2024 Maria G Thery Primary insomnia F51 .01 Assessments Encounter Date Diagnosis (ICD Code) Assessment Notes Treatment Notes Treatment Clinical Notes Section Notes 03/20/2024 Generalized anxiety disorder (ICD-10 - F41.1) [...] patient and copy givenself reporting scale completed [place] prescription reviewed educated on non-stimulate and stimulatesPatient [...] patient and copy givenself reporting scale completed [place] prescription reviewed educated on non-stimulate and stimulatesPatient [...] patient and copy givenself reporting scale completed [place] prescription reviewed educated on non-stimulate and stimulatesPatient [...] nicotine products and stop smoking hotline given 805-Quit - Yes [place] Tobacco Quitline Call a Smoking Quitline [employer] Smoking Quitline, (2-487-76J-QUIT) Smokefree.gov, which connects you with your State's Quitline, (1-027-NKPKCZZ) [facility] Smoking Quitline, (8-823-BUSOUSZ) . Long-term drug therapy 10/07/2024 Primary insomnia (ICD-10 - F51.01) 10/16/2024 Bipolar disorder, current episode depressed, mild (ICD-10 - F31.31) 10/16/2024 Generalized anxiety disorder (ICD-10 - F41.1) 11/06/2024 Bipolar disorder, current episode depressed, mild (ICD-10 - F31.31) 11/06/2024 Generalized anxiety disorder (ICD-10 - F41.1) 12/11/2024 Bipolar disorder, current episode depressed, mild (ICD-10 - F31.31) 12/11/2024 Generalized anxiety disorder (ICD-10 - F41.1) 02/13/2025 Bipolar disorder, current episode depressed, mild (ICD-10 - F31.31) 12/27/2024 Encounter for screening for depression (ICD-10 [...] patient and copy givenself reporting scale completed [place] prescription reviewed educated on non-stimulate and stimulatesPatient [...] nicotine products and stop smoking hotline given 478-Quit - Yes [place] Tobacco Quitline Call a Smoking Quitline [employer] Smoking Quitline, (4-102-75S-QUIT) Smokefree.gov, which connects you with your State's Quitline, (2-266-DZUDLEH) [facility] Smoking Quitline, (5-185-UJUYWOD) . Long-term drug therapy 02/13/2025 Generalized anxiety disorder (ICD-10 - F41.1) 11/06/2024 Attention-defici t hyperactivity disorder, unspecified type [...] patient and copy givenself reporting scale completed [place] prescription reviewed educated on non-stimulate and stimulatesPatient [...] nicotine products and stop smoking hotline given Quit - Yes [place] Tobacco Quitline Call a Smoking Quitline [employer] Smoking Quitline, (3-917-56Q-QUIT) Smokefree.gov, which connects you with your State's Quitline, (5-255-YTZSOAQ) [facility] Smoking Quitline, (5-719-UDXGCBH) . Long-term drug therapy 10/16/2024 Attention-defici t [...] stop smoking hotline given -Quit - Yes [place] Tobacco Quitline Call a Smoking Quitline [employer] Smoking Quitline, (1-398-45J-QUIT) Smokefree.gov, which connects you with your [facility]'s Quitline, (2-654-CJCZWKB) [facility] Smoking Quitline, (7-850-DDHHWTC) . Long-term drug therapy 09/17/2024 Generalized anxiety [...] patient and copy givenself reporting scale completed [place] prescription reviewed educated on non-stimulate and stimulatesPatient [...] patient and copy givenself reporting scale completed [place] prescription reviewed educated on non-stimulate and stimulatesPatient [...] Chronic post-traumatic stress disorder (ICD-10 - F43.12) 03/20/2024 Attention-defici t hyperactivity disorder, unspecified type [...] patient and copy givenself reporting scale completed [place] prescription reviewed educated on non-stimulate and stimulatesPatient [...] patient and copy givenself reporting scale completed [place] prescription reviewed educated on non-stimulate and stimulatesPatient [...] nicotine products and stop smoking hotline given 719-Quit - Yes [place] Tobacco Quitline Call a Smoking Quitline [employer] Smoking Quitline, (0-236-92I-QUIT) Smokefree.gov, which connects you with your State's Quitline, (6-289-MXSMOKV) [facility] Smoking Quitline, (0-895-XMBVJEV) . Long-term drug therapy 11/06/2024 Post-traumatic stress disorder, chronic (ICD-10 - F43.12) 12/11/2024 Post-traumatic stress disorder, chronic (ICD-10 - F43.12) 02/13/2025 Post-traumatic stress disorder, chronic (ICD-10 - F43.12) [...] patient and copy givenself reporting scale completed [place] prescription reviewed educated on non-stimulate and stimulatesPatient [...] nicotine products and stop smoking hotline given 960-Quit - Yes [place] Tobacco Quitline Call a Smoking Quitline [employer] Smoking Quitline, (1-668-14B-QUIT) Smokefree.gov, which connects you with your [facility]'s Quitline, (2-884-WWOXCRV) [facility] Smoking Quitline, (3-103-IHUAWLX) . Long-term drug therapy 10/16/2024 Nicotine use (ICD-10 - Z72.0) 02/13/2025 Attention-defici t hyperactivity disorder, unspecified type (ICD-10 - F90.9) 11/06/2024 Encounter for screening for depression (ICD-10 [...] patient and copy givenself reporting scale completed [place] prescription reviewed educated on non-stimulate and stimulatesPatient [...] nicotine products and stop smoking hotline given Quit - Yes [place] Tobacco Quitline Call a Smoking Quitline [employer] Smoking Quitline, (9-362-05F-QUIT) Smokefree.gov, which connects you with your State's Quitline, (7-182-JYZPHAQ) [facility] Smoking Quitline, (0-406-EHKOHCS) . Long-term drug therapy 10/16/2024 Encounter for [...] stop smoking hotline given -Quit - Yes [place] Tobacco Quitline Call a Smoking Quitline [employer] Smoking Quitline, (6-345-87O-QUIT) Smokefree.gov, which connects you with your State's Quitline, (8-182-UMXFNJT) [facility] Smoking Quitline, (2-477-ONDOMRY) . Long-term drug therapy 09/17/2024 Attention-defici t [...] patient and copy givenself reporting scale completed [place] prescription reviewed educated on non-stimulate and stimulatesPatient [...] nicotine products and stop smoking hotline given 5724-Quit - Yes [place] Tobacco Quitline Call a Smoking Quitline [facility] [employer] Smoking Quitline, (4-495-07M-QUIT) Smokefree.gov, which connects you with your State's Quitline, (6-204-KLNAJWC) [facility] Smoking Quitline, (2-622-NEMYQRF) . Long-term drug therapy 07/04/2024 Post-traumatic stress [...] patient and copy givenself reporting scale completed [place] prescription reviewed educated on non-stimulate and stimulatesPatient [...] patient and copy givenself reporting scale completed [place] prescription reviewed educated on non-stimulate and stimulatesPatient [...] disorder, unspecified type (ICD-10 - F90.9) 05/02/2024 Other detention (current) drug therapy (ICD-10 - Z79.899) 1. [...] patient and copy givenself reporting scale completed [place] prescription reviewed Patient is on Wellbutrin XL [...] - 4. Long-term drug therapy 06/10/2024 Other long term care social worker (current) drug therapy (ICD-10 - Z79.899) 1. [...] patient and copy givenself reporting scale completed [place] prescription reviewed educated on non-stimulate and stimulatesPatient [...] patient and copy givenself reporting scale completed [place] prescription reviewed educated on non-stimulate and stimulatesPatient [...] patient and copy givenself reporting scale completed [place] prescription reviewed educated on non-stimulate and stimulatesPatient [...] nicotine products and stop smoking hotline given 631-Quit - Yes [place] Tobacco Quitline Call a Smoking Quitline [employer] Smoking Quitline, (6-581-83Y-QUIT) Smokefree.gov, which connects you with your State's Quitline, (1-799-QZCQUAK) [facility] Smoking Quitline, (4-485-HOWHDRH) . Long-term drug therapy 10/16/2024 Post-traumatic stress [...] patient and copy givenself reporting scale completed [place] prescription reviewed educated on non-stimulate and stimulatesPatient [...] stop smoking hotline given -Quit - Yes [place] Tobacco Quitline Call a Smoking Quitline [facility] [employer] Smoking Quitline, (1-635-76B-QUIT) Smokefree.gov, which connects you with your State's Quitline, (7-293-JDSKPWK) [facility] Smoking Quitline, (9-253-EJASXYN) . Long-term drug therapy 12/27/2024 Attention-defici t [...] patient and copy givenself reporting scale completed [place] prescription reviewed educated on non-stimulate and stimulatesPatient [...] stop smoking hotline given -Quit - Yes [place] Tobacco Quitline Call a Smoking Quitline [facility] [employer] Smoking Quitline, (6-157-93W-QUIT) Smokefree.gov, which connects you with your State's Quitline, (1-666-UMKTVYN) [facility] Smoking Quitline, (8-534-ULJFNLQ) . Long-term drug therapy 09/26/2024 Other detention (current) drug therapy (ICD-10 - Z79.899) 1. [...] stop smoking hotline given -Quit - Yes [place] Tobacco Quitline Call a Smoking Quitline [facility] [employer] Smoking Quitline, (0-718-17I-QUIT) Smokefree.gov, which connects you with your State's Quitline, (3-373-XYZUGMX) [facility] Smoking Quitline, (0-076-ZGGWYOE) . Long-term drug therapy 07/04/2024 Other long term care social worker (current) drug therapy (ICD-10 - Z79.899) 1. [...] patient and copy givenself reporting scale completed [place] prescription reviewed educated on non-stimulate and stimulatesPatient [...] patient and copy givenself reporting scale completed [place] prescription reviewed educated on non-stimulate and stimulatesPatient [...] patient and copy givenself reporting scale completed [place] prescription reviewed educated on non-stimulate and stimulatesPatient [...] nicotine products and stop smoking hotline given 768-Quit - Yes [place] Tobacco Quitline Call a Smoking Quitline [employer] [place] Smoking Quitline, (5-883-51O-QUIT) Smokefree.gov, which connects you with your State's Quitline, (0-210-GMCDTTD) [facility] Smoking Quitline, (8-810-JPDWQIS) . Long-term drug therapy 12/27/2024 Other detention (current) drug therapy (ICD-10 - Z79.899) reported [...] not identify a significant number of hyperactive/impuls stephnai or inattentive symptoms. These rating scales do [...] stop smoking hotline given -Quit - Yes [place] Tobacco Quitline Call a Smoking Quitline [employer] [place] Smoking Quitline, (6-380-21Z-QUIT) Smokefree.gov, which connects you with your State's Quitline, (1-220-SXJYQHJ) [facility] Smoking Quitline, (0-026-FQSFAFX) . Long-term drug therapy 09/26/2024 Encounter for [...] patient and copy givenself reporting scale completed [place] prescription reviewed educated on non-stimulate and stimulatesPatient [...] stop smoking hotline given -Quit - Yes [place] Tobacco Quitline Call a Smoking Quitline [employer] [place] Smoking Quitline, (8-132-18D-QUIT) Smokefree.gov, which connects you with your State's Quitline, (6-162-LLABPYK) [facility] Smoking Quit[facility], (9-124-VAHLWDD) . Long-term drug therapy 12/27/2024 Essential hypertension [...] stop smoking hotline given -Quit - Yes [place] Tobacco Quitline Call a Smoking Quitline [employer] [place] Smoking Quitline, (3-493-96I-QUIT) Smokefree.gov, which connects you with your [facility]'s Quitline, (3-598-CWEUUCF) [facility] Smoking Quitline, (9-613-KJIZWHG) . Long-term drug therapy 12/27/2024 Encounter for [...] nicotine products and stop smoking hotline given 424-Quit - Yes [place] Tobacco Quitline Call a Smoking Quitline [employer] [place] Smoking Quitline, (4-207-43Q-QUIT) Smokefree.gov, which connects you with your State's Quitline, (6-029-VSMCCCR) [facility] Smoking Quitline, (6-923-SFAYSUV) . Long-term drug therapy 09/26/2024 Nicotine use [...] patient and copy givenself reporting scale completed [place] prescription reviewed educated on non-stimulate and stimulatesPatient [...] nicotine products and stop smoking hotline given 585-Quit - Yes [place] Tobacco Quitline Call a Smoking Quitline [employer] [place] Smoking Quitline, (9-620-09H-QUIT) Smokefree.gov, which connects you with your State's Quitline, (9-671-JSUGBFJ) [facility] Smoking Quitline, (0-540-EXCTHUF) . Long-term drug therapy 12/27/2024 Nicotine use [...] patient and copy givenself reporting scale completed [place] prescription reviewed educated on non-stimulate and stimulatesPatient [...] stop smoking hotline given -Quit - Yes [place] Tobacco Quitline Call a Smoking Quitline [employer] [place] Smoking Quitline, (4-383-86U-QUIT) Smokefree.gov, which connects you with your State's Quitline, (0-034-DDSOSYN) [facility] Smoking Quitline, (3-073-PXUYMEY) . 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 05/30/2024 Other Client reports she spent [place] with her father. She states she really [...] patient and copy givenself reporting scale completed [place] prescription reviewed educated on non-stimulate and stimulatesPatient [...] improving healthy thinking habits. ANA=1 PHQ=7 mild 02/13/2025 Other Client reports she is worried about her rather who wound up in [place] instead of the [facility], where he had intended to go see his son. She has consolidated her bills which is helping with her finances. She has been on vacation and working a lot of overtime to also help with her finances. She is most concerned about her father's memory. Therapist actively listened to client and utilized a cognitve behavioral intervention to assist client with minimizing her anxiety about her father. PHQ=5 mild ANA=5 mild Plan Of Treatment Next Appt Details Provider Name:Maria G Osuna , 03/28/2025 09:30:00 AM, [facility], [address], [address], Provider Name:Jessi Chakraborty , 04/14/2025 08:00:00 AM, [facility], [facility] [address], [address], Insurance Providers Payer Name Payer Address Payer Phone Subscriber Number Group Number Insured Name Patient Relationship to Insured Coverage Start Date Coverage End Date [employer] [facility] [address] [place] [phone] [id number] LIA MARIA G Self - patient is the insured Medical (General) History Medical History History ICD Code Problems: Bipolar affective disorder, cu rrently depressed, mild Chronic post-traumatic stress disorder Generalized anxiety disorder Long-term drug therapy Obesity Primary insomnia Tobacco user Unable to concentrate , Past Psychiatric History: Anxiety Disord er,PTSD,Bipolar Disorder undefined Surgical History Surgery Date(Month/Year) Other 05/29/2016 Removal of gallbladder (88643) 4
== END 2025-03-20 15:28 | disposition home or self-care (01) ==
LOC: ANHFOHIMG 15:29
PROVIDERS: PCP Family Medicine; Visit Provider Nurse Practitioner Family
DX: Z12.31 Encounter for screening mammogram for malignant neoplasm of breast (principal)
CPT/HCPCS: 77063; 77067